=== PATIENT | female | born 1950 | race Caucasian/White ===

== ENCOUNTER → 2017-09-04 11:06 | Outpatient (CLI) | payer MEDICARE, OTHER, SELFPAY ==
[2017-09-04 12:21] LABS: ALB/GLOB Ratio 1.1 RATIO (0.9-2.4); AST(SGOT) 17 U/L (15-37); Alanine Aminotransfer ALT/SGPT 27 U/L (13-56); Albumin, Serum 3.9 g/dL (3.2-5.0); Alkaline Phosphatase 120 U/L (45-117); Anion Gap 8 (5-15); BUN 16 mg/dL (7-18); BUN/Creat Ratio 19.5 RATIO (10-20); Calcium,Total 9.8 mg/dL (8.5-10.1); Chloride 104 mmol/L (98-107); Creatinine, Serum 0.82 mg/dL (0.55-1.02); EST Glomerular Filtration Rate 74 mL/min (>60); Est Glom Filt Rate - Afr Amer 90 mL/min (>60); Globulin 3.5 g/dL (2.2-4.2); Glucose 90 mg/dL (74-106); Potassium 3.6 mmol/L (3.5-5.1); Protein, Total 7.4 g/dL (6.4-8.2); Sodium Level 141 mmol/L (136-145)
== END ==
PROVIDERS: Family Provider Family Medicine; PCP Family Medicine; Visit Provider Family Medicine
DX: I10 Essential (primary) hypertension (principal)
CPT/HCPCS: 36415; 80053

== ENCOUNTER → 2017-11-08 15:28 | Outpatient (CLI) | payer MEDICARE, OTHER, SELFPAY ==
--- NOTE | 2017-11-08 15:29 | BI_ITS ---
MAMMOGRAPHY - BILATERAL SCREENING REASON FOR EXAM: Female, 66 years old. Routine annual screening examination. PERTINENT HISTORY: Non-contributory. TECHNIQUE: Digital bilateral breast eusebio (3D mammographic acquisition) in the CC and MLO projections. 2-D mediolateral oblique (MLO) and craniocaudad (CC) views of both breasts were obtained. CAD: Full Field Digital Mammography with Computer Added Detection was performed. COMPARISON: Comparison is made with prior study dated October 03, 2016 and July 15, 2015. FINDINGS: Breast Composition: The breasts are almost entirely fatty. There are no dominant masses or suspicious calcifications. No other significant abnormalities are identified. There has been no significant change since the prior study. BI/SCREENING MAMM (CAD), BILAT IMPRESSION: Stable bilateral screening mammogram. Yearly follow-up mammogram recommended. (A) ASSESSMENT CATEGORY: BIRADS Category 1: Negative. A letter regarding these results will be sent to the patient by the facility within 30 days. Approximately 10% of breast cancers are not detected by mammography. A normal mammogram should not delay biopsy of a clinically suspicious abnormality. [id number] Electronically Signed: Jose Pino MD at 9:25 EDT Tel [phone], Service support ,
== END ==
PROVIDERS: Family Provider Family Medicine; PCP Family Medicine; Visit Provider Family Medicine
DX: Z12.31 Encounter for screening mammogram for malignant neoplasm of breast (principal)
CPT/HCPCS: 77063; 77067

== ENCOUNTER → 2018-12-05 11:59 | Outpatient (CLI) | payer MEDICARE, OTHER, SELFPAY ==
[2018-12-05 11:36] VITALS: BMI 34.0
[2018-12-05 12:42] LABS: Erythrocyte Sedimentation Rate 23 mm/hr (0-30)
[2018-12-05 12:48] LABS: Absolute Lymphocyte Count 0.84 X10^3/ul (0.83-4.51); Absolute Neutrophil Count 3.4 X10^3/uL (2.0-7.7); Basophil# 0.02 X10^3/uL; Basophil% 0.4 % (0-1); Eosinophil# 0.13 X10^3/uL; Eosinophils% 2.8 % (0-5); Hematocrit 42.5 % (37-47); Hemoglobin 14.4 g/dl (12.0-15.0); Lymphocyte # 0.84 X10^3/ul (4.0); Lymphocyte % 17.8 % (19-41); Mean Corp Hgb Conc 33.9 g/gl (32-36); Mean Corpuscular Hgb 30.8 pg (27.0-32.0); Mean Platelet Vol. 12.3 fl (6.2-12.0); Monocyte# 0.35 X10^3/uL; Monocyte% 7.4 % (0-10); Neutrophil # 3.37 X10^3/uL (2.7-7.7); Neutrophil % 71.4 % (47-70); Platelet Count 172 K/mm3 (150-450); RBC Distribution Width CV 13.4 % (11.6-14.6); RBC Distribution Width SD 44.2 fl (35.1-43.9); Red Blood Count 4.67 M/mm3 (4.2-5.4); White Blood Count 4.7 K/mm3 (4.4-11.0)
[2018-12-05 12:59] LABS: POSITIVE COUNT NO; POSITIVE DIFFERENTIAL NO; POSITIVE MORPHOLOGY NO
[2018-12-05 13:12] LABS: ALB/GLOB Ratio 1.2 RATIO (0.9-2.4); AST(SGOT) 19 U/L (15-37); Alanine Aminotransfer ALT/SGPT 31 U/L (13-56); Albumin, Serum 3.8 g/dL (3.2-5.0); Alkaline Phosphatase 117 U/L (45-117); Anion Gap 4 (5-15); BUN 19 mg/dL (7-18); BUN/Creat Ratio 24.9 RATIO (10-20); Calcium,Total 9.8 mg/dL (8.5-10.1); Chloride 108 mmol/L (98-107); Creatinine, Serum 0.76 mg/dL (0.55-1.02); EST Glomerular Filtration Rate 80 mL/min (>60); Est Glom Filt Rate - Afr Amer 97 mL/min (>60); Globulin 3.3 g/dL (2.2-4.2); Glucose 92 mg/dL (74-106); Potassium 3.9 mmol/L (3.5-5.1); Protein, Total 7.1 g/dL (6.4-8.2); Sodium Level 140 mmol/L (136-145); Thyroid Stim Hormone (TSH) 1.39 uIU/mL (0.358-3.74)
== END ==
PROVIDERS: Family Provider Family Medicine; PCP Family Medicine; Visit Provider Family Medicine
DX: I10 Essential (primary) hypertension (principal); L40.50 Arthropathic psoriasis, unspecified
CPT/HCPCS: 36415; 80053; 84443; 85025; 85652

== ENCOUNTER → 2018-12-06 13:37 | Outpatient (CLI) | payer MEDICARE, OTHER, SELFPAY ==
[2018-12-05 11:36] VITALS: BMI 34.0
--- NOTE | 2018-12-06 14:00 | RAD_ITS ---
STUDY: X-RAY - PELVIS AND LEFT HIP REASON FOR EXAM: Female, 68 years old. Pain. TECHNIQUE: 4 views of the pelvis and hip. COMPARISON: None. FINDINGS: There is a non-specific bowel gas pattern. Normal visualized soft tissue structures. There are multiple calcified phleboliths. There is narrowing with cortical sclerosis and osteophyte formation of the sacroiliac joint consistent with degenerative osteoarthritic changes. Normal iliac wings and visualized sacrum. Normal bilateral superior and inferior pubic rami. There are degenerative changes of the pubic symphysis with articular narrowing and sclerosis. Normal bilateral ischial tuberosities. There is a right artificial hip without evidence of acute abnormality. There are subchondral cysts within increased sclerosis of the articular surface of the femoral head. It is otherwise unremarkable. There is cortical sclerosis with sub-cortical cyst formation of the acetabulum. is severe articular joint space narrowing of the hip. RAD/HIP, UNI W/ Pelvis 2-3 Views IMPRESSION: 1. Marked degenerative changes left hip without fracture or dislocation. 2. Mild degenerative changes symphysis pubis and sacroiliac joints. 3. Intact right artificial hip. Electronically Signed: Rachid Farrell DO at 17:34 EDT Tel [phone], Service support ,
== END ==
PROVIDERS: Family Provider Family Medicine; PCP Family Medicine; Referring Provider Family Medicine; Visit Provider Family Medicine
DX: M19.90 Unspecified osteoarthritis, unspecified site (principal)
CPT/HCPCS: 73502

== ENCOUNTER → 2018-12-11 06:19 | Outpatient (CLI) | payer MEDICARE, OTHER, SELFPAY ==
[2018-12-05 11:36] VITALS: BMI 34.0
--- NOTE | 2018-12-11 14:38 | NEURO ---
NCS and/or EMG Patient Report Ordering Doctor: Ambrose Estrella DATE OF SERVICE: 12/11/18 Katy May is a 68-year-old female presents for electrodiagnostic testing of the lower limbs. She reports progressive weakness in both legs. She reports increased left hip pain. Electrodiagnostic findings: Peroneal motor nerve demonstrates normal distal latency, amplitude and conduction velocity bilaterally. Tibial motor response within normal limits bilaterally. Sensory responses within normal limits. Normal peroneal and tibial F waves. Normal H reflex bilaterally. On needle EMG, all muscles tested in the lower limb showed no evidence of denervation with normal motor unit action potentials. Electrodiagnostic impression: This is a normal electrodiagnostic study of the lower limbs. There is no electrodiagnostic evidence for lumbosacral radiculopathy or peripheral polyneuropathy. There is no electrodiagnostic evidence for myopathy. If there are any further questions, please not hesitate to contact me.
== END ==
PROVIDERS: Family Provider Family Medicine; PCP Family Medicine; Referring Provider Family Medicine; Visit Provider Family Medicine
DX: R29.898 Other symptoms and signs involving the musculoskeletal system (principal)
CPT/HCPCS: 95886; 95912

== ENCOUNTER → 2018-12-17 12:14 | Outpatient (CLI) | payer MEDICARE, OTHER, SELFPAY ==
[2018-12-05 11:36] VITALS: BMI 34.0
--- NOTE | 2018-12-17 12:16 | BI_ITS ---
MAMMOGRAPHY - BILATERAL SCREENING 3-D TOMOSYNTHESIS REASON FOR EXAM: Female, 68 years old. Bilateral Screening 3-D tomosynthesis PERTINENT HISTORY: No significant family history. TECHNIQUE: 2-D mammograms and 3-D Tomosynthesis of the breast (s) were performed. CAD was performed. COMPARISON: None. FINDINGS: The breast composition is composed of scattered fibroglandular density. Scattered benign calcifications are seen. No dense spiculated masses or suspicious microcalcifications are identified. No architectural distortion is identified. There is no skin thickening or retraction. There has been no significant change since the prior study. BI/SCREEN MAMM (CAD) W/BESSIE BILAT IMPRESSION: No mammographic signs of malignancy. Routine yearly mammograms recommended. ASSESSMENT CATEGORY: BIRADS Category 1: Negative. A letter regarding these results will be sent to the patient by the facility within 30 days. FOLLOW UP RECOMMENDATION: Yearly follow up mammogram recommended. (A) Approximately 10% of breast cancers are not detected by mammography. A normal mammogram should not delay biopsy of a clinically suspicious abnormality. Electronically Signed: Dontae Yadav MD at 14:15 EDT , Service support ,
== END ==
PROVIDERS: Family Provider Family Medicine; PCP Family Medicine; Referring Provider Family Medicine; Visit Provider Family Medicine
DX: Z12.31 Encounter for screening mammogram for malignant neoplasm of breast (principal)
CPT/HCPCS: 77063; 77067

== ENCOUNTER → 2019-01-03 09:43 | Outpatient (CLI) | payer MEDICARE, OTHER, SELFPAY ==
[2019-01-03 09:08] VITALS: BMI 34.0
--- NOTE | 2019-01-03 09:46 | EKG12_ITS ---
Test Reason : PRE-OP Blood Pressure : / mmHG Vent. Rate : 069 BPM Atrial Rate : 069 BPM P-R Int : 166 ms QRS Dur : 090 ms QT Int : 352 ms P-R-T Axes : 057 023 033 degrees QTc Int : 377 ms Normal sinus rhythm Normal ECG Confirmed by VANIA BARBER ([id number]), photographic editor NATHALIE PEREIRA ([id number]) on 01/06/2019 1:12:21 PM Referred By: Rudy Sparrow Confirmed By:VANIA BARBER
== END ==
PROVIDERS: Family Provider Family Medicine; PCP Family Medicine; Referring Provider Nurse Practitioner Family; Visit Provider Nurse Practitioner Family
DX: Z01.818 Encounter for other preprocedural examination (principal)
CPT/HCPCS: 93005

== ENCOUNTER → 2019-01-22 13:34 | Outpatient (CLI) | payer MEDICARE, OTHER, SELFPAY ==
[2019-01-20 11:05] VITALS: BMI 34.0
[2019-01-22 14:28] LABS: Albumin, Serum 3.6 g/dL (3.2-5.0)
== END ==
PROVIDERS: Family Provider Family Medicine; PCP Family Medicine; Referring Provider Specialist; Visit Provider Specialist
DX: Z01.812 Encounter for preprocedural laboratory examination (principal)
CPT/HCPCS: 36415; 82040

== ENCOUNTER 2019-02-05 07:11 | Inpatient (IN) | payer MEDICARE, OTHER, SELFPAY ==
[2019-01-03 09:08] VITALS: BMI 34.0
--- NOTE | 2019-01-20 09:15 | HP.PCM_ITS ---
History and Physical History and Physical Patient Name: Katy May : 1950 From: NADINE MCGOVERN PA-C DATE OF SURGERY: 02/05/2019 SCHEDULED PROCEDURE: left total hip arthroplasty HISTORY OF PRESENT ILLNESS: Preoperative history and physical exam was performed on January 20, 2019. This is a 68-year-old female who presents today for history and physical exam for an upcoming left total hip arthroplasty. She has been having pain for approximately 9 months in the left hip. Patient did have a previous surgery on the right for a total hip arthroplasty by Dr. Josh Luciano in 2006. Patient states her pain is been constant, aching, sharp, sore. Pain is increased with stairs, driving, and sleeping. She has required the use of tramadol. Patient has difficult time with activities of daily living including housework, leisure activities such as hiking, treadmill, and stationary bike. Patient has tried rest, heat with minimal relief. She has been on oral medications consisting of Aleve and tramadol with only temporary relief. Patient denies previous surgery on the left hip. She has been using a cane for the past 3 weeks. Patient has medical history pertinent for hypertension. She currently denies any recent chest pain, shortness of breath, fevers chills, recent infections. After failing conservative measures and discussing treatment options with Dr. Yuri Jasso, the patient would like to proceed with a left total hip arthroplasty. We are obtaining surgical clearance from patient's primary care physician. REVIEW OF SYSTEMS: ROS: Const: Denies anorexia, anxiety, change in appetite, fever and weight change,hard of hearing, and vision problems. CV: Denies chest pain, heart murmur, irregular heartbeat and peripheral vascular disease. Resp: Denies asthma, cough, pneumonia, sleep apnea, shortness of breath, tuberculosis and wheezing. GI: Denies constipation, diarrhea, heartburn, nausea, bloody stools and vomitin g, and difficulty swallowing. : Denies incontinence. Musculo: REPORTS leg swelling, trouble walking and weakness and limp. Skin: Denies Raynaud's, history of shingles and tattoo. Neuro: Denies ambulatory dysfunction, dizziness, numbness/tingling and tremor. Psych: Denies anxiety, depression, insomnia, mental illness and stress. Juan Daniel/Lymph: Denies anemia, bleeding/bruising tendency and past transfusion. Reviewed, no changes. PAST MEDICAL HISTORY: Advance Care Plan: Other Directive, POA Effective Date: 12/20/2018 PMH: Medical Problems: Arthritis, High Blood Pressure Accidents: None Surgical Hx: Carpal Tunnel Release Lt - (11/1988) Hip Replacement Rt - (10/2006) Appendectomy - did not have have Tubal Ligation - (02/1985) Section - (05/1977) 1978,November 1982,Dec 1984,1Oct Carpal Tunnel Release Rt - (10/1988) Knee Arthroscopy Rt - (01/1997) Section - X 4 Carpal Tunnel - BLT 1988 Appendectomy - RIGHT KNEE 1997 Hip Replacement - (11/07/2006) RIGHT [facility] Anesthesia Complications: None Assistive Devices: Glasses Reviewed, no changes. SOCIAL HISTORY: SH: Marital: .Occupation: Retired.Work Status: Retired.Hand Dominance: Right- handed. Personal Habits: Cigarette Use: Former.Smokeless Tobacco: Never Used Smokeless Tobacco.E-Cigarette Use: Never used.Alcohol: Denies use.Drug Use: Denies Use.Enjoy Exercising: Never Exercises. Reviewed, no changes. VITALS: Ht: 65 Wt: 203lb Wt k.081 BMI: 33.8 BP: 130/90 Pulse: 70 Resp: 16 T: 97.8 T: 36.6C ALLERGIES: No Known Drug Allergy MEDICATIONS: Ultram 50 mg 1 by mouth q6 hour as needed pain, Losartan Potassium/Hydroc hlorothiazide 100-25 mg 1po qday, Womens Multi 1po qday, Fish Oil 1000 mg 1po qday, Calcium 600+D3 600-200 MG-Unit 1po qday, Turmeric Curcumin 500 mg 1po qday PRE-OP EXAM: General appearance:NORMAL Other: Eyes: Conjunctivae and lids: NORMAL Pupils: ERR Ears, Nose, Mouth, and Throat: NORMAL Other: Inspection of lips, teeth and gums: NORMAL Other: Neck: Examination of neck: no masses noted. Respiratory: Assessment of respiratory effort: NORMAL Other: Auscultation of lungs: clear to auscultation no wheezes, rhonchi or rales. Cardiovascular: Auscultation of heart: regular rate and rhythm, no murmurs, gallops or rubs. Gastrointestinal: Exam of abdomen: soft, nontender, nondistended bowel sounds present. PHYSICAL EXAMINATION: Patient walks with antalgic gait. She is currently using a cane. Left hip is cool to touch without erythema. Patient has increased pain with flexion, internal rotation, and adduction. Patient has 10 left hip flexion contracture. Flexion to 65, internal rotation to neutral, external rotation 30. Sensation intact to light touch. IMAGING STUDIES: X-rays were obtained and [facility] [place] on 2018 of the left hip including 3 views AP pelvis, AP left hip, crossfire lateral reveals severe osteoarthritis consistent with complete joint space loss with subchondral sclerosis, osteophyte formation, and flattening of the femoral head. There is evidence of significant subchondral cyst with collapse versus avascular necrosis. IMPRESSION: 1. Severe left hip osteoarthritis 2. Hypertension PLAN: Dr. Yuri Jasso did discuss and review with the patient all treatment options including surgical versus nonsurgical options. Patient does wish to proceed with the above-stated procedure. Potential risks, benefits, and complications of the procedure were discussed in detail including but not limited to , infection, nerve and blood vessel damage, persistent pain, numbness, tingling, paresthesias, blood clot, pulmonary embolism, and requirement for possible further surgery. The patient expressed full understanding and has no further questions for the doctor. Patient does agree to proceed with the above-stated procedure and has signed the surgery consent form. This dictation was created using voice recognition software. Phonetic and/or grammatical errors may exist.. ___ I have re-examined the patient. There are no clinical changes since date of exam. ___ See progress notes for changes. ___ Dictated on admission Date: Time: Signature:
[2019-01-20 11:05] VITALS: BP 126/70; PULSE 80; RESP 16; TEMP 36.8; O2SAT 94; BMI 34.0
[2019-01-20 11:50] LABS: Absolute Lymphocyte Count 0.84 X10^3/uL (0.83-4.51); Absolute Neutrophil Count 3.4 X10^3/uL (2.0-7.7); Basophil# 0.03 X10^3/uL; Basophil% 0.6 % (0-1); Eosinophil# 0.12 X10^3/uL; Eosinophils% 2.5 % (0-5); Hematocrit 43.3 % (37-47); Hemoglobin 14.5 g/dL (12.0-15.0); Lymphocyte # 0.84 X10^3/ul (4.0); Lymphocyte % 17.6 % (19-41); Mean Corp Hgb Conc 33.5 g/dL (32-36); Mean Corpuscular Hgb 31.4 pg (27.0-32.0); Mean Corpuscular Volume 93.7 fL (81-99); Mean Platelet Vol. 11.8 fl (6.2-12.0); Monocyte# 0.38 X10^3/uL; Monocyte% 7.9 % (0-10); NRBC Flagged by Analyzer 0 % (0-5); Neutrophil % 71.2 % (47-70); Platelet Count 172 K/mm3 (150-450); RBC Distribution Width CV 12.8 % (11.6-14.6); RBC Distribution Width SD 43.6 fl (35.1-43.9); Red Blood Count 4.62 M/mm3 (4.2-5.4); White Blood Count 4.8 K/mm3 (4.4-11.0)
[2019-01-20 12:19] LABS: BUN 21 mg/dL (7-18); Creatinine, Serum 0.87 mg/dL (0.55-1.02); Glucose 108 mg/dL (74-106)
[2019-01-20 12:20] LABS: Anion Gap 5 (5-15); BUN/Creat Ratio 24.2 RATIO (10-20); Calcium,Total 9.9 mg/dL (8.5-10.1); Chloride 107 mmol/L (98-107); EST Glomerular Filtration Rate 69 mL/min (>60); Est Glom Filt Rate - Afr Amer 84 mL/min (>60); Estimated Creatinine Clearance 55.69 ml/min; Potassium 3.8 mmol/L (3.5-5.1); Sodium Level 141 mmol/L (136-145)
[2019-02-05] VITALS (10 sets, daily range): BP systolic 101–150; BP diastolic 47–77; PULSE 62–86; RESP 16–19; TEMP 36.2–37.1; O2SAT 93–99; BMI 34.0
[2019-02-05] MEDS: Lactated Ringers 1,000 ML 999 ML IV (08:00)
[2019-02-05 08:11] LABS: Bedside Glucose 93 mg/dL (70-110)
[2019-02-05] MEDS: Acetaminophen 500 MG Tablet 1000 MG PO ×3 (08:12→22:58)
[2019-02-05] MEDS: Celecoxib 200 MG Capsule 400 MG PO (08:12)
[2019-02-05] MEDS: Gabapentin 600 MG Tablet PO (08:12)
[2019-02-05] MEDS: Scopolamine 1mg/72hr Patch 1 PATCH TRANSDERM. (08:13)
[2019-02-05] MEDS: Magnesium Sulfate 4gm/100mL 4 GM/100 ML IV.SOLN. IV (08:13)
--- NOTE | 2019-02-05 09:15 | RAD_ITS ---
STUDY: X-RAY - PELVIS AND LEFT HIP REASON FOR EXAM: Female, 68 years old. Left hip replacement. TECHNIQUE: 2 views of the pelvis and hip. COMPARISON: None. FINDINGS: The patient is status post left total hip replacement. There is good alignment. RAD/Hip 1 view with Pelvis IMPRESSION: Status post left hip replacement. Electronically Signed: Jose Pino, at 13:33 EDT , Service support ,
[2019-02-05] MEDS: Cefazolin 2 GM in 0.9% Normal Saline 100 ML IV (09:43)
[2019-02-05] MEDS: Lactated Ringers 1,000 ML 125 ML IV ×3 (10:00→20:04)
[2019-02-05] MEDS: dexAMETHasone 10 MG/ML Vial IV (10:00)
--- NOTE | 2019-02-05 11:11 | OP.PCM_ITS ---
Report of Operation Date of Procedure: 02/05/19 Pre-Operative Diagnosis: Left hip primary osteoarthritis Post-Operative Diagnosis: Left hip primary osteoarthritis Surgery/Procedure Performed:: Left direct anterior minimally invasive total hip replacement Description of Surgical Findings:: Stable hip with equal leg lengths brimmer blocker: Lalita Roman Type of Anesthesia:: Spinal Anesthesiologist: Po Bah Special Medications: 2 g Ancef, 1 g TXA at incision, 1 g TXA closure, 10 mg Decadron, joint cocktail (5 mg Duramorph, 30 mL of 0.5% Ropivicaine, 1000 units of epinephrine, 30 mg of Toradol) Specimen's removed: Bony cuts Estimated Blood Loss (mL): 150 Fluids Replaced: 2 L crystalloid Description of Procedure: Components used: 1. Accolade 2 Alma femoral stem size 4 132 ? 2. Alma trident 2 acetabular shell size 52 mm 3. Kevin X3 polyethylene E 4. Alma Biolox delta 36mm, -2.5mm femoral head Brief history operative indications: 68yo female who failed conservative measures for their hip osteoarthritis. X- rays were consistent with osteoarthritis including joint space narrowing, osteophyte formation and subchondral cysts. Total hip replacement was discussed with the patient with risks and benefits including but not limited to blood loss, DVTs, PEs, neurovascular damage, dislocation, general risks of anesthesia including loss of life. Patient demonstrated an understanding medical clearance is obtained the patient was consented for surgery. Procedure: On the date of procedure the patient's left hip was marked in the preoperative area. Patient was then taken back to the operating room where anesthesia assumed control of the C-spine and airway and administered anesthetic. Patient was transferred to the operating table and placed in the supine position. The hips were placed at the break of the bed and a sacral bump was placed. The left lower extremity was then prepped out in a sterile fashion using chlorhexidine while the surgeon scrubbed. The PA was vital in the positioning of the patient. Upon reentering the room the left lower extremity was draped in the standard orthopedic fashion and the incision was marked. A timeout was called and everyone agreed upon the side, the site, the procedure be performed, antibody given, and patient's identity. At this time incision was made through skin, subcutaneous tissue, and fat down to fascia. The fascia was then incised and the TFL was retracted laterally. A retractor was placed on the lateral border of the femoral neck. Attention was directed to the inferior portion of the approach and all crossing vessels were identified and appropriately coagulated. A retractor was then placed on the medial portion of the femoral neck. The anterior capsule was then cleared of all soft tissue and then H shaped capsulotomy was made. The retractors were then placed inside the capsule. The femoral neck was identified and a cleanup cut was made. At this time a power corkscrew was used to remove the femoral head. Attention was then turned toward the acetabulum where the soft tissues were appropriately retracted and the acetabulum was sequentially reamed to 52 mm. A 52 mm cup was then selected and impacted into place. Acetabular liner was impacted into place and locking mechanism was verified. The position of the acetabular cup was then verified under live fluoroscopy. Attention was then turned to the femur. Soft tissue releases on the medial and lateral femoral neck were appropriately done, the leg was externally rotated and lateralized. A Sweet retractor was placed medially and proximally to the greater trochanter this allowed appropriate visualization and exposure of the femoral canal. Rongeour was then used to remove excess lateral bone. A canal finder and entry broach were used to open the proximal canal. Once we verified we were down the femoral canal we subsequently broached up to a size 4 femur. The appropriate neck was placed in the previously selected head was trialed with a -2.5 mm neck. Traction was pulled and the hip was reduced with internal rotation. Once it was appropriately reduced and stability was checked. There was minimal shuck, equal leg lengths and appropriate stability with hype rextension and external rotation as well as with 90? flexion and internal rotation. Fluoroscopy was then also used to verify the position of the components and leg lengths using the contralateral side for comparison. The trial components were then dislocated the proximal femur was again exposed and the components were removed from the wound. The final components were verified and opened. The wound was copiously irrigated out with normal saline. The acetabulum was checked for any residual debris. The final components were placed and impacted. Traction and internal rotation were again used to reduce the hip. After adequate reduction the hip remained stable with appropriate leg lengths. The final components were once again checked with live fluoroscopy and were found to be satisfactory. The wound was then copiously irrigated with normal saline once more, and hemostasis was obtained. Closure was then done using #1 Vicryl runner to close the fascia. A 2-0 vicryl interuppted sutures were used to close the subcutaneous skin. A 3-0 Monocryl and Steri-Strips were used for final skin closure. A Silverlon dressing was placed. Patient was awakened by anesthesia and transferred to the [facility]. Patient was then transferred to the PACU for recovery. Postoperative plan: Patient will get 24 hours postop antibiotics. Patient will get in-house physical therapy and will be weight-bear as tolerated. Patient will follow up in office in 2 weeks for a wound check and x-rays. Grafts/Implants Used: Alma - Complications No intraoperative complications - Admit VTE Documentation VTE Present on Admission: No VTE Mechan Device Prophylaxis: SCD's, Thigh High KENZIE Hose VTE Pharm Prophylaxis ordered?: Yes
--- NOTE | 2019-02-05 11:50 | RAD_ITS ---
STUDY: X-RAY - PELVIS AND LEFT HIP REASON FOR EXAM: Female, 68 years old. Total hip replacement. TECHNIQUE: Tube views of the pelvis and hip. COMPARISON: None. FINDINGS: The patient is status post left hip replacement. There is good alignment. Postoperative soft tissue changes. RAD/Hip Min 2 Views (Portable) IMPRESSION: Status post left total hip replacement. There is good alignment. Postoperative soft tissue changes. Electronically Signed: Jose Pino, at 13:22 EDT , Service support ,
[2019-02-05] MEDS: Calcium Carb/Vitamin D 1 TABLET Tablet PO (13:40)
[2019-02-05] MEDS: Omega-3 Acid Ethyl Esters 1 GM Capsule PO (13:40)
[2019-02-05] MEDS: Multivitamins,Ther W-Minerals Tablet 1 TABLET PO (13:40)
[2019-02-05] MEDS: Aspirin 81 MG TAB.CHEW PO ×2 (13:40→17:17)
[2019-02-05] MEDS: Famotidine 20 MG Tablet PO (13:40)
[2019-02-05] MEDS: Losartan Potassium 100 MG Tablet PO (13:41)
[2019-02-05] MEDS: Senna/Docusate Sodium 1 Tablet 2 TABLET PO ×2 (13:41→22:59)
[2019-02-05] MEDS: hydroCHLOROthiazide 12.5mg 12.5 MG PO (13:41)
[2019-02-05] MEDS: Ensure Surgery 237 ML LIQUID PO (17:17)
[2019-02-05] MEDS: Cefazolin 1 GM/50 ML BAG IV (17:17)
[2019-02-06] MEDS: Cefazolin 1 GM/50 ML BAG IV (01:14)
[2019-02-06] MEDS: Ketorolac 15 MG/ML Vial IV (01:17)
[2019-02-06 02:00] VITALS: BP 121/67; PULSE 64; RESP 18; TEMP 37.1; O2SAT 97
[2019-02-06] MEDS: Lactated Ringers 1,000 ML 125 ML IV (03:47)
[2019-02-06] MEDS: oxyCODONE 5 MG Tablet PO ×2 (03:49→11:06)
[2019-02-06] MEDS: Acetaminophen 500 MG Tablet 1000 MG PO ×2 (05:53→13:30)
[2019-02-06 05:59] LABS: Hematocrit 34.8 % (37-47); Hemoglobin 11.6 g/dL (12.0-15.0); Mean Corp Hgb Conc 33.3 g/dL (32-36); Mean Corpuscular Hgb 31.1 pg (27.0-32.0); Mean Corpuscular Volume 93.3 fL (81-99); Mean Platelet Vol. 12.3 fl (6.2-12.0); Platelet Count 159 K/mm3 (150-450); RBC Distribution Width CV 12.5 % (11.6-14.6); RBC Distribution Width SD 43.1 fl (35.1-43.9); Red Blood Count 3.73 M/mm3 (4.2-5.4); White Blood Count 15.8 K/mm3 (4.4-11.0)
[2019-02-06 06:13] LABS: Anion Gap 6 (5-15); BUN 17 mg/dL (7-18); Calcium,Total 8.9 mg/dL (8.5-10.1); Chloride 109 mmol/L (98-107); Creatinine, Serum 0.74 mg/dL (0.55-1.02); EST Glomerular Filtration Rate 83 mL/min (>60); Est Glom Filt Rate - Afr Amer 101 mL/min (>60); Estimated Creatinine Clearance 48.45 ml/min; Glucose 126 mg/dL (74-106); Potassium 3.9 mmol/L (3.5-5.1); Sodium Level 142 mmol/L (136-145)
--- NOTE | 2019-02-06 09:29 | PN.ORTHO_ITS ---
Subjective: The patient was sitting in bedside chair upon examination. Patient denies any chest pain, shortness of breath, dizziness, lightheadedness, nausea or vomiting, or calf pain. Pain is controlled on medications. No adverse overnight events. Overall patient is doing very well. She has participated in physical therapy and tolerated this very well. She has minimal pain. Patient does wish to go home today. Objective: Vital signs stable and afebrile. Patient is able to plantarflex and dorsiflex actively. Sensation is intact to light touch to saphenous, sural, superficial and deep peroneal, and tibial distribution. Dressing is clean dry and intact. Negative Homans bilaterally, negative signs and symptoms of DVT. - Physical Exam General: Alert, Oriented x3, Cooperative, No apparent distress Vital Signs Temp Pulse Resp BP Pulse Ox 98.8 F 64 18 121/67 H 97 02/06/19 02:00 02/06/19 02:00 02/06/19 02:00 02/06/19 02:00 02/06/19 02:00 Oxygen Flow Rate (L/min) 6 Oxygen Delivery Method Room Air Weight: 92.6 kg Body Mass Index (BMI) 34.0 Intake and Output for Last 24 Hours 02/04/19 02/05/19 02/06/19 23:59 23:59 23:59 Intake Total 3115.42 / 4157.09 1914.59 / 1914.59 Output Total 500 / 1700 1700 / 1700 Balance 2615.42 / 2457.09 214.59 / 214.59 Laboratory Tests Past 24 Hrs 02/06/19 02/06/19 05:42 05:42 WBC 15.8 H RBC 3.73 L Hgb 11.6 L Hct 34.8 L MCV 93.3 MCH 31.1 MCHC 33.3 RDW Std Deviation 43.1 RDW Coeff of Bret 12.5 Plt Count 159 MPV 12.3 H Sodium 142 Potassium 3.9 Chloride 109 H Carbon Dioxide 27.0 Anion Gap 6 BUN 17 Creatinine 0.74 Estim Creat Clear Calc 48.45 Est GFR (MDRD) Af Amer 101 Est GFR (MDRD) Non-Af 83 BUN/Creatinine Ratio 23.0 H Glucose 126 H Calcium 8.9 Medical Necessity - Tobacco Use Smoking Status: Former smoker Tobacco Use: Non-smoker Assessment/Plan 1. S/P left direct anterior total hip arthroplasty POD #1 2. Continue Pain Medications: Tylenol and OxyIR 3. DVT Prophylaxis: Aspirin 81 mg twice daily for DVT prophylaxis for 4 weeks postoperatively 4. PT/OT: Weightbearing as tolerated 5. H & H: 11.6/34.8, asymptomatic 6. Reactive leukocytosis: Currently 15.8, afebrile. Patient did receive Decadron intraoperatively. 7. Encouraged Incentive Spirometry 8. Disposition: Plan will be for discharge home today. Prescriptions will be attached to chart. Patient asked if she is able to take the tramadol that she just filled at home. I recommended she continue with the extra strength Tylenol primarily for pain control and is okay to take the tramadol. Patient will be given a prescription for the OxyIR but will not get it filled. If tramadol is not controlling her pain she will then get the oxycodone filled. I discussed with her she should never be taking 2 narcotics at one time. She voiced under standing agreement. Patient will follow-up per postop instructions..
--- NOTE | 2019-02-06 09:36 | DCINST_ITS ---
Discharge Diet: No Restrictions Discharge Activity: May Not Drive - while taking narcotic pain medications. May shower in (days): 1 - Turn dressing away from water Ice area for (Minutes): 20 - Every 1-2 hours while awake Weight Bearing Status: Weight bearing as tolerated Elevate: Operative Extremity Additional Activity Instructions:: Wear elastic stockings for 2 weeks. DO NOT use alcohol with narcotic pain medication. DO NOT make important decisions while taking narcotic medication. If you have problems with taking your medication (rash, itching, nausea, etc.) call the office at once. Call your doctor if your incision/area has: Increased Pain/ Swelling, Increased Redness, Foul Smelling Discharge Call your doctor if you observe: Fever of 101 or Higher Remove Dressing in (days):: 4 - Okay to remove dressing on February 10, 2019 Additional Instructions: Follow with [facility] postop instructions Dressing: Once dressing has been removed, please place ABD/4 x 4 dressing/washcloth in the skinfold to protect the incision to keep it clean and dry. This should be done for a minimum of 4 weeks until incision is well-healed Pain medication: Okay to use extra strength Tylenol for primary pain control and tramadol at home. Patient has prescription of tramadol at home and will use this if it controls her pain. Patient will be given a prescription for the oxycodone but will not get it filled. If tramadol does not control her pain she can then switch over to the oxycodone for breakthrough pain. Do not take to narcotics at the same time. Allergies/Adverse Reactions: Allergies No Known Allergies Allergy (Verified 01/20/19 11:00) Medications to take at Discharge calcium carb-vit D3-minerals 600 mg calcium-400 unit tablet 1 tab PO QDAY 08/30/17 tdrupaqwjbhl-Ce-jbkt-minerals tablet 1 tab PO DAILY 08/30/17 omega-3 fatty acids 1,000 mg capsule 1,000 mg PO DAILY 01/03/19 Losartan/Hydrochlorothiazide [Hyzaar 100-12.5 Tablet] 1 tab PO QDAY 01/20/19 Acetaminophen [Tylenol] 1,000 mg PO Q8 #100 tab 02/06/19 Aspirin [Aspirin, Baby] 81 mg PO BIDCM #60 tab.chew 02/06/19 Oxycodone [Oxyir] 5 - 10 mg PO Q4H PRN PRN 4 Days #30 tab 02/06/19 Senna/Docusate Sodium [Senokot-S] 2 tab PO BID #20 tab 02/06/19 The following prescriptions were given: Aspirin [Aspirin, Baby] 81 mg PO BIDCM #60 tab.chew Prescription Printed Oxycodone [Oxyir] 5 - 10 mg PO Q4H PRN PRN 4 Days #30 tab PRN Reason: Mod-Severe Pain (-03/06) Prescription Printed Senna/Docusate Sodium [Senokot-S] 2 tab PO BID #20 tab Prescription Printed Acetaminophen [Tylenol] 1,000 mg PO Q8 #100 tab Prescription Printed Primary Care Physician: Ambrose Estrella DO [Primary Care Provider] - Test Results: Test results from this visit will be discussed in further detail at your follow- up appointment, if applicable. Please Follow Up With: Physical Therapy When: 02/10/19 @ 11:00 Please Follow Up With: Lambert Rico PA-C When: 02/19/19 @ 11:00 am
--- NOTE | 2019-02-06 09:40 | CASEMGMT ---
RN NATALIA Face to Face with patient for initial transition planning/care coordination assessment. RN CM introduced self and role at [facility]. Patient sitting in chair, alert and oriented, at bedside. Patient willing to participate in assessment and is able to answer all questions appropriately. Care providers, pharmacy, and demographics verified. Patient wishes to discharge home and is setup with [facility] for outpatient therapy. Patient states she has no further needs or concerns at this time. CM to follow for discharge planning needs that may arise. PCP: Sameer Specialists: Louisa Patel Pharmacy: [facility] Insurance: [facility], MMO Prescription Benefit: yes Living Will/HPOA: yes, Matthew May HPOA LNOK: , Daughter Living Arrangements: Patient lives with in 2 story home with bed and bath on first floor. Patient has 2 steps to enter the home. Transportation: DME/HHC: Patient has raised toilet, cane, walker. Patient denies previous HHC. Disposition Plan: Patient to discharge home with family support and follow-up plans in place. Kyara RAY, RN, CM
[2019-02-06 09:45] VITALS: BP 112/52; PULSE 68; RESP 16; TEMP 36.6; O2SAT 97
[2019-02-06] MEDS: Multivitamins,Ther W-Minerals Tablet 1 TABLET PO (11:06)
[2019-02-06] MEDS: Senna/Docusate Sodium 1 Tablet 2 TABLET PO (11:08)
[2019-02-06] MEDS: Aspirin 81 MG TAB.CHEW PO (11:08)
[2019-02-06] MEDS: Losartan Potassium 100 MG Tablet PO (11:10)
[2019-02-06] MEDS: Famotidine 20 MG Tablet PO (11:10)
[2019-02-06] MEDS: Omega-3 Acid Ethyl Esters 1 GM Capsule PO (11:10)
[2019-02-06] MEDS: hydroCHLOROthiazide 12.5mg 12.5 MG PO (11:10)
[2019-02-06] MEDS: Calcium Carb/Vitamin D 1 TABLET Tablet PO (11:11)
[2019-02-06] MEDS: Ensure Surgery 237 ML LIQUID PO (11:18)
[2019-02-06 13:33] VITALS: BP 113/56; PULSE 68; RESP 18; TEMP 36.8; O2SAT 99
== END 2019-02-06 13:58 | disposition home or self-care (01) | DRG 470 ==
LOC: ACINP 08:16 → MS3 10:51
PROVIDERS: Admitting Provider Specialist; Family Provider Family Medicine; PCP Family Medicine; Referring Provider Specialist; Visit Provider Specialist
PROC: 0SRB02A Replacement of Left Hip Joint with Metal on Polyethylene Synthetic Substitute, Uncemented, Open Approach (ICD-10-PCS; CPT 27284; principal; 2019-02-05 08:50)
DX: M16.12 Unilateral primary osteoarthritis, left hip (principal); I10 Essential (primary) hypertension; D72.828 Other elevated white blood cell count; Z79.899 Other long term (current) drug therapy; Z96.641 Presence of right artificial hip joint; Z87.891 Personal history of nicotine dependence
CPT/HCPCS: 36415; 73501; 73502; 76000; 80048; 82962; 85025; 85027; 87081; 97110; 97162; 97166; 97530; 97535; 99251; C1776; J7120; G0463

== ENCOUNTER 2020-08-03 13:17 | Outpatient (RCR) | payer MEDICARE, OTHER, SELFPAY ==
[2019-02-05 07:45] VITALS: BMI 34.0
[2020-08-03] MEDS: COVID-19 VACC, MRNA(PFIZER)/PF 30 MCG/0.3 ML SYRINGE IM (12:10)
[2020-08-24] MEDS: COVID-19 VACC, MRNA(PFIZER)/PF 30 MCG/0.3 ML SYRINGE IM (12:00)
== END 2020-11-02 23:59 ==
LOC: IMMUN 13:17
PROVIDERS: PCP Family Medicine; Visit Provider Family Medicine
DX: Z23 Encounter for immunization (principal)
CPT/HCPCS: 0001A; 0002A; 91300

== ENCOUNTER → 2020-10-06 15:53 | Outpatient (CLI) | payer MEDICARE, OTHER, SELFPAY ==
[2020-10-06 15:34] VITALS: BMI 34.0
[2020-10-06 17:17] LABS: ALB/GLOB Ratio 1.2 RATIO (0.9-2.4); AST(SGOT) 17 U/L (15-37); Alanine Aminotransfer ALT/SGPT 31 U/L (13-56); Albumin, Serum 3.8 g/dL (3.2-5.0); Alkaline Phosphatase 108 U/L (45-117); Anion Gap 3 (5-15); BUN 21 mg/dL (7-18); BUN/Creat Ratio 23.4 RATIO (10-20); Calcium,Total 10.2 mg/dL (8.5-10.1); Chloride 107 mmol/L (98-107); EST Glomerular Filtration Rate 66 mL/min (>60); Est Glom Filt Rate - Afr Amer 80 mL/min (>60); Globulin 3.3 g/dL (2.2-4.2); Glucose 95 mg/dL (74-106); Potassium 3.9 mmol/L (3.5-5.1); Protein, Total 7.1 g/dL (6.4-8.2); Sodium Level 139 mmol/L (136-145)
== END ==
PROVIDERS: PCP Family Medicine; Referring Provider Family Medicine; Visit Provider Family Medicine
DX: I10 Essential (primary) hypertension (principal)
CPT/HCPCS: 36415; 80053

== ENCOUNTER → 2020-10-08 12:37 | Outpatient (CLI) | payer MEDICARE, OTHER, SELFPAY ==
[2020-10-06 15:34] VITALS: BMI 34.0
--- NOTE | 2020-10-08 12:39 | BI_ITS ---
MAMMOGRAPHY - BILATERAL SCREENING REASON FOR EXAM: Female, 69 years old. Routine annual screening examination. PERTINENT HISTORY: Non-contributory. TECHNIQUE: Digital bilateral breast bessie (3D mammographic acquisition) in the CC and MLO projections. 2-D mediolateral oblique (MLO) and craniocaudad (CC) views of both breasts were obtained. CAD: Full Field Digital Mammography with Computer Added Detection was performed. COMPARISON: Comparison is made with prior study dated 12/17/2018 and 11/08/2017. FINDINGS: Breast Composition: The breasts are almost entirely fatty. There are no dominant masses or suspicious calcifications. No other significant abnormalities are identified. There has been no significant change since the prior study. BI/SCRN MAMM (CAD)W/BESSIE BILAT IMPRESSION: Stable bilateral screening mammogram. Yearly follow-up mammogram recommended. (A) ASSESSMENT CATEGORY: BIRADS Category 1: Negative. A letter regarding these results will be sent to the patient by the facility within 30 days. Approximately 10% of breast cancers are not detected by mammography. A normal mammogram should not delay biopsy of a clinically suspicious abnormality. [id number] Electronically Signed: Jose Pino MD at 13:24 EDT , Service support ,
== END ==
PROVIDERS: PCP Family Medicine; Referring Provider Family Medicine; Visit Provider Family Medicine
DX: Z12.31 Encounter for screening mammogram for malignant neoplasm of breast (principal)
CPT/HCPCS: 77063; 77067

== ENCOUNTER → 2021-09-29 | Outpatient (CLI) | payer MEDICARE, OTHER, SELFPAY ==
[2021-09-29 12:50] LABS: ALB/GLOB Ratio 1.1 RATIO (0.9-2.4); AST(SGOT) 18 U/L (15-37); Alanine Aminotransfer ALT/SGPT 32 U/L (13-56); Albumin, Serum 3.7 g/dL (3.2-5.0); Alkaline Phosphatase 99 U/L (45-117); Anion Gap 5 (5-15); BUN 17 mg/dL (7-18); BUN/Creat Ratio 18.7 RATIO (10-20); Calcium,Total 9.9 mg/dL (8.5-10.1); Chloride 107 mmol/L (98-107); Creatinine, Serum 0.91 mg/dL (0.55-1.02); EST Glomerular Filtration Rate 65 mL/min (>60); Est Glom Filt Rate - Afr Amer 78 mL/min (>60); Globulin 3.4 g/dL (2.2-4.2); Glucose 97 mg/dL (74-106); Protein, Total 7.1 g/dL (6.4-8.2); Sodium Level 140 mmol/L (136-145)
== END | disposition home or self-care (01) ==
LOC: BIMLAB 10:47
PROVIDERS: PCP Family Medicine; Referring Provider Family Medicine; Visit Provider Family Medicine
DX: I10 Essential (primary) hypertension (principal)
CPT/HCPCS: 36415; 80053

== ENCOUNTER → 2021-10-10 | Outpatient (CLI) | payer MEDICARE, OTHER, SELFPAY ==
--- NOTE | 2021-10-10 14:59 | BI_ITS ---
MAMMOGRAPHY - BILATERAL SCREENING REASON FOR EXAM: Female, 70 years old. Routine annual screening examination. PERTINENT HISTORY: Non-contributory. TECHNIQUE: Digital bilateral breast bessie (3D mammographic acquisition) in the CC and MLO projections. 2-D mediolateral oblique (MLO) and craniocaudad (CC) views of both breasts were obtained. CAD: Full Field Digital Mammography with Computer Added Detection was performed. COMPARISON: Comparison is made with prior study of 10/08/2020 and 12/17/2018. FINDINGS: Breast Composition: The breasts are almost entirely fatty. There are no dominant masses or suspicious calcifications. No other significant abnormalities are identified. There has been no significant change since the prior study. BI/SCRN MAMM (CAD)W/BESSIE BILAT IMPRESSION: Stable bilateral screening mammogram. Yearly follow-up mammogram recommended. (A) ASSESSMENT CATEGORY: BIRADS Category 1: Negative. A letter regarding these results will be sent to the patient by the facility within 30 days. Approximately 10% of breast cancers are not detected by mammography. A normal mammogram should not delay biopsy of a clinically suspicious abnormality. [id number] Electronically Signed: Jose Pino MD at 8:18 EDT ,
== END | disposition home or self-care (01) ==
LOC: OPBI 14:58
PROVIDERS: PCP Family Medicine; Visit Provider Family Medicine
DX: Z12.31 Encounter for screening mammogram for malignant neoplasm of breast (principal)
CPT/HCPCS: 77063; 77067

== ENCOUNTER 2022-09-29 12:00 | Outpatient (RCR) | payer MEDICARE, OTHER, SELFPAY ==
--- NOTE | 2022-09-07 14:05 | HP.PTEVAL ---
Patient's Visit Information ANGELA BETANCUR is a 71 year old F referred to Physical Therapy by VALDEZ Hernandez with a diagnosis of L achilles tendonitis. Date of Evaluation: 09/07/22 Physical Therapist: Raz Hsu, PT, ATC - Visit Plan Frequency: 2-3x /Week Duration: 3 Weeks Plan: L achilles stretching, DTR, stick rollout, US, and HEP - Subjective Pt reports L achilles has been sore for approximately 3 weeks. Pt reports her pain had an insidious onset in nature. Pt reports she had been working out at [employer] and the treadmill was very difficult, but never caused her pain. Pt reports she has had no Dx testing at this time. Pt denies tingling or numbness in L LE. Pt reports she has sleep difficulty at times secondary to pain. Pt reports walking usually provokes her pain, but notes she has pain at times even when she is just resting. Pt reports icing will help to relieve her pain some, but nothing really helps when she is sore. Pt describes her pain as throbbing. Pt denies pain in R LE. Pt reports she has not been stretching her LE's at this time. 1/10 pain while sitting here in the clinic, 8/10 pain at worst (with prolonged ambulation) - Pain L achilles Pain Intensity (Out of 10): 1 Pain Intensity Range: 8 - Objective Neuro: B LE sensation is WNL to light touch. B patellar tendon reflex= 2/3. Palpation: Pt is very tender on the patellar tendon mid substance. Minor thickening of the tendon noted. ROM: R ankle DF= 4, PF= 55; L ankle DF= 4, PF= 55 degrees. MMT: R ankle DF= 29, PF= 36 #F; L ankle DF= 34, PF= 14 #F - Balance/Special Test Scores Lower Extremity Functional Score: 36 - Goals Goal 1:: Decrease L achilles pain x 50% to aid with sleep Goal Time Frame: 2-4 Weeks Goal 2:: Increase L PF strength x 10 #F to aid with increasing tolerance for ambulation. Goal Time Frame: 2-4 Weeks Goal 3:: Increase DF ROM x 10 degrees to aid with decreasing pain Goal Time Frame: 2-4 Weeks Goal 4:: I with HEP Goal Time Frame: 2-4 Weeks - Rehabilitation Potential Physical Therapy Diagnosis: L heel pain, weakness, and limited ROM secondary to L achilles tendonitis Rehabilitation Potential: Good - Anticipated Interventions Patient/Client Instruction: Educate patient on: Condition, Plan of Care For the Purpose of:: To improve self management Therapeutic Exercise to Include: Flexibilty training, Active ROM For the Purpose of:: To decrease pain, To increase ROM Manual Therapy Techniques to Include: Soft tissue mobilization For the Purpose of:: To decrease pain, To increase ROM Ultrasound (thermal/non thermal): Yes For the Purpose of:: To decrease pain Thank you for the opportunity to evaluate your patient. For Medicare and Medicare HMO plans, please review the plan of care and approve it. It will need to be FAXED BACK to us at [phone] for Medicare purposes. For Medicare only, by signing this I certify the plan of care. Please let me know if there are questions or concerns regarding this plan of care. Physician Signature: Date:
--- NOTE | 2022-09-29 12:38 | HP.PTREVAL ---
VALDEZ Hernandez, It has been my pleasure to treat ANGELA BETANCUR over the last 10 visits for L achilles tendonitis. Please see the progress note below for an update on the physical therapy plan of care! Subjective: Pt reports she is ready for discharge at this time Objective/Function: L achilles pain ranges from 0-1/10. L ankle DF ROM 14 degrees. L ankle PF MMT: 34 #F. Pt is I with HEP and has achieved Rx goals. Plan Plan: Discharge to [facility] Balance/Gait/Functional tests - Balance/Special Test Scores Lower Extremity Functional Score: 63 Goals Goal 1:: Decrease L achilles pain x 50% to aid with sleep Goal Time Frame: 2-4 Weeks Goal Progress: Goal Met Goal 2:: Increase L PF strength x 10 #F to aid with increasing tolerance for ambulation. Goal Time Frame: 2-4 Weeks Goal 3:: Increase DF ROM x 10 degrees to aid with decreasing pain Goal Time Frame: 2-4 Weeks Goal 4:: I with HEP Goal Time Frame: 2-4 Weeks Goal Progress: Goal Met Anticipated Interventions Patient/Client Instruction: Educate patient on: Condition, Plan of Care For the Purpose of:: To improve self management Therapeutic Exercise to Include: Flexibilty training, Active ROM For the Purpose of:: To decrease pain, To increase ROM Manual Therapy Techniques to Include: Soft tissue mobilization For the Purpose of:: To decrease pain, To increase ROM Ultrasound (thermal/non thermal): Yes For the Purpose of:: To decrease pain Please do not hesitate to contact me at [phone] by phone or if you have questions or concerns regarding this new plan of care! Sincerely, Raz Hsu, PT, ATC
--- NOTE | 2022-09-29 12:44 | HP.PTDCSUM_ITS ---
It has been my pleasure to treat ANGELA BETANCUR referred by VALDEZ Hernandez, with the diagnosis of L achilles tendonitis for a total of 10 visit(s). Discharge Date: Please see the following information for a summary of their discharge status. Subjective: Pt reports she is ready for discharge at this time L achilles Pain Intensity (Out of 10): 0 % Improvement: 85 Objective/Function: L achilles pain ranges from 0-1/10. L ankle DF ROM 14 degrees. L ankle PF MMT: 34 #F. Pt is I with HEP and has achieved Rx goals. Goal 1:: Decrease L achilles pain x 50% to aid with sleep Goal Progress: Goal Met Goal 2:: Increase L PF strength x 10 #F to aid with increasing tolerance for ambulation. Goal 3:: Increase DF ROM x 10 degrees to aid with decreasing pain Goal 4:: I with HEP Goal Progress: Goal Met Plan: Discharge to HEP If there are questions or concerns regarding this patient's physical therapy, pl ease feel free to call me at [phone]. Thank you for the referral of this patient. Sincerely, Raz Hsu, PT, ATC Balance/Gait/Functional tests - Balance/Special Test Scores Lower Extremity Functional Score: 63
== END 2022-09-29 19:00 | disposition home or self-care (01) ==
LOC: PT 12:00
PROVIDERS: PCP Family Medicine; Referring Provider Physician Assistant; Visit Provider Physician Assistant
DX: M76.62 Achilles tendinitis, left leg (principal)
CPT/HCPCS: 97035; 97110; 97161; 97164

== ENCOUNTER → 2022-11-07 | Outpatient (CLI) | payer MEDICARE, OTHER, SELFPAY ==
[2022-11-07 12:53] LABS: ALB/GLOB Ratio 1.2 RATIO (0.9-2.4); AST(SGOT) 20 U/L (15-37); Alanine Aminotransfer ALT/SGPT 23 U/L (13-56); Albumin, Serum 3.8 g/dL (3.2-5.0); Alkaline Phosphatase 104 U/L (45-117); Anion Gap 5 (5-15); BUN 20 mg/dL (7-18); Chloride 109 mmol/L (98-107); Creatinine, Serum 0.91 mg/dL (0.55-1.02); EST Glomerular Filtration Rate 65 mL/min (>60); Est Glom Filt Rate - Afr Amer 78 mL/min (>60); Globulin 3.3 g/dL (2.2-4.2); Glucose 96 mg/dL (74-106); Potassium 4.1 mmol/L (3.5-5.1); Protein, Total 7.1 g/dL (6.4-8.2); Sodium Level 140 mmol/L (136-145)
== END | disposition home or self-care (01) ==
LOC: BIMLAB 11:19
PROVIDERS: PCP Family Medicine; Referring Provider Family Medicine; Visit Provider Family Medicine
DX: I10 Essential (primary) hypertension (principal)
CPT/HCPCS: 36415; 80053

== ENCOUNTER → 2022-11-13 | Outpatient (CLI) | payer MEDICARE, OTHER, SELFPAY ==
--- NOTE | 2022-11-13 14:37 | BI_ITS ---
MAMMOGRAPHY - BILATERAL SCREENING REASON FOR EXAM: Female, 72 years old. Routine annual screening examination. PERTINENT HISTORY: Non-contributory. TECHNIQUE: Digital bilateral breast bessie (3D mammographic acquisition) in the CC and MLO projections. 2-D mediolateral oblique (MLO) and craniocaudad (CC) views of both breasts were obtained. CAD: Full Field Digital Mammography with Computer Added Detection was performed. COMPARISON: Mammogram from 10/10/2021, 10/08/2020. FINDINGS: Breast Composition: There are scattered areas of fibroglandular density. There are no dominant masses or suspicious calcifications. No other significant abnormalities are identified. There has been no significant change since the prior study. BI/SCRN MAMM (CAD)W/BESSIE BILAT IMPRESSION: Stable bilateral screening mammogram. Yearly follow-up mammogram recommended. (A) ASSESSMENT CATEGORY: BIRADS Category 1: Negative. A letter regarding these results will be sent to the patient by the facility within 30 days. Approximately 10% of breast cancers are not detected by mammography. A normal mammogram should not delay biopsy of a clinically suspicious abnormality. Electronically Signed: Asa Dunlap DO at 11:44 EDT ,
== END | disposition home or self-care (01) ==
LOC: OPBI 14:35
PROVIDERS: PCP Family Medicine; Referring Provider Family Medicine; Visit Provider Family Medicine
DX: Z12.31 Encounter for screening mammogram for malignant neoplasm of breast (principal)
CPT/HCPCS: 77063; 77067

== ENCOUNTER → 2023-08-14 | Outpatient (CLI) | payer MEDICARE, OTHER, SELFPAY ==
--- NOTE | 2023-08-14 14:21 | US_ITS ---
STUDY: ULTRASOUND BREAST - LEFT REASON FOR EXAM: Female, 72 years old. Palpable lump in the retroareolar region of the left breast. TECHNIQUE: Axial and longitudinal images of the LEFT breast were performed with a high resolution ultrasound transducer. # OF IMAGES: 20 COMPARISON: Comparison is made with prior mammogram done earlier today. FINDINGS: LEFT Breast: The palpable lump corresponds to a 1.2 cm x 1.1 cm x 0.9 cm hypoechoic lobular irregular nodule with increased vascularity. Biopsy is recommended. US/Breast Limited Unilateral IMPRESSION: The palpable lump corresponds to a 1.2 cm x 1.1 cm x 0.9 cm hypoechoic lobular irregular nodule with increased vascularity. Biopsy recommended. ASSESSMENT CATEGORY: BIRADS Category 5: Highly Suggestive of Malignancy - Appropriate Action Should Be Taken. A letter regarding these results will be sent to the patient by the facility within 30 days. Electronically Signed: Jose Pino MD at 19:24 EDT ,
--- NOTE | 2023-08-14 14:21 | BI_ITS ---
MAMMOGRAPHY - UNILATERAL DIAGNOSTIC: LEFT BREAST REASON FOR EXAM: Female, 72 years old. Left breast lump. PERTINENT HISTORY: Non-contributory. TECHNIQUE: Digital unilateral breast eusebio (3D mammographic acquisition) in the CC and MLO projections. 2-D mediolateral oblique (MLO) and craniocaudad (CC) views of both breasts were obtained. CAD: Full Field Digital Mammography with Computer Added Detection was performed. COMPARISON: Comparison is made with prior study dated November 13, 2022 and October 10, 2021. FINDINGS: Breast Composition: The breasts are almost entirely fatty. There are no dominant masses or suspicious calcifications. There is a 6 mm nodular density in the medial retroareolar region of the left breast corresponding to the palpable abnormality. Correlation with ultrasound is recommended. No other significant abnormalities are identified. There has been no significant change since the prior study. BI/DIAG MAMM W/CAD, UNILAT IMPRESSION: Stable unilateral diagnostic mammogram. Targeted sonographic correlation of the retroareolar region is recommended for further evaluation. ASSESSMENT CATEGORY: BIRADS Category 0: Incomplete. Need additional imaging evaluation. A letter regarding these results will be sent to the patient by the facility within 30 days. Approximately 10% of breast cancers are not detected by mammography. A normal mammogram should not delay biopsy of a clinically suspicious abnormality. Electronically Signed: Jose Pino MD at 15:01 EDT ,
== END | disposition home or self-care (01) ==
LOC: OPUS 14:21
PROVIDERS: PCP Family Medicine; Referring Provider Nurse Practitioner; Visit Provider Nurse Practitioner
DX: N63.24 Unspecified lump in the left breast, lower inner quadrant (principal)
CPT/HCPCS: 76642; 77061; 77065; G0279

== ENCOUNTER → 2023-08-21 | Outpatient (CLI) | payer MEDICARE, OTHER, SELFPAY ==
--- NOTE | 2023-08-21 | BRBX_PTH ---
PATIENT: ANGELA BETANCUR LOC: [facility] U#:[id number] AGE/SX: 72/F ROOM: RE08/21/[address]: Dr. Tamiko June MD : 1950 BED: DIS: 08/21/2023 SPEC #: [id number] RECD: 08/21/23 13:36 STATUS: MICHAEL RERaegan #: [id number] SUE: 08/21/23 00:[address]: Tamiko June DEPT: SURGICAL PATHOLOGY RECD BY: Cate Post ENTERED: 08/21/23 14:15 SP TYPE: BREAST BX OTHR DR: Dr. Ambrose Estrella, DO Tissues: Left breast, NOS Procedures: Surgery Specimen Level IV HEADER OPERATION: Biopsy left breast nodule PRE-OP DIAGNOSIS: Left breast nodule TISSUE SUBMITTED: Left breast nodule 9 o'clock retroareolar MICROSCOPIC DIAGNOSIS Left breast nodule at 9 o'clock, core biopsy; Invasive ductal carcinoma. See synoptic report below. AM/ 08/22/2023 COMMENT INVASIVE BREAST CANCER SUMMARY: Procedure: Needle core biopsy Specimen Laterality: Left breast Tumor site: 9 o'clock, retro-areolar Histologic type: Invasive ductal carcinoma Provisional Histologic grade: 2 Tubule Differentiation Score: 3 Nuclear Pleomorphism Score: 2 Mitotic Rate Score: 1 Tumor Size ( greatest dimension): 7.5 mm Ductal Carcinoma Insitu: Not identified Angiolymphatic Invasion: Not identified Microcalcifications: Not identified Additional Pathologic Findings: None Breast Marker Study: RF 332 ER:> 95%, strong intensity (positive) AR:90%, moderate to strong intensity (positive) Her2:0 (negative) Ki67:5% TNM stage: Not Applicable The above summary is in compliance with [employer] [place] [employer] (CAP) Cancer Protocols Checklist and [place] Joint Committee on Cancer (AJCC), Staging Manual, 8th Ed. Case has been reviewed in consultation with Dr. Johnson who concurs with the above diagnosis. IDC:SJ MICROSCOPIC DESCRIPTION Slides are reviewed. GROSS DESCRIPTION Received in fixative is one container labeled with the patient's name and designated Left breast nodule. The specimen consists of multiple elongated fragments of grace-yellow fibroadipose tissue that in aggregate measure 1.0 x 0.5 x 0.1 cm. The specimen is totally submitted in one cassette. CECILIA/ 08/21/2023 TC:0 Ischemic Time: 1 minute Fixation Time: 7 hours CPT: 20907
--- NOTE | 2023-08-21 | IMM_PTH ---
PATIENT: ANGELA BETANCUR LOC: [facility] U#:[id number] AGE/SX: 72/F ROOM: RE08/21/[address]: Dr. Tamiko June MD : 1950 BED: DIS: 08/21/2023 SPEC #: [id number] RECD: 08/22/23 14:15 STATUS: SOUTaz REQ #: [id number] SUE: 08/21/23 00:[address]: Tamiko June DEPT: IMMUNOHISTOCHEMISTRY RECD BY: Willis Corona ENTERED: 08/22/23 14:17 SP TYPE: IMMUNO OTHR DR: Dr. Ambrose Estrella, DO Tissues: Left breast, NOS Procedures: CALPONIN-1 (add) CK5-6 (add) CK8 (add) E-CAD (add) HER2 ROXANA (add) KI-67 (add) P53 (add) NV (add) P40 (add) MOC-31 (add) ER (initial) PHYSICIAN & [address] [address] SPECIMEN INFORMATION: Tissue Source: Left breast nodule Clinical Info: Left breast nodule Specimen Number: [id number] CPT code: 20574,60515w3,42041e9 METHODOLOGY: Deparaffinized sections of prefer/formalin-fixed tissue or PAP/DQ stained slides are incubated with monoclonal/polyclonal antibodies/oligonucleotide probes. Localization is made via biotin free immunoperoxidase method. Appropriate controls are performed and reacted as expected. Results on target cell population are indicated in the following table: RESULTS: ANTIBODY / CLONE RESULT P53 (DO-7) negative, null pattern Ki-67 (30-9) positive, 5% CK8 (69izybF49) positive CK5-6 (D5 & 1684) negative Calponin-1 (VA049M) negative P40 (BC28) negative E-Cad (ECH-6) positive MOC-31 (4561) negative MORPHOMETRIC ANALYSIS ER (clone 6F11) >95%, strong intensity NV (clone 16/1E2) 90%, moderate- strong intensity Her-2Neu (clone CB11) 0 The prognostic test for HER2 is performed on formalin-fixed paraffin embedded tissue. A 3+ (positive) staining pattern is defined as intense, homogeneous, complete, circumferential membranous staining in >10% of contiguous tumor cells. A similar weak (2+) staining pattern is interpreted as equivocal. SHARAD follow-up testing is recommended for all equivocal cases. Positivity/negativity for ER/NV is reported if > or < 1% of the tumor cells are immuno- reactive, respectively. The ASCO/CAP criteria is used for scoring. Reference: Journal of Clinical Oncology, 2013; 31:5940-3628 & 2010; 16:5265-0607. Ischemic time: Less than one hour. Duration of fixation: 7 Hrs; Sample Adequate: Yes. These assays have not been validated on decalcified tissues. Results should be interpreted with caution given the likelihood of false negativity on decalcified specimens or fixation greater than 72 hours. Alternative testing methods (FISH/dualISH for Her2; gene expression for ER) are recommended, if applicable. Please notify the laboratory if additional testing is required. These tests were developed and their performance characteristics determined by [facility]. They may not have been cleared or approved by the U.S. Food and Drug Administration. The FDA has determined that such clearance or approval is not necessary. The above immunohistochemical/dualISH markers are ordered and reviewed by the Pathologist. INTERPRETATION: Left breast, core biopsy; Invasive ductal carcinoma, provisional grade 2. Positive for estrogen receptors (favorable prognostic indicator). Positive for progesterone receptors (favorable prognostic indicator). Negative for overexpression of AWT8ppa. Case has been reviewed in consultation with Dr. Johnson who concurs with the above diagnosis. IDC:CECILIA Castellon/ 08/23/2023
== END | disposition home or self-care (01) ==
LOC: LABSPEC 13:55
PROVIDERS: PCP Family Medicine; Referring Provider Surgery; Visit Provider Surgery
DX: C50.912 Malignant neoplasm of unspecified site of left female breast (principal)
CPT/HCPCS: 81002; 88305; 88341; 88342

== ENCOUNTER 2023-09-20 08:34 | Day surgery (SDC) | payer MEDICARE, OTHER, SELFPAY ==
[2023-09-20] VITALS (9 sets, daily range): BP systolic 123–153; BP diastolic 62–82; PULSE 68–93; RESP 14–17; TEMP 36.2–37.3; O2SAT 93–96; BMI 34.0
--- NOTE | 2023-09-20 | IMM_PTH ---
PATIENT: ANGELA BETANCUR LOC: [facility] [facility] [place] U#:[id number] AGE/SX: 72/F ROOM: RE09/20/[address]: Dr. Tamiko June MD : 1950 BED: DIS: 09/20/2023 SPEC #: [id number] RECD: 09/27/23 13:13 STATUS: SOUTaz REQ #: [id number] SUE: 09/20/23 00:[address]: Tamiko June DEPT: IMMUNOHISTOCHEMISTRY RECD BY: Willis Corona ENTERED: 09/27/23 13:15 SP TYPE: IMMUNO OTHR DR: Dr. Ambrose Estrella, DO Tissues: A - Axillary lymph node, NOS B - Breast, NOS Procedures: CK8 (initial) E-CAD (initial) CALPONIN-1 (add) Pankeratin (add) P40 (add) PHYSICIAN & INSTITUTION [place] [address] SPECIMEN INFORMATION: Tissue Source: A- Left breast, sentinel lymph node, B- Left breast lumpectomy Clinical Info: Invasive ductal carcinoma in left breast Specimen Number: [id number] A&B CPT code: 40008s8,15101j7 METHODOLOGY: Deparaffinized sections of prefer/formalin-fixed tissue or PAP/DQ stained slides are incubated with monoclonal/polyclonal antibodies/oligonucleotide probes. Localization is made via biotin free immunoperoxidase method. Appropriate controls are performed and reacted as expected. Results on target cell population are indicated in the following table: RESULTS: ANTIBODY / CLONE RESULT Block A 1 CK8 (12bjnqJ13) negative AE1-3 (AE1/AE3/PCK26) negative Block A 2 CK8 (97yaasP43) negative AE1-3 (AE1/AE3/PCK26) negative Block B4 E-Cad (ECH-6) positive P40 (BC28) negative Calponin-1 (PK610P) negative Block B5 E-Cad (ECH-6) positive P40 (BC28) negative Calponin-1 (ZM039V) negative Block B6 E-Cad (ECH-6) positive P40 (BC28) positive Calponin-1 (UQ176T) positive These tests were developed and their performance characteristics determined by [facility]. They may not have been cleared or approved by the U.S. Food and Drug Administration. The FDA has determined that such clearance or approval is not necessary. The above immunohistochemical/dualISH markers are ordered and reviewed by the Pathologist. INTERPRETATION: A. Left breast, sentinel lymph nodes: One out of one lymph nodes negative for carcinoma. B. Left breast, lumpectomy: Invasive ductal carcinoma. Focal ductal carcinoma in situ. AM/mr 09/28/23
--- NOTE | 2023-09-20 | BRBX_PTH ---
PATIENT: ANGELA BETANCUR LOC: [facility] U#:[id number] AGE/SX: 72/F ROOM: RE09/20/[address]: Dr. Tamiko June MD : 1950 BED: DIS: 09/20/2023 SPEC #: [id number] RECD: 09/20/23 13:31 STATUS: MICHAEL RERaegan #: [id number] SUE: 09/20/23 00:[address]: Tamiko June DEPT: SURGICAL PATHOLOGY RECD BY: Giorgio Simpson ENTERED: 09/20/23 13:32 SP TYPE: BREAST BX OTHR DR: Dr. Ambrose Estrella, DO Tissues: A - LYMPH NODE BIOPSY B - Left breast, NOS Procedures: Frozen Section (charge) Surgery Specimen Level IV Surgery Specimen Level V HEADER OPERATION: Left breast, lumpectomy, sentinel node, blue dye and radiotracer PRE-OP DIAGNOSIS: Invasive ductal carcinoma left breast TISSUE SUBMITTED: A. Left breast- sentinel lymph node, B- Left breast lumpectomy- long stitch lateral, short stitch superior FROZEN SECTION DIAGNOSIS Left sentinel lymph node, biopsy: One lymph node, negative for metastatic carcinoma. MICROSCOPIC DIAGNOSIS A. Left breast, sentinel node, biopsy: One out of one lymph node negative for metastatic carcinoma. See comment. B. Left breast, mastectomy: Invasive ductal carcinoma. See cancer template below: Shaheen 09/27/23 COMMENT INVASIVE BREAST CANCER SUMMARY: Procedure - Mastectomy Specimen: Breast with nipple and areola Type - partial breast Size - 7.5 x 6.0 x 3.0 Laterality - left breast Tumor: Site - Subareolar Size - 1.5 x 1.0 x 0.7cm Histologic type - invasive ductal carcinoma. Focality - single focus of carcinoma. Histologic Grade (Nicholas grade): Glandular/tubular differentiation - score 3 Nuclear pleomorphism - score 2 Mitotic count - score 1 Overall grade - 2 (score of 6) Ductal carcinoma in situ: Present Estimated quantification (% of tumor volume) - 1% Number of blocks - 1 of 12 blocks Architectural patterns - Solid Nuclear grade - grade 1/2 Necrosis - not identified Lobular carcinoma in situ (LCIS) - Not present Tumor extension: Skin - free of carcinoma Nipple - free of carcinoma Skeletal muscle - not present Margins: Distance of invasive carcinoma from closest margin - 10 mm from superior margin. Distance of ductal carcinoma in situ from closest margin - 12 mm from superior margin. Lymph nodes: Number of sentinel lymph nodes examined - 1 Total number of lymph nodes examined (sentinel and nonsentinel) - 1 No evidence of macrometastases, micrometastases or isolated tumor cells See specimen `A' Treatment effect: Unknown Lymphvascular invasion - Not identified Additional pathologic findings - Fibrocystic change, changes of previous biopsy and tumor necrosis. Ancillary studies - previously performed on section of tumor ([id number] / [id number]). ER - >95%, strong intensity WV - 90%, moderate to strong intensity Her2 adán - 0, negative Her2 by dual SHARAD - not performed Ki67 - 5% Microcalcifications - Not identified Clinical history - Mass of left breast PATHOLOGIC STAGE: T1c N0 M x The above summary is in compliance with [employer] Path[employer] (CAP) Cancer Protocols Checklist and [place] Joint Committee on Cancer (AJCC), Staging Manual, 8th Ed. A&B, Immunohistochemistry ([id number]) supports the above diagnosis. MICROSCOPIC DESCRIPTION Slides are reviewed. GROSS DESCRIPTION A. Received fresh for frozen section consultation/diagnosis labeled with the patient's name is a specimen designated Left breast- sentinel lymph node. The specimen consists of a piece of fibroadipose tissue containing nodule measuring 3.0 x 2.5 x 1.5cm. The nodule constituent with lymph node is identified measuring 2.5cm in greatest dimension. The lymph node is bisected and submitted entirely for frozen section diagnosis and two cassettes. CECILIA/mr 09/20/23 B. Received in fixative is one container labeled with the patient's name and designated Left breast, lumpectomy. The specimen consists of partial mastectomy specimen consists of breast tissue with overlying skin ellipse including nipple and the breast tissue measures 7.5 x 6.0 x 3.0cm and nipple measures 1.5cm in greatest dimension. A brownish lesion is also noted on the surface measuring 0.6 x 0.3cm. The specimen is inked as follows: anterior - yellow, posterior - black, superior - blue, inferior - green, medial - red and lateral - orange. Sections reveal a grace nodular mass in the central portion of the specimen and measuring 1.5 x 1.0 x 0.7cm. This mass is 1.0cm away from the closest superior margin. Section of the rest of this specimen reveal grace-yellow adipose cut surfaces and scant fibrous area. Section will be submitted after fixation. [facility] 09/21/23 Field [employer] sections are submitted in 12 cassettes as follows: 1&2- Perpendicular inked margins, 3- Nipple and areola, 4-7- Tumor, totally submitted (#7 tumor is in relationship with overlying skin), 8-12- Field Tax [employer]itor sections of uninvolved breast parenchyma adjacent to and away from mass. Note: Sections are submitted after additional fixation. / 09/25/23 TC:0 CPT: [id number] ADDENDUM ADDENDUM ADDENDUM ADDENDUM ADDENDUM ADDENDUM ADDENDUM ADDENDUM ADDENDUM 10/17/2023 13:59 ADDENDUM 10/17/2023 13:59 ADDENDUM 10/17/2023 13:59 ADDENDUM 10/17/2023 13:59 ADDENDUM 10/17/2023 13:59 ONCOTYPE DX BREAST RECURRENCE SCORE REPORT Breast Cancer Recurrence Score = 9 Distant recurrence risk at 9 years =3% Group average absolute chemotherapy benefit =<1% Results of the complete Oncotype testing ([employer] report) are viewable in EMR under: Reports - Pathology - Lab Pathology Report, Scanned.
--- NOTE | 2023-09-20 08:46 | NM_ITS ---
PROCEDURE: NUCLEAR MEDICINE Injection Richmond Node - LEFT breast(s). REASON FOR EXAM: Female, 72 years old. Left breast cancer. TECHNIQUE: Richmond node localization using radionuclide methods of the LEFT breast(s) was performed following subcutaneous administration of 1.1 mCi of of sulfur colloid Tc-99m. COMPARISON STUDIES : NM - None. CR - Not available for review at this time. CT - Not available for review at this time. MR - Not available for review at this time. US - Not available for review at this time. FINDINGS: 1.1 mCi of technetium labeled sulfur colloid was injected subcutaneously in 4 equal aliquots in the periareolar region. NM/Lymph Node Injection Only IMPRESSION: 1.1 mCi of technetium labeled sulfur colloid was injected subcutaneously in 4 equal aliquots in the periareolar region for sentinel node imaging. Electronically Signed: Jose Pino MD at 9:40 EDT ,
[2023-09-20] MEDS: Lactated Ringers 1,000 ML 15 ML IV (09:16)
--- NOTE | 2023-09-20 09:52 | PCM.HP.BLA ---
History and Physical Date of Admission: 09/20/23 Date of Service: 08/29/23 MR#: [id number] Acct: [id number] Name: ANGELA BETANCUR Rep #: [id number] : 1950 Provider: Dr. Tamiko June MD Age/Sex: 72/F Location: [facility] Status: Signed Intake Vital Signs 08/21/2411:36 Height 5 ft 5 in Weight: 201 lb 6 oz BMI 33.5 BP 135/80 H Blood Pressure Location Lt brachial Position Sitting Respiration 18 Pulse 75 Pulse Source Monitor Temp 97.3 F L Temp Source Temporal Pulse Oximetry (%) 93 Oxygen Delivery Method room air Intake Visit Reasons: DISCUSS TREATMENT OPTIONS Chief Complaint: discuss treatment options Is patient in pain?: No Allergies No Known Allergies Allergy (Verified 08/29/23 15:13) Medications calcium carb-vit D3-minerals 600 mg calcium-400 unit tablet 1 tab PO QDAY SUPPLEMENT 08/30/17 [History Confirmed 08/29/23] pzdautitlwlo-Xp-wnmt-minerals (Multiple Vitamin, Womens tablet) 1 tab PO DAILY SUPPLEMENT 08/30/17 [History Confirmed 08/29/23] omega-3 fatty acids 1,000 mg capsule (Fish Oil Concentrate) 1,000 mg PO DAILY SUPPLEMENT 01/03/19 [History Confirmed 08/29/23] naproxen sodium 220 mg capsule (Aleve) 220 mg PO BID PRN 11/07/22 [History Confirmed 08/29/23] valsartan 160 mg-hydrochlorothiazide 12.5 mg tablet 1 tab PO DAILY #90 tabs 11/07/22 [Rx Confirmed 08/29/23] PFSH Medical History Arthritis Hypertension Osteoarthritis Osteopenia Psoriatic arthritis Surgical History History of carpal tunnel release of both wrists History of section History of left hip replacement History of right hip replacement Family History Father Arthritis Heart disease HypertensionMother HypertensionGrandmother CVA (cerebral vascular accident) Social History Smoking Status: Former smoker how long ago did patient quit smokin alcohol intake: never substance use type: does not use what type of physical activity do you participate in: walking frequency: daily HPI HPI HPI: 72 y/o F presents for discussion of left breast bx pathology and surgical options. Bx showed invasive ductal, ER/CT +, Yvo0loq -, clinically node neg. ROS General General: No weight change, appetite, fatigue, colon cancer, breast cancer or weakness HEENT HEENT: No difficulty swallowing, eye injury, eye surgery, swollen glands or hoarseness Endo Endocrine: No thyroid disease, diabetes mellitus, thyroid cancer, Hair loss, heat intolerance or cold intolerance Skin Skin: No rash or changing moles Breast Breast: Yes left breast lump, abnormal mammogram and abnormal US; No right breast lump, nipple discharge, breast pain or breast enlargement Musc Musculoskeletal: Yes arthritis; No back problems, rheumatoid arthritis, gout or joint pain Cardio Cardiovascular: Yes high blood pressure; No murmur, pacemaker, heart disease, atrial fibrillation, heart attack, heart stent, palpitations, shortness of breat with exertion or chest pain Psych Psychiatric: No depression, anxiety or hearing voices Resp Respiratory: No shortness of breath, No sleep apnea, No cough, No COPD, No asthma, No emphysema and No wheezing Gastro Gastrointestinal: No abdominal pain, No nausea or vomiting, No diarrhea, No constipation, No blood in stool, No acid reflux, No hemorrhoids, No ulcers, No gallbladder problem and No black,tarry stools Juan Daniel Hematologic: No blood thinners, No blood disorders, No bleeding, No anemia and No blood clots Neuro Neurologic: No numbness, No tingling and No weakness Exam Const General: cooperative, healthy appearing and no acute distress [facility] Head: normal to inspection Resp Effort & Inspection: normal respiratory effort Cardio Rate: regular rate GI Inspection: non-distended Palpation: soft Skin General: no rashes or lesions noted Neuro General: patient oriented x3 Extrem General: no clubbing, cyanosis or edema Psych Affect: normal affect Assessment and Plan Assessment and Plan (1) Invasive ductal carcinoma of left breast: Status: Acute Orders: Referrals Oncology C50.919 - Malignant neoplasm of unspecified site of unspecified female breast Oncology C50.919 - Malignant neoplasm of unspecified site of unspecified female breast Plan I have given the patient options for initial surgical treatment. Options are the following: lumpectomy followed by radiation therapy vs. mastectomy vs. mastectomy followed by immediate reconstruction. I have described the procedures to the patient. I have described the advantages and disadvantages of the options, but I have told the patient that among the options, the survival rate for breast cancer is the same. Pt is aware due to location of her cancer retroareolar- if she chooses a lumpectomy- her nipple/areolar complex will be included in the resection as I would not be able to save with good margins. I have told the patient that with all the surgeries that a sentinel lymph node biopsy is required. I have described the procedure of sentinel lymph node biopsy to the patient. I have told the patient that if the biopsy is positive for metastatic disease (>2 LN positive), then a full axillary lymph node dissection is required. I have told the patient that adjuvant chemotherapy will be required should the lymph nodes reveal metastatic disease. Also, a full lymph node dissection will increase the risk for lymphedema, especially if there are 4 or more lymph nodes positive for metastatic disease and radiation to the axilla is also required. I have told the patient the risks of surgery, including but not limited to: infection, bleeding, scar tissue, seroma and persistent seroma, lymph leak, injury to any blood vessels, injury to any nerves (particularly the long thoracic, the thoracodorsal, and the second intercostal brachial and the resultant sequelae), lymphedema, cosmetic deformity, dysesthesias, wound infections, further surgery (especially if margins are not clear), complications of anesthesia, etc. the patient understands. The patient will think about the options and discuss it further with the family. Pt will meet with Dr. Germain and let us know her plan for surgery--she is currently thinking about Left breast lumpectomy, SLNbx, w nuclear tracer & blue dye, possible ALND I have answered all the patient?s questions at this point to her satisfaction and she has no further questions. Coding Level of Care Code Off vis,est,level 4 Diagnoses Invasive ductal carcinoma of left breast C50.912 08/30/23 1054 <Electronically signed by Tamiko June MD> Date Tamiko June MD
[2023-09-20] MEDS: Bupivacaine 0.25% 30 ML Vial (09:54)
[2023-09-20] MEDS: 0.9% Saline Lock 10 ML Syringe IV (09:55)
[2023-09-20] MEDS: Isosulfan Blue 1% 5 ML Vial (09:57)
[2023-09-20] MEDS: Cefazolin 2 GM in 0.9% Normal Saline (100mL Bag) 100 ML IV (10:45)
--- NOTE | 2023-09-20 12:01 | OP.PCM_ITS ---
Report of Operation Date of Procedure: 09/20/23 Pre-Operative Diagnosis: Left breast cancer Post-Operative Diagnosis: Same Surgery/Procedure Performed:: Left lumpectomy including the nipple areolar complex, sentinel lymph node biopsy, injection of blue dye and radiotracer Description of Surgical Findings:: Frozen?1 out of 1 lymph node negative Surgeon: Tamiko June Type of Anesthesia: General/Supplemental Anesthesiologist: Anibal Montemayor Special Medications: Ancef 2 g IV x 1 Specimen's removed: 1. Left sentinel node, 2. Left lumpectomy Estimated Blood Loss (mL): 10 cc Description of Procedure: Synoptic Portion: Element Response Options Operation performed with curative intent. Yes Tracer(s) used to identify sentinel nodes in the upfront surgery (non- neoadjuvant) setting (select all that apply). Dye; Radioactive tracer Tracer(s) used to identify sentinel nodes in the neoadjuvant setting (select all that apply).N/A. All nodes (colored or non-colored) present at the end of a dye-filled lymphatic channel were removed. Yes All significantly radioactive nodes were removed. Yes All palpably suspicious nodes were removed. Yes Biopsy-proven positive nodes marked with clips prior to chemotherapy were identified and removed. N/A. -------- In AC the breast tissue was injected with TC-9 9 sulfur colloid. >90 minutes later the patient was taken to the operating room and general anesthesia was induced. 5 cc of Lymphazurin 1% blue dye was injected in the 4 quadrants periareolar along with 10 cc of normal saline. This was massaged gently for 5 minutes. The left breast and axilla were prepped and draped in usual sterile fashion. A timeout was completed verifying correct patient, procedure, site, positioning, special equipment prior to beginning procedure. Handheld gamma probe was used to identify the location of the hottest spot in the axilla. Prior to the incision, the counts were 12. The incision was made in the hot and blue node was identified. The probe was placed in contact with the node in the 10 count was 1466. The bed of the node measured 4 counts. No additional blue or hot or palpable nodes were detected. Frozen 1 out of 1 node negative. Skin incision was made that encompassed the nipple areolar complex and the previous biopsy scar in past-has a mass was retroareolar at 9:00. Electrocautery was used for dissection as well as hemostasis. The specimen removed and oriented for pathology. The wound was irrigated and hemostasis was achieved. The cavities were irrigated. Hemostasis was checked. The incisions were closed with interrupted 2-0 Vicryl to the simultaneously followed by a subcuticular layer of 4-0 Monocryl and Steri-Strips for the breast and Dermabond for the axilla.. The wound was dressed and surgical bra placed. The patient tolerated procedure well was taken to the postanesthesia care in stable condition. Complications none
--- NOTE | 2023-09-20 12:01 | DCINST_ITS ---
Discharge Instructions Diet Discharge Diet: No restrictions Activity Discharge Activity: May Not Drive (for 2-3 days or while taking narcotic pain meds.) May shower in (days): 1 Lifting Restrictions: 10 pounds for 1 week. Dressing / Incision Call your doctor if your incision/area has: Continuous Slow Oozing, Sudden Increased Bleeding, Increased Pain/ Swelling and Increased Redness Call your doctor if you observe: Fever of 101 or Higher Suture Line Care: Avoid Pulling/Pushing and Avoid Pinching/Bending Remove Dressing in: 1 day Additional Dressing/Incision Instructions:: Remove bulky dressing tomorrow. May leave op-site dressing for 3-4 days. Dermabond (glue) was used at the axillary incision this may start to peel off in about 5 days. Okay to remove Steri- Strips from the breast incision in 7 to 10 days. Follow Up Care Please Follow Up With: Tamiko June MD When: Please call [phone] for an appointment to be seen in 2 week. Test Results: Test results from this visit will be discussed in further detail at your follow- up appointment, if applicable. Discharge Plan Admission Attending Provider: Tamiko June Primary Care Provider: Ambrose Estrella Discharge Orders/Prescriptions Prescriptions: New tramadol 50 mg tablet 50 mg PO Q6H PRN (Reason: pain) Qty: 10 0RF Continued calcium carb-vit D3-minerals 600 mg calcium-400 unit tablet 600 mg calcium- 400 unit tablet 1 tab PO QDAY wtmcbzdbdwwa-Wf-vbzl-minerals [Multiple Vitamin, Womens] tablet 1 tab PO DAILY omega-3 fatty acids [Fish Oil Concentrate] 1,000 mg capsule 1,000 mg PO DAILY naproxen sodium [Aleve] 220 mg capsule 220 mg PO BID PRN (Reason: pain) valsartan-hydrochlorothiazide 160-12.5 mg tablet 1 tab PO DAILY Qty: 90 4RF Probiotic Acidophilus 250 million cell capsule 500 mmu cells PO DAILY Referrals / Follow Up: Ambrose Estrella DO [Primary Care Provider] - Disposition Disposition (needs filled in before D/C Order can be placed): Home, Self Care
[2023-09-20] MEDS: Acetaminophen 325 MG Tablet 650 MG PO (13:47)
== END 2023-09-20 15:07 | disposition home or self-care (01) ==
LOC: SDC 08:36 → AC 08:37
PROVIDERS: PCP Family Medicine; Visit Provider Surgery
PROC: 0HBV0ZZ Excision of Bilateral Breast, Open Approach (ICD-10-PCS; CPT 19302; principal; 2023-09-20 11:15)
DX: C50.912 Malignant neoplasm of unspecified site of left female breast (principal); I10 Essential (primary) hypertension; Z87.891 Personal history of nicotine dependence; Z79.899 Other long term (current) drug therapy
CPT/HCPCS: 19301; 38500; 00404; 38792; 88305; 88307; 88331; 88341; 88342; A4648; A9541; J7120; A4216; J2405; Q9968

== ENCOUNTER → 2023-12-06 | Outpatient (CLI) | payer MEDICARE, OTHER, SELFPAY ==
--- NOTE | 2023-12-06 09:31 | BD_ITS ---
STUDY: DUAL ENERGY X-RAY ABSORPTIOMETRY / DXA REASON FOR EXAM: Female, 73 years old. Osteoporosis TECHNIQUE: Bone Mineral Density (BMD) measurements of lumbar spine and left forearm were obtained. COMPARISON: Comparison is made with prior study dated July 15, 2015. FINDINGS: Lumbar Spine (L1-L4): g/cm2 (1.063) / T-score (0.1) / Z-score (2.4) Findings are suggestive of normal bone density with a low fracture risk. Left Forearm: g/cm2 (0.585) / T-score (0.1) / Z-score (2.4) The T-Scores on the most recent prior examination were: Lumbar Spine (L1-L4): There has been worsening of bone density since the previous examination. BD/Dexa Bone Density Study IMPRESSION: The patient is considered normal as outlined below according to World Geoffrey Organization (WHO) criteria with a low fracture risk. There has been worsening of bone density since the previous examination. Reference Information: The T-score is the number of standard deviations above or below the standard which is normal for young adults at their peak bone mineral density. The World Health Organization (WHO) interprets the T-scores as follows: Above -1 Normal bone density Between -1 and -2.5 Osteopenia Equal to / or below -2.5 Osteoporosis As a practical clinical guideline, osteopenia may be graded as follows: Mild -1 through -1.5 Moderate -1.6 through -2.0 Severe -2.1 through -2.4 The Z-score is the number of standard deviations above or below age-matched controls. A Z-score of less than -1.5 would be considered abnormal. References: 1. NIH Osteoporosis and Related Bone Diseases www osteo.org 2. International Society for Clinical Densitometry www iscd.org 3. National Osteoporosis Foundation www nof.org Electronically Signed: Jose Pino MD at 14:12 EDT ,
--- NOTE | 2023-12-06 09:31 | BI_ITS ---
MAMMOGRAPHY -bilateral SCREENING: Bilateral breasts. REASON FOR EXAM: Female, 73 years old. Routine annual screening examination (unilateral). PERTINENT HISTORY: Personal history of breast cancer. Prior left lumpectomy and radiation treatment. TECHNIQUE: Digital unilateral breast bessie (3D mammographic acquisition) in the CC and MLO projections. 2-D mediolateral oblique (MLO) and craniocaudad (CC) views of both breasts were obtained. CAD: Full Field Digital Mammography with Computer Added Detection was performed. COMPARISON: Comparison is made with prior study dated November 13, 2022 and August 14, 2023. FINDINGS: Breast Composition: The breasts are almost entirely fatty. Since prior study, the patient underwent excisional breast biopsy of a nodule in the medial retroareolar region of the left breast. Postoperative scarring. No other significant abnormalities are identified. BI/SCREEN MAMM (CAD) W/BESSIE UNI R IMPRESSION: Status post resection of a nodular density in the medial retroareolar region of the left breast as described. No suspicious abnormality is seen at this time. Yearly follow-up mammogram recommended. (A) ASSESSMENT CATEGORY: BIRADS Category 2: Benign. A letter regarding these results will be sent to the patient by the facility within 30 days. Approximately 10% of breast cancers are not detected by mammography. A normal mammogram should not delay biopsy of a clinically suspicious abnormality. [id number] Electronically Signed: Jose Pino MD at 10:47 EDT ,
== END | disposition home or self-care (01) ==
LOC: OPBD 09:30
PROVIDERS: PCP Family Medicine; Referring Provider Family Medicine; Visit Provider Family Medicine
DX: Z12.31 Encounter for screening mammogram for malignant neoplasm of breast (principal); M81.0 Age-related osteoporosis without current pathological fracture
CPT/HCPCS: 77063; 77067; 77080

== ENCOUNTER → 2024-02-13 | Outpatient (CLI) | payer MEDICARE, OTHER, SELFPAY ==
--- NOTE | 2024-02-13 10:45 | NEURO ---
NCS and/or EMG Patient Report Ordering Doctor: Yuri Jasso DATE OF SERVICE: 02/13/24 Katy presents with complaints of numbness and tingling in the right hand. Electrodiagnostic findings: Right median motor response was not obtainable. Absent right median sensory response at the wrist. Normal right radial and ulnar sensory responses. Normal right ulnar motor response. Normal right ulnar F?wave. Needle EMG testing was performed the right upper limb. All muscles tested showed no evidence of denervation with normal motor unit action potentials. Electrodiagnostic impression: This is an abnormal study in the right upper limb. 1. Electrodiagnostic findings suggestive of right-sided median mononeuropathy. This is likely consistent with a severe right carpal tunnel syndrome. 2. No electrodiagnostic evidence for cervical radiculopathy. Multi Select Codes Neurology Neurology Interp Codes: 75964-75 Musc test done w/n test comp (interp) and 35333-25 Nrv cndj tst 5-6 studies (interp)
== END | disposition home or self-care (01) ==
LOC: PSN 09:50
PROVIDERS: PCP Family Medicine; Referring Provider Specialist; Visit Provider Specialist
DX: G56.01 Carpal tunnel syndrome, right upper limb (principal); R20.2 Paresthesia of skin
CPT/HCPCS: 95886; 95909

== ENCOUNTER → 2024-09-10 | Outpatient (CLI) | payer MEDICARE, OTHER, SELFPAY ==
--- NOTE | 2024-09-10 12:07 | CT_ITS ---
PROCEDURE: EXTREMITY LOWER WITHOUT CONTRA 09/10/2024 REASON FOR EXAM: KNEE PAIN/PRE OP Donnie protocol. TECHNIQUE: Axial CT images of the right lower extremity obtained without intravenous contrast. Coronal and Sagittal reconstruction series were provided. CONTRAST: None One or more dose reduction techniques were used (e.g., Automated exposure control, adjustment of the mA and/or kV according to patient size, use of iterative reconstruction technique). RADIATION DOSE SUMMARY: CTDlvol: 18.5 mGy DLP: 1478.2 mGycm COMPARISON: None FINDINGS: Bones: No evidence of fracture. Joints: Imaging of the hip joint was obtained. The patient is status post right total hip replacement. There is good alignment. No acute abnormality is seen. Imaging of the right knee joint was obtained. Marked degree of joint space narrowing involving the medial and lateral compartments of the knee joint with degenerative spur formation. Moderate degree of joint space narrowing of the patellofemoral joint with anterior femoral spur. Imaging of the right ankle was obtained. No abnormality is seen. Soft Tissues: Minimal joint effusion. CT/Extremity Lower without Contra IMPRESSION: Marked degree of joint space narrowing of the medial and lateral compartments o f the knee joint. Reading Location: [place] [id number]
== END | disposition home or self-care (01) ==
LOC: CT 12:04
PROVIDERS: PCP Family Medicine; Referring Provider Specialist; Visit Provider Specialist
DX: M17.31 Unilateral post-traumatic osteoarthritis, right knee (principal); M21.061 Valgus deformity, not elsewhere classified, right knee; M71.21 Synovial cyst of popliteal space [Baker], right knee
CPT/HCPCS: 73700

== ENCOUNTER 2024-10-06 07:23 | Observation (INO) | payer MEDICARE, OTHER, SELFPAY ==
--- NOTE | 2024-09-10 12:05 | EKG12_ITS ---
Test Reason : PRE OP Blood Pressure : */* mmHG Vent. Rate : 73 BPM Atrial Rate : 73 BPM P-R Int : 162 ms QRS Dur : 82 ms QT Int : 354 ms P-R-T Axes : 41 22 40 degrees QTcB Int : 389 ms Normal sinus rhythm Normal ECG Confirmed by Josh Reyes ([id number]), web editor NTAHALIE PEREIRA ([id number]) on 09/11/2024 9:43:13 AM Referred By: Yuri Jasso Confirmed By: Josh Reyes
[2024-09-10 14:53] LABS: Absolute Lymphocyte Count 0.84 X10^3/uL (0.83-4.51); Absolute Neutrophil Count 3.9 X10^3/uL (2.0-7.7); Basophil# 0.04 X10^3/uL; Basophil% 0.7 % (0-1); Eosinophil# 0.13 X10^3/uL; Eosinophils% 2.4 % (0-5); Hematocrit 40.8 % (37-47); Hemoglobin 13.8 g/dL (12.0-15.0); Lymphocyte # 0.84 X10^3/ul (0.83-4.51); Lymphocyte % 15.5 % (19-41); Mean Corp Hgb Conc 33.8 g/dL (32-36); Mean Corpuscular Hgb 31.4 pg (27.0-32.0); Mean Corpuscular Volume 92.7 fL (81-99); Mean Platelet Vol. 12.4 fl (6.2-12.0); Monocyte% 9.2 % (0-10); NRBC Flagged by Analyzer 0 % (0-5); Neutrophil # 3.89 X10^3/uL (2.7-7.7); Neutrophil % 71.8 % (47-70); Platelet Count 224 K/mm3 (150-450); RBC Distribution Width CV 12.7 % (11.6-14.6); RBC Distribution Width SD 43.1 fl (35.1-43.9); White Blood Count 5.4 K/mm3 (4.4-11.0)
[2024-09-10 15:23] LABS: Albumin, Serum 4.1 g/dL (3.4-4.8); Anion Gap 12 (5-15); BUN 20 mg/dL (4-19); Calcium,Total 9.9 mg/dL (7.6-11.0); Carbon Dioxide 21.4 mmol/L (21.0-32.0); Chloride 105 mmol/L (98-108); Creatinine, Serum 0.92 mg/dL (0.70-1.20); EST Glomerular Filtration Rate 66 (>60); Glucose 90 mg/dL (70-99); Magnesium 2.3 mg/dL (1.5-2.2); Potassium 4.4 mmol/L (3.3-5.1); Sodium Level 138 mmol/L (133-145)
--- NOTE | 2024-09-29 07:09 | PCM.HP.BLA ---
History and Physical History and Physical Patient Name: Katy May : 1950From:? NADINE MCGOVERN PA-C DATE OF PRE-OPERATIVE EXAM: 09/26/2024 DATE OF SURGERY:? 10/06/2024 SCHEDULED PROCEDURE:? Robotic-assisted right total knee arthroplasty HISTORY OF PRESENT ILLNESS: Preoperative history and physical exam was performed on September 26, 2024.? This is a 73-year-old female who has had ongoing pain intermittently in the knees over the years.? She did have worsening pain since the fall 2023.? Patient's pain is intermittent, sharp, and stabbing.? She has pain that is most severe when she is walking and going up and down steps.? She does have pain at nighttime.? She can only take a few steps before she starts experiencing significant pain in the knees.? Pain is located over the medial and lateral aspect of the knee.? Pain is increased with leisure activity such as walking for exercise and gardening.? Patient has used Voltaren gel which did offer some relief.? She had previous corticosteroid injection which only provided approximately 2 weeks of relief.? She has tried oral medications including Tylenol, fish oil, and glucosamine chondroitin supplements.? Patient has had previous knee arthroscopy in 1996 for meniscus tears.? Patient has attempted the use of brace in the past.? She uses a cane over the past 1 month.? After failing conservative measures and discussing all treatment options with Dr. Yuri Jasso, the patient does wish to proceed with a robotic assisted right total knee arthroplasty.? Clearance has been obtained from the primary care provider Dr. Ambrose Estrella and her oncologist Dr. Najera.? Patient is currently no longer receiving any chemotherapy or radiation.? She does take anastrozole.? Patient currently denies any recent chest pain, shortness of breath, fevers chills or recent infections.? No past history of DVT or pulmonary embolism.? Patient has medical history pertinent for hypertension, breast cancer 2023, gastroesophageal reflux disease, osteopenia, and psoriatic arthritis. ? REVIEW OF SYSTEMS: Review Of Systems: Constitutional: Denies anorexia, anxiety, change in appetite, fever and weight change,hard of hearing, and vision problems. Cardiovasular: Denies chest pain, heart murmur, irregular heartbeat and peripheral vascular disease. Respiratory: Denies asthma, cough, pneumonia, sleep apnea, shortness of breath, tuberculosis and wheezing. Gastrointestinal: Reports heartburn, but denies constipation, diarrhea, nausea, bloody stools and vomiting. Genitourinary: Denies incontinence. Musculoskeletal: Reports gait disturbance, pain and trouble walking, but denies leg swelling. Skin: Denies Raynaud's, history of shingles and tattoo. Neurological: Denies ambulatory dysfunction, dizziness, numbness/tingling and tremor. Psychiatric: Denies anxiety, depression, insomnia, mental illness and stress. Hematologic/Lymphatic: Denies anemia, bleeding/bruising tendency and past transfusion. Reviewed and updated. PAST MEDICAL HISTORY: Advance Care Plan: Other Directive, POA Effective Date: 12/20/2018 Past Medical History: Medical Problems: Arthritis - osteo High Blood Pressure Cancer - (08/2023) Left breast Hormone Therapy, Acid Reflux, osteopenia, psoriatic arthritis Accidents: None Surgical Hx: Carpal Tunnel Release Lt - (11/1988) Hip Replacement Rt - (10/2006) Appendectomy - did not have have Tubal Ligation - (02/1985) Section - (05/1977) 1978,November 1982,Dec 1984,1Oct Carpal Tunnel Release Rt - (10/1988) Knee Arthroscopy Rt - (01/1997) Section - X 4 Carpal Tunnel - BLT? 1988 Appendectomy - RIGHT KNEE 1997 Hip Replacement - (11/07/2006) RIGHT [facility] LT THR - (02/05/2019) SAW@[facility] Cataracts - (04/2021) left breast ca, radiation RT Wrist, Revision Carpal Tunnel Release - (04/02/2024) [facility]OOKE @ [facility] Anesthesia Complications: None Assistive Devices: Glasses, Cane, Dentures - partial - upper Reviewed and updated. SOCIAL HISTORY: Social History: Marital: .Occupation: Retired.Work Status: Retired.Hand Dominance: Right-handed. Personal Habits:? Cigarette Use: Former.Smokeless Tobacco: Never Used Smokeless Tobacco.E-Cigarette Use: Never used.Alcohol: Denies use.Drug Use: Denies Use.Enjoy Exercising: Daily. Reviewed and updated. VITALS: Ht: 65.5 Wt: 205lb Wt k.988 BMI: 33.6 BP: 132/80 Pulse: 85 Resp: 16 T: 97.8 T: 36.6C Pain Level: 8 O2SatR: 98 ALLERGIES: No Known Drug Allergy MEDICATIONS: Fish Oil 1000 mg 1po qday, Tylenol Extra Strength 500 mg 2 po pr n, Coalgate 3 1000 mg 2 by mouth every day, Valsartan-Hydrochlorothiazide 160-12.5 mg 1 by mouth every day, Anastrozole 1 mg 1 by mouth every day PRE-OP EXAM: General appearance:NORMAL? Other: Eyes: Conjunctivae and lids: NORMAL? Pupils: ERR Ears, Nose, Mouth, and Throat: NORMAL? Other: Inspection of lips, teeth and gums: NORMAL?? Other: Neck: Examination of neck: no masses noted. Respiratory: Assessment of respiratory effort: NORMAL?? Other: ? Auscultation of lungs: clear to auscultation no wheezes, rhonchi or rales. Cardiovascular:? Auscultation of heart: regular rate and rhythm, positive systolic murmur PHYSICAL EXAMINATION: On exam patient does walk with an antalgic gait with valgus stress.? Right knee is without erythema or signs of infection.? She has moderate effusion.? Tenderness to palpation along the medial and lateral joint line. Range of motion: 0 extension to 118 flexion with pain on flexion Stable to varus/valgus stress test, stable to anterior/posterior drawer exam with firm endpoint.? Correctable valgus alignment. IMAGING STUDIES: Previous x-rays of the right knee reveal valgus alignment with lateral joint space narrowing, subchondral sclerosis, osteophyte formation consistent with severe stage IV [id number] erosion of the lateral compartment. IMPRESSION: 1.? 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 Hypertension 3.? Breast cancer: Currently on anastrozole 4.? Gastroesophageal reflux disease 5.? Osteopenia 6.? Psoriatic arthritis 7.? Obesity with BMI 33.6 PLAN: Dr. Yuri Jasso did discuss and review with the patient all treatment options including surgical versus nonsurgical options.? I will continue plan established by Dr. Yuri Jasso.? Patient does wish to proceed with the above-stated procedure.? Potential risks, benefits, and complications of the procedure were discussed in detail including but not limited to , infection, nerve and blood vessel damage, persistent pain, numbness, tingling, paresthesias, blood clot, pulmonary embolism, and requirement for possible further surgery.? The patient expressed full understanding and has no further questions for the doctor.? Patient does agree to proceed with the above-stated procedure and has signed the surgery consent form. POST-OP MEDICATION PLAN: Pain Medications: Postoperative pain regimen will be initiated by Dr. Yuri Jasso in the hospital.? Patient does have a walker that she will bring to the hospital.? She will continue with our nutrition protocol. DVT Prophylaxis Plan: Due to patient currently using anastrozole we will move forward with Xarelto 10 mg once daily for 2 weeks postoperatively followed by additional 2 weeks of aspirin 81 mg twice daily for DVT prophylaxis.? Patient will also use KENZIE hose daily.? Patient denies past history of DVT or pulmonary embolism. This dictation was created using voice recognition software. Phonetic and/or grammatical errors may exist. ___? I have re-examined the patient.? There are no clinical changes since date of exam. ___? See progress notes for changes. ___? Dictated on admission Date: ? Time: Signature:
[2024-10-06] VITALS (15 sets, daily range): BP systolic 112–148; BP diastolic 56–87; PULSE 60–80; RESP 16–18; TEMP 36.2–37.1; O2SAT 92–98; BMI 34.2
--- NOTE | 2024-10-06 07:22 | RAD_ITS ---
PROCEDURE: KNEE 1 OR 2 VIEWS 10/06/2024 REASON FOR EXAM: TKA TECHNIQUE: 2 view(s) of the right knee COMPARISON: None FINDINGS: The patient is status post total knee replacement. There is good alignment. Postoperative soft tissue changes. RAD/Knee 1 or 2 Views IMPRESSION: Status post total knee replacement. There is good alignment. Postoperative soft tissue changes. Reading Location: [facility]
[2024-10-06] MEDS: Lactated Ringers 1,000 ML 999 ML IV (08:50)
[2024-10-06] MEDS: Magnesium 1 GM over 15 mins IV (08:55)
[2024-10-06] MEDS: Gabapentin 600 MG Tablet PO (09:37)
[2024-10-06] MEDS: Acetaminophen 500 MG Tablet 1000 MG PO ×2 (09:37→21:13)
[2024-10-06] MEDS: Celecoxib 200 MG Capsule 400 MG PO (09:37)
--- NOTE | 2024-10-06 09:49 | PRE.ANES_ITS ---
ASA Classification* ASA Classification ASA Classification: 2 Assessment & Plan Anesthesia* Anesthesia Assessment Anesthesia Assessment: Discussed sedation and/or anesthesia options, risks, benefits, and alternatives with patient/parents/legal guardian/POA. Questions invited. The patient/parents/legal guardian/POA seems to understand and agrees to proceed with anesthesia plan. Reviewed the physical assessment, medical history, allergy history and patient home medications list prior to surgery/procedure/anesthetic and documented any changes. Performed airway and anesthesia risk assessments. Anesthesia Type Anesthesia Type: Spinal and Block (Patient is consented for adductor canal block.) History Source History Obtained from:: Patient and Chart Anesthesia Focused Assessment* Temperature: 98.1 F Pulse Rate: 80 Blood Pressure: 137/66 Respiratory Rate: 18 Pulse Ox: 98 Oxygen Delivery Method: Room Air Airway Assessment Mouth opens: >3 cm Mallampati Score: III Teeth Condition: Partial (Patient has top partial. It will come out.) Neck Range of motion (ROM): Full ROM Focused Labs Anesthesia Preop lab: CBC WBC 5.4 K/mm3 (4.4-11.0) 09/10/24 13:05 09/10/24 RBC 4.40 M/mm3 (4.2-5.4) 09/10/24 13:05 09/10/24 Hgb 13.8 g/dL (12.0-15.0) 09/10/24 13:05 09/10/24 Hct 40.8 % (37-47) 09/10/24 13:05 09/10/24 Plt Count 224 K/mm3 (150-450) 09/10/24 13:05 09/10/24 CHEMISTRY Potassium 4.4 mmol/L (3.3-5.1) 09/10/24 13:05 09/10/24 Sodium 138 mmol/L (133-145) 09/10/24 13:05 09/10/24 Magnesium 2.3 mg/dL (1.5-2.2) H 09/10/24 13:05 09/10/24 BUN 20 mg/dL (4-19) H 09/10/24 13:05 09/10/24 Creatinine 0.92 mg/dL (0.70-1.20) 09/10/24 13:05 09/10/24 Glucose 90 mg/dL (70-99) 09/10/24 13:05 09/10/24 POC Glucose 93 mg/dL (70-110) 02/05/19 07:52 02/05/19 TSH 1.39 uIU/mL (0.358-3.74) 12/05/18 12:02 COAG Pre-Assessment Diagnosis/Proposed Procedure Planned Operative Procedure(s): (R) ERAS, ROBOTIC ASSISTED RIGHT TOTAL KNEE ARTHROPLASTY Anesthesia History Anesthesia History - sack keeper: Anesthesia History - sack keeper Hx Hospitalization No 09/08/24 13:09 Any Problems With Anesthesia No 09/08/24 13:09 Cholinesterase deficiency No 09/08/24 13:09 You/Your Family Experience No 09/08/24 13:09 fever (hyperthermia) with Relationship Recent Exposure to Contagious No 10/06/24 08:50 Disease Does patient have nerve No 09/08/24 13:09 stimulator Patient instructed to have device shut off --Does patient have Pacemaker No 10/06/24 08:50 or ICD? When Was Last Pacemaker Check QUESTION #4 FULL TEXT: You/Your Family Experience fever (hyperthermia) with Anesthesia Last Oral Intake Last Oral intake: Last Oral Intake NPO since 20:00 10/06/24 08:50 Meds taken in AM with sips of No 10/06/24 08:50 water? Meds patient instructed to take am of surgery Any additional information?: Yes NPO since: 06:00 (Patient had her preop Ensure at 6 AM.) PONV PONV - sack keeper: PONV - sack keeper Female Yes 09/08/24 13:09 HX of Motion Sickness No 09/08/24 13:09 HX of N/V After Surgery No 09/08/24 13:09 Non-Smoker Yes 09/08/24 13:09 Duration of Surgery greater Yes 09/08/24 13:09 than 60 minutes Number of Risk Factors 3 09/08/24 13:09 PONV Score Moderate Risk 09/08/24 13:09 Height & Weight Height & Weight: Anesthesia: Height & Weight Height 5 ft 5 in 10/06/24 08:50 Weight: 93.2 kg 10/06/24 08:50 Body Mass Index (BMI) 34.2 10/06/24 08:50 Respiratory Assessment Respiratory Assessment - sack keeper: Respiratory Tract Infection Hx - sack keeper Hx Respiratory Tract Infection No 09/08/24 13:09 STOP Sleep Apnea STOP Sleep Apnea - sack keeper: STOP Sleep Apnea - sack keeper Hx Hypertension Yes: CONTROLLED WITH MED 09/08/24 13:09 Hx Sleep Apnea No 09/08/24 13:09 CPAP No 09/08/24 13:09 BIPAP Do you snore loudly (louder No 09/08/24 13:09 than talking or can be heard Do you often feel tired/ No 09/08/24 13:09 fatigued/ sleepy during daytime? Has anyone observed you stop No 09/08/24 13:09 breathing during sleep? STOP Results Negative 09/08/24 13:09 QUESTION #5 FULL TEXT : Do you snore loudly (louder than talking or can be heard through closed doors)? 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 History - sack keeper: Tobacco Use History - sack keeper Tobacco Use Smoking Status Former smoker 09/08/24 13:09 Hx Tobacco Use No 09/08/24 13:09 Years Smoking Packs Smoked per Day Smoking Cessation Date was No - quit smoking greater 09/08/24 13:09 within the last 15 years than 15 years ago Hx Smoking Cessation Date 05/28/82 09/08/24 13:09 Hx Smoking Cessation No 09/08/24 13:09 Counseling Hematologic Medial History Hematologic Hx - sack keeper: Hematologic Medical Hx - staff reporter Hx of Blood Transfusion No 09/08/24 13:09 Hx of Transfusion in last 3 No 09/08/24 13:09 Months Date of Last Transfusion (if within last 3 months) Ever experience any problems No 09/08/24 13:09 with transfusion(s)? Specify any problems Hx of Preganancy in last 3 N/A 09/08/24 13:09 Months Nurse Filling Out Transfusion NBUCHER 09/08/24 13:09 & Questions: Date: 09/08/24 09/08/24 13:09 Time: 13:10 09/08/24 13:09 Patient unable to answer at this time (ie. confused, unrespo /Reproduction History /Reproductive History - sack keeper: /Reproductive Hx- sack keeper Hx Now Gestational Age (in weeks): EDC: Hx Hx Para Hx Section SAB No 09/08/24 13:09 Active Medications Active Medications: Current Medications Generic Name Dose Route Start Last Admin Trade Name Sloane PRN Reason Stop Dose Admin Acetaminophen 1,000 mg 10/06/24 10:30 10/06/24 09:37 Acetaminophen 500 Mg Tablet PO 10/06/24 10:31 1,000 mg PREOP ONE Administration Acetaminophen 1,000 mg 10/06/24 07:30 Acetaminophen 500 Mg Tablet PO Q8H [facility] Celecoxib 400 mg 10/06/24 10:30 10/06/24 09:37 Celecoxib 200 Mg Capsule PO 10/06/24 10:31 400 mg PREOP ONE Administration Sodium Chloride 77.4 ml/ 0 ml 10/06/24 10:30 Ropivacaine 200 mg/ OPERA.SITE 10/06/24 10:31 Epinephrine HCl 0.6 mg/ INTRAOP ONE Ketorolac Tromethamine 30 mg/ Morphine Sulfate 5 mg Dexamethasone Sodium Phosphate 10 mg 10/06/24 10:30 Dexamethasone 10 Mg/Ml Vial IV 10/06/24 10:31 INTRAOP ONE Enteral Nutritional Formula 237 ml 10/06/24 08:00 Ensure Surgery 237 Ml Liquid PO TIDCM [facility] Famotidine 20 mg 10/06/24 10:00 Famotidine 20 Mg Tablet PO DAILY [facility] Gabapentin 600 mg 10/06/24 10:30 10/06/24 09:37 Gabapentin 600 Mg Tablet PO 10/06/24 10:31 600 mg PREOP ONE Administration Lactated Ringer's 1,000 mls @ 999 mls/hr 10/06/24 10:30 10/06/24 08:50 IV 10/06/24 11:30 999 mls/hr .Q1H1M CHARLY Administration Cefazolin Sodium 2 gm/ Sodium 110 mls @ 150 mls/hr 10/06/24 10:30 Chloride IV 10/06/24 11:13 INTRAOP ONE Tranexamic Acid 1,000 mg/ 110 mls @ 660 mls/hr 10/06/24 10:30 Sodium Chloride IV 10/06/24 10:39 INTRAOP ONE Tranexamic Acid 1,000 mg/ 110 mls @ 660 mls/hr 10/06/24 10:30 Sodium Chloride IV 10/06/24 10:39 INTRAOP ONE Lactated Ringer's 1,000 mls @ 999 mls/hr 10/06/24 10:30 IV 10/06/24 11:30 .Q1H1M [facility] Lactated Ringer's 1,000 mls @ 125 mls/hr 10/06/24 10:30 IV 10/06/24 18:29 .Q8H [facility] Magnesium Sulfate 1 gm/ 102 mls @ 408 mls/hr 10/06/24 10:30 10/06/24 08:55 Dextrose IV 10/06/24 10:44 408 mls/hr INTRAOP ONE Administration Cefazolin Sodium 1 gm in 50 mls @ 150 mls/hr 10/06/24 07:25 IV 10/06/24 15:44 Q8H [facility] Insulin Human Lispro 1 - 6 unit 10/06/24 10:30 Insulin Lispro 100 Unit/Ml Insuln.Pen SC Q4H PRN PRN BG>/= 180, SEE PROTOCOL Protocol Ketorolac Tromethamine 15 mg 10/06/24 07:22 Ketorolac 15 Mg/Ml Vial IV 10/07/24 07:24 Q6H PRN PRN Pain Score 1-10 Morphine Sulfate 2 - 4 mg 10/06/24 07:22 Morphine 2 Mg/Ml Syringe IV Q2H PRN PRN Pain Score 4-10 Morphine Sulfate 2 - 4 mg 10/06/24 09:17 Morphine 4 Mg/Ml Syringe IV Q2H PRN PRN Pain Score 4-10 Ondansetron HCl 4 mg 10/06/24 07:22 Ondansetron 4 Mg/2 Ml Vial IV Q6H PRN PRN NAUSEA/VOMITING Oxycodone HCl 5 - 10 mg 10/06/24 07:22 Oxycodone 5 Mg Tablet PO Q4H PRN PRN Pain Score 4-10 Promethazine HCl 12.5 mg 10/06/24 07:22 Promethazine 25 Mg Tablet PO Q6H PRN PRN NAUSEA/VOMITING Promethazine HCl 12.5 mg 10/06/24 07:22 Promethazine 25 Mg/Ml Syringe IM Q6H PRN PRN NAUSEA/VOMITING Rivaroxaban 10 mg 10/07/24 06:00 Rivaroxaban 10 Mg Tablet PO DAILY@0600 [facility] Senna/Docusate Sodium 2 tablet 10/06/24 10:00 Senna/Docusate Sodium 1 Tablet PO BID [facility] Medical History Wears glasses Wears partial dentures Post-menopausal Cancer Heartburn Former smoker History of echocardiogram History of irregular heartbeat Psoriatic arthritis Osteopenia Osteoarthritis Hypertension Arthritis Home Medications ?Medication ?Instructions ?Recorded ?Last Taken ?Type Lactobacillus acidophilus 250 500 mmu cells PO DAILY 0 09/07/23 10/05/24 History million cell capsule (Probiotic Acidophilus) valsartan 160 1 tab PO DAILY #90 tabs 10/2610/05/24 Rx mg-hydrochlorothiazide 12.5 mg tablet cholecalciferol (vitamin D3) 50 50 mcg PO DAILY 10/05/24 History mcg (2,000 unit) capsule (Vitamin D3) glucosamine-chondroitin 500 mg-400 3 cap PO DAILY 08/2610/05/24 History mg capsule letrozole 2.5 mg tablet 2.5 mg PO DAILY 09/08/2404/21 History omega 7-jft-jnc-fish oil 1,200 mg 2 cap PO DAILY 09/0809/30/24 History (144 mg-216 mg) capsule (Fish Oil) acetaminophen 500 mg tablet 500 mg PO Q6H PRN pain 10/05/24 History (Tylenol Extra Strength) Allergy/AdvReac Type Severity Reaction Status Date / Time No Known Allergies Allergy Verified 10/06/24 09:32 Family History Father Arthritis Heart disease Hypertension Mother Hypertension Grandmother CVA (cerebral vascular accident) Surgical History History of tubal ligation History of lumpectomy of left breast S/P lumpectomy, left breast Hx of colonoscopy Hx of right cataract extraction Hx of left cataract extraction History of left hip replacement History of right hip replacement History of section History of carpal tunnel release of both wrists Social History Smoking Status: Former smoker how long ago did patient quit smokin alcohol intake: never substance use type: does not use what type of physical activity do you participate in: walking frequency: daily Review of Systems (Anesthesia) ROS Narrative System reviewed and no additional complaints, except as documented.
--- NOTE | 2024-10-06 09:56 | PCM.POST.ANE ---
Anesthesia: Postop Eval I Current Vital Signs Temperature: 98.8 F Pulse Rate: 85 Blood Pressure: 125/65 Respiratory Rate: 18 Pulse Ox: 95 Oxygen Delivery Method: Room Air Assessment Airway patent: Yes Spontaneous unlabored respirations: Yes Mental status: Awake and Calm nausea: No Vomiting: No Anesthesia Complication: No Fluid Hydration Crystalloid volume administer (ml): 1,800 Total IV fluid infused: 1,800 Progress Note Anesthesia document: Postop Eval 1 completed: Yes
--- NOTE | 2024-10-06 10:30 | KNEE_PTH ---
PATIENT: ANGELA BETANCUR LOC: [facility] U#:[id number] AGE/SX: 73/F ROOM: AK312 RE10/06/[address]: Dr. Yuri Jasso MD : 1950 BED: 1 DIS: 10/07/2024 SPEC #: [id number] RECD: 10/06/24 12:55 STATUS: MICHAEL RERaegan #: [id number] SUE: 10/06/24 10:[address]: Yuri Jasso DEPT: SURGICAL PATHOLOGY RECD BY: Willis Corona ENTERED: 10/06/24 13:30 SP TYPE: TOTAL KNEE OTHR DR: Dr. 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 Right knee, arthroplasty: * Benign cartilage and bone with degenerative changes MICROSCOPIC DESCRIPTION Slides are reviewed. GROSS DESCRIPTION A. Received in formalin in a container labeled with the patient's name, date of , and debrided bone and tissue right knee are multiple grace-pink, firm, and irregular fragments of bone and soft tissue measuring 9.7 x 7.0 x 4.0 cm in aggregate. The specimen consists of, but is not limited to, medial/lateral condyle and tibial plateau. The resection margins are smooth and firm and the cortical surfaces are pitted and granular with smooth areas of eburnation. Sectioning reveals firm grace surfaces. Experimental Psychologist sections submitted in A1 following decalcification. [facility] 10-06-2024 CPT:41520,[id number]
[2024-10-06] MEDS: TXA 1000mg in NS100 100ml (IVPB at Incision) 660 MG IV (10:45)
[2024-10-06] MEDS: Cefazolin 2 GM in 0.9% Normal Saline (100mL Bag) 100 ML IV (10:46)
[2024-10-06] MEDS: dexAMETHasone 10 MG/ML Vial IV (10:47)
[2024-10-06] MEDS: JPS (Morphine 10mg/ml) OPERA.SITE (11:35)
[2024-10-06] MEDS: TXA 1000mg in NS100 100ml (IVPB at Closure) 660 MG IV (11:46)
--- NOTE | 2024-10-06 12:22 | PCM.OPRPT ---
Operative Report (Standard) Operative Information Date of Procedure: 10/06/24 Pre-Operative Diagnosis: Right knee primary osteoarthritis Post-Operative Diagnosis: Right knee primary osteoarthritis Surgery/Procedure Performed: Right knee minimally invasive robotic assisted total arthroplasty gps field data collector: Yes Fireproof Door Assembler: Mauri Junior Tasks completed by manufacturing assistant: Other (See body of operative report) Additional virtual assistant for advertisers?: No Type of Anesthesia: Spinal RN Documented Start/Stop Times: Operation Date: 10/06/24 10:30 Case Time Into Pre-Op 10/06/24 08:36 Anesthesia Start 10/06/24 10:36 Into Room 10/06/24 10:36 Procedure Start 10/06/24 11:04 Procedure End 10/06/24 12:20 Procedure Start Time: 11:04 Procedure Stop Time: 12:20 Select all DRAINS/GRAFTS/IMPLANTS that apply: Prosthetic device Prosthetic device details: See body of operative report Special Medications: 2 g Ancef, TXA, 10 mg Decadron, joint cocktail (5 mg Duramorph, 30 mL of 0.5% Ropivicaine, 1000 units of epinephrine, 30 mg of Toradol) Estimated Blood Loss: 50 mL Fluids Replaced: 1500 mL crystalloid Specimen collected: Yes Description of specimen(s) removed: Bony cuts Description of surgery: Implants used: 1. [place] size 3 triathlon cruciate retaining distal femoral press-fit component 2. [place] size 4 press-fit tritanium tibial baseplate 3. [place] X3 11 mm CS polyethylene 4. [place] X3 32 mm asymmetric patella Brief history operative indications: 73-year-old f with history of right knee osteoarthritis with radiographic findings with loss of joint space, osteophyte formation and subchondral sclerosis. Failed conservative measures as mentioned in the H&P. Discussion of total knee arthroplasty as well as risk and benefits were discussed the patient including but not limited to blood loss, DVTs, PEs, neurovascular damage, general risk of anesthesia including loss of life, and stiffness or instability were discussed with patient. Patient demonstrated understanding and was able to sign informed consent. Procedure: On the date of procedure patient's right lower extremity was marked in the preoperative area. The patient was then taken back to the operating room where the patient was placed on the table in the supine position. All bony prominences were identified a well-padded. Anesthesia assumed control of the C-spine and airway and remained controlled throughout the remainder of the procedure. A tourniquet was placed on the right upper thigh and the leg was prepped in a sterile fashion. The surgeon then scrubbed at this time .Upon reentering the room right lower extremity was draped in a standard orthopedic fashion. A timeout was then called and everyone agreed upon the side, the site, the procedure to be performed, patient's identity and antibiotics given. Esmarch bandage was used to exsanguinate the extremity and the tourniquet was placed up to 250 mmHg with the knee in flexion. A midline skin incision was made and sharp dissection was taken down through skin subcutaneous tissue and fat. The standard medial parapatellar incision was made and the patella was subluxed laterally. An Appropriate deep MCL release was done and the fat pad was resected. Our attention was then directed to the patella. The patella was everted and a flat resection was made. The knee was then flexed up in 2 femoral pins were placed inside the incision and 2 tibial pins were placed outside the incision in the medial tibia bicortically. Once this was completed the 2 checkpoints in the femur and tibia were placed. Knee was then flexed up and the bony landmarks were registered. Once this was completed knee was taken through range of motion and manually stressed allowing us to a plan for an appropriate tibial cut. The robotic arm was brought into the field sterilely and checkpoint and saw were registered. Based on the patient's deformity the tibial cut was made neutral to the tibial axis. At this time the tensioner was then placed in the joint and ligament tension was checked at 90 degrees and full extension. Based on the patient's ligamentous tension appropriate adjustments were made to the operative plan and ligament releases were done. Once we were happy with our operative plan with balanced flexion and extension gaps our attention was directed to the femur. The robot was brought into the field sterilely and registered. Posterior condylar cuts, anterior chamfer cuts and anterior cuts were appropriately made for a size 3 femur. When these were completed the saws were switched out in the distal femoral and posterior chamfer cuts were made. Protecting the soft tissue throughout this time. A size 4 tibial base plate was selected. the knee was flexed to 90 degrees and the soft tissues and posterior osteophytes were removed from the joint. 40 cc of the periarticular injection was injected into the posterior medial corner of the joint. The appropriate trials were then placed on the femur and tibia. A trial polyethylene was trialed to ensure proper balancing and stability of the knee. The appropriate tibial internal rotation was then marked with a bovie. Our attention was then directed to the patella. The lug holes were drilled and the patella trial was placed. Patellar tracking was checked and deemed appropriate. Once we were happy lug holes were drilled for the femur and trial components were removed. The tibia was subluxed and pinned into place and the keel was punched and drilled appropriately. Final components were verified and opened. The wound was copiously irrigated with normal saline. When the cement was ready the components were impacted into place starting with the tibia then the femur, finally the patella was compressed into place. The trial poly component was placed and the knee was placed in full extension. Once the the implants were secured, the tracking, alignment and balance were verified and a size 11 mm CS polyethylene component was placed. Once the final components were placed a 3-minute dilute Betadine lavage was performed followed by an Irrisept lavage was performed and the wound was copiously irrigated with normal saline solution and the periarticular injection was given. The wound was closed in a layer osorio fashion using #1 vicryl interrupted sutures for the arthrotomy, 2-0 interrupted Vicryl suture for the subcuticular layer and ahmet for final skin closure. A sterile compressive dressing was then placed. The patient was then awakened from anesthesia, transferred to the [facility] and transferred to the PACU for recovery. Post op plan DVT ppx: Xarelto, patient is on hormone replacement therapies, thigh high compression stockings Follow up: in office in 2 weeks for wound check PT: to start POD #0 at hospital, outpatient PT should be arranged. My physician virtual assistant for advertisers was a vital part of this case, they was important because there was not another skilled set of hands available to their training and aptitude needed for safe and appropriate completion of this case. They were important in appropriate retraction during the case, and protection of soft tissues during bony cuts. In particular the experience and skill of this virtual assistant for advertisers made for safe retraction and exposure during implantation of medical implants without damage to vital soft tissues or structures. His intimate knowledge of the case and my steps aided in safe and expedient completion of the procedure as well as appropriate position of the leg during the case. He was also vital in assisting with closure under my direct supervision. Due to the complexity of this case robotic arm was used to assist in the surgery to improve accuracy and clinical outcomes. Surgical Findings: Stage IV osteoarthritis. Stable knee with good patella tracking Complications Complications: No Admit VTE Documentation VTE Present on Admission: No VTE Mechan Device Prophylaxis: SCD's and Thigh High KENZIE Hose VTE Pharm Prophylaxis ordered?: Yes
--- NOTE | 2024-10-06 12:34 | PCM.POST.ANE ---
Anesthesia: Postop Eval I Current Vital Signs Temperature: 98.8 F Pulse Rate: 74 Blood Pressure: 124/69 Respiratory Rate: 18 Pulse Ox: 94 Oxygen Delivery Method: Room Air Assessment Airway patent: Yes Spontaneous unlabored respirations: Yes Mental status: Awake and Calm nausea: No Vomiting: No Anesthesia Complication: No Fluid Hydration Crystalloid volume administer (ml): 1,200 Total IV fluid infused: 1,200 Progress Note Anesthesia document: Postop Eval 1 completed: Yes
--- NOTE | 2024-10-06 13:45 | PCM.PN.HOSP ---
Reason for Visit Reason for Visit: Diagnoses Encounter for other preprocedural examination (10/06/24) Subjective Subjective The patient is a 73 y/o F w/ PMHx: Obesity, Hx invasive ductal carcinoma of the left breast status post lumpectomy, Psoriatic arthritis, HTN, Former tobacco use, GERD, Severe OA who presents to the [facility] on 10/06/2024 secondary to continued severe right knee osteoarthritic pain with failed outpatient conservative interventions and therapies for planned right total knee replacement. Patient evaluated in PACU, notes currently pain 0 out of 10 and controlled, status post block. Despite block she is able to move her lower extremity. She is stating that she has a dry mouth but otherwise no complaints. Patient denies fevers, chills, nausea, emesis, abdominal pain, chest pain or dyspnea. Objective Data Objective Data Vital Signs: Vital Signs Temp Pulse Resp BP Pulse Ox O2 Del Method O2 Flow Rate 98.8 F 66 16 146/72 H 97 Nasal Cannula 3 10/06/24 12:35 10/06/24 13:30 10/06/24 13:30 10/06/24 13:30 10/06/24 13:30 10/06/24 13:30 10/06/24 13:30 FiO2 42 10/06/24 13:30 Oxygen Flow Rate (L/min) 3 Oxygen Delivery Method Nasal Cannula Weight: 205 lb 7.533 oz Body Mass Index (BMI) 34.2 Lab / Micro Data 09/10/24 13:05 09/10/24 13:05 Micro: Microbiology 09/10/24 13:05 Swab (Method) Nasal Screen MRSA/MSSA - Final Radiography Diagnostic Testing: Radiology Impression Knee X-Ray 10/06/24 07:22 IMPRESSION: Status post total knee replacement. There is good alignment. Postoperative soft tissue changes. Reading Location: [facility] Physical Exam Narrative Physical Examination: General: Awake, alert, oriented x 3 and cooperative, seated upright in PACU, denies any pain. Skin: Normal color, normal turgor, no icterus, no cyanosis except for recent OR with right total knee replacement with dressing in place with no drainage noted. HEENT: AT/NC, EOMI, PERRLA, mildly dry MM, no carotid bruits or JVD noted. Lungs: Mildly diminished, greater bases, distant likely secondary to habitus, no evidence of any distress, no rales, ronchi or wheezing. Heart: Regular rate and rhythm; no gallop, rub audible. Abdomen: Soft, obese, NTTP, ND, mildly hyperactive BS, no HSM. Extremities: No cyanosis, no clubbing, mild bilateral ankle not markedly pitting edema, status post right total knee replacement with dressings in place with no drainage is noted. Neurological: Patient awake, alert, oriented as noted, cognitive function intact; pupils equally reactive to light and accommodation, cranial nerves gross normal, moving all 4 extremities although expected limited right lower extremity given recent OR, strength moderately to severely globally decreased especially with recent block. Psychiatric: Affect appears fatigued otherwise normal, no acute evidence of depressive or anxiety feelings. Assessment & Plan Assessment/Plan (1) Right knee DJD: PLAN: Plan The patient is a 73 y/o F w/ PMHx: Obesity, Hx invasive ductal carcinoma of the left breast status post lumpectomy, Psoriatic arthritis, HTN, Former tobacco use, GERD, Severe OA who presents to the [facility] on 10/06/2024 secondary to continued severe right knee osteoarthritic pain with failed outpatient conservative interventions and therapies for planned right total knee replacement. #1. Severe Osteoarthritis, right knee: Failed conservative therapies and treatments, admitted per Dr. Jasso, s/p R TKR, post-operative pain management, bowel regimen, DVT Prophylaxis, PT/OT/CM per Orthopedic surgery discretion. #2. Hx invasive ductal carcinoma of the left breast: Status postlumpectomy, continued on letrozole, encourage continued outpatient follow-up and evaluation as previously arranged with oncology, currently considered in remission. #3. Psoriatic arthritis: Per current regimen does not appear to be on any chronic rheumatological medication, encourage continued outpatient follow-up with rheumatology as previously arranged. #4. Hypertension: Continue home regimen including valsartan, hydrochlorothiazide with hold parameters as needed, PRN hydralazine. #5. GERD: Per current list on a regimen, if needed may certainly add as needed Mylanta. #6. Obesity: Weight loss and lifestyle changes encouraged. #7. Former tobacco use: Encourage continued tobacco cessation. #8. DVT prophylaxis: SCDs, chemoprophylaxis per surgery discretion given recent OR. Charges/Coding Visit Charges Inpatient E&M: 88545 Subs Hosp L3
[2024-10-06] MEDS: Lactated Ringers 1,000 ML 125 ML IV (14:28)
[2024-10-06] MEDS: Ensure Surgery 237 ML LIQUID PO (16:42)
[2024-10-06] MEDS: Cefazolin 1 GM/50 ML BAG IV (17:52)
--- NOTE | 2024-10-06 18:18 | POSTOPAN2_ITS ---
Anesthesia Postop Eval I Sum Postop Eval Completion status Anesthesia document: Postop Eval 1 completed: Yes Anesthesia Postop Eval I Summary Anesthesia Postop Eval I Summary: Anesthesia Postop Eval I: Assessment Summary Airway patent Yes 10/06/24 12:35 [email or web address] Spontaneous unlabored Yes 10/06/24 12:35 [email or web address] [email or web address] respirations Mental status Awake,Calm 10/06/24 12:35 [email or web address] [email or web address] nausea No 10/06/24 12:35 [email or web address] [email or web address] Vomiting No 10/06/24 12:35 [email or web address] [email or web address] Anesthesia Postop Eval I: Fluid Summary Crystalloid volume administer 1,200 10/06/24 12:35 [email or web address] [email or web address] (ml) Colloids volume administered ( ml) Blood Product volume administered (ml) Total IV fluid infused 1,200 10/06/24 12:35 [email or web address] Anesthesia Postop Eval I: Summary Notes Anesthesia Complication No 10/06/24 12:35 [email or web address] Anesthesia Complication Comment: Post-operative progress note Anesthesia: Postop Eval II Evaluation Mental status: Awake and Calm Pain Level: 1 nausea: No Vomiting: No Complications Anesthesia Complication: No
--- NOTE | 2024-10-06 18:18 | PCM.POSTANE2 ---
Anesthesia Postop Eval I Sum Postop Eval Completion status Anesthesia document: Postop Eval 1 completed: Yes Anesthesia Postop Eval I Summary Anesthesia Postop Eval I Summary: Anesthesia Postop Eval I: Assessment Summary Airway patent Yes 10/06/24 12:35 CAREER [email or web address] [email or web address] Spontaneous unlabored Yes 10/06/24 12:35 CAREER DEVELOPMENT [email or web address] respirations Mental status Awake,Calm 10/06/24 12:35 CAREER DEVELOPMENT [email or web address] nausea No 10/06/24 12:35 CAREER DEVELOPMENT [email or web address] Vomiting No 10/06/24 12:35 CAREER DEVELOPMENT [email or web address] Anesthesia Postop Eval I: Fluid Summary Crystalloid volume administer 1,200 10/06/24 12:35 CAREER DEVELOPMENT [email or web address] (ml) Colloids volume administered ( ml) Blood Product volume administered (ml) Total IV fluid infused 1,200 10/06/24 12:35 CAREER DEVELOPMENT [email or web address] Anesthesia Postop Eval I: Summary Notes Anesthesia Complication No 10/06/24 12:35 CAREER DEVELOPMENT [email or web address] Anesthesia Complication Comment: Post-operative progress note Anesthesia: Postop Eval II Evaluation Mental status: Awake and Calm Pain Level: 1 nausea: No Vomiting: No Complications Anesthesia Complication: No
[2024-10-06] MEDS: Senna/Docusate Sodium 1 Tablet 2 TABLET PO (21:13)
[2024-10-06] MEDS: Ketorolac 15 MG/ML Vial IV (23:40)
[2024-10-07] MEDS: Cefazolin 1 GM/50 ML BAG IV (02:50)
[2024-10-07 02:56] VITALS: BP 126/68; PULSE 63; RESP 16; TEMP 36.9; O2SAT 96
[2024-10-07] MEDS: Acetaminophen 500 MG Tablet 1000 MG PO (04:59)
[2024-10-07] MEDS: Rivaroxaban 10 MG Tablet PO (04:59)
[2024-10-07 05:02] VITALS: BP 124/68; PULSE 69; RESP 16; TEMP 36.6; O2SAT 96
[2024-10-07 07:06] LABS: Hematocrit 33.8 % (37-47); Hemoglobin 11.4 g/dL (12.0-15.0); Mean Corp Hgb Conc 33.7 g/dL (32-36); Mean Corpuscular Hgb 31.5 pg (27.0-32.0); Mean Corpuscular Volume 93.4 fL (81-99); Mean Platelet Vol. 12.5 fl (6.2-12.0); Platelet Count 161 K/mm3 (150-450); RBC Distribution Width CV 12.3 % (11.6-14.6); RBC Distribution Width SD 42.3 fl (35.1-43.9); Red Blood Count 3.62 M/mm3 (4.2-5.4); White Blood Count 15.1 K/mm3 (4.4-11.0)
[2024-10-07 07:30] LABS: Anion Gap 12 (5-15); BUN 27 mg/dL (4-19); BUN/Creat Ratio 28.7 RATIO (10-20); Calcium,Total 9.1 mg/dL (7.6-11.0); Carbon Dioxide 21.8 mmol/L (21.0-32.0); Chloride 100 mmol/L (98-108); Creatinine, Serum 0.92 mg/dL (0.70-1.20); EST Glomerular Filtration Rate 65 (>60); Estimated Creatinine Clearance 61.46 ml/min (50-250); Glucose 156 mg/dL (70-99); Sodium Level 134 mmol/L (133-145)
--- NOTE | 2024-10-07 08:53 | DCINST_ITS ---
Discharge Instructions Diet Discharge Diet: No restrictions DC O2, CPAP, BIPAP needs Home O2 Discharge instructions: No Dressing / Incision Discharge Activity: May Not Drive (Until 6 weeks postoperatively.) Weight Bearing Status: Weight bearing as tolerated (With walker.) Keep extremity elevated above heart level: Right Leg Dressing / Incision Call your doctor if your incision/area has: Continuous Slow Oozing, Sudden Increased Bleeding, Increased Pain/ Swelling, Increased Redness, Foul Smelling Discharge and Swelling at the incision site Call your doctor if you observe: Fever of 101 or Higher, Coldness, Increased Pain, Numbness or Tingling, Change in Color, Inability to urinate, Inability to have a bowel movement, Using more than 1 pad per hour, Shortness of breath, Dizziness, Fainting spells, Swelling in the ankles, Chest pain, Prolonged hiccupping, Increased palpitations (irregular heartbeat), Calf discomfort and Uncontrolled pain Remove Dressing in: 5 days (Can remove dressing on 10/11.) Cleanse incision/area with: Soap & Water Additional Dressing/Incision Instructions:: Once postoperative dressing has been removed, only use gentle soap and water over the incision. Do not use any ointments, Neosporin, salves, alcohol pads over the incision for 6 weeks postoperatively. Do not submerge underwater for 6 weeks postoperatively. Continue with KENZIE hose/elastic stockings for 2 weeks postoperatively. May casey ve at nighttime but needs to be placed back on the leg during the day. DVT prophylaxis plan: You will use Xarelto for 2 weeks postoperatively and then aspirin 81 mg twice daily for an additional 2 weeks to cover for 4-week operatively. Do not use any NSAIDs while taking Xarelto for first 2 weeks. Do NOT use alcohol with narcotic pain medication. Do NOT make important decisions while taking narcotic medication. If you have problems with taking your medication (rash, itching, nausea, etc.) call the office at once. Follow Up Care Test Results: Test results from this visit will be discussed in further detail at your follow- up appointment, if applicable. Discharge Plan Admission Admit Date/Time: 10/06/24 07:23 Attending Provider: Yuri Jasso Primary Care Provider: Ambrose Estrella Consulting Providers: Jocelin Verdugo; Rudy Liu Discharge Orders/Prescriptions Prescriptions: New sennosides-docusate sodium [Stimulant Laxative Plus] 8.6-50 mg Tablet 2 tab PO BID Qty: 0 0RF Rx Instructions: Take until first bowel movement and then as needed. acetaminophen 500 mg Tablet 1,000 mg PO TID Qty: 0 0RF famotidine 20 mg Tablet 20 mg PO DAILY 30 Days Qty: 30 0RF oxycodone 5 mg Tablet 5 - 10 mg PO Q4H PRN PRN (Reason: As needed for pain.) 7 Days Qty: 42 0RF Xarelto 10 mg Tablet 10 mg PO DAILY 13 Days Qty: 13 0RF Continued valsartan-hydrochlorothiazide 160-12.5 mg tablet 1 tab PO DAILY Qty: 90 4RF Probiotic Acidophilus 250 million cell capsule 500 mmu cells PO DAILY letrozole 2.5 mg tablet 2.5 mg PO DAILY omega 7-dka-gru-fish oil [Fish Oil] 1,200 (144-216) mg capsule 2 cap PO DAILY cholecalciferol (vitamin D3) [Vitamin D3] 50 mcg (2,000 unit) capsule 50 mcg PO DAILY glucosamine-chondroitin 500-400 mg capsule 3 cap PO DAILY Rx Instructions: give with meal/snack No Action acetaminophen [Tylenol Extra Strength] 500 mg tablet 500 mg PO Q6H PRN (Reason: pain) Other Ambulatory Orders: 12 Lead EKG (Routine) Location: None Selected Ordered By: Dr. Yuri Jasso Referrals / Follow Up: Ambrose Estrella DO [Primary Care Provider] - Disposition Disposition (needs filled in before D/C Order can be placed): Home, Self Care
--- NOTE | 2024-10-07 08:54 | PN.ORTHO_ITS ---
Subjective Subjective Patient was laying comfortably in bed. Patient states that she feels she is ready to go home at this point. Patient states that she has not yet had bowel movement. Patient states that her pain has been adequately controlled. Patient states that she has been up and been going to the bathroom. Patient states that she did work with physical therapy yesterday and it went well. Patient states that she did have an episode of emesis yesterday directly following surgery but has denied any nausea, vomiting, dizziness today. Patient denies any new numbness or tingling. Patient denies any shortness of breath, chest pain, calf pain. Patient denies any adverse events overnight. Objective Data Objective Data Vital Signs: Vital Signs Temp Pulse Resp BP Pulse Ox O2 Del Method O2 Flow Rate 97.9 F 69 16 124/68 H 96 Room Air 2 10/07/24 05:02 10/07/24 05:02 10/07/24 05:02 10/07/24 05:02 10/07/24 05:02 10/07/24 05:02 10/06/24 15:30 FiO2 42 10/06/24 13:30 Oxygen Flow Rate (L/min) 2 Oxygen Delivery Method Room Air Weight: 93.2 kg Body Mass Index (BMI) 34.2 Intake & Output: Intake and Output for Last 24 Hours 10/05/24 10/06/24 10/07/24 23:59 23:59 23:59 Intake Total 1050 / 1050 2450 / 2450 Balance 1050 / 1050 2450 / 2450 Lab / Micro Data 10/07/24 06:01 10/07/24 06:01 Labs: Laboratory Results - last 24 hr 10/07/24 06:01: WBC 15.1 H, RBC 3.62 L, Hgb 11.4 L, Hct 33.8 L, MCV 93.4, MCH 31.5, MCHC 33.7, RDW Std Deviation 42.3, RDW Coeff of Bret 12.3, Plt Count 161, M PV 12.5 H, Sodium 134, Potassium 4.0, Chloride 100, Carbon Dioxide 21.8, Anion Gap 12, BUN 27 H, Creatinine 0.92, Estim Creat Clear Calc 61.46, Est GFR (MDRD) Non-Af 65, BUN/Creatinine Ratio 28.7 H, Glucose 156 H, Calcium 9.1 Micro: Microbiology 09/10/24 13:05 Swab (Method) Nasal Screen MRSA/MSSA - Final Radiography Diagnostic Testing: Radiology Impression Knee X-Ray 10/06/24 07:22 IMPRESSION: Status post total knee replacement. There is good alignment. Postoperative soft tissue changes. Reading Location: [id number] Physical Exam Narrative KENZIE hose in place bilaterally SCDs in place bilaterally Dressing is clean dry and intact Dorsiflexion and plantarflexion are performed but pain or restriction Sensation intact to light touch Neurovascularly intact overall Negative Homans bilaterally Const alert, oriented x3 and no apparent distress Assessment & Plan Assessment/Plan (1) Status post right knee replacement: PLAN: Status post right robotic assisted total knee arthroplasty day 1 1. DVT prophylaxis: Patient will be on Xarelto for 2 weeks postoperatively followed by aspirin 81 mg twice daily for an additional 2 weeks. Patient will be on Xarelto due to taking anastrozole due to history of breast cancer. Patient was educated not to take any anti-inflammatory medications while taking Xarelto. Patient will be wearing KENZIE hose bilaterally for 2 weeks postoperatively removing at night and with showering. Patient was educated to do 5 minutes of movement per every hour. 2. Pain medications: Patient will be taking Tylenol 1000 mg every 8 hours taking no more than 3000 mg in 24 hours, patient will also have oxycodone to take as needed for pain medication. OARRS report was reviewed today. Risk of abuse potential was discussed with patient. Patient was educated not to use while driving motor vehicle or operating equipment. Patient voiced understanding. 3. Constipation: Patient will be taking senna postoperatively. Patient was instructed to take until first bowel movement and then take as needed to decrease risk of impaction following surgery. Patient was educated if she has not had a bowel movement in 3 days to contact our office. 4. Reactive leukocytosis: White blood cell count is currently 15.1. Vital signs are stable and patient is afebrile. Patient did receive Decadron intraoperatively. 5. H&H: 11.4/33.8. Vital signs are stable and patient is afebrile. Currently hemoglobin is above the threshold of 10 and we do not need to begin anemia protocol. 6. Physical therapy: Patient will be weightbearing as tolerated with walker with physical therapy. Patient does have outpatient physical therapy scheduled. 7. Incentive spirometry: Patient was encouraged to use incentive spirometer every hour that she is awake for the first week to exercise lungs and decrease risk of postoperative infection. Patient voiced understanding. 8. Dressings: Patient was educated she can get waterproof dressing wet on postoperative day 1. Patient was educated she can remove dressing on postoperative day 5. Patient was educated if incision is clean dry and intact she is able to leave open to air. 9. Patient is to follow-up per postoperative instructions. 10. Patient will have a follow-up appointment with Eligio Melendez in 2 weeks. Patient does have appointment scheduled. 11. Medicine is involved at this point and appreciate recommendations from medicine. 12. Patient was following nutrition protocol prior to surgery. Patient was educated to finish up her shakes when she got home. 13. Patient is okay for discharge if pain maintains adequately controlled, has worked with and is cleared by physical therapy, and is okay per medicine doctors instructions. 14. Patient states that she does feel comfortable with going home. Patient states that she does have help at home from her and her daughter who is a nurse is coming to stay with her for 1 week postoperatively. Patient states that she does have senna, Tylenol, aspirin at home already. Patient would like medications sent in to be sent to pharmacy of choice which is [facility]. Patient will continue being weightbearing as tolerated with walker. Patient does have outpatient physical therapy scheduled. Patient does have 2-week follow-up appointment scheduled. Patient is to follow-up per postoperative instructions. Patient was encouraged to call us with any questions, concerns, new problems.
--- NOTE | 2024-10-07 10:22 | CASEMGMT ---
Met with patient to complete BURNETT form. BURNETT form explained to patient who voiced understanding and signed form. Original form placed in pt?s chart and copy provided to patient. Elena Casey, Discharge Planning Asst
[2024-10-07] MEDS: Ketorolac 15 MG/ML Vial IV (10:24)
[2024-10-07] MEDS: Ensure Surgery 237 ML LIQUID PO ×2 (10:27→11:43)
[2024-10-07] MEDS: Lactobacillis Acidophilus 1 CAP PO (10:27)
[2024-10-07] MEDS: Senna/Docusate Sodium 1 Tablet 2 TABLET PO (10:27)
[2024-10-07] MEDS: Losartan Potassium 50 MG Tablet PO (10:28)
[2024-10-07] MEDS: hydroCHLOROthiazide 12.5mg 12.5 MG PO (10:28)
[2024-10-07] MEDS: Famotidine 20 MG Tablet PO (10:30)
--- NOTE | 2024-10-07 10:30 | CASEMGMT ---
TC to [facility] pharmacy, cost of xarelto is $231.69 as this is going towards pt deductible per Janny.
[2024-10-07 11:00] VITALS: BP 121/59; PULSE 87; RESP 16; TEMP 36.8; O2SAT 95
--- NOTE | 2024-10-07 11:00 | CASEMGMT ---
JONES FISHER Assessment: Face to Face with pt for initial transition planning/care coordination assessment. JONES FISHER introduced self and role at [facility], pt voices understanding and consents to assessment. Pt is A&O x4 and answers all questions appropriately at this time. Pt sitting up in chair in no distress with and son at bedside. Pt agreeable to assessment with family present. Care providers, pharmacy, and demographics verified/updated. Admitting Dx: R TKR Strata Score: 1 PCP:Sameer Specialists:royer Jasso; jeremi Najera [facility]erred [facility]acy: [facility] Insurance: [facility], [employer] Prescription Benefit: yes LNOK: Matthew May, ; Felicity Villatoro, dtr Living Arrangements: Pt lives with in a two story home with FFSU. Pt reports she was I in ADL/IADLs prior to surgery. Pt family to assist post surgery. Pt denies concerns at home. Transportation: Pt drives self and denies concerns with transportation. Pt dtr to transport pt until she can drive again. DME:walk in shower with built in seat, cane, [facility], [facility], [facility] care HHC/SNF: Denies hx of Pt states no concerns with going home at time of dc. Pt has outpt therapy set up for tomorrow at [facility]. Discussed cost of xarelto and patient states she has already spoken to the pharmacy about this and can afford it. Pt states no further concerns/needs. CM to follow. Advised pt to ask CM if any further questions/concerns/needs arise, voices understanding. Pt Goal: Home with outpt therapy Plan: Home with outpt therapy Pooja GOLDMAN CM
--- NOTE | 2024-10-07 11:54 | PHA.DC_ITS ---
Pharmacy [facility] Pharm[facility] Service has performed discharge medication reconciliation and counseling for this patient. 1. ACETAMINOPHEN 1000MG PO Q8 2. FAMOTIDINE 20MG PO DAILY 3. RIVAROXABAN 10MG PO DAILY X 13 DAYS, THEN ASPIRIN 81MG BID X 14 DAYS (THEN RESUME DAILY) 4. OXYCODONE 5-10MG PO Q4H PRN PAIN 5. SENNA/DOCUSATE 2T PO BID UNTIL FIRST BM, THEN BID PRN CONSTIPATION The patient's discharge medication list was reviewed for discrepancies and discrepancies were resolved. The patient was counseled on the following discharge medications and changes in medications for homegoing were reviewed. The Reason for Use, instructions for use, and potential side effects were reviewed for all new medications. The patient's questions regarding all of their medications were answered. The patient was able to verbally demonstrate an understanding of their discharge medications. Medications at Discharge Home Medications Lactobacillus acidophilus 250 million cell capsule (Probiotic Acidophilus) 500 mmu cells PO DAILY 09/07/23 valsartan 160 mg-hydrochlorothiazide 12.5 mg tablet 1 tab PO DAILY #90 tabs 11/13/23 cholecalciferol (vitamin D3) 50 mcg (2,000 unit) capsule (Vitamin D3) 50 mcg PO DAILY 09/08/24 glucosamine-chondroitin 500 mg-400 mg capsule 3 cap PO DAILY 09/08/24 letrozole 2.5 mg tablet 2.5 mg PO DAILY 09/08/24 omega 5-mzf-knk-fish oil 1,200 mg (144 mg-216 mg) capsule (Fish Oil) 2 cap PO DAILY 09/08/24 acetaminophen 500 mg tablet (Tylenol Extra Strength) 500 mg PO Q6H PRN pain 09/17/24 acetaminophen 500 mg tablet 1,000 mg (2 x 500 mg) PO TID #0 tabs 10/07/24 famotidine 20 mg tablet 20 mg PO DAILY 30 days #30 tabs 10/07/24 oxycodone 5 mg tablet 5 - 10 mg (1 - 2 x 5 mg) PO Q4H PRN PRN As needed for pain. 7 days #42 tabs 10/07/24 rivaroxaban 10 mg tablet (Xarelto) 10 mg PO DAILY 13 days #13 tabs 10/07/24 sennosides 8.6 mg-docusate sodium 50 mg tablet (Stimulant Laxative Plus) 2 tab PO BID #0 tabs 10/07/24
== END 2024-10-07 12:39 | disposition home or self-care (01) ==
LOC: MS3 10-07 08:32 → SDC 10-07 09:11 → AC 10-07 09:11 → SDC 10-07 09:11 → MS3 10-07 09:12
PROVIDERS: Admitting Provider Specialist; PCP Family Medicine; Referring Provider Specialist; Visit Provider Specialist
PROC: 0SRC0JZ Replacement of Right Knee Joint with Synthetic Substitute, Open Approach (ICD-10-PCS; CPT 27447; principal; 2024-10-06 10:00)
DX: M17.11 Unilateral primary osteoarthritis, right knee (principal); L40.50 Arthropathic psoriasis, unspecified; C50.912 Malignant neoplasm of unspecified site of left female breast; M21.061 Valgus deformity, not elsewhere classified, right knee; I10 Essential (primary) hypertension; M85.80 Other specified disorders of bone density and structure, unspecified site; K21.9 Gastro-esophageal reflux disease without esophagitis; E66.9 Obesity, unspecified; Z68.33 Body mass index [BMI] 33.0-33.9, adult; Z79.811 Long term (current) use of aromatase inhibitors; Z79.899 Other long term (current) drug therapy; Z87.891 Personal history of nicotine dependence
CPT/HCPCS: 27447; S2900; 01402; 36415; 73560; 80048; 82040; 83735; 85025; 85027; 87081; 88304; 88311; 93005; 94668; 96361; 96365; 96366; 96375; 96376; 97110; 97162; 97166; 97530; 97535; 99221; C1776; G0378; J3475

== ENCOUNTER → 2024-10-08 | Outpatient (CLI) | payer MEDICARE, OTHER, SELFPAY ==
--- NOTE | 2024-10-08 11:10 | VDLE_ITS ---
Reason For Study Reason For Study: Knee surgery 10/06 RIGHT LEFT GSV is normal. CFV is compressible, spontaneous, phasic, competent, CFV is compressible, spontaneous, phasic, competent and demonstrates normal augmentation. and demonstrates normal augmentation. FV is compressible, spontaneous, phasic, competent and demonstrates normal augmentation. POP V is compressible, spontaneous, phasic, competent and demonstrates normal augmentation. T/P Trunk is compressible. PTV is compressible. RT PerV is compressible. Procedure This is a venous duplex using B-mode, color flow and spectral Doppler. Exam performed in department. A preliminary report was called and/or faxed to Yuri Jasso MD. VL/Venous Duplex US, Unilateral Interpretation Summary Deep veins of the right lower extremity are patent and compressible segmentally . There is no evidence of right lower extremity deep vein thrombosis. The right great saphenous vein appears patent a nd compressible segmentally. Ordering Physician: Yuri Jasso Referring Physician: Mike Estrella M.D. Performed By: Domenica Shepherd RVT
== END | disposition home or self-care (01) ==
LOC: CVS 10:58
PROVIDERS: PCP Family Medicine; Referring Provider Specialist; Visit Provider Specialist
DX: R22.41 Localized swelling, mass and lump, right lower limb (principal)
CPT/HCPCS: 93971

== ENCOUNTER → 2024-10-21 | Outpatient (CLI) | payer MEDICARE, OTHER, SELFPAY ==
[2024-10-21 15:37] LABS: Bacteria 0 SEEN /hpf (None Seen); Mucous, Urine 0 SEEN /hpf (<or=2+); Red Blood Cells-Urine 0 SEEN /hpf (0-5); Squamous Epithelial Cells - UA 0 SEEN /hpf (5-10); White Blood Cells 0 SEEN /hpf (0-5)
[2024-10-21 20:01] LABS: Color, Urine Yellow (Yellow); Glucose, Dipstick Normal (Normal); Ketone-Dipstick Negative (Negative); Leukocyte Esterase-Dipstick Negative /ul (Negative); Nitrite-Dipstick Negative (Negative); Occult Blood-Urine Negative /ul (Negative); Protein-Dipstick 15 mg/dl (Negative); Urine Bilirubin Dipstick Negative (Negative); Urine Clarity Clear (Clear); Urine Urobilinogen Normal (Normal)
== END | disposition home or self-care (01) ==
LOC: LABSPEC 15:36
PROVIDERS: PCP Family Medicine; Referring Provider Family Medicine; Visit Provider Family Medicine
DX: R35.0 Frequency of micturition (principal)
CPT/HCPCS: 36415; 81001

== ENCOUNTER → 2024-11-10 | Outpatient (CLI) | payer MEDICARE, OTHER, SELFPAY ==
--- NOTE | 2024-11-10 10:14 | NM_ITS ---
PROCEDURE: PARATHYROID SCAN REASON FOR EXAM: ELEVATED PTH TECHNIQUE: Nuclear medicine parathyroid imaging performed following intravenous technetium- 99m sestamibi administration. Anterior imaging of the neck through 2.0 hours. RADIOPHARMACEUTICAL: Technetium 99 M sestamibi. DOSE 27.0mCi COMPARISON: None. FINDINGS: The 15 minute image demonstrates normal homogeneous activity in both thyroid lobes. The 2 hour delayed image does not demonstrate any residual activity to suggest a parathyroid adenoma. NM/Parathyroid Scan IMPRESSION: No evidence of parathyroid adenoma. Reading Location: [id number]
--- OUTSIDE RECORDS SUMMARY | 2024-11-10 22:34 | XMS RPT_ITS | CCD ---
Author Organization [facility] Care Team Providers Care Plaster Block Layer Name Role Phone Dr. Catherine Vazquez Primary Care Provider [phone] Dr. Catherine Vazquez Attending Provider [phone] Dr. Catherine Vazquez Referring Provider [phone] Dr. Catherine Vazquez Primary Care Provider [phone] Dr. Catherine Vazquez Referring Provider [phone] VALDEZ Lino Attending Provider [phone] Dr. Catherine Vazquez Attending Provider [phone] Dr. Catherine Vazquez Primary Care Provider [phone] Dr. Catherine Vazquez Referring Provider [phone] CHARLES Kruse Attending Provider [phone] Dr. Tamiko June Attending Provider Tamiko June MD Unavailable Dr. Tamiko June Other Provider Ollie Moses MD Unavailable Catherine Vazquez DO Primary Care Provider Dr. Catherine Vazquez DO Primary Care Provider [phone] Dr. Yuri Jasso MD Attending Provider [phone] Dr. Yuri Jasso MD Referring Provider [phone] Dr. Josh Reyes MD Attending Provider CATHERINE VAZQUEZ Primary Care Unavailable OLLIE MOSES Attending Unavailable PERNELL NAJERA Referring Unavailable CATHERINE VAZQUEZ Primary Care Unavailable ATHY, CRYSTAL R Referring Unavailable BROWN, CATHERINE R Primary Care Unavailable BROWN, CATHERINE R Primary Care Unavailable BROWN, CATHERINE R Primary Care Unavailable OLLIE MOSES Referring Unavailable OLLIE MOSES Attending Unavailable BROWN, CATHERINE R Primary Care Unavailable CORDELIA CHAWLA Attending Unavailable BROWN, CATHERINE R Primary Care Unavailable PERNELL NAJERA Attending Unavailable BROWN, CATHERINE R Primary Care Unavailable PERNELL NAJERA Referring Unavailable CORDELIA CHAWLA Attending Unavailable BROWN, CATHERINE R Primary Care Unavailable BROWN, CATHERINE R Primary Care Unavailable BROWN, CATHERINE R Primary Care Unavailable BROWN, CATHERINE R Primary Care Unavailable JAVIER CAT Attending Unavailable BROWN, CATHERINE R Primary Care Unavailable BROWN, CATHERINE R Primary Care Unavailable BROWN, CATHERINE R Primary Care Unavailable CORDELIA CHAWLA Referring Unavailable BROWN, CATHERINE R Primary Care Unavailable ANASTASIIA, NESTORUNG Attending Unavailable BROWN, CATHERINE R Primary Care Unavailable BROWN, CATHERINE R Primary Care Unavailable ANASTASIIA, OLLIE Attending Unavailable BROWN, CATHERINE R Primary Care Unavailable BROWN, CATHERINE R Primary Care Unavailable CORDELIA CHAWLA Attending Unavailable BROWN, CATHERINE R Primary Care Unavailable BROWN, CATHERINE R Primary Care Unavailable BROWN, CATHERINE R Primary Care Unavailable BROWN, CATHERINE R Primary Care Unavailable Dr. Catherine Vazquez DO Attending Provider Dr. Catherine Vazquez DO Referring Provider Dr. Yuri Jasso MD Admit Provider [phone] Dr. Jocelin Verdugo MD Other Provider [phone] Dr. Rudy Liu DO Other Provider Dr. Yuri Jasso MD Other Provider Kartik MAIN, Dr. Jocelin Osorio Attending Provider Dr. Yusef Tomlin MD Attending Provider [phone] Brown, Catherine R Primary Care Unavailable Brown, Catherine R Referring Unavailable Brown, Catherine R Attending Unavailable Brown, Catherine R Primary Care Unavailable Brown, Catherine R Referring Unavailable Brown, Catherine R Attending Unavailable Jocelin Verdugo Consulting Unavailable Yuri Jasso Admitting Unavailable Yuri Jasso Referring Unavailable Brown, Catherine R Primary Care Unavailable Yuri Jasso Attending Unavailable Rudy Liu Consulting Unavailable Brown, Catherine R Primary Care Unavailable Brown, Catherine R Referring Unavailable Brown, Catherine R Attending Unavailable Brown, Catherine R Primary Care Unavailable Louisa, Yuri Referring Unavailable Josh Reyes Attending Unavailable Louisa, Yrui Referring Unavailable Brown, Catherine R Primary Care Unavailable Yusef Tomlin Attending Unavailable Louisa, Yuri Consulting Unavailable Brown, Catherine R Primary Care Unavailable Louisa, Yuri Referring Unavailable Christi Olmstead Attending Unavailable WhiteJocelin L Consulting Unavailable Brown, Catherine R Primary Care Unavailable Louisa, Yuri Referring Unavailable WhiteJocelin Attending Unavailable Louisa, Yuri Admitting Unavailable Louisa, Yuri Consulting Unavailable Brown, Catherine R Primary Care Unavailable Brown, Catherine R Referring Unavailable Brown, Catherine R Attending Unavailable Brown, Catherine R Primary Care Unavailable Brown, Catherine R Referring Unavailable Brown, Catherine R Attending Unavailable Brown, Catherine R Primary Care Unavailable Brown, Catherine R Referring Unavailable Brown, Catherine R Attending Unavailable Brown, Catherine R Primary Care Unavailable Brown, Catherine R Referring Unavailable Brown, Catherine R Attending Unavailable Brown, Catherine R Primary Care Unavailable Louisa, Yuri Referring Unavailable Louisa, Yuri Attending Unavailable Brown, Catherine R Primary Care Unavailable Louisa, Yuri Referring Unavailable Louisa, Yuri Attending Unavailable Brown, Catherine R Primary Care Unavailable Louisa, Yuri Referring Unavailable Louisa, Yuri Attending Unavailable Medications Current Medications Medication Drug Class(es) Dates Sig (Normalized) Sig (Original) aspirin 81 mg chewable tablet (15 sources) Platelet Aggregation Inhibitor, Nonsteroidal Anti-inflammatory Drug Start: 10-21-2024 take 2 tablets by mouth once daily Aspirin (Yessica Chewable Aspirin) 81 mg tablet,chewable Active 162 mg PO daily October 21, 2024 12:00am Start: 02-06-2019 End: 10-06-2020 take 1 tablet by mouth twice daily at mealtime Aspirin 81 MG tablet,chewable Discontinued 81 mg PO TWICE DAILY WITH MEALS 60 February 06, 2019 12:00am October 06, 2020 3:32pm Take 81 mg aspirin twice daily with food for 4 weeks postoperatively for DVT prophylaxis Calcium Carbonate / vitamin D3 (20 sources) take 2 tablets by mo uth once daily calcium carbonate/vitamin D3 (CALCIUM 600 + D ORAL) Take 2 tablets by mouth once daily. Active take 2 tablets by mouth once kenya ly calcium carbonate/vitamin D3 (CALCIUM 600 + D ORAL) Take 2 tablets by mouth once daily. 0 Active cholecalciferol 0.05 mg oral capsule (5 sources) Vitamin D Start: 09-08-2024 take 1 capsule by mouth once daily Cholecalciferol (Vitamin D3) (Vitamin D3) 50 mcg (2,000 unit) capsule Active 50 ug PO DAILY September 08, 2024 12:00am chondroitin sulfates 400 mg / glucosamine hydrochloride 500 mg oral capsule (7 sources) Start: 09-08-2024 End: 10-21-2024 Glucosamine-Chondroi tin 500-400 mg capsule Active 1 NMA PO DAILY October 21, 2024 3:05pm give with meal/snack famotidine 20 mg oral tablet (4 sources) Histamine-2 Receptor Antagonist Start: 10-07-2024 take 1 tablet by mouth once daily Famotidine 20 mg Tablet Active 20 mg PO DAILY October 07, 2024 12:00am glucosamine/chondroit in/C/Sherif (GLUCOSAMINE 1500 COMPLEX ORAL) (5 sources) Start: 06-28-2024 glucosamine/chondroi tin/C/Sherif (GLUCOSAMINE 1500 COMPLEX ORAL) Take 1 tablet by mouth once daily. 06/28/2024 Active lactobacillus acidophilus 1.5 mg oral capsule (20 sources) Start: 09-07-2023 Lactobacillus Acidophilus (Probiotic Acidophilus) 250 million cell capsule Active 500 NMA PO DAILY September 07, 2023 12:00am take 1 capsule by mouth once kenya ly Lactobacillus acidophilus (PROBIOTIC) 10 billion cell cap Take 1 capsule by mouth once daily. Active letrozole 2.5 mg oral tablet (13 sources) Aromatase Inhibitor Start: 04-17-2024 take 1 tablet by mouth once daily Letrozole 2.5 mg tablet Active 2.5 mg PO DAILY September 08, 2024 12:00am Magnesium (13 sources) take 500 mg by mouth once daily MAGNESIUM ORAL Take 500 mg by mouth once daily. Active take 500 mg by mouth once daily MAGNESIUM ORAL Take 500 mg by mouth once daily. 0 Active Qozohhxlyjbe-Sq-Ctqm-Mineral s (Multiple Vitamin, Womens) tablet (13 sources) Start: 08-30-2017 take 1 tablet by mouth once daily Erjppuymjsnz-Bc-Rxjc-Minerals (Multiple Vitamin, Womens) tablet Active 1 TABLET PO DAILY August 30, 2017 11:33am Start: 08-30-2017 End: 11-13-2023 Cvuyzavmdwax-Wy-Oueg-Mineral s (Multiple Vitamin, Womens) tablet Discontinued 1 {tbl} PO DAILY August 30, 2017 12:00am November 13, 2023 2:41pm Start: 08-30-2017 [facility] Imqzisqfgmgf-Ip-Djhm-Minerals (Multiple Vitamin, Womens) tablet Active 1 TABLET PO DAILY August 30, 2017 12:00am Tfqfrdbqkdyts-Jxlpylqr-Vajba n (MULTIVITAMIN 50 PLUS) tab (20 sources) Multivitamins-Mi nerals-Lutein (MULTIVITAMIN 50 PLUS) tab Take 1 tablet by mouth once daily. Active Multivitamins-Mi nerals-Lutein (MULTIVITAMIN 50 PLUS) tab Take 1 tablet by mouth once daily. 0 Active [place] 9-Igi-Slp-Fish Oil (Fish Oil) 1,200 (144-216) mg capsule (5 sources) Start: 09-08-2024 [place] 3-Dha-Ep a-Fish Oil (Fish Oil) 1,200 (144-216) mg capsule Active 2 NMA PO DAILY September 08, 2024 12:00am [place]-3 Fatty Acids (Fish Oil Concentrate) 1,000 mg capsule (13 sources) Start: 01-03-2019 take 1 capsule by mouth once daily [place]-3 Fatty Acids (Fish Oil Concentrate) 1,000 mg capsule Active 1000 MG PO DAILY January 03, 2019 9:07am Start: 01-03-2019 End: 11-13-2023 take 1 capsule by mouth once daily [place]-3 Fatty Acids (Fish Oil Concentrate) 1,000 mg capsule Discontinued 1000 mg PO DAILY January 03, 2019 12:00am November 13, 2023 2:41pm Start: 01-03-2019 take 1 capsule by mo [facility] once daily [place]-3 Fatty Acids (Fish Oil Concentrate) 1,000 mg capsule Active 1000 MG PO DAILY January 03, 2019 12:00am Ifdgo-3-WAP-EPA-Fish Oil (FI SH OIL) 1,000 mg (120 mg-180 mg) cap (20 sources) take 2 capsules by mouth once daily Rjewd-4-PBR-EPA-Fish Oil (FISH OIL) 1,000 mg (120 mg-180 mg) cap Take two capsules by mouth once daily. Active take 2 capsules by mouth once da viktor Qchhr-4-HFY-EPA-Fish Oil (FISH OIL) 1,000 mg (120 mg-180 mg) cap Take two capsules by mouth once daily. 0 Active take 1 capsule by mouth once kenya ly Bddkk-5-RSB-EPA-Fish Oil (FISH OIL) 1,000 mg (120 mg-180 mg) cap Take 2 g by mouth once daily. 0 Active oxyCODONE hydrochloride 5 mg oral tablet (17 sources) Opioid Agonist Start: 10-07-2024 take 5-10 mg by mouth every four hours as needed for pain Oxycodone 5 mg Tablet Active 5 - 10 mg PO EVERY 4 HOURS NEEDED as needed for As needed for pain. 42 7 October 07, 2024 Start: 02-06-2019 End: 02-15-2019 take 5-10 mg by mouth every four hours as needed for pain Oxycodone 5 MG tablet Discontinued 5 - 10 mg PO EVERY 4 HOURS NEEDED as needed for Mod-Severe Pain (4-10/10) 30 February 06, 2019 February 09, 2019 12:00am February 15, 2019 12:09am Completed/Discontinued Medications Medication Drug Class(es) Dates Sig (Normalized) Sig (Original) acetaminophen 500 mg oral tablet (20 sources) Start: 10-07-2024 End: 10-21-2024 take 2 tablets by mouth three times daily Acetaminophen 500 mg Tablet Discontinued 1000 mg PO THREE TIMES A DAY 0 October 07, 2024 12:00am October 21, 2024 3:05pm Start: 09-17-2024 take 1 tablet by ligia th every six hours as needed for pain Acetaminophen (Tylenol Extra Strength) 500 mg tablet Active 500 mg PO EVERY 6 HOURS as needed for pain September 17, 2024 12:00am Start: 02-06-2019 End: 10-06-2020 Acetaminophen 500 MG tablet Discontinued 1000 mg PO EVERY 8 HOURS February 06, 2019 12:00am October 06, 2020 3:32pm Do not exceed 3000 mg Tylenol in 24-hour. Start: 02-06-2019 End: 10-06-2020 take 3000 mg by mouth every twenty-four hours Acetaminophen Discontinued 1000 MG PO EVERY 8 HOURS February 06, 2019 12:00am October 06, 2020 3:32pm Do not exceed 3000 mg Tylenol in 24-hour. amoxicillin 500 mg oral capsule (7 sources) Penicillin-class Antibacterial Start: 01-21-2024 End: 07-14-2024 take 1 capsule by mouth twice daily amoxicillin (AMOXIL) 500 mg capsule Take 500 mg by mouth two times a day. 01/21/2024 07/14/2024 Discontinued anastrozole 1 mg oral tablet (20 sources) Aromatase Inhibitor Start: 10-18-2023 End: 09-08-2024 take 1 tablet by mouth once daily Anastrozole 1 mg tablet Discontinued 1 mg PO daily November 13, 2023 12:00am September 08, 2024 1:05pm calcium carbonate 600 mg / cholecalciferol 0.01 mg oral tablet (13 sources) Vitamin D Start: 08-30-2017 End: 09-08-2024 Calcium Carbonate-Vit D3-Min 600 mg calcium- 400 unit tablet Discontinued 1 {tbl} PO daily August 30, 2017 12:00am September 08, 2024 1:05pm docusate sodium 50 mg / sennosides, long term 8.6 mg oral tablet (17 sources) Start: 10-07-2024 End: 10-21-2024 Sennosides-Docusa te Sodium (Stimulant Laxative Plus) 8.6-50 mg Tablet Discontinued 2 {tbl} PO TWICE A DAY 0 October 07, 2024 12:00am October 21, 2024 3:07pm Take until first bowel movement and then as needed. Start: 02-06-2019 End: 10-06-2020 Sennosides-Docusate Sodium 1 TABLET tablet Discontinued 2 {tbl} PO TWICE A DAY February 06, 2019 12:00am October 06, 2020 3:33pm Take until first bowel movement, then as needed Start: 02-06-2019 End: 10-06-2020 Sennosides-Docusate Sodium D iscontinued 2 TABLET PO TWICE A DAY February 06, 2019 12:00am October 06, 2020 3:33pm Take until first bowel movement, then as needed hydroCHLOROthiazide 12.5 mg oral tablet (20 sources) Thiazide Diuretic Start: 03-18-2019 End: 09-29-2021 take 1 tablet by mouth once daily Hydrochlorothiazide 12.5 mg tablet Discontinued 0 .ROUTE .COMPLEX 90 March 22, 2020 3:08pm September 29, 2021 10:28am TAKE 1 TABLET BY MOUTH EVERY DAY hydroCHLOROthiazide 12.5 mg / losartan potassium 100 mg oral tablet (20 sources) Thiazide Diuretic, Angiotensin 2 Receptor Adrien Start: 12-14-2017 End: 09-29-2021 Losartan-Hydrochlorothi azide 100-12.5 mg tablet Discontinued 1 {tbl} PO daily March 13, 2019 5:04pm October 06, 2020 3:33pm Start: 12-14-2017 End: 09-29-2021 take 1 tablet by mouth once daily Losartan-Hydrochlorothiazide Discontinue d 1 TABLET PO daily March 13, 2019 5:04pm October 06, 2020 3:33pm hydroCHLOROthiazide 12.5 mg / valsartan 160 mg oral tablet (20 sources) Thiazide Diuretic, Angiotensin 2 Receptor Adrien Start: 09-29-2021 End: 11-13-2023 Valsartan-Hydrochlorothiazid e 160-12.5 mg tablet Discontinued 1 {tbl} PO DAILY July 11, 2022 5:33pm October 04, 2022 9:49am Start: 09-29-2021 End: 11-07-2022 take 1 tablet by mouth once daily Valsartan-Hydrochlorothiazide Discontinu ed 1 TABLET PO DAILY July 11, 2022 5:33pm October 04, 2022 9:49am Start: 08-30-2017 End: 06-18-2018 Valsartan-Hydrochlorothiazid e 320-12.5 mg tablet Discontinued 1 {tbl} PO daily August 30, 2017 12:14pm June 18, 2018 1:20pm On Hold: Order Changed Start: 08-30-2017 End: 06-18-2018 take 1 tablet by mouth once daily Valsartan-Hydrochlorothiazide Discontinu ed 1 TABLET PO daily August 30, 2017 12:14pm June 18, 2018 1:20pm On Hold: Order Changed losartan potassium 100 mg oral tablet (20 sources) Angiotensin 2 Receptor Adrien Start: 03-18-2019 End: 09-29-2021 take 1 tablet by mouth once daily Losartan 100 mg tablet Discontinued 100 mg PO DAILY March 24, 2020 5:46pm September 29, 2021 10:29am meloxicam 15 mg oral tablet (11 sources) Nonsteroidal Anti-inflammatory Drug Start: 09-01-2022 End: 11-07-2022 take 1 tablet by mouth once daily Meloxicam 15 mg tablet Discontinued 15 mg PO DAILY September 01, 2022 12:00am November 07, 2022 10:51am naproxen sodium 220 mg oral capsule (10 sources) Nonsteroidal Anti-inflammatory Drug Start: 11-07-2022 End: 09-08-2024 take 1 capsule by mouth twice daily as needed for pain Naproxen Sodium (Aleve) 220 mg capsule Discontinued 220 mg PO TWICE A DAY as needed for pain November 07, 2022 12:00am September 08, 2024 1:06pm predniSONE 10 mg oral tablet (11 sources) Start: 10-18-2021 End: 11-07-2022 take 4 tablets by mouth once daily at mealtime Prednisone 10 mg tablet Discontinued 10 mg PO DAILY October 18, 2021 12:00am November 07, 2022 10:50am Take 4 tablets for 3 days; Take 3 tablets for 3 days; Take 2 tablets for 3 days; Take 1 tablet for 3 days Take with food or milk rivaroxaban 10 mg oral tablet (4 sources) Factor Xa Inhibitor Start: 10-07-2024 End: 10-21-2024 take 1 tablet by mouth once daily Rivaroxaban (Xarelto) 10 mg Tablet Discontinued 10 mg PO DAILY October 07, 2024 12:00am October 21, 2024 3:06pm traMADol hydrochloride 50 mg oral tablet (19 sources) Opioid Agonist Start: 09-20-2023 End: 09-08-2024 take 1 tablet by mouth every six hours as needed for pain Tramadol 50 mg tablet Discontinued 50 mg PO EVERY 6 HOURS as needed for pain September 20, 2023 12:00am September 08, 2024 1:06pm Start: 01-03-2019 End: 02-06-2019 take 1 tablet by mouth every six hours as needed for pain Tramadol 50 mg tablet Discontinued 50 mg PO EVERY 6 HOURS as needed for Pain January 03, 2019 12:00am February 06, 2019 9:35am Turmeric Root Extract (13 sources) Start: 01-20-2019 End: 02-06-2019 take 500 mg by mouth once daily Turmeric Root Extract Discontinued 500 MG PO DAILY January 20, 2019 11:01am February 06, 2019 9:35am Start: 01-20-2019 End: 02-06-2019 take 1 capsule by mouth once daily Turmeric Root Extract 500 MG capsule Discontinued 500 mg PO DAILY January 20, 2019 12:00am February 06, 2019 9:35am Start: 01-20-2019 End: 02-06-2019 take 500 mg by mouth once daily Turmeric Root Extract Discontinued 500 MG PO DAILY January 20, 2019 12:00am February 06, 2019 9:35am zoledronic acid 3.3 mg in Na Cl 0.9% 100 mL (ZOMETA) (2 sources) Start: 09-02-2024 End: 09-02-2024 3.3 mg, INTRAVENOUS, Adminis ter over 15 Minutes, ONCE, 1 dose, On Sun09/02/24 at 1330, Hazardous Potential Reproductive Risk Drug: Use appropriate PPE. Refrigerate. Exp: (24 HR) Start: 03-18-2024 End: 03-18-2024 3.3 mg, INTRAVENOUS, Adminis ter over 15 Minutes, ONCE, 1 dose, On Sun03/18/24 at 1330, Hazardous Potential Reproductive Risk Drug: Use appropriate PPE. Refrigerate. Problems Active Problems Problem Classification Problem Date Documented Da te Episodic/Chronic Cancer of breast (20 sources) Infiltrating duct carcinoma of breast; Translations: [Malignant neoplasm of unspecified site of left female breast] Onset: 10-03-2023 08-30-2023 Chronic Essential hypertension (20 sources) Hypertensive disorder; Translations: [Essential (primary) hypertension] Chronic Comment on above: CONTROLLED WITH MED Genitourinary symptoms and ill-defined conditions (5 sources) Increased frequency of urination; Translations: [Frequency of micturition] Onset: 10-27-2024 10-21-2024 Episodic Nonmalignant breast conditions (13 sources) Breast lump; Translations: [Unspecified lump in the left breast, unspecified quadrant] 08-10-2023 Episodic Nutritional deficiencies (1 source) Vitamin D deficiency; Translations: [Vitamin D deficiency, unspecified] 10-18-2023 Chronic Osteoarthritis (20 sources) Arthritis; Translations: [Unspecified osteoarthritis, unspecified site] Onset: 09-15-2024 08-30-2017 Chronic Osteoporosis (1 source) Age-related osteoporosis without current pathological fracture; Translations: [Age-related osteoporosis without current pathological fracture] Onset: 11-13-2023 Chronic Other bone disease and musculoskeletal deformities (13 sources) Osteopenia; Translations: [Other specified disorders of bone density and structure, unspecified site] 08-30-2017 Episodic Other connective tissue disease (13 sources) History of repair of hip joint; Translations: [Presence of left artificial hip joint] 10-06-2020 Chronic Comment on above: 04/2019 Other connective tissue disease (2 sources) Presence of left artificial hip joint; Translations: [Hip joint replacement] 11-07-2022 Chronic Other connective tissue disease (8 sources) History of total knee arthroplasty; Translations: [Presence of right artificial knee joint] 10-07-2024 Chronic Other connective tissue disease (3 sources) Achilles tendinitis; Translations: [Achilles tendinitis, left leg] 09-01-2022 Episodic Other connective tissue disease (11 sources) Heel pain; Translations: [Pain in left foot] 09-01-2022 Episodic Other connective tissue disease (3 sources) Achilles tendinitis, left leg; Translations: [Achilles bursitis or tendinitis] 09-01-2022 Episodic Other connective tissue disease (3 sources) Pain in left foot; Translations: [Pain in limb] 09-01-2022 Episodic Other connective tissue disease (8 sources) Left achilles tendonitis; Translations: [Achilles tendinitis, left leg] 09-01-2022 Episodic Other inflammatory condition of skin (13 sources) Psoriatic arthritis; Translations: [Arthropathic psoriasis, unspecified] 08-30-2017 Chronic Comment on above: NO FLARE FOR 15 YRS Other lower respiratory disease (1 source) Cough; Translations: [Acute cough] 04-23-2024 Episodic Other nervous system disorders (2 sources) Carpal tunnel syndrome, right upper limb; Translations: [Carpal tunnel syndrome, right upper limb] Onset: 03-10-2024 Chronic Other nutritional; endocrine; and metabolic disorders (1 source) Hypercalcemia; Translations: [Hypercalcemia] 10-02-2024 Chronic Other nutritional; endocrine; and metabolic disorders (1 source) Hypercalcemia; Translations: [Hypercalcemia] Onset: 10-02-2024 Chronic Other screening for suspected conditions (not mental disorders or infectious disease) (8 sources) Unspecified abnormal finding in specimens from other organs, systems and tissues; Translations: [Measurement finding above reference range] Onset: 12-21-2023 10-21-2024 Episodic Other skin disorders (5 sources) Inflamed seborrheic keratosis; Translations: [Inflamed seborrheic keratosis] 11-13-2023 Episodic Other skin disorders (1 source) Localized swelling, mass and lump, right lower limb; Translations: [Localized swelling, mass and lump, right lower limb] Onset: 10-13-2024 Episodic Other upper respiratory infections (1 source) Viral upper respiratory tract infection; Translations: [Acute upper respiratory infection, unspecified] 04-23-2024 Episodic Residual codes; unclassified (5 sources) Other specified postprocedural states; Translations: [Status post left breast lumpectomy] 10-04-2023 Episodic Comment on above: Includes nipple areo lar complex due to location of mass near the nipple Unclassified (1 source) Acute cough; Translations: [Acute cough] Onset: 04-23-2024 Past or Other Problems Problem Classification Problem Date Documented Da te Episodic/Chronic Other aftercare (14 sources) Long-term current use of aromatase inhibitor; 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 Internal Medicine Office Vis nataliya 10-21-2024 Internal Medicine Office Visit [facility] [address] [place] [address] [place] [address] OFFICE VISIT Date of Service: 10/21/24 MR#: [id number] Acct: [id number] Name: ANGELA MAY Rep #: [id number] : 1950 Provider: Dr. Catherine dawson DO Age/Sex: 73/F Location: [facility] [place].[facility] Status: Signed Intake Vital Signs 10/06/24 14:03 10/21/24 15:09 Height 5 ft 5 in 5 ft 5 in Weight: 201 lb BMI 33.4 BP 126/76 H Blood Pressure Location Rt brachial Position Sitting Respiration 16 Pulse 84 Pulse Source Monitor Temp 99.5 F H Temp Source Temporal Pulse Oximetry (%) 95 Oxygen Delivery Method room air Intake Visit Reasons: FOLLOW UP FROM THYROID TEST, PER DR NAJERA Chief Complaint: FOLLOW UP FROM THYROID TEST PER DR NAJERA Is patient in pain?: No Allergies No Known Allergies Allergy (Verified 10/21/24 15:04) Medications ???Medication ???Instructions ???Recorded ???Confirmed ???Type Lactobacillus acidophilus 250 500 mmu cells PO DAILY 09/07/23 History million cell capsule (Probiotic Acidophilus) valsartan 160 1 tab PO DAILY #90 tabs 11/13/23 0 10/21/24 Rx mg-hydrochlorothiazid e 12.5 mg tablet cholecalciferol (vitamin D3) 50 50 mcg PO DAILY 09/08/24 10/21/24 History mcg (2,000 unit) capsule (Vitamin D3) letrozole 2.5 mg tablet 2.5 mg PO DAILY 09/08/24 10/21/24 History omega 8-evz-axi-fish oil 1,200 mg 2 cap PO DAILY 09/08/24 10/21/24 History (144 mg-216 mg) capsule (Fish Oil) acetaminophen 500 mg tablet 500 mg PO Q6H PRN pain 09/17/24 History (Tylenol Extra Strength) famotidine 20 mg tablet 20 mg PO DAILY 30 days #30 tabs 10/21/24 Rx oxycodone 5 mg tablet 5 - 10 mg (1 - 2 x 5 mg) PO Q4H 10/21/24 Rx PRN PRN As needed for pain. 7 days #42 tabs aspirin 81 mg chewable tablet 162 mg PO QDAY 10/21/24 10/21/24 H istory (Yessica Chewable Low Dose Aspirin) glucosamine-chondroit in 500 mg-400 1 cap PO DAILY 10/21/24 10/21/24 History mg capsule Have you fallen in the past year?: No Nurse's Note: PATIENT WAS TOLD THAT CALCIUM WAS HIGH TWICE AND TOLD TO DISCUSS WITH PCP. [facility] Medical History (Updated 10/21/24 @ 15:[address] Catherine Vazquez, DO) Wears glasses Wears partial dentures Post-menopausal Cancer Heartburn Former smoker History of echocardiogram History of irregular heartbeat Psoriatic arthritis Osteopenia Osteoarthritis Hypertension Arthritis Surgical History (Updated 10/21/24 @ 15:08 by Ml Carney) History of total knee replacement History of tubal ligation History of lumpectomy of left breast S/P lumpectomy, left breast Hx of colonoscopy Hx of right cataract extraction Hx of left cataract extraction History of left hip replacement History of right hip replacement History of section History of carpal tunnel release of both wrists Family History Father Arthritis Heart disease Hypertension Mother Hypertension Grandmother CVA (cerebral vascular accident) Social History Smoking Status: Former smoker how long ago did patient quit smokin alcohol intake: never substance use type: does not use what type of physical activity do you participate in: walking frequency: daily HPI HPI Chief Complaint: FOLLOW UP FROM THYROID TEST PER DR NAJERA Details: ANGELA MAY, is a 73 F who presents to the office today for follow-up on an elevated calcium and an elevated PTH that was done by her oncologist. This patient has no history of kidney stones she has no history of generalized bone pain although she is only 2 weeks postop from a hip replacement. And she has no mental issues. PTH was consistently elevated. ROS Const Constitutional: No body ache, chills, excessive sweating, fatigue, fever(s), frequent falls, headache(s), snoring, weakness, sleep problems or change in appetite Eyes Eyes: No blurry vision, change in vision or Light sensitivity ENT ENT: No abnormal hearing, ear or mastoid pain, tinnitus, nasal congestion, nasal discharge, headache(s), neck pain or sore throat Resp Respiratory: No cough, shortness of breath, snoring or wheezing Cardio Cardiology: No chest pain at rest, chest pain with exertion, excessive sweating, shortness of breath, dyspnea on exertion, lightheadedness, orthopnea or palpitations Gastro GI: No abdominal pain, change in bowel habits, constipation, cramping, diarrhea or nausea/dyspepsia Genitourinary-Female: No burning urination, painful urination, urinary incontinence or urinary frequency Musc Musculoskeletal: No abnormal gait, joint pain, back pain, limited range of motion, muscle weakness, neck pain or numbness Skin Skin: No dry skin, redness, l (more content not included)... Normal [facility] Ketones Test strip Ql (U)Ord ered By: Catherine Brown on 10-21-2024 Ketones Ql (U) Negative Negative [facility] Microscopic analysis of urin e for red blood cells (RBC)Ordered By: Catherine Brown on 10-21-2024 Microscopic analysis of urine for red blood cells (RBC) 0 SEEN /hpf 0-[address] [facility] Mucus LM Ql (Urine sed)Order ed By: Catherine Brown on 10-21-2024 Mucus Ql (Urine sed) 0 SEEN /hpf [facility] Nitrite Test strip Ql (U)Ord ered By: Catherine Brown on 10-21-2024 Nitrite Ql (U) Negative Negative [facility] Protein Test strip Ql (U)Ord ered By: Catherine Brown on 10-21-2024 Protein Ql (U) 15 mg/dl High Negative [facility] Squamous epithelial cells de tection in urine sediment by light microscopyOrdered By: Catherine Brown on 10-21-2024 Epithelial cells.squamous LM Ql (Urine sed) 0 SEEN /hpf 5- [facility] Urinalysis, Completeon 10-21 BACTERIA 0 SEEN Normal None Seen [facility] Comment on above: Order Comment: ANGE MONIQUEOR TO SPECIFY Performed By: #### L 400.0001 #### [facility] Laboratory [address] [place], [place], [id number] EPI,SQUAMOUS 0 SEEN Normal 5- [facility] Comment on above: Order Comment: ANGE MONIQUEOR TO SPECIFY Performed By: #### L 400.0001 #### [facility] [address] [place], [address] Mucus Ql (Urine sed) 0 SEEN Normal [facility] Comment on above: Order Comment: ANGE CTOR TO SPECIFY Performed By: #### L 400.0001 #### [facility] [address] [place], [address] RBC 0 SEEN Normal 0-[address] [facility] Comment on above: Order Comment: COLLE CTOR TO SPECIFY Performed By: #### L 400.0001 #### [facility] [address] [place], [place], [address] WBC 0 SEEN Normal 0-[address] [facility] Comment on above: Order Comment: ANGE CTOR TO SPECIFY Performed By: #### L 400.0001 #### [facility] [address] [place], [place], [id number] Urine clarityOrdered By: Mitulmary ellen erwin Brown on 10-21-2024 Clarity (U) Clear Clear [facility] Urine color determinationOrd ered By: Catherine Sameer on 10-21-2024 Color (U) Yellow Yellow [facility] Urine glucose detectionOrder ed By: Catherinebonnie Vazquez on 10-21-2024 Glucose Ql (U) Normal mg/dl Normal [facility] Urine leukocyte esterase det ection by dipstickOrdered By: Catherinebonnie Vazquez on 10-21-2024 Leukocyte esterase Test strip Ql (U) Negative Negative [facility] Urine pHOrdered By: Catherine Vazquez on 10-21-2024 pH (U) 7.0 [pH] 5.0 - 8.[address] [facility] Urine sediment bacteria coun t by microscopy (number/high power field)Ordered By: Catherinebonnie Vazquez on 10-21-2024 Bacteria LM.HPF (Urine sed) [#/Area] 0 /[HPF] None Seen [facility] Urine specific gravity measu rementOrdered By: Catherinebonnie Vazquez on 10-21-2024 Specific gravity (U) [Rel density] 1.010 1.002-1.[address] [facility] Urine urobilinogen measureme ntOrdered By: Catherine Vazquez on 10-21-2024 Urobilinogen Ql (U) Normal mg/dl Normal [facility] White blood cell countOrdere d By: Catherine Vazquez on 10-21-2024 White blood cell count 0 SEEN /hpf 0-5 [facility] Venous Duplex US, Unilateral on 10-08-2024 Venous Duplex US, Unilateral [facility] [address] [place] [address] Venous Duplex US, Unilateral 10/08/24 1116 MR#: [id number] Acct: [id number] Name: ANGELA MAY Rep #: [id number] : 1950 73 From: Yusef Tomlin MD Attending Dr: Dr. Yuri Jasso MD Status: REG CLI Ordering Dr: Yuri Jasso MD Date: 10/08/24 Location: [facility] Sex: F C Admitted: Reason For Study Reason For Study: Knee surgery 10/06 RIGHT LEFT GSV is normal. CFV is compressible, spontaneous, phasic, competent, CFV is compressible, spontaneous, phasic, competent and demonstrates normal augmentation. and demonstrates normal augmentation. FV is compressible, spontaneous, phasic, competent and demonstrates normal augmentation. POP V is compressible, spontaneous, phasic, competent and demonstrates normal augmentation. T/P Trunk is compressible. PTV is compressible. RT PerV is compressible. Procedure This is a venous duplex using B-mode, color flow and spectral Doppler. Exam performed in department. A preliminary report was called and/or faxed to Yuri Jasso MD. VL/Venous Duplex US, Unilateral Interpretation Summary Deep veins of the right lower extremity are patent and compressible segmentally. There is no evidence of right lower extremity deep vein thrombosis. The right great saphenous vein appears patent and compressible segmentally. Ordering Physician: Yuri Jasso Referring Physician: Mike Vazquez M.D. Performed By: Domenica Shepherd RVT 10/08/24 1832 Date Yusef Tomlin MD CC: Dr. Catherine Vazquez DO; Dr. Yuri Jasso MD Date Dictated: 10/08/24 1116 Date Transcribed: 10/08/24 1832 [employer] Supervisor: Signed Normal [facility] Venous duplex ultrasound rep ortOrdered By: Yusef Tomlin on 10-08-2024 US Vein [facility] Cardi[facility] [address] [place] [address] Venous Duplex US, Unilateral 10/08/24 1116 MR#: [id number] Acct: [id number] Name: ANGELA MAY Rep #:[id number] : 1950 73 From: Yusef Cuevas Attending Dr: Dr. Yuri Jasso MD Status: REG CLI Ordering Dr: Yuri Jasso MD Date: 10/08/24 Location: [facility] Sex: F C Admitted: Reason For Study Reason For Study: Knee surgery 10/06 RIGHT LEFT GSV is normal. CFV is compressible, spontaneous, phasic, competent, CFV is compressible, spontaneous, phasic, competent and demonstrates normal augmentation. and demonstrates normal augmentation. FV is compressible, spontaneous, phasic, competent and demonstrates normal augmentation. POP V is compressible, spontaneous, phasic, competent and demonstrates normal augmentation. T/P Trunk is compressible. PTV is compressible. RT PerV is compressible. Procedure This is a venous duplex using B-mode, color flow and spectral Doppler. Exam performed in department. A preliminary report was called and/or faxed to Yuri Jasso MD. VL/Venous Duplex US, Unilateral Interpretation Summary Deep veins of the right lower extremity are patent and compressible segmentally.There is no evidence of right lower extremity deep vein thrombosis. The right great saphenous vein appears patent and compressible segmentally. Ordering Physician: Yuri Jasso Referring Physician: Mike Vazquez M.D. Performed By: Domenica Shepherd RVT 10/08/241831 Date _ Yusef Tomlin MD CC: Dr. Catherine Vazquez, DO; Dr. Yuri Jasso MD ~ Date Dictated: 10/08/24 1116 Date Transcribed: 10/08/241831 [employer] Supervisor: Signed [facility] Work Phone: Anion gap in Serum or Plasma Ordered By: Yuri Jasso on 10-07-2024 Anion gap [Moles/Vol] 12 mmol/L 5-15 [facility] BUN/creatinine ratioOrdered By: Yuri Jasso on 10-07-2024 Urea nitrogen/Creatinine [Mass ratio] 28.7 mg/mg High 10- [facility] Basic Metabolic Profile (BMP )on 10-07-2024 BUN/CRE 28.7 RATIO High - [facility] Comment on above: Performed By: #### L 100.0500, L500.2500 ####[facility] [address] [place], [address] Calcium [Mass/Vol] 9.1 mg/dL Normal 7.6-11.0 [facility] Comment on above: Performed By: #### L 100.0500, L500.2500 ####[facility] [address] [place], [address] Chloride [Moles/Vol] 100 mmol/L Normal 98-108 [facility] Comment on above: Performed By: #### L 100.0500, L500.2500 ####[facility] [address] [place], [address] CO2 [Moles/Vol] 21.8 mmol/L Normal 21.0-32.[address] [facility] Comment on above: Performed By: #### L 100.0500, L500.2500 ####[facility] [address] [place], [address] Creatinine [Mass/Vol] 0.92 mg/dL Normal 0.70-1.20 [facility] Comment on above: Performed By: #### L 100.0500, L500.2500 ####[facility] [address] [place], [address] ECRCL 61.46 ml/min Normal 50-[address] [facility] Comment on above: Performed By: #### L 100.0500, L500.2500 ####[facility] [address] [place], [address] GAP 12 Normal 5-[address] [facility] Comment on above: Performed By: #### L 100.0500, L500.2500 ####[facility] [address] [place], [address] GFR/1.73 sq M.predicted among non-blacks MDRD (S/P/Bld) [Vol rate/Area] 65 mL/min/{1.73_m2} Normal >[address] [facility] Comment on above: Result Comment: mL/m in/1.73m2 CKD-EPI Creatinine Equation (2020) Performed By: #### L 100.0500, L500.2500 ####[facility] [address] [place], [address] Glucose [Mass/Vol] 156 mg/dL High 70-99 [facility] Comment on above: Performed By: #### L 100.0500, L500.2500 ####[facility] [address] [place], [address] Potassium [Moles/Vol] 4.0 mmol/L Normal 3.3-5.1 [facility] Comment on above: Performed By: #### L 100.0500, L500.2500 ####[facility] [address] [place], [address] Sodium [Moles/Vol] 134 mmol/L Normal 133-145 [facility] Comment on above: Performed By: #### L 100.0500, L500.2500 ####[facility] [address] [place], [address] Urea nitrogen [Mass/Vol] 27 mg/dL High 4-[address] [facility] Comment on above: Performed By: #### L 100.0500, L500.2500 ####[facility] [address] [place], [address] CBC-Complete Blood Cnt No Di ffon 10-07-2024 Erythrocyte distribution width (RBC) [Ratio] 12.3 % Normal 11.6-14.[address] [facility] Comment on above: Performed By: #### L 100.0500, L500.2500 #### [facility] Laboratory [address] [place], [address] Hematocrit (Bld) [Volume fraction] 33.8 % Low 37-[address] [facility] Comment on above: Performed By: #### L 100.0500, L500.2500 #### [facility] [address] [place], [address] Hemoglobin (Bld) [Mass/Vol] 11.4 g/dL Low 12.0-15.[address] [facility] Comment on above: Performed By: #### L 100.0500, L500.2500 #### [facility] [address] [place], [address] MCH (RBC) [Entitic mass] 31.5 pg Normal 27.0-32.[address] [facility] Comment on above: Performed By: #### L 100.0500, L500.2500 #### [facility] [address] [place], [address] MCHC (RBC) [Mass/Vol] 33.7 g/dL Normal 32-36 [facility] Comment on above: Performed By: #### L 100.0500, L500.2500 #### [facility] [address] [place], [address] MCV (RBC) [Entitic vol] 93.4 fL Normal 81-99 [facility] Comment on above: Performed By: #### L 100.0500, L500.2500 #### [facility] [address] [place], [address] Platelet mean volume (Bld) [Entitic vol] 12.5 fL High 6.2-12.[address] [facility] Comment on above: Performed By: #### L 100.0500, L500.2500 #### [facility] [address] [place], [address] Platelets (Bld) [#/Vol] 161 10*3/uL Normal 150-[address] [facility] Comment on above: Performed By: #### L 100.0500, L500.2500 #### [facility] [address] [place], [address] RBC (Bld) [#/Vol] 3.62 10*6/uL Low 4.2-5.4 [facility] Comment on above: Performed By: #### L 100.0500, L500.2500 #### [facility] [address] [place], [address] RDW SD 42.3 fl Normal 35.1-43.[address] [facility] Comment on above: Performed By: #### L 100.0500, L500.2500 #### [facility] [address] [place], [address] WBC (Bld) [#/Vol] 15.1 10*3/uL High 4.4-11.0 [facility] Comment on above: Performed By: #### L 100.0500, L500.2500 #### [facility] [address] [place], [address] Carbon dioxide, total [Moles /volume] in Central venous bloodOrdered By: Yuri Louisa on 10-07-2024 CO2 [Moles/Vol] 21.8 mmol/L 21.0-32.[address] [facility] Chloride assayOrdered By: St pastrana Louisa on 10-07-2024 Chloride [Moles/Vol] 100 mmol/L 98-108 [facility] Discharge Instructionon 09-25 Discharge Instruction [facility] Medical Records Department [address] [place] [address] Instructions for Home/Discharge Instructions 10/07/24 0853 MR#: [id number] Acct: [id number] Name: ANGELA MAY Rep #: [id number] : 1950 73 From: Maribel KELLOGG PCP: Dr. Catherine Vazquez, DO Status:ADM CHRISTIAN Discharge Instructions Diet Discharge Diet: No restrictions DC O2, CPAP, BIPAP needs Home O2 Discharge instructions: No Dressing / Incision Discharge Activity: May Not Drive (Until 6 weeks postoperatively.) Weight Bearing Status: Weight bearing as tolerated (With walker.) Keep extremity elevated above heart level: Right Leg Dressing / Incision Call your doctor if your incision/area has: Continuous Slow Oozing, Sudden Increased Bleeding, Increased Pain/ Swelling, Increased Redness, Foul Smelling Discharge and Swelling at the incision site Call your doctor if you observe: Fever of 101 or Higher, Coldness, Increased Pain, Numbness or Tingling, Change in Color, Inability to urinate, Inability to have a bowel movement, Using more than 1 pad per hour, Shortness of breath, Dizziness, Fainting spells, Swelling in the ankles, Chest pain, Prolonged hiccupping, Increased palpitations (irregular heartbeat), Calf discomfort and Uncontrolled pain Remove Dressing in: 5 days (Can remove dressing on 10/11.) Cleanse incision/area with: Soap Water Additional Dressing/Incision Instructions:: Once postoperative dressing has been removed, only use gentle soap and water over the incision. Do not use any ointments, Neosporin, salves, alcohol pads over the incision for 6 weeks postoperatively. Do not submerge underwater for 6 weeks postoperatively. Continue with KENZIE hose/elastic stockings for 2 weeks postoperatively. May remove at nighttime but needs to be placed back on the leg during the day. DVT prophylaxis plan: You will use Xarelto for 2 weeks postoperatively and then aspirin 81 mg twice daily for an additional 2 weeks to cover for 4-week operatively. Do not use any NSAIDs while taking Xarelto for first 2 weeks. Do NOT use alcohol with narcotic pain medication. Do NOT make important decisions while taking narcotic medication. If you have problems with taking your medication (rash, itching, nausea, etc.) call the office at once. Follow Up Care Test Results: Test results from this visit will be discussed in further detail at your follow-up appointment, if applicable. Discharge Plan Admission Admit Date/Time: 10/06/24 07:23 Attending Provider: Yuri Jasso Primary Care Provider: Catherine Vazquez Consulting Providers: Jocelin Verdugo; Rudy Liu Discharge Orders/Prescriptions Prescriptions: New sennosides-docusate sodium [Stimulant Laxative Plus] 8.6-50 mg Tablet 2 tab PO BID Qty: 0 0RF Rx Instructions: Take until first bowel movement and then as needed. acetaminophen 500 mg Tablet 1,000 mg PO TID Qty: 0 0RF famotidine 20 mg Tablet 20 mg PO DAILY 30 Days Qty: 30 0RF oxycodone 5 mg Tablet 5 - 10 mg PO Q4H PRN PRN (Reason: As needed for pain.) 7 Days Qty: 42 0RF Xarelto 10 mg Tablet 10 mg PO DAILY 13 Days Qty: 13 0RF Continued valsartan-hydrochloro thiazide 160-12.5 mg tablet 1 tab PO DAILY Qty: 90 4RF Probiotic Acidophilus 250 million cell capsule 500 mmu cells PO DAILY letrozole 2.5 mg tablet 2.5 mg PO DAILY omega 2-pen-mrb-fish oil [Fish Oil] 1,200 (144-216) mg capsule 2 cap PO DAILY cholecalciferol (vitamin D3) [Vitamin D3] 50 mcg (2,000 unit) capsule 50 mcg PO DAILY glucosamine-chondroit in 500-400 mg capsule 3 cap PO DAILY Rx Instructions: give with meal/snack No Action acetaminophen [Tylenol Extra Strength] 500 mg tablet 500 mg PO Q6H PRN (Reason: pain) Other Ambulatory Orders: 12 Lead EKG (Routine) Location: None Selected Ordered By: Dr. Yuri Jasso Referrals / Follow Up: Catherine Vazquez DO [Primary Care Provider] - Disposition Disposition (needs filled in before D/C Order can be placed): Home, Self Care 10/07/24 4941 Maribel KELLOGG CC: Dr. Jocelin Verdugo MD; Dr. Catherine Vazquez DO; Dr. Rudy Liu DO Signed Normal [facility] Erythrocyte distribution wid th ratioOrdered By: Yuri Jasso on 10-07-2024 Erythrocyte distribution width (RBC) [Ratio] 12.3 % 11.6-14.[address] [facility] Erythrocyte distribution wid th standard deviationOrdered By: Yuri Jasso on 10-07-2024 Erythrocyte distribution width (RBC) [Ratio] 42.3 fl 35.1-43.[address] [facility] Glomerular filtration rate ( GFR) estimation/1.73 sq m using serum, plasma, or whole bOrdered By: Yuri Jasso on 10-07-2024 GFR/1.73 sq M.predicted among non-blacks MDRD (S/P/Bld) [Vol rate/Area] 65 mL/min/{1.73_m2} >[address] [facility] Comment on above: mL/min/1.73m2 CKD-EP I Creatinine Equation (2020) Hematocrit Auto (Bld) [Volum e fraction]Ordered By: Yuri Jasso on 10-07-2024 Hematocrit (Bld) [Volume fraction] 33.8 % Low 37-[address] [facility] Hemoglobin measurementOrdere d By: Yuri Jasso on 10-07-2024 Hemoglobin (Bld) [Mass/Vol] 11.4 g/dL Low 12.0-15.[address] [facility] MCV (mean corpuscular volume ) determinationOrdered By: Yuri Jasso on 10-07-2024 MCV (RBC) [Entitic vol] 93.4 fL 81-99 [facility] Mean corpuscular hemoglobin (MCH) determinationOrdered By: Yuri Jasso on 10-07-2024 MCH (RBC) [Entitic mass] 31.5 pg 27.0-32.[address] [facility] Mean corpuscular hemoglobin concentration (MCHC) determinationOrdered By: Yuri Jasso on 10-07-2024 MCHC (RBC) [Mass/Vol] 33.7 g/dL 32-36 [facility] Mean platelet volume determi nationOrdered By: Yuri Jasso on 10-07-2024 Platelet mean volume (Bld) [Entitic vol] 12.5 fL High 6.2-12.[address] [facility] Platelet countOrdered By: St victoriano Jasso on 10-07-2024 Platelets (Bld) [#/Vol] 161 10*3/uL 150-[address] [facility] Potassium measurement (mass/ volume)Ordered By: Yuri Jasso on 10-07-2024 Potassium (Unsp spec) [Mass/Vol] 4.0 mmol/L 3.3-5.[address] [facility] RBC Auto (Bld) [#/Vol]Ordere d By: Yuri Jasso on 10-07-2024 RBC (Bld) [#/Vol] 3.62 10*6/uL Low 4.2-5.4 [facility] Serum creatinine measurement (mass/volume)Ordered By: Yuri Jasso on 10-07-2024 Creatinine [Mass/Vol] 0.92 mg/dL 0.70-1.20 [facility] Serum glucose measurement (m ass/volume)Ordered By: Yuri Jasso on 10-07-2024 Glucose [Mass/Vol] 156 mg/dL High 70-99 [facility] Serum or plasma calcium darlyn urement (mass/volume)Ordered By: Yuri Jasso on 10-07-2024 Calcium [Mass/Vol] 9.1 mg/dL 7.6-11.0 [facility] Serum or plasma urea nitroge n measurement (mass/volume)Ordered By: Yuri Jasso on 10-07-2024 Urea nitrogen [Mass/Vol] 27 mg/dL High 4-[address] [facility] Sodium levelOrdered By: Nicolas Jasso on 10-07-2024 Sodium [Moles/Vol] 134 mmol/L 133-145 [facility] White blood cell (WBC) count Ordered By: Yuri Jasso on 10-07-2024 WBC (Bld) [#/Vol] 15.1 10*3/uL High 4.4-11.0 [facility] Decalcification bone/plaqueo n 10-06-2024 Decalcification bone/plaque -------- Patient Age/Sex Location Account Attending Physician -------- ANGELA MAY 73/F MS3 [id number] Dr. Yuri Jasso MD -------- Specimen: [id number] Received: 10/06/240911 Status: MICHAEL Figueredo Num: [id number] Spec Type: TOTAL KNEE Subm Dr: Dr. Yuri Jasso MD HEADER OPERATION: Robotic assisted right total knee arthroplasty PRE-OP DIAGNOSIS: Severe right knee osteoarthritis with valgus deformity TISSUE SUBMITTED: A- Right knee debrided bone and tissue -------- MICROSCOPIC DIAGNOSIS A. Right knee, arthroplasty: * Benign cartilage and bone with degenerative changes MICROSCOPIC DESCRIPTION Slides are reviewed. GROSS DESCRIPTION A. Received in formalin in a container labeled with the patient's name, date of , and debrided bone and tissue right knee are multiple grace-pink, firm, and irregular fragments of bone and soft tissue measuring 9.7 x 7.0 x 4.0 cm in aggregate. The specimen consists of, but is not limited to, medial/lateral condyle and tibial plateau. The resection margins are smooth and firm and the cortical surfaces are pitted and granular with smooth areas of eburnation. Sectioning reveals firm grace surfaces. Concrete Plant Laborer sections submitted in A1 following decalcification. [facility] 10-06-2024 CPT:83785,01621 -------- Patient Age/Sex Location Account Attending Physician -------- ANGELA MAY 73/F MS3 [id number] Dr. Yuri Jasso MD -------- Signed (signature on file) Dr. Fannie Sales DO 10/08/24 1221 -------- Normal [facility] Comment on above: Performed By: #### P DEC ####[facility] [address] [place], [place], [address] Knee 1 or 2 Viewson 10-07-19 Knee 1 or 2 Views [facility] Imaging Services [address] [place], [place] [address] Knee 1 or 2 Views MR#: [id number] Acct: [id number] Name: ANGELA MAY Rep #: [id number] : 1950 F 73 From: Jose archuleta MD PCP: Dr. Catherine Vazquez DO Status: [facility] Study: Knee 1 or 2 Views Date of Exam: 10/06/24 Exam# [id number] Ordering Dr: Yuri Jasso MD PROCEDURE: KNEE 1 OR 2 VIEWS 10/06/2024 REASON FOR EXAM: TKA TECHNIQUE: 2 view(s) of the right knee COMPARISON: None FINDINGS: The patient is status post total knee replacement. There is good alignment. Postoperative soft tissue changes. RAD/Knee 1 or 2 Views IMPRESSION: Status post total knee replacement. There is good alignment. Postoperative soft tissue changes. Reading Location: [facility] CC: Dr. Catherine Vazquez DO; Dr. Yuri Jasso MD Buildings And Grounds Supervisor: Signed [facility] MR/POSTOP.ANEon 10-06-2024 MR/POSTOP.[facility] Medical Records Department [address] [place] [address] Anesthesia Postop Eval I 10/06/24 1234 MR#: [id number] Acct: [id number] Name: JEFFERSONSIERRAANGELA Rep #: [id number] : 1950 73 From: Rich Amado CRNA PCP: Dr. Catherine Vazquez, DO Status:REG SDC Y Race: C Location: [facility]28 Anesthesia: Postop Eval I Current Vital Signs Temperature: 98.8 F Pulse Rate: 74 Blood Pressure: 124/69 Respiratory Rate: 18 Pulse Ox: 94 Oxygen Delivery Method: Room Air Assessment Airway patent: Yes Spontaneous unlabored respirations: Yes Mental status: Awake and Calm nausea: No Vomiting: No Anesthesia Complication: No Fluid Hydration Crystalloid volume administer (ml): 1,200 Total IV fluid infused: 1,200 Progress Note Anesthesia document: Postop Eval 1 completed: Yes 10/06/24 1235 Date Rich Amado CRNA Cosigner Signature: Date CC: Signed Normal [facility] MR/POSTOP.ANE [facility] Medical Records Department [address] [place] [address] Anesthesia Postop Eval I 10/06/24 0956 MR#: [id number] Acct: [id number] Name: ANGELA MAY Rep #: [id number] : 1950 73 From: Rich Amado CRNA PCP: Dr. 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 MR/[id number] 10-06-2024 MR/POSTOPAN2 [facility] Medical Records Department [address] [place] [address] Anesthesia Postop Eval II 10/06/24 181 MR#: [id number] Acct: [id number] Name: ANGELA MAY Rep #: [id number] : 1950 73 From: Anibal Montemayor MD PCP: Dr. 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 Vomiting No 10/06/24 12:35 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[employer] Anesthesia Postop Eval I: Fluid Summary Crystalloid volume administer 1,200 10/06/24 12:35 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OR (ml) Colloids volume administered ( ml) Blood Product volume administered (ml) Total IV fluid infused 1,200 10/06/24 12:35 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 Operative Reporton 5 Operative Report [facility] Medical Records Department [address] [place] [address] Operative Report 10/06/24 1222 MR#: [id number] Acct: [id number] Name: ANGELA MAY Rep #: [id number] : 1950 73 From: Yuri Jasso MD PCP: Dr. Catherine Vazquez, DO Status[place] [facility] [place] [address] Operative Report (Standard) Operative Information Date of Procedure: 10/06/24 Pre-Operative Diagnosis: Right knee primary osteoarthritis Post-Operative Diagnosis: Right knee primary osteoarthritis Surgery/Procedure Performed: Right knee minimally invasive robotic assisted total arthroplasty program support assistant: Yes Rip Saw Operator: Mauri Junior Tasks completed by first aid instructor: Other (See body of operative report) Additional post production assistant?: No Type of Anesthesia: Spinal RN Documented Start/Stop Times: Operation Date: 10/06/24 10:30 Case Time Into Pre-Op 10/06/24 08:36 Anesthesia Start 10/06/24 10:36 Into Room 10/06/24 10:36 Procedure Start 10/06/24 11:04 Procedure End 10/06/24 12:20 Procedure Start Time: 11:04 Procedure Stop Time: 12:20 Select all DRAINS/GRAFTS/IMPLANT S that apply: Prosthetic device Prosthetic device details: See body of operative report Special Medications: 2 g Ancef, TXA, 10 mg Decadron, joint cocktail (5 mg Duramorph, 30 mL of 0.5% Ropivicaine, 1000 units of epinephrine, 30 mg of Toradol) Estimated Blood Loss: 50 mL Fluids Replaced: 1500 mL crystalloid Specimen collected: Yes Description of specimen(s) removed: Bony cuts Description of surgery: Implants used: 1. [place] size 3 triathlon cruciate retaining distal femoral press-fit component 2. [place] size 4 press-fit tritanium tibial baseplate 3. [place] X3 11 mm CS polyethylene 4. [place] X3 32 mm asymmetric patella Brief history operative indications: 73-year-old f with history of right knee osteoarthritis with radiographic findings with loss of joint space, osteophyte formation and subchondral sclerosis. Failed conservative measures as mentioned in the H P. Discussion of total knee arthroplasty as well as risk and benefits were discussed the patient including but not limited to blood loss, DVTs, PEs, neurovascular damage, general risk of anesthesia including loss of life, and stiffness or instability were discussed with patient. Patient demonstrated understanding and was able to sign informed consent. Procedure: On the date of procedure patient's right lower extremity was marked in the preoperative area. The patient was then taken back to the operating room where the patient was placed on the table in the supine position. All bony prominences were identified a well-padded. Anesthesia assumed control of the C-spine and airway and remained controlled throughout the remainder of the procedure. A tourniquet was placed on the right upper thigh and the leg was prepped in a sterile fashion. The surgeon then scrubbed at this time .Upon reentering the room right lower extremity was draped in a standard orthopedic fashion. A timeout was then called and everyone agreed upon the side, the site, the procedure to be performed, patient's identity and antibiotics given. Esmarch bandage was used to exsanguinate the extremity and the tourniquet was placed up to 250 mmHg with the knee in flexion. A midline skin incision was made and sharp dissection was taken down through skin subcutaneous tissue and fat. The standard medial parapatellar incision was made and the patella was subluxed laterally. An Appropriate deep MCL release was done and the fat pad was resected. Our attention was then directed to the patella. The patella was everted and a flat resection was made. The knee was then flexed up in 2 femoral pins were placed inside the incision and 2 tibial pins were placed outside the incision in the medial tibia bicortically. Once this was completed the 2 mariam ckpoints in the femur and tibia were placed. Knee was then flexed up and the bony landmarks were registered. Once this was completed knee was taken through range of motion and manually stressed allowing us to a plan for an appropriate tibial cut. The robotic arm was brought into the field sterilely and checkpoint and saw were registered. Based on the patient's deformity the tibial cut was made neutral to the tibial axis. At this time the tensioner was then placed in the joint and ligament tension was checked at 90 degrees and full extension. Based on the patient's ligamentous tension appropriate adjustments were made to the operative plan and ligament releases were done. Once we were happy with our operative plan with balanced flexion and extension gaps our attention was directed to the femur. The robot was brought into the field sterilely and registered. Posterior condylar cuts, anterior chamfer cuts and anterior cuts were appropriately made for a size 3 femur. When these were completed the s (more content not included)... [facility] 10-03-2024 [facility] Telephone ([facility]) ANGELA MAY ([id number]) 1950 F Date Time Provider Department 10/03/24 PERNELL NAJERA During your visit today, we recorded the following information about you: Pernell Najera DO 10/03/2024 5:27 PM Signed Can let her know that the parathyroid hormone level was elevated indicating hyperparathyroidism. This may not be a condition that needs treated but should be monitored. Please fax recent chemistry panel, ionized calcium and PTH level to her PCP and ask her to contact his office to arrange appointment. DO Homer Hanson Melanie, LPN 10/06/2024 8:11 AM Signed All results faxed to PCP. [employer] message sent. Rhiannon Cleveland LPN Allergies As of Date: 10/03/2024 (No Known Allergies) Date Reviewed: 09/02/2024 Reviewed by: Tanika Barajas RN - Fully Assessed Reason for Visit: Results [95] Prescriptions as of 10/06/2024 - glucosamine/chondroit in/C/Sherif (GLUCOSAMINE 1500 COMPLEX ORAL) Take 1 tablet by mouth once daily. - letrozole (FEMARA) 2.5 mg tablet Take 1 tablet by mouth once daily. - MAGNESIUM ORAL Take 500 mg by mouth once daily. - Valsartan-hydroCHLORO thiazide 160-12.5 mg per tablet Take 1 tablet by mouth once daily. - Rxxjx-9-HUA-EPA-Fish Oil (FISH OIL) 1,000 mg (120 mg-180 mg) cap Take two capsules by mouth once daily. - Multivitamins-Mineral s-Lutein (MULTIVITAMIN 50 PLUS) tab Take 1 tablet by mouth once daily. - calcium carbonate/vitamin D3 (CALCIUM 600 + D ORAL) Take 2 tablets by mouth once daily. - Lactobacillus acidophilus (PROBIOTIC) 10 billion cell cap Take 1 capsule by mouth once daily. 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 Please check PTH. DO Homer Guzmán Melanie, LPN 10/02/2024 8:39 AM Signed PSS- please schedule patient for a lab appointment for a PTH TODAY @ 3:00. Patient is aware of appointment date and time. ABBIE Hicks Naomi 10/02/2024 8:54 AM Signed This has been scheduled. Chinyere Stewart Allergies As of Date: 10/02/2024 (No Known Allergies) Date Reviewed: 09/02/2024 Reviewed by: Tanika Barajas, JONES - Fully Assessed Reason for Visit: Results [95] Primary Visit Diagnosis:Hypercalcem ia [E83.52] Order(s):PTH INTACT [SQPTHI] Order #: [id number] FUTURE Prescriptions as of 10/02/2024 - glucosamine/chondroit in/C/Sherif (GLUCOSAMINE 1500 COMPLEX ORAL) Take 1 tablet by mouth once daily. - letrozole (FEMARA) 2.5 mg tablet Take 1 tablet by mouth once daily. - MAGNESIUM ORAL Take 500 mg by mouth once daily. - Valsartan-hydroCHLORO thiazide 160-12.5 mg per tablet Take 1 tablet by mouth once daily. - Emyqq-8-WUH-EPA-Fish Oil (FISH OIL) 1,000 mg (120 mg-180 mg) cap Take two capsules by mouth once daily. - Multivitamins-Mineral s-Lutein (MULTIVITAMIN 50 PLUS) tab Take 1 tablet by mouth once daily. - calcium carbonate/vitamin D3 (CALCIUM 600 + D ORAL) Take 2 tablets by mouth once daily. - Lactobacillus acidophilus (PROBIOTIC) 10 billion cell cap Take 1 capsule by mouth once daily. 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*03/13/2024 Encounter Status:Closed by CHINYERE STEWART on 10/02/24 Normal [facility] PTH-Intact SerPl-mCncon 05-0 Parathyrin.intact [Mass/Vol] 98 pg/mL High 15-65 [facility] Comment on above: Order Comment: Speci men Type: BLOOD SPECIMEN Ordering Facility: [facility] Address: [address] [place] [address] Performed By: #### 1 995-0 #### [facility] CLIA [id number] [address] [place] [address] [place], [place] [address] [place] Basic metabolic 2000 panelon 09-18-2024 Anion gap [Moles/Vol] 7 mmol/L Low 8-15 [facility] Comment on above: Order Comment: Speci men Type: BLOOD SPECIMEN Ordering Facility: [facility] Address: [address] [place] [address] Performed By: #### 1 995-0 #### [facility] CLIA [id number] [address] [place] [address] [place] Calcium [Mass/Vol] 10.3 mg/dL High 8.5-10.2 [facility] Comment on above: Order Comment: Speci men Type: BLOOD SPECIMEN Ordering Facility: [facility] Address: [address] [place] [address] Performed By: #### 1 995-0 #### [facility] CLIA [id number] [address] [place] [address] [place] Chloride [Moles/Vol] 104 mmol/L Normal 98-107 [facility] Comment on above: Order Comment: Speci men Type: BLOOD SPECIMEN Ordering Facility: [facility] Address: [address] [place] [address] Performed By: #### 1 995-0 #### [facility] CLIA [id number] [address] [place] [address] [place] CO2 [Moles/Vol] 25 mmol/L Normal 22-30 [facility] Comment on above: Order Comment: Speci men Type: BLOOD SPECIMEN Ordering Facility: [facility] Address: [address] [place] [address] Performed By: #### 1 995-0 #### [facility] CLIA [id number] [address] [place] [address] [place] Creatinine [Mass/Vol] 0.88 mg/dL Normal 0.58-0.96 [facility] Comment on above: Order Comment: Speci men Type: BLOOD SPECIMEN Ordering Facility: [facility] Address: [address] [place] [address] Performed By: #### 1 995-0 #### [facility] CLIA [id number] [address] [place] [address] [place] Creatinine and Glomerular filtration rate.predicted panel (S/P/Bld) 69 mL/min/1.73m??? Normal >=60 [facility] Comment on above: Order Comment: Oscar reynolds Type: BLOOD SPECIMEN Ordering Facility: [facility] Address: [address] [place] [address] Result Comment: Francesca mated Glomerular Filtration Rate (eGFR) is calculated using the 2020 CKD-EPI creatinine equation. This equation utilizes serum creatinine, sex, and age as parameters. The creatinine assay has traceable calibration to isotope dilution-mass spectrometry. Refer to KDIGO guidelines for clinical interpretation. In patients with unstable renal function, e.g. those with acute kidney injury, the eGFR may not accurately reflect actual GFR. Performed By: #### 1 995-0 #### [facility] CLIA [id number] [address] [place] [address] [place] Glucose [Mass/Vol] 126 mg/dL High 74-99 [facility] Comment on above: Order Comment: Oscar reynolds Type: BLOOD SPECIMEN Ordering Facility: [facility] Address: [address] [place] [address] Result Comment: The [place] Diabetes Association (ADA) provides guidance for cutoff values for fasting glucose and random glucose. The ADA defines fasting as no caloric intake for at least 8 hours. Fasting plasma glucose results between 100 to 125 mg/dL indicate increased risk for diabetes (prediabetes). Fasting plasma glucose results greater than or equal to 126 mg/dL meet the criteria for diagnosis of diabetes. In the absence of unequivocal hyperglycemia, results should be confirmed by repeat testing. In a patient with classic symptoms of hyperglycemia or hyperglycemic crisis, random plasma glucose results greater than or equal to 200 mg/dL meet the criteria for diagnosis of diabetes. Reference: Standards of Medical Care in Diabetes 2016, [place] Diabetes Association. Diabetes Care. 2016.39(Suppl 1). Performed By: #### 1 995-0 #### [facility] CLIA [id number] [address] [place] [address] [place] Potassium [Moles/Vol] 3.8 mmol/L Normal 3.7-5.1 [facility] Comment on above: Order Comment: Speci men Type: BLOOD SPECIMEN Ordering Facility: [facility] Address: [address] [place] [address] Performed By: #### 1 995-0 #### [facility] CLIA [id number] [address] [place] [address] [place] Sodium [Moles/Vol] 136 mmol/L Normal 136-144 [facility] Comment on above: Order Comment: Speci men Type: BLOOD SPECIMEN Ordering Facility: [facility] Address: [address] [place] [address] Performed By: #### 1 995-0 #### [facility] CLIA [id number] [address] [place] [address] [place] Urea nitrogen [Mass/Vol] 24 mg/dL High 7-21 [facility] Comment on above: Order Comment: Speci men Type: BLOOD SPECIMEN Ordering Facility: [facility] Address: [address] [place] [address] Performed By: #### 1 995-0 #### [facility] CLIA [id number] [address] [place] [address] [place] Calcium.ionized [Moles/Vol]o n 09-18-2024 Calcium.ionized (Bld) [Mass/Vol] 1.36 mmol/L High 1.08-1.30 [facility] Comment on above: Order Comment: Speci men Type: BLOOD SPECIMEN Ordering Facility: [facility] Address: [address] [place] [address] Performed By: #### 1 995-0 #### [facility] CLIA [id number] [address] [place] [address] [place] Calcium.ionized adjusted to pH 7.4 (Bld) [Moles/Vol] 1.37 mmol/L High 1.08-1.30 [facility] Comment on above: Order Comment: Speci men Type: BLOOD SPECIMEN Ordering Facility: [facility] Address: [address] [place] [address] Performed By: #### 1 995-0 #### [facility] CLIA [id number] [address] [place] [address] OF [facility] Internal Medicine Office Vis iton 09-17-2024 Internal Medicine Office Visit [facility] [address] [place] [id number] OFFICE VISIT Date of Service: 09/17/24 MR#: [id number] Acct: [id number] Name: ANGELA MAY Rep #: [id number] : 1950 Provider: Dr. Catherine dawson, DO Age/Sex: 73/F Location: [facility] Status: Signed Intake Vital Signs 01/16/24 14:36 09/17/24 15:04 Height 5 ft 5 in 5 ft 5 in Weight: 209 lb BMI 34.7 BP 130/80 H Blood Pressure Location Lt brachial Position Sitting Respiration 18 Pulse 93 Pulse Source Monitor Temp 98.1 F Temp Source Temporal Pulse Oximetry (%) 98 Oxygen Delivery Method room air Intake Visit Reasons: surgery clearance Chief Complaint: surgery clearance Is patient in pain?: Yes (6 right knee ) Allergies No Known Allergies Allergy (Verified 09/17/24 15:03) Medications ???Medication ???Instructions ???Recorded ???Confirmed ???Type Lactobacillus acidophilus 250 500 mmu cells PO DAILY 09/07/23 History million cell capsule (Probiotic Acidophilus) valsartan 160 1 tab PO DAILY #90 tabs 11/13/23 0 09/17/24 Rx mg-hydrochlorothiazid e 12.5 mg tablet cholecalciferol (vitamin D3) 50 50 mcg PO DAILY 09/08/24 09/17/24 History mcg (2,000 unit) capsule (Vitamin D3) glucosamine-chondroit in 500 mg-400 3 cap PO DAILY 09/08/24 09/17/24 History mg capsule letrozole 2.5 mg tablet 2.5 mg PO DAILY 09/08/24 09/17/24 History omega 0-ozn-ghc-fish oil 1,200 mg 2 cap PO DAILY 09/08/24 09/17/24 History (144 mg-216 mg) capsule (Fish Oil) acetaminophen 500 mg tablet 500 mg PO Q6H PRN 09/17/24 5 History (Tylenol Extra Strength) Have you fallen in the past year?: No PFSH Medical History Wears glasses Wears partial dentures Post-menopausal Cancer Heartburn Former smoker History of echocardiogram History of irregular heartbeat Psoriatic arthritis Osteopenia Osteoarthritis Hypertension Arthritis Surgical History History of tubal ligation History of lumpectomy of left breast S/P lumpectomy, left breast Hx of colonoscopy Hx of right cataract extraction Hx of left cataract extraction History of left hip replacement History of right hip replacement History of section History of carpal tunnel release of both wrists Family History Father Arthritis Heart disease Hypertension Mother Hypertension Grandmother CVA (cerebral vascular accident) Social History Smoking Status: Former smoker how long ago did patient quit smokin alcohol intake: never substance use type: does not use what type of physical activity do you participate in: walking frequency: daily HPI HPI Chief Complaint: surgery clearance Details: ANGELA MAY, is a 73 F who presents to the office today for a physical examination to clear her for a total knee replacement of her right knee. That surgery is scheduled for 06 October. ROS Const Constitutional: No body ache, chills, excessive sweating, fatigue, fever(s), frequent falls, headache(s), snoring, weight change, sleep problems, abnormal sleep pattern or change in appetite Eyes Eyes: No blurry vision, change in vision, eye pain or Light sensitivity ENT ENT: No abnormal hearing, ear or mastoid pain, tinnitus, nasal congestion, headache(s), neck pain or sore throat Resp Respiratory: No cough, shortness of breath, snoring or wheezing Cardio Cardiology: No chest pain at rest, chest pain with exertion, excessive sweating, shortness of breath, dyspnea on exertion, lightheadedness, orthopnea or palpitations Gastro GI: No abdominal pain, change in bowel habits, constipation, cramping, diarrhea, nausea/dyspepsia or vomiting Genitourinary-Female: No burning urination, painful urination, urinary incontinence, urinary frequency, abnormal vaginal bleeding or pelvic pain Musc Musculoskeletal: No abnormal gait, joint pain, back pain, limited range of motion, neck pain, numbness or tingling Skin Skin: No dry skin, redness, lesions, itchy eyes, rash or wounds Neuro Neurology: No abnormal gait, abnormal hearing, frequent falls, headache(s), memory loss, numbness or tingling Psych Psychiatric: No abnormal sleep pattern, No anxiety, No change in appetite, No irritability, No memory loss and No Thoughts of harming yourself/Others Endo Endocrine: No cold intolerance, excessive sweating, fatigue, flushing, heat intolerance, increased thirst/drinking, increased hunger or weight change Aller/Imm Allergy/Immunologic: No itchy eyes, seasonal allergy symptoms, hives or wheezing Juan Daniel/Lymp Hematologic/Lymphatic : N (more content not included)... Normal [facility] Electrocardiogram reportOrde red By: Josh Reyes on 09-11-2024 EKG study [facility] Cardiovascular Services [address] [place] [address] 12 Lead EKG 09/10/24 1210 MR#: [id number] Acct: [id number] Name: ANGELA MAY Rep #:[id number] : 1950 73 From: Josh headley MD Attending Dr: Dr. Yuri Jasso MD Status: [place] [facility] [place]: Yuri Jasso MD Date: 09/10/24 [place] [facility] [place] Sex: F C Admitted: Test Reason : PRE OP Blood Pressure : */* mmHG Vent. Rate : 73 BPM Atrial Rate : 73 BPM P-R Int : 162 ms QRS Dur : 82 ms QT Int : 354 ms P-R-T Axes : 41 22 40 degrees QTcB Int : 389 ms Normal sinus rhythm Normal ECG Confirmed by Josh Reyes ([id number]), magazine editor NATHALIE PEREIRA ([id number]) on 59:43:13 AM Referred By: Yuri Jasso Confirmed By: Josh Reyes 09/11/24 0943 Date _ Josh Reyes MD CC: Dr. Catherine Vazquez DO; Dr. Yuri Jasso MD ~ Signed [facility] Work Phone: MRSA/SAID NASAL SCREENon MRSA+SAID SCRN Reason for Exam: PREOP MRSA MRSA Negative S. AUREUS S. aureus Negative Normal [facility] Comment on above: Performed By: #### L 100.0100, L501.1800, L501.5200, M100.651, L500.2500 ####[facility] [address] [place], [address] 12 Lead EKGon 09-10-2024 12 Lead EKG [facility] Cardiovascular Services [address] [place] [address] 12 Lead EKG 09/10/24 1210 MR#: [id number] Acct: [id number] Name: ANGELA MAY Rep #: [id number] : 1950 73 From: Josh Reyes MD Attending Dr: Dr. Yuri Jasso MD Status: [place] [facility] [place]: Yuri Jasso MD Date: 09/10/24 [place] [facility] [place] Sex: F C Admitted: Test Reason : PRE OP Blood Pressure : */* mmHG Vent. Rate : 73 BPM Atrial Rate : 73 BPM P-R Int : 162 ms QRS Dur : 82 ms QT Int : 354 ms P-R-T Axes : 41 22 40 degrees QTcB Int : 389 ms Normal sinus rhythm Normal ECG Confirmed by Josh Reyes ([id number]), magazine editor NATHALIE PEREIRA ([id number]) on 09/11/2024 9:43:13 AM Referred By: Yuri Jasso Confirmed By: Josh Reyes 09/11/24 0943 Date Josh Reyes MD CC: Dr. Catherine Vazquez, DO; Dr. Yuri Jasso MD Signed Normal [facility] Absolute lymphocyte countOrd ered By: Yuri Jasso on 09-10-2024 Lymphocytes Auto (Unsp spec) [#/Vol] 0.84 10*3/uL 0.83-4.[address] [facility] Absolute neutrophil countOrd ered By: Yuri Jasso on 09-10-2024 Neutrophils (Bld) [#/Vol] 3.9 10*3/uL 2.0-7.[address] [facility] Albumin, Serumon 09-10-2024 Albumin [Mass/Vol] 4.1 g/dL Normal 3.4-4.8 [facility] Comment on above: Performed By: #### L 100.0100, L501.1800, L501.5200, M100.651, L500.2500 ####[facility] [address] [place], [address] Automated lymphocyte count a s percentage of total leukocytesOrdered By: Yuri Jasso on 09-10-2024 Lymphocytes/100 WBC Auto (Unsp spec) 15.5 % Low 19-[address] [facility] Basic Metabolic Profile (BMP )on 09-10-2024 BUN/CRE 22.0 RATIO High 10-[address] [facility] Comment on above: Performed By: #### L 100.0100, L501.1800, L501.5200, M100.651, L500.2500 ####[facility] [address] [place], [address] Calcium [Mass/Vol] 9.9 mg/dL Normal 7.6-11.0 [facility] Comment on above: Performed By: #### L 100.0100, L501.1800, L501.5200, M100.651, L500.2500 ####[facility] [address] [place], [address] Chloride [Moles/Vol] 105 mmol/L Normal 98-108 [facility] Comment on above: Performed By: #### L 100.0100, L501.1800, L501.5200, M100.651, L500.2500 ####[facility] [address] [place], [address] CO2 [Moles/Vol] 21.4 mmol/L Normal 21.0-32.[address] [facility] Comment on above: Performed By: #### L 100.0100, L501.1800, L501.5200, M100.651, L500.2500 ####[facility] [address] [place], [address] Creatinine [Mass/Vol] 0.92 mg/dL Normal 0.70-1.20 [facility] Comment on above: Performed By: #### L 100.0100, L501.1800, L501.5200, M100.651, L500.2500 ####[facility] [address] [place], [address] GAP 12 Normal 5-[address] [facility] Comment on above: Performed By: #### L 100.0100, L501.1800, L501.5200, M100.651, L500.2500 ####[facility] [address] [place], [address] GFR/1.73 sq M.predicted among non-blacks MDRD (S/P/Bld) [Vol rate/Area] 66 mL/min/{1.73_m2} Normal >[address] [facility] Comment on above: Result Comment: mL/m in/1.73m2 CKD-EPI Creatinine Equation (2020) Performed By: #### L 100.0100, L501.1800, L501.5200, M100.651, L500.2500 ####[facility] [address] [place], [address] Glucose [Mass/Vol] 90 mg/dL Normal 70-99 [facility] Comment on above: Performed By: #### L 100.0100, L501.1800, L501.5200, M100.651, L500.2500 ####[facility] [address] [place], [address] Potassium [Moles/Vol] 4.4 mmol/L Normal 3.3-5.1 [facility] Comment on above: Performed By: #### L 100.0100, L501.1800, L501.5200, M100.651, L500.2500 ####[facility] [address] [place], [address] Sodium [Moles/Vol] 138 mmol/L Normal 133-145 [facility] Comment on above: Performed By: #### L 100.0100, L501.1800, L501.5200, M100.651, L500.2500 ####[facility] [address] [place], [address] Urea nitrogen [Mass/Vol] 20 mg/dL High 4-[address] [facility] Comment on above: Performed By: #### L 100.0100, L501.1800, L501.5200, M100.651, L500.2500 ####[facility] [address] [place], [address] Basophil percentageOrdered B y: Yuri Jasso on 09-10-2024 Basophils/100 WBC (Bld) 0.7 % 0-1 [facility] CBC W/Diff, Automatedon 04- Absolute Lymph 0.84 X10 3/uL Normal 0.83-4.[address] [facility] Comment on above: Performed By: #### L 100.0100, L501.1800, L501.5200, M100.651, L500.2500 ####[facility] [address] [place], [address] Absolute Neut 3.9 X10 3/uL Normal 2.0-7.[address] [facility] Comment on above: Performed By: #### L 100.0100, L501.1800, L501.5200, M100.651, L500.2500 ####[facility] [address] [place], [address] Basophils/100 WBC (Bld) 0.7 % Normal 0-1 [facility] Comment on above: Performed By: #### L 100.0100, L501.1800, L501.5200, M100.651, L500.2500 ####[facility] [address] [place], [address] Eosinophils/100 WBC (Bld) 2.4 % Normal 0-[address] [facility] Comment on above: Performed By: #### L 100.0100, L501.1800, L501.5200, M100.651, L500.2500 ####[facility] [address] [place], [address] Erythrocyte distribution width (RBC) [Ratio] 12.7 % Normal 11.6-14.[address] [facility] Comment on above: Performed By: #### L 100.0100, L501.1800, L501.5200, M100.651, L500.2500 ####[facility] [address] [place], [address] Hematocrit (Bld) [Volume fraction] 40.8 % Normal 37-[address] [facility] Comment on above: Performed By: #### L 100.0100, L501.1800, L501.5200, M100.651, L500.2500 ####[facility] [address] [place], [address] Hemoglobin (Bld) [Mass/Vol] 13.8 g/dL Normal 12.0-15.[address] [facility] Comment on above: Performed By: #### L 100.0100, L501.1800, L501.5200, M100.651, L500.2500 ####[facility] [address] [place], [address] IG% 0.400 Normal 0.0-0.[address] [facility] Comment on above: Result Comment: IG% - Immature Granulocytes (promyelocytes, myelocytes and metamyelocytes) > 1% indicates that a LEFT SHIFT is Present. Performed By: #### L 100.0100, L501.1800, L501.5200, M100.651, L500.2500 ####[facility] [address] [place], [address] Lymphocytes/100 WBC (Bld) 15.5 % Low 19-[address] [facility] Comment on above: Performed By: #### L 100.0100, L501.1800, L501.5200, M100.651, L500.2500 ####[facility] [address] [place], [address] MCH (RBC) [Entitic mass] 31.4 pg Normal 27.0-32.[address] [facility] Comment on above: Performed By: #### L 100.0100, L501.1800, L501.5200, M100.651, L500.2500 ####[facility] [address] [place], [address] MCHC (RBC) [Mass/Vol] 33.8 g/dL Normal 32-36 [facility] Comment on above: Performed By: #### L 100.0100, L501.1800, L501.5200, M100.651, L500.2500 ####[facility] [address] [place], [address] MCV (RBC) [Entitic vol] 92.7 fL Normal 81-99 [facility] Comment on above: Performed By: #### L 100.0100, L501.1800, L501.5200, M100.651, L500.2500 ####[facility] [address] [place], [address] Monocytes/100 WBC (Bld) 9.2 % Normal 0-10 [facility] Comment on above: Performed By: #### L 100.0100, L501.1800, L501.5200, M100.651, L500.2500 ####[facility] [address] [place], [address] Neutrophils/100 WBC (Bld) 71.8 % High 47-[address] [facility] Comment on above: Performed By: #### L 100.0100, L501.1800, L501.5200, M100.651, L500.2500 ####[facility] [address] [place], [address] Nucleated RBC (Bld) [#/Vol] 0 10*3/uL Normal 0-[address] [facility] Comment on above: Performed By: #### L 100.0100, L501.1800, L501.5200, M100.651, L500.2500 ####[facility] [address] [place], [address] Platelet mean volume (Bld) [Entitic vol] 12.4 fL High 6.2-12.[address] [facility] Comment on above: Performed By: #### L 100.0100, L501.1800, L501.5200, M100.651, L500.2500 ####[facility] [address] [place], [address] Platelets (Bld) [#/Vol] 224 10*3/uL Normal 150-[address] [facility] Comment on above: Performed By: #### L 100.0100, L501.1800, L501.5200, M100.651, L500.2500 ####[facility] [address] [place], [address] RBC (Bld) [#/Vol] 4.40 10*6/uL Normal 4.2-5.4 [facility] Comment on above: Performed By: #### L 100.0100, L501.1800, L501.5200, M100.651, L500.2500 ####[facility] [address] [place], [address] RDW SD 43.1 fl Normal 35.1-43.[address] [facility] Comment on above: Performed By: #### L 100.0100, L501.1800, L501.5200, M100.651, L500.2500 ####[facility] [address] [place], [address] WBC (Bld) [#/Vol] 5.4 10*3/uL Normal 4.4-11.0 [facility] Comment on above: Performed By: #### L 100.0100, L501.1800, L501.5200, M100.651, L500.2500 ####[facility] [address] [place], [address] Eosinophil percentageOrdered By: Yuri Jasso on 09-10-2024 Eosinophils/100 WBC (Bld) 2.4 % 0-[address] [facility] Extremity Lower without Cont raon 09-10-2024 Extremity Lower without Contra [facility] Imaging Services [address] [place] [address] Extremity Lower without Contra MR#: [id number] Acct: [id number] Name: ANGELA MAY Rep #: [id number] : 1950 F 73 From: Jose archuleta MD PCP: Dr. Cathreine Vazquez, DO Status: REG CLI Study: Extremity Lower without Contra Date of Exam: 0 09/10/24 Exam# [id number] Ordering Dr: Yuri Jasso MD PROCEDURE: EXTREMITY LOWER WITHOUT CONTRA 09/10/2024 REASON FOR EXAM: KNEE PAIN/PRE OP Donnie protocol. TECHNIQUE: Axial CT images of the right lower extremity obtained without intravenous contrast. Coronal and Sagittal reconstruction series were provided. CONTRAST: None One or more dose reduction techniques were used (e.g., Automated exposure control, adjustment of the mA and/or kV according to patient size, use of iterative reconstruction technique). RADIATION DOSE SUMMARY: CTDlvol: 18.5 mGy DLP: 1478.2 mGycm COMPARISON: None FINDINGS: Bones: No evidence of fracture. Joints: Imaging of the hip joint was obtained. The patient is status post right total hip replacement. There is good alignment. No acute abnormality is seen. Imaging of the right knee joint was obtained. Marked degree of joint space narrowing involving the medial and lateral compartments of the knee joint with degenerative spur formation. Moderate degree of joint space narrowing of the patellofemoral joint with anterior femoral spur. Imaging of the right ankle was obtained. No abnormality is seen. Soft Tissues: Minimal joint effusion. CT/Extremity Lower without Contra IMPRESSION: Marked degree of joint space narrowing of the medial and lateral compartments of the knee joint. Reading Location: [place] [address] CC: Dr. Catherine Vazquez, DO; Dr. Yuri Jasso MD [employer] Supervisor: Signed Normal [facility] Immature granulocytes/100 WB C Auto (Bld)Ordered By: Yuri Jasso on 09-10-2024 Immature granulocytes/100 WBC (Bld) 0.400 % 0.0-0.[address] [facility] Comment on above: IG% - Immature Granu locytes (promyelocytes, myelocytes and metamyelocytes) > 1% indicates that a LEFT SHIFT is Present. MRSA screenOrdered By: Jayme Jasso on 09-10-2024 MRSA DNA RADHA+probe Ql (Unsp spec) [facility] Magnesiumon 09-10-2024 Magnesium [Mass/Vol] 2.3 mg/dL High 1.5-2.2 [facility] Comment on above: Performed By: #### L 100.0100, L501.1800, L501.5200, M100.651, L500.2500 ####[facility] [address] [place], [address] Magnesium measurement (mass/ volume)Ordered By: Yuri Jasso on 09-10-2024 Magnesium (Unsp spec) [Mass/Vol] 2.3 mg/dL High 1.5-2.[address] [facility] Monocyte percentageOrdered B y: Yuri Jasso on 09-10-2024 Monocytes/100 WBC (Bld) 9.2 % 0-10 [facility] Neutrophil percentageOrdered By: Yuri Jasso on 09-10-2024 Neutrophils/100 WBC (Bld) 71.8 % High 47-[address] [facility] Nucleated red blood cell per centageOrdered By: Yuri Jasso on 09-10-2024 Nucleated RBC/100 WBC (Bld) [Ratio] 0 % 0-[address] [facility] Serum or plasma albumin darlyn urement (mass/volume)Ordered By: Yuri Jasso on 09-10-2024 Albumin [Mass/Vol] 4.1 g/dL 3.4-4.8 [facility] Basic metabolic 2000 panelon 09-02-2024 Anion gap [Moles/Vol] 8 mmol/L Normal 8-15 [facility] Comment on above: Order Comment: Speci men Type: BLOOD SPECIMEN Ordering Facility: [facility] Address: [address] [place] [address] Performed By: #### 1 995-0 #### [facility] CLIA [id number] [address] [place] [address] [place] Calcium [Mass/Vol] 10.9 mg/dL High 8.5-10.2 [facility] Comment on above: Order Comment: Speci men Type: BLOOD SPECIMEN Ordering Facility: [facility] Address: [address] [place] [address] Performed By: #### 1 995-0 #### [facility] CLIA [id number] [address] [place] [address] [place] Chloride [Moles/Vol] 105 mmol/L Normal 98-107 [facility] Comment on above: Order Comment: Speci men Type: BLOOD SPECIMEN Ordering Facility: [facility] Address: [address] [place] [address] Performed By: #### 1 995-0 #### [facility] CLIA [id number] [address] [place] [address] [place] CO2 [Moles/Vol] 26 mmol/L Normal 22-30 [facility] Comment on above: Order Comment: Speci men Type: BLOOD SPECIMEN Ordering Facility: [facility] Address: [address] [place] [address] Performed By: #### 1 995-0 #### [facility] CLIA [id number] [address] [place] [address] [place] Creatinine [Mass/Vol] 1.20 mg/dL High 0.58-0.96 [facility] Comment on above: Order Comment: Speci men Type: BLOOD SPECIMEN Ordering Facility: [facility] Address: [address] [place] [address] Performed By: #### 1 995-0 #### [facility] CLIA [id number] [address] [place] [address] OF [facility] Creatinine and Glomerular filtration rate.predicted panel (S/P/Bld) 48 mL/min/1.73m??? Low >=60 [facility] Comment on above: Order Comment: Speci men Type: BLOOD SPECIMEN Ordering Facility: [facility] Address: [address] [place] [address] Result Comment: Francesca mated Glomerular Filtration Rate (eGFR) is calculated using the 2020 CKD-EPI creatinine equation. This equation utilizes serum creatinine, sex, and age as parameters. The creatinine assay has traceable calibration to isotope dilution-mass spectrometry. Refer to KDIGO guidelines for clinical interpretation. In patients with unstable renal function, e.g. those with acute kidney injury, the eGFR may not accurately reflect actual GFR. Performed By: #### 1 995-0 #### [facility] CLIA [id number] [address] [place] [address] [place] Glucose [Mass/Vol] 102 mg/dL High 74-99 [facility] Comment on above: Order Comment: Oscar reynolds Type: BLOOD SPECIMEN Ordering Facility: [facility] Address: [address] [place] [address] Result Comment: The [place] [employer] (ADA) provides guidance for cutoff values for fasting glucose and random glucose. The ADA defines fasting as no caloric intake for at least 8 hours. Fasting plasma glucose results between 100 to 125 mg/dL indicate increased risk for diabetes (prediabetes). Fasting plasma glucose results greater than or equal to 126 mg/dL meet the criteria for diagnosis of diabetes. In the absence of unequivocal hyperglycemia, results should be confirmed by repeat testing. In a patient with classic symptoms of hyperglycemia or hyperglycemic crisis, random plasma glucose results greater than or equal to 200 mg/dL meet the criteria for diagnosis of diabetes. Reference: Standards of Medical Care in Diabetes 2016, [place] [employer]. Diabetes Care. 2016.39(Suppl 1). Performed By: #### 1 995-0 #### [facility] CLIA [id number] [address] [place] [address] [place] Potassium [Moles/Vol] 4.2 mmol/L Normal 3.7-5.1 [facility] Comment on above: Order Comment: Oscar reynolds Type: BLOOD SPECIMEN Ordering Facility: [facility] Address: [address] [place] [address] Performed By: #### 1 995-0 #### [facility] CLIA [id number] [address] [place] [address] [place] Sodium [Moles/Vol] 139 mmol/L Normal 136-144 [facility] Comment on above: Order Comment: Oscar reynolds Type: BLOOD SPECIMEN Ordering Facility: [facility] Address: [address] [place] [address] Performed By: #### 1 995-0 #### [facility] CLIA [id number] [address] [place] [address] [place] Urea nitrogen [Mass/Vol] 18 mg/dL Normal 7-21 [facility] Comment on above: Order Comment: Speci men Type: BLOOD SPECIMEN Ordering Facility: [facility] Address: [address] [place] [address] Performed By: #### 1 995-0 #### [facility] CLIA [id number] [address] [place] [address] OF [facility] CNOVSPon 07-14-2024 CNOVSP Visit (SP) Office (HEMAWS) ANGELA MAY ([id number]) 1950 F Date Time Provider Department 07/14/24 11:30 AM CORDELIA CHAWLA During your visit today, we recorded the following information about you: Temperature Pulse Blood pressure Weight 97.3 degrees 79/minute 151/84 95.6 kg Cordelia Chawla APRN.[employer] 07/14/2024 2:44 PM Signed Chief Complaint Patient presents with: Established Patient HPI: Angela May is a 73 year old female who presents here today for follow up breast cancer. Per Dr. 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 Patient had a bilateral screening mammogram 11/13/2022. She was noted to have areas of scattered fibroglandular density in both breast. There were no dominant masses or suspicious calcifications. 1 year follow-up was recommended. Patient appreciated a palpable lump in the left breast. Diagnostic mammogram 08/14/2023 identified a 6 mm nodular density in the medial retroareolar region of the left breast corresponding to the palpable abnormality. On ultrasound was found to have a 1.2 x 1.1 x 0.9 cm hypoechoic lobular irregular nodule with increased vascularity. Core needle biopsy. Pathology: Left breast nodule at 9 o?clock, core biopsy; Invasive ductal carcinoma. See synoptic report below. AM/mr 08/22/2023 COMMENT INVASIVE BREAST CANCER SUMMARY: Procedure: Needle core biopsy Specimen Laterality: Left breast Tumor site: 9 o?clock, retro-areolar Histologic type: Invasive ductal carcinoma Provisional Histologic grade: 2 Tubule Differentiation Score: 3 Nuclear Pleomorphism Score: 2 Mitotic Rate Score: 1 Tumor Size ( greatest dimension): 7.5 mm Ductal Carcinoma Insitu: Not identified Angiolymphatic Invasion: Not identified Microcalcifications: Not identified Additional Pathologic Findings: None Breast Marker Study: RF 332 ER:> 95%, strong intensity (positive) KS:90%, moderate to strong intensity (positive) Her2:0 (negative) Ki67:5% TNM stage: Not Applicable The above summary is in compliance with [employer] [place] (CAP) Cancer Protocols Checklist and [place] [employer] Committee on Cancer (AJCC), Staging Manual, 8th Ed. Underwent left partial mastectomy including nipple areolar complex along with sentinel lymph node biopsy on 09/20/2023. Pathology: FROZEN SECTION DIAGNOSIS Left sentinel lymph node, biopsy: One lymph node, negative for metastatic carcinoma. MICROSCOPIC DIAGNOSIS A. Left breast, sentinel node, biopsy: One out of one lymph node negative for metastatic carcinoma. See comment. B. Left breast, mastectomy: Invasive ductal carcinoma. See cancer template below: AM/mr 09/27/23 COMMENT INVASIVE BREAST CANCER SUMMARY: Procedure - Mastectomy Specimen: Breast with nipple and areola Type - partial breast Size - 7.5 x 6.0 x 3.0 Laterality - left breast Tumor: Site - Subareolar Size - 1.5 x 1.0 x 0.7cm Histologic type - invasive ductal carcinoma. Focality - single focus of carcinoma. Histologic Grade (Nicholas grade): Glandular/tubular differentiation - score 3 Nuclear pleomorphism - score 2 Mitotic count - score 1 [facility] DEPARTMENT OF LABORATORY SURGICAL PATHOLOGY REPORT [address], [place], [place] [id number] - Page 2 of 3 The contents of this transmission are privileged, confidential and exempt from disclosure under applicable law. If you have received this information in error, call . ANGELA MAY MR# [id number] Overall grade - 2 (score of 6) Ductal carcinoma in situ: Present Estimated quantification (% of tumor volume) - 1% Number of blocks - 1 of 12 blocks Architectural patterns - Solid Nuclear grade - grade 1/2 Necrosis - not identified Lobular carcinoma in situ (LCIS) - Not present Tumor extension: Skin - free of carcinoma Nipple - free of carcinoma Skeletal muscle - not present Margins: Distance of invasive carcinoma from closest margin - 10 mm from superior margin. Distance of ductal carcinoma in situ from closest margin - 12 mm from superior margin. Lymph nodes: Number of sentinel lymph nodes examined - 1 Total number of lymph nodes examined (sentinel and nonsentinel) - 1 No evidence of macrometastases, micrometastases or isolated tumor cells See specimen ?A? Treatment effect: Unknown Lymphvascular invasion - Not identified Additional pathologic findings - Fibrocystic change, changes of previous biopsy and tumor necrosis. Ancillary studies - previously performed on (more content not included)... Normal [facility] CNOVon 04-23-2024 CNOV Office Visit (UCWSTR ) ANGELA MAY ([id number]) 1950 F Date Time Provider Department 04/23/24 8:00 AM CRYSTAL RUSHING [facility] During your visit today, we recorded the following information about you: Temperature Pulse Respiration Blood pressure 98.6 degrees 85/minute 20/minute 148/98 Weight 95.2 kg Crystal Rushing PA-C 04/23/2024 9:29 AM Signed This note was created using [employer]. Subjective Angela May is a 73 year old female. HPI Patient presents with the chief complaint of cough, sore throat over the past 3 days. Her has been sick for over a week with similar symptoms. No diarrhea or vomiting. Her ears have been bothering her. Some mild nasal congestion. No fever. No chest pain or shortness of breath. No wheezing. No history of asthma. She is not a smoker. She did smoke for 10 years in her 20s however. She does use Mucinex and Tylenol fkev-rxz-louizir. Review of Systems Constitutional: Negative. HENT: Positive for congestion and sore throat. Negative for ear pain, postnasal drip, sinus pressure and sinus pain. Respiratory: Positive for cough. Negative for chest tightness, shortness of breath and wheezing. Cardiovascular: Negative. Gastrointestinal: Negative. Genitourinary: Negative. Musculoskeletal: Negative. All other systems reviewed and are negative. PAST MEDICAL HISTORY Diagnosis Date Arthritis Arthritis with psoriasis (HCC) Hypertension Current Outpatient Medications Medication Sig Dispense Refill letrozole (FEMARA) 2.5 mg tablet Take 1 tablet by mouth once daily. 90 tablet 3 amoxicillin (AMOXIL) 500 mg capsule Take 500 mg by mouth two times a day. MAGNESIUM ORAL Take 500 mg by mouth once daily. Valsartan-hydroCHLORO thiazide 160-12.5 mg per tablet Take 1 tablet by mouth once daily. Urqhg-6-FAU-EPA-Fish Oil (FISH OIL) 1,000 mg (120 mg-180 mg) cap Take two capsules by mouth once daily. Multivitamins-Mineral s-Lutein (MULTIVITAMIN 50 PLUS) tab Take 1 tablet by mouth once daily. calcium carbonate/vitamin D3 (CALCIUM 600 + D ORAL) Take 2 tablets by mouth once daily. Lactobacillus acidophilus (PROBIOTIC) 10 billion cell cap Take 1 capsule by mouth once daily. No current facility-administered medications for this visit. PAST SURGICAL HISTORY Procedure Laterality Date BREAST LUMPECTOMY HX Left 09/20/2023 DELIVERY ONLY 12/1982 DELIVERY ONLY 11/1978 DELIVERY ONLY 05/1977 SECTION HX 02/1985 REMV CATARACT EXTRACAP,INSERT LENS Left 2020 REMV CATARACT EXTRACAP,INSERT LENS Right 2020 REVISE MEDIAN N/CARPAL TUNNEL SURG Left 11/1988 REVISE MEDIAN N/CARPAL TUNNEL SURG Right 10/1997 TOTAL HIP REPLACEMENT Right 10/2011 TOTAL HIP REPLACEMENT Left 01/2019 FAMILY HISTORY Problem Relation Age of Onset Hypertension Mother Blood Disease Mother Heart Father Hypertension Father Kidney Disease Sister No Known Problems Sister Heart Brother Stroke Paternal Grandmother Social History Tobacco Use Smoking status: Former Current packs/day: 0.00 Average packs/day: 0.5 packs/day for 10.0 years (5.0 ttl pk-yrs) Types: Cigarettes Start date: 1973 Quit date: 1983 Years since quittin.9 Smokeless tobacco: Never Vaping Use Vaping status: Never Used Substance Use Topics Alcohol use: Not Currently Drug use: Never Objective BP 148/98 Pulse 85 Temp 37 ?C (98.6 ?F) Resp 20 Wt 95.2 kg (209 lb 14.1 oz) LMP 05/28/2001 (Approximate) SpO2 93% BMI 34.93 kg/m? Physical Exam Vitals reviewed. Constitutional: Appearance: Normal appearance. HENT: Head: Normocephalic and atraumatic. Right Ear: Tympanic membrane, ear canal and external ear normal. Left Ear: Tympanic membrane, ear canal and external ear normal. Nose: Congestion present. Mouth/Throat: Mouth: Mucous membranes are moist. Pharynx: Oropharynx is clear. Cardiovascular: Rate and Rhythm: Normal rate and regular rhythm. Heart sounds: Normal heart sounds. Pulmonary: Effort: Pulmonary effort is normal. No respiratory distress. Breath sounds: Normal breath sounds. No wheezing or rhonchi. Musculoskeletal: Cervical back: Neck supple. Skin: General: Skin is warm and dry. Neurological: Mental Status: She is alert. Assessment and Plan ASSESSMENT/PLAN: 1. Viral URI with cough - ICD9: 465.9, ICD10: J06.9 -Patient's chest x-ray is clear. COVID flu RSV test pending. If she is positive for COVID she was interested in Paxlovid. She does have some mild kidney impairment on recent labs from February. Otherwise no medicine interactions with Paxlovid. - Discussed viral etiology and rationale for treatment. - Symptomatic treatment with prn analgesia - Supportive care with fluids and rest - The patient may also use OTC cough and cold meds as needed. - Follow up in 3-5 days if symptoms persist or sooner if worsening of sympt (more content not included)... Normal [facility] COVID AND INFLUENZA A/B AND RSV PCR, ROUTINEon 04-23-2024 SARS-CoV-2 (COVID-19) RNA RADHA+probe Ql (Unsp spec) SARS-COV-2 (AGENT OF COVID-19) RNA: Not detected INFLUENZA A RNA: Not detected INFLUENZA B RNA: Not detected RESPIRATORY SYNCYTIAL VIRUS (RSV) RNA: Not detected Normal [facility] Comment on above: Performed By: #### C VFLRS #### [facility] CLIA [id number] [address] [place] [address] [place] XR CHEST 2V FRONTAL/LATon XR CHEST 2V FRONTAL/LAT * * *Final Repor t* * * DATE OF EXAM: Apr 23 2024 8:37AM WOX [id number] - XR CHEST 2V FRONTAL/LAT / PROCEDURE REASON: Acute cough * * * * Physician Interpretation * * * * EXAMINATION: CHEST RADIOGRAPH (2 VIEW FRONTAL and LATERAL) CLINICAL HISTORY: Acute cough MQ: XC2_6 EXAM DATE/TIME: 04/23/2024 8:37 AM COMPARISON: No relevant prior studies available. RESULT: Lines, tubes, and devices: None. Lungs and pleura: No consolidation. No lung mass. No pleural effusion. No pneumothorax. Cardiomediastinal silhouette: Normal cardiomediastinal silhouette. Bones and soft tissues: There are degenerative changes in the spine. IMPRESSION: No acute radiographic abnormality. Buildings And Grounds Supervisor: PSCB Transcribe Date/Time: Apr 23 2024 8:38A Dictated by : ALISON PASTRANA MD This examination was interpreted and the report reviewed and electronically signed by: ALISON PASTRANA MD on Apr 23 2024 8:39AM EST [id number] Normal [facility] XR Chest PA and Lateralon IMPRESSION: No acute radiographic abnormality. Buildings And Grounds Supervisor: PSCB Transcribe Date/Time: Apr 23 2024 8:38A Dictated by : ALISON PASTRANA MD This examination was interpreted and the report reviewed and electronically signed by: ALISON PASTRANA MD on Apr 23 2024 8:39AM EST DIVISION OF RADIOLOGY * * *Final Report* * * DATE OF EXAM: Apr 23 2024 8:37AM WOX [id number] - XR CHEST 2V FRONTAL/LAT / PROCEDURE REASON: Acute cough * * * * Physician Interpretation * * * * EXAMINATION: CHEST RADIOGRAPH (2 VIEW FRONTAL & LATERAL) CLINICAL HISTORY: Acute cough MQ: XC2_6 EXAM DATE/TIME: 04/23/2024 8:37 AM COMPARISON: No relevant prior studies available. RESULT: Lines, tubes, and devices: None. Lungs and pleura: No consolidation. No lung mass. No pleural effusion. No pneumothorax. Cardiomediastinal silhouette: Normal cardiomediastinal silhouette. Bones and soft tissues: There are degenerative changes in the spine. DIVISION OF RADIOLOGY Provider, [facility] - 04/23/2024 * * *Final Report* * * DATE OF EXAM: Apr 23 2024 8:37AM WOX [id number] - XR CHEST 2V FRONTAL/LAT / PROCEDURE REASON: Acute cough * * * * Physician Interpretation * * * * EXAMINATION: CHEST RADIOGRAPH (2 VIEW FRONTAL & LATERAL) CLINICAL HISTORY: Acute cough MQ: XC2_6 EXAM DATE/TIME: 04/23/2024 8:37 AM COMPARISON: No relevant prior studies available. RESULT: Lines, tubes, and devices: None. Lungs and pleura: No consolidation. No lung mass. No pleural effusion. No pneumothorax. Cardiomediastinal silhouette: Normal cardiomediastinal silhouette. Bones and soft tissues: There are degenerative changes in the spine. IMPRESSION IMPRESSION: No acute radiographic abnormality. Buildings And Grounds Supervisor: PSCB Transcribe Date/Time: Apr 23 2024 8:38A Dictated by : ALISON PASTRANA MD This examination was interpreted and the report reviewed and electronically signed by: ALISON PASTRANA MD on Apr 23 2024 8:39AM EST [facility] Radiology Study observation (narrative) Lisbet cuevas [facility] XR Chest PA and LateralOrder ed By: Cc Provider on 04-23-2024 [facility] Basic metabolic 2000 panelon 03-18-2024 Anion gap [Moles/Vol] 9 mmol/L Normal 8-15 [facility] Comment on above: Order Comment: Speci men Type: BLOOD SPECIMEN Ordering Facility: [facility] Address: [address] [place] [address] Performed By: #### 1 995-0 #### [facility] CLIA [id number] [address] [place] [address] [place] Calcium [Mass/Vol] 11.0 mg/dL High 8.5-10.2 [facility] Comment on above: Order Comment: Speci men Type: BLOOD SPECIMEN Ordering Facility: [facility] Address: [address] [place] [address] Performed By: #### 1 995-0 #### [facility] CLIA [id number] [address] [place] [address] [place] Chloride [Moles/Vol] 104 mmol/L Normal 98-107 [facility] Comment on above: Order Comment: Speci men Type: BLOOD SPECIMEN Ordering Facility: [facility] Address: [address] [place] [address] Performed By: #### 1 995-0 #### [facility] CLIA [id number] [address] [place] [address] [place] CO2 [Moles/Vol] 26 mmol/L Normal 22-30 [facility] Comment on above: Order Comment: Speci men Type: BLOOD SPECIMEN Ordering Facility: [facility] Address: [address] [place] [address] Performed By: #### 1 995-0 #### [facility] CLIA [id number] [address] [place] [address] [place] Creatinine [Mass/Vol] 1.16 mg/dL High 0.58-0.96 [facility] Comment on above: Order Comment: Speci men Type: BLOOD SPECIMEN Ordering Facility: [facility] Address: [address] [place], [place] [id number] Performed By: #### 1 995-0 #### [facility] CLIA [id number] [address] [place] [address] [place] Creatinine and Glomerular filtration rate.predicted panel (S/P/Bld) 50 mL/min/1.73m??? Low >=60 [facility] Comment on above: Order Comment: Oscar reynolds Type: BLOOD SPECIMEN Ordering Facility: [facility] Address: [address] [place] [address] Result Comment: Francesca mated Glomerular Filtration Rate (eGFR) is calculated using the 2020 CKD-EPI creatinine equation. This equation utilizes serum creatinine, sex, and age as parameters. The creatinine assay has traceable calibration to isotope dilution-mass spectrometry. Refer to KDIGO guidelines for clinical interpretation. In patients with unstable renal function, e.g. those with acute kidney injury, the eGFR may not accurately reflect actual GFR. Performed By: #### 1 995-0 #### [facility] CLIA [id number] [address] [place] [address] [place] Glucose [Mass/Vol] 93 mg/dL Normal 74-99 [facility] Comment on above: Order Comment: Oscar reynolds Type: BLOOD SPECIMEN Ordering Facility: [facility] Address: [address] [place] [address] Result Comment: The [place] Diabetes Association (ADA) provides guidance for cutoff values for fasting glucose and random glucose. The ADA defines fasting as no caloric intake for at least 8 hours. Fasting plasma glucose results between 100 to 125 mg/dL indicate increased risk for diabetes (prediabetes). Fasting plasma glucose results greater than or equal to 126 mg/dL meet the criteria for diagnosis of diabetes. In the absence of unequivocal hyperglycemia, results should be confirmed by repeat testing. In a patient with classic symptoms of hyperglycemia or hyperglycemic crisis, random plasma glucose results greater than or equal to 200 mg/dL meet the criteria for diagnosis of diabetes. Reference: Standards of Medical Care in Diabetes 2016, [place] [employer] Association. Diabetes Care. 2016.39(Suppl 1). Performed By: #### 1 995-0 #### [facility] CLIA [id number] [address] [place] [address] [place] Potassium [Moles/Vol] 4.1 mmol/L Normal 3.7-5.1 [facility] Comment on above: Order Comment: Speci men Type: BLOOD SPECIMEN Ordering Facility: [facility] Address: [address] [place] [address] Performed By: #### 1 995-0 #### [facility] CLIA [id number] [address] [place] [address] [place] Sodium [Moles/Vol] 139 mmol/L Normal 136-144 [facility] Comment on above: Order Comment: Speci men Type: BLOOD SPECIMEN Ordering Facility: [facility] Address: [address] [place] [address] Performed By: #### 1 995-0 #### [facility] CLIA [id number] [address] [place] [address] [place] Urea nitrogen [Mass/Vol] 20 mg/dL Normal 7-21 [facility] Comment on above: Order Comment: Speci men Type: BLOOD SPECIMEN Ordering Facility: [facility] Address: [address] [place] [address] Performed By: #### 1 995-0 #### [facility] CLIA [id number] [address] [place] [address] [place] CNOVSPon 03-18-2024 CNOVSP Visit (SP) Office (HEMAWS) ANGELA MAY ([id number]) 1950 F Date Time Provider Department 03/18/24 1:00 PM TREATMENT RM [address] [facility] During your visit today, we recorded the following information about you: Temperature Pulse Respiration Blood pressure 98.7 degrees 82/minute 20/minute 146/84 Referring Provider: CORDELIA CHAWLA [[id number]] Allergies As of Date: 03/18/2024 (No Known Allergies) Date Reviewed: 03/18/2024 Reviewed by: Arvind Mcnair RN - Fully Assessed Reason for Visit: Non-Chemotherapy Treatment [795] 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 - MAGNESIUM ORAL Take 500 mg by mouth once daily. - anastrozole (ARIMIDEX) 1 mg tablet Take 1 tablet by mouth once daily. - Valsartan-hydroCHLORO thiazide 160-12.5 mg per tablet Take 1 tablet by mouth once daily. - Ehauk-9-QYY-EPA-Fish Oil (FISH OIL) 1,000 mg (120 mg-180 mg) cap Take two capsules by mouth once daily. - Multivitamins-Mineral s-Lutein (MULTIVITAMIN 50 PLUS) tab Take 1 tablet by mouth once daily. - calcium carbonate/vitamin D3 (CALCIUM 600 + D ORAL) Take 2 tablets by mouth once daily. - Lactobacillus acidophilus (PROBIOTIC) 10 billion cell cap Take 1 capsule by mouth once daily. 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*03/13/2024 Encounter Status:Closed by ARVIND MCNAIR on 03/18/24 Normal [facility] CNOVSPon 03-13-2024 CNOVSP Visit (SP) Office (BY[place]) JEFFERSONNALDO ESQUIVELANGELA José ([id number]) 1950 F Date Time Provider Department 03/13/24 10:30 AM CORDELIA CHAWLA During your visit today, we recorded the following information about you: Temperature Pulse Blood pressure Weight 97.5 degrees 80/minute 136/76 95.5 kg Cordelia Chawla APRN.FISH SALTER 03/13/2024 12:46 PM Signed Chief Complaint Patient presents with: Established Patient HPI: Angela May is a 73 year old female who presents here today for follow up breast cancer. Per Dr. 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 Patient had a bilateral screening mammogram 11/13/2022. She was noted to have areas of scattered fibroglandular density in both breast. There were no dominant masses or suspicious calcifications. 1 year follow-up was recommended. Patient appreciated a palpable lump in the left breast. Diagnostic mammogram 08/14/2023 identified a 6 mm nodular density in the medial retroareolar region of the left breast corresponding to the palpable abnormality. On ultrasound was found to have a 1.2 x 1.1 x 0.9 cm hypoechoic lobular irregular nodule with increased vascularity. Core needle biopsy. Pathology: Left breast nodule at 9 o?clock, core biopsy; Invasive ductal carcinoma. See synoptic report below. AM/mr 08/22/2023 COMMENT INVASIVE BREAST CANCER SUMMARY: Procedure: Needle core biopsy Specimen Laterality: Left breast Tumor site: 9 o?clock, retro-areolar Histologic type: Invasive ductal carcinoma Provisional Histologic grade: 2 Tubule Differentiation Score: 3 Nuclear Pleomorphism Score: 2 Mitotic Rate Score: 1 Tumor Size ( greatest dimension): 7.5 mm Ductal Carcinoma Insitu: Not identified Angiolymphatic Invasion: Not identified Microcalcifications: Not identified Additional Pathologic Findings: None Breast Marker Study: RF 332 ER:> 95%, strong intensity (positive) KS:90%, moderate to strong intensity (positive) Her2:0 (negative) Ki67:5% TNM stage: Not Applicable The above summary is in compliance with [employer] [place] [employer] (CAP) Cancer Protocols Checklist and [place] Joint Committee on Cancer (AJCC), Staging Manual, 8th Ed. Underwent left partial mastectomy including nipple areolar complex along with sentinel lymph node biopsy on 09/20/2023. Pathology: FROZEN SECTION DIAGNOSIS Left sentinel lymph node, biopsy: One lymph node, negative for metastatic carcinoma. MICROSCOPIC DIAGNOSIS A. Left breast, sentinel node, biopsy: One out of one lymph node negative for metastatic carcinoma. See comment. B. Left breast, mastectomy: Invasive ductal carcinoma. See cancer template below: AM/ 09/27/23 COMMENT INVASIVE BREAST CANCER SUMMARY: Procedure - Mastectomy Specimen: Breast with nipple and areola Type - partial breast Size - 7.5 x 6.0 x 3.0 Laterality - left breast Tumor: Site - Subareolar Size - 1.5 x 1.0 x 0.7cm Histologic type - invasive ductal carcinoma. Focality - single focus of carcinoma. Histologic Grade (Nicholas grade): Glandular/tubular differentiation - score 3 Nuclear pleomorphism - score 2 Mitotic count - score 1 [facility] DEPARTMENT OF LABORATORY SURGICAL PATHOLOGY REPORT [address], [place], [place] [id number] - Page 2 of 3 The contents of this transmission are privileged, confidential and exempt from disclosure under applicable law. If you have received this information in error, call . ANGELA MAY MR# [id number] Overall grade - 2 (score of 6) Ductal carcinoma in situ: Present Estimated quantification (% of tumor volume) - 1% Number of blocks - 1 of 12 blocks Architectural patterns - Solid Nuclear grade - grade 1/2 Necrosis - not identified Lobular carcinoma in situ (LCIS) - Not present Tumor extension: Skin - free of carcinoma Nipple - free of carcinoma Skeletal muscle - not present Margins: Distance of invasive carcinoma from closest margin - 10 mm from superior margin. Distance of ductal carcinoma in situ from closest margin - 12 mm from superior margin. Lymph nodes: Number of sentinel lymph nodes examined - 1 Total number of lymph nodes examined (sentinel and nonsentinel) - 1 No evidence of macrometastases, micrometastases or isolated tumor cells See specimen ?A? Treatment effect: Unknown Lymphvascular invasion - Not identified Additional pathologic findings - Fibrocystic change, changes of previous biopsy and tumor necrosis. Ancillary studies - previously performed on (more content not included)... Normal [facility] CNPReta 03-13-2024 VIVIANN Telephone (BY[place]) ANGELA MAY ([id number]) 1950 F Date Time Provider Department 03/13/24 CORDELIA CHAWLA During your visit today, we recorded the following information about you: Fannie Momin 03/13/2024 2:05 PM Signed Start zometa plan for every 6 months with BMP x6 doses pending tolerance. Fannie Momin 03/14/2024 9:30 AM Signed Scheduled with patient Start email sent Allergies As of Date: 03/13/2024 (No Known Allergies) Date Reviewed: 03/13/2024 Reviewed by: Cordelia Chawla APRN.FISH SALTER - Fully Assessed Reason for Visit: avs [Other] Prescriptions as of 03/14/2024 - amoxicillin (AMOXIL) 500 mg capsule Take 500 mg by mouth two times a day. - MAGNESIUM ORAL Take 500 mg by mouth once daily. - anastrozole (ARIMIDEX) 1 mg tablet Take 1 tablet by mouth once daily. - Valsartan-hydroCHLORO thiazide 160-12.5 mg per tablet Take 1 tablet by mouth once daily. - Qiqlo-2-GFL-EPA-Fish Oil (FISH OIL) 1,000 mg (120 mg-180 mg) cap Take two capsules by mouth once daily. - Multivitamins-Mineral s-Lutein (MULTIVITAMIN 50 PLUS) tab Take 1 tablet by mouth once daily. - calcium carbonate/vitamin D3 (CALCIUM 600 + D ORAL) Take 2 tablets by mouth once daily. - Lactobacillus acidophilus (PROBIOTIC) 10 billion cell cap Take 1 capsule by mouth once daily. 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*03/13/2024 Encounter Status:Closed by MARTIN HOLBROOK on 03/14/24 Normal [facility] NCS and/or EMG Patienton NCS and/or EMG Patient [facility]monary Services/Neurology [address] [place] [address] MR#: [id number] Acct: [id number] Name: ANGELA MAY Rep #: [id number] : 1950 73 From: Christi Olmstead MD Referring Dr: Yuri Jasso MD Status: REG CLI Location: [facility] Date: 02/13/24 Sex: F C NCS and/or EMG Patient Report Ordering Doctor: Yuri Jasso DATE OF SERVICE: 02/13/24 Angela presents with complaints of numbness and tingling in the right hand. Electrodiagnostic findings: Right median motor response was not obtainable. Absent right median sensory response at the wrist. Normal right radial and ulnar sensory responses. Normal right ulnar motor response. Normal right ulnar F???wave. Needle EMG testing was performed the right upper limb. All muscles tested showed no evidence of denervation with normal motor unit action potentials. Electrodiagnostic impression: This is an abnormal study in the right upper limb. 1. Electrodiagnostic findings suggestive of right-sided median mononeuropathy. This is likely consistent with a severe right carpal tunnel syndrome. 2. No electrodiagnostic evidence for cervical radiculopathy. Multi Select Codes Neurology Neurology Interp Codes: 76970-46 Musc test done w/n test comp (interp) and 68360-61 Nrv cndj tst 5-6 studies (interp) 02/13/24 1048 Date Christi Olmstead MD CC: Dr. Christi Olmstead MD; Dr. Catherine Vazquez DO; Dr. Yuri Jasso MD Date Dictated: 02/13/24 1045 Date Transcribed: 02/13/24 104 [employer] Supervisor: FABIÁN Signed Normal [facility] Internal Medicine Office Vis [facility] 01-16-2024 Internal Medicine Office Visit [facility] [address] [place] [id number] OFFICE VISIT Date of Service: 01/16/24 MR#: [id number] Acct: [id number] Name: ANGELA MAY Rep #: [id number] : 1950 Provider: Dr. Catherine dawson DO Age/Sex: 73/F Location: [facility].B[facility] Status: Signed Intake Vital Signs 11/13/23 14:41 01/16/24 14:36 Height 5 ft 5 in 5 ft 5 in Weight: 205 lb 6 oz 206 lb BMI 34.2 34.2 BP 140/70 H 136/80 H Blood Pressure Location Lt brachial Lt brachial Position Sitting Sitting Respiration 16 16 Pulse 83 70 Pulse Source Monitor Monitor Temp 97.6 F L 97.7 F L Temp Source Temporal Temporal Pulse Oximetry (%) 95 98 Oxygen Delivery Method room air room air Intake Visit Reasons: SKIN LESION REMOVAL Chief Complaint: skin leason removal Biodiesel Division Manager Required: No Accompanied by: Self Is patient in pain?: No Allergies No Known Allergies Allergy (Verified 01/16/24 14:32) Medications ???Medication ???Instructions ???Recorded ???Confirmed ???Type calcium carb-vit D3-minerals 600 1 tab PO QDAY SUPPLEMENT 08/30/17 01/16/24 History mg calcium-400 unit tablet naproxen sodium 220 mg capsule 220 mg PO BID PRN pain 11/07/22 01/16/24 History (Aleve) Lactobacillus acidophilus 250 500 mmu cells PO DAILY 09/07/23 01/16/24 History million cell capsule (Probiotic Acidophilus) tramadol 50 mg tablet 50 mg PO Q6H PRN pain #10 tabs 09/20/23 01/16/24 Rx anastrozole 1 mg tablet 1 mg PO QDAY 11/13/23 01/16/24 History valsartan 160 1 tab PO DAILY #90 tabs 11/13/23 01/16/24 Rx mg-hydrochlorothiazid e 12.5 mg tablet Have you fallen in the past year?: No PFSH Medical History Wears glasses Wears partial dentures Post-menopausal Cancer Heartburn Former smoker History of echocardiogram History of irregular heartbeat Psoriatic arthritis Osteopenia Osteoarthritis Hypertension Arthritis Surgical History S/P lumpectomy, left breast Hx of colonoscopy Hx of right cataract extraction Hx of left cataract extraction History of left hip replacement History of right hip replacement History of section History of carpal tunnel release of both wrists Family History Father Arthritis Heart disease Hypertension Mother Hypertension Grandmother CVA (cerebral vascular accident) Social History Smoking Status: Former smoker how long ago did patient quit smokin alcohol intake: never substance use type: does not use what type of physical activity do you participate in: walking frequency: daily HPI HPI Chief Complaint: skin leason removal Details: ANGELA MAY, is a 73 F who presents to the office today for removal of a 1 cm inflamed seborrheic keratosis over her right collarbone. ROS Const Constitutional: No body ache, chills, excessive sweating, fatigue, fever(s), frequent falls, headache(s), snoring, weakness or change in appetite Eyes Eyes: No blurry vision, change in vision, eye pain or Light sensitivity ENT ENT: No abnormal hearing, ear or mastoid pain, tinnitus, nasal congestion, headache(s), neck pain or sore throat Resp Respiratory: No cough, shortness of breath, snoring or wheezing Cardio Cardiology: No chest pain at rest, chest pain with exertion, excessive sweating, dyspnea on exertion, lightheadedness, orthopnea or palpitations Gastro GI: No abdominal pain, change in bowel habits, constipation, cramping, diarrhea, nausea/dyspepsia or vomiting Genitourinary-Female: No burning urination, painful urination, urinary incontinence or urinary frequency Musc Musculoskeletal: No abnormal gait, joint pain, back pain, limited range of motion, muscle weakness, neck pain or numbness Skin Skin: No dry skin, redness, lesions, itchy eyes, rash or wounds Neuro Neurology: No abnormal gait, abnormal hearing, weakness, frequent falls, headache(s), memory loss or numbness Psych Psychiatric: No anxiety, No change in appetite, No depression, No memory loss and No Thoughts of harming yourself/Others Endo Endocrine: No cold intolerance, excessive sweating, fatigue, flushing, heat intolerance, increased thirst/drinking or increased hunger Aller/Imm Allergy/Immunologic: No itchy eyes, seasonal allergy symptoms, hives or wheezing Juan Daniel/Lymp Hematologic/Lymphatic : No easy bleeding or easy bruising Exam Const General: cooperative and healthy appearing Nutritional Appearance: well nourished Orientation: alert Skin Lesions: lesion noted (Patient has a raised 1 cm inflamed seborrheic keratosis on the skin ) Coding Level of Care Code Attention Academic Director (more content not included)... [facility] ANGELA MAY ([id number]) 1950 F Date Time Provider Department 01/09/24 CORDELIA CHAWLA During your visit today, we recorded the following information about you: Rhiannon [place] LPN 01/09/2024 12:20 PM Signed Dental clearance received. Patient is cleared for Zometa. Dental clearance form sent to scanning. ABBIE Hicks Darby, APRN.VIVIAN 01/09/2024 1:12 PM Signed Noted. Will discuss further with pt. at next OV and make sure she is tolerating AI. Cordelia Chawla APRN.FISH SALTER Allergies As of Date: 01/09/2024 (No Known Allergies) Date Reviewed: 12/12/2023 Reviewed by: Cordelia Chawla APRN.FISH SALTER - Fully Assessed Reason for Visit: Dental Clearance - Chemotherapy [1356] Prescriptions as of 01/09/2024 - MAGNESIUM ORAL Take 500 mg by mouth once daily. - anastrozole (ARIMIDEX) 1 mg tablet Take 1 tablet by mouth once daily. - Valsartan-hydroCHLORO thiazide 160-12.5 mg per tablet Take 1 tablet by mouth once daily. - Efvor-5-GOO-EPA-Fish Oil (FISH OIL) 1,000 mg (120 mg-180 mg) cap Take two capsules by mouth once daily. - Multivitamins-Mineral s-Lutein (MULTIVITAMIN 50 PLUS) tab Take 1 tablet by mouth once daily. - calcium carbonate/vitamin D3 (CALCIUM 600 + D ORAL) Take 2 tablets by mouth once daily. - Lactobacillus acidophilus (PROBIOTIC) 10 billion cell cap Take 1 capsule by mouth once daily. Problem List As Of Date 01/09/2024 Noted Resolved Malignant neoplasm of central portion of left b*10/03/2023 Encounter Status:Closed by RHIANNON CLEVELAND on 01/09/24 Normal [facility] CNOVSPon 12-12-2023 CNOVSP Visit (SP) Office ([place]) ANGELA MAY ([id number]) 1950 F Date Time Provider Department 12/12/23 9:00 AM CORDELIA CHAWLA During your visit today, we recorded the following information about you: Temperature Pulse Blood pressure Weight 97.6 degrees 77/minute 130/80 93.6 kg Cordelia Chawla APRN.FISH SALTER 12/12/2023 12:17 PM Signed Chief Complaint Patient presents with: Established Patient HPI: Angela May is a 73 year old female who presents here today for SCP/breast cancer. Per Dr. 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 Patient had a bilateral screening mammogram 11/13/2022. She was noted to have areas of scattered fibroglandular density in both breast. There were no dominant masses or suspicious calcifications. 1 year follow-up was recommended. Patient appreciated a palpable lump in the left breast. Diagnostic mammogram 08/14/2023 identified a 6 mm nodular density in the medial retroareolar region of the left breast corresponding to the palpable abnormality. On ultrasound was found to have a 1.2 x 1.1 x 0.9 cm hypoechoic lobular irregular nodule with increased vascularity. Core needle biopsy. Pathology: Left breast nodule at 9 o?clock, core biopsy; Invasive ductal carcinoma. See synoptic report below. AM/mr 08/22/2023 COMMENT INVASIVE BREAST CANCER SUMMARY: Procedure: Needle core biopsy Specimen Laterality: Left breast Tumor site: 9 o?clock, retro-areolar Histologic type: Invasive ductal carcinoma Provisional Histologic grade: 2 Tubule Differentiation Score: 3 Nuclear Pleomorphism Score: 2 Mitotic Rate Score: 1 Tumor Size ( greatest dimension): 7.5 mm Ductal Carcinoma Insitu: Not identified Angiolymphatic Invasion: Not identified Microcalcifications: Not identified Additional Pathologic Findings: None Breast Marker Study: RF 332 ER:> 95%, strong intensity (positive) KS:90%, moderate to strong intensity (positive) Her2:0 (negative) Ki67:5% TNM stage: Not Applicable The above summary is in compliance with College of [place] Path[employer] (CAP) Cancer Protocols Checklist and [place] Joint Committee on Cancer (AJCC), Staging Manual, 8th Ed. Underwent left partial mastectomy including nipple areolar complex along with sentinel lymph node biopsy on 09/20/2023. Pathology: FROZEN SECTION DIAGNOSIS Left sentinel lymph node, biopsy: One lymph node, negative for metastatic carcinoma. MICROSCOPIC DIAGNOSIS A. Left breast, sentinel node, biopsy: One out of one lymph node negative for metastatic carcinoma. See comment. B. Left breast, mastectomy: Invasive ductal carcinoma. See cancer template below: AM/mr 09/27/23 COMMENT INVASIVE BREAST CANCER SUMMARY: Procedure - Mastectomy Specimen: Breast with nipple and areola Type - partial breast Size - 7.5 x 6.0 x 3.0 Laterality - left breast Tumor: Site - Subareolar Size - 1.5 x 1.0 x 0.7cm Histologic type - invasive ductal carcinoma. Focality - single focus of carcinoma. Histologic Grade (Leon grade): Glandular/tubular differentiation - score 3 Nuclear pleomorphism - score 2 Mitotic count - score 1 [facility] DEPARTMENT OF LABORATORY SURGICAL PATHOLOGY REPORT [address], [place] [address] - Page 2 of 3 The contents of this transmission are privileged, confidential and exempt from disclosure under applicable law. If you have received this information in error, call . ANGELA MAY MR# [id number] Overall grade - 2 (score of 6) Ductal carcinoma in situ: Present Estimated quantification (% of tumor volume) - 1% Number of blocks - 1 of 12 blocks Architectural patterns - Solid Nuclear grade - grade 1/2 Necrosis - not identified Lobular carcinoma in situ (LCIS) - Not present Tumor extension: Skin - free of carcinoma Nipple - free of carcinoma Skeletal muscle - not present Margins: Distance of invasive carcinoma from closest margin - 10 mm from superior margin. Distance of ductal carcinoma in situ from closest margin - 12 mm from superior margin. Lymph nodes: Number of sentinel lymph nodes examined - 1 Total number of lymph nodes examined (sentinel and nonsentinel) - 1 No evidence of macrometastases, micrometastases or isolated tumor cells See specimen ?A? Treatment effect: Unknown Lymphvascular invasion - Not identified Additional pathologic findings - Fibrocystic change, changes of previous biopsy and tumor necrosis. Ancillary studies - previously performed on section (more content not included)... Normal [facility] Dexa Bone Density Studyon Dexa Bone Density Study [facility] Services [address] [place] [address] [id number] Dexa Bone Density Study MR#: [id number] Acct: [id number] Name: ANGELA MAY Rep #: [id number] : 1950 F 73 From: Jose archuleta MD PCP: Dr. Catherine Vazquez, Status: [facility] Study: Dexa Bone Density Study Date of Exam: 12/06/23 Exam# [id number] Ordering Dr: Catherine Vazquez DO [id number] STUDY: DUAL ENERGY X-RAY ABSORPTIOMETRY / DXA REASON FOR EXAM: Female, 73 years old. Osteoporosis TECHNIQUE: Bone Mineral Density (BMD) measurements of lumbar spine and left forearm were obtained. COMPARISON: Comparison is made with prior study dated July 15, 2015. FINDINGS: Lumbar Spine (L1-L4): g/cm2 (1.063) / T-score (0.1) / Z-score (2.4) Findings are suggestive of normal bone density with a low fracture risk. Left Forearm: g/cm2 (0.585) / T-score (0.1) / Z-score (2.4) The T-Scores on the most recent prior examination were: Lumbar Spine (L1-L4): There has been worsening of bone density since the previous examination. BD/Dexa Bone Density Study IMPRESSION: The patient is considered normal as outlined below according to World Geoffrey Organization (WHO) criteria with a low fracture risk. There has been worsening of bone density since the previous examination. Reference Information: The T-score is the number of standard deviations above or below the standard which is normal for young adults at their peak bone mineral density. The World Health Organization (WHO) interprets the T-scores as follows: Above -1 Normal bone density Between -1 and -2.5 Osteopenia Equal to / or below -2.5 Osteoporosis As a practical clinical guideline, osteopenia may be graded as follows: Mild -1 through -1.5 Moderate -1.6 through -2.0 Severe -2.1 through -2.4 The Z-score is the number of standard deviations above or below age-matched controls. A Z-score of less than -1.5 would be considered abnormal. References: 1. NIH Osteoporosis and Related Bone Diseases www osteo.org 2. International Society for Clinical Densitometry www iscd.org 3. National Osteoporosis Foundation www nof.org Electronically Signed: Jose Pino MD at 14:12 EDT , CC: Dr. Catherine Vazquez, DO [employer] Supervisor: Signed Normal [facility] SCREEN MAMM (CAD) W/BESSIE UNI Marlo 12-06-2023 SCREEN MAMM (CAD) W/BESSIE UNI R [facility] Imaging Services [address] [place], [place] [address] SCREEN MAMM (CAD) W/BESSIE UNI R MR#: [id number] Acct: [id number] Name: ANGELA MAY Rep #: [id number] : 1950 F 73 From: Jose archuleta MD PCP: Dr. Catherine Vazquez DO Status: [facility] Study: SCREEN MAMM (CAD) W/BESSIE UNI R Date of Exam: 0 12/06/23 Exam# [id number] Ordering Dr: Catherine Vazquez DO [id number] MAMMOGRAPHY -bilateral SCREENING: Bilateral breasts. REASON FOR EXAM: Female, 73 years old. Routine annual screening examination (unilateral). PERTINENT HISTORY: Personal history of breast cancer. Prior left lumpectomy and radiation treatment. TECHNIQUE: Digital unilateral breast bessie (3D mammographic acquisition) in the CC and MLO projections. 2-D mediolateral oblique (MLO) and craniocaudad (CC) views of both breasts were obtained. CAD: Full Field Digital Mammography with Computer Added Detection was performed. COMPARISON: Comparison is made with prior study dated November 13, 2022 and August 14, 2023. FINDINGS: Breast Composition: The breasts are almost entirely fatty. Since prior study, the patient underwent excisional breast biopsy of a nodule in the medial retroareolar region of the left breast. Postoperative scarring. No other significant abnormalities are identified. BI/SCREEN MAMM (CAD) W/BESSIE UNI R IMPRESSION: Status post resection of a nodular density in the medial retroareolar region of the left breast as described. No suspicious abnormality is seen at this time. Yearly follow-up mammogram recommended. (A) ASSESSMENT CATEGORY: BIRADS Category 2: Benign. A letter regarding these results will be sent to the patient by the facility within 30 days. Approximately 10% of breast cancers are not detected by mammography. A normal mammogram should not delay biopsy of a clinically suspicious abnormality. [id number] Electronically Signed: Jose Pino MD at 10:47 EDT , CC: Dr. Catherine Vazquez DO [employer] Supervisor: Signed Normal [facility] Internal Medicine Office Vis ito 11-13-2023 Internal Medicine Office Visit [facility] [address] [place] [address] [place] [address] OFFICE VISIT Date of Service: 11/13/23 MR#: [id number] Acct: [id number] Name: ANGELA MAY Rep #: [id number] : 1950 Provider: Dr. Catherine dawson, DO Age/Sex: 72/F Location: [facility] Status: Signed Intake Vital Signs 09/20/23 09:17 11/13/23 14:41 Height 5 ft 5 in 5 ft 5 in Weight: 205 lb 6 oz BMI 34.2 BP 140/70 H Blood Pressure Location Lt brachial Position Sitting Respiration 16 Pulse 83 Pulse Source Monitor Temp 97.6 F L Temp Source Temporal Pulse Oximetry (%) 95 Oxygen Delivery Method room air Intake Visit Reasons: YEARLY Chief Complaint: yearly Biodiesel Division Manager Required: No Accompanied by: Self Is patient in pain?: No Allergies No Known Allergies Allergy (Verified 11/13/23 14:38) Medications ???Medication ???Instructions ???Recorded ???Confirmed ???Type calcium carb-vit D3-minerals 600 1 tab PO QDAY SUPPLEMENT 08/30/17 11/13/23 History mg calcium-400 unit tablet naproxen sodium 220 mg capsule 220 mg PO BID PRN pain 11/07/22 11/13/23 History (Aleve) Lactobacillus acidophilus 250 500 mmu cells PO DAILY 09/07/23 11/13/23 History million cell capsule (Probiotic Acidophilus) tramadol 50 mg tablet 50 mg PO Q6H PRN pain #10 tabs 09/20/23 11/13/23 Rx anastrozole 1 mg tablet 1 mg PO QDAY 11/13/23 11/13/23 History valsartan 160 1 tab PO DAILY #90 tabs 11/13/23 11/13/23 Rx mg-hydrochlorothiazid e 12.5 mg tablet PFSH Medical History Wears glasses Wears partial dentures Post-menopausal Cancer Heartburn Former smoker History of echocardiogram History of irregular heartbeat Psoriatic arthritis Osteopenia Osteoarthritis Hypertension Arthritis Surgical History S/P lumpectomy, left breast Hx of colonoscopy Hx of right cataract extraction Hx of left cataract extraction History of left hip replacement History of right hip replacement History of section History of carpal tunnel release of both wrists Family History Father Arthritis Heart disease Hypertension Mother Hypertension Grandmother CVA (cerebral vascular accident) Social History Smoking Status: Former smoker how long ago did patient quit smokin alcohol intake: never substance use type: does not use what type of physical activity do you participate in: walking frequency: daily HPI HPI Chief Complaint: yearly Details: ANGELA MAY, is a 72 F who presents to the office today for her yearly checkup, medications renewed, and lab tests ordered. She is currently undergoing radiation therapy for breast cancer. She sees an oncologist at [facility] for this after having a lumpectomy with negative node biopsy. She has a prescription for anastrozole but she has not started it yet. She is concerned because she has a lesion over her left collarbone and she also would like a bone density test as it has been 8 years since the last has been done. ROS Const Constitutional: No body ache, chills, excessive sweating, fatigue, fever(s), frequent falls, headache(s), snoring, weakness or change in appetite Eyes Eyes: No blurry vision, change in vision, eye pain or Light sensitivity ENT ENT: No abnormal hearing, ear or mastoid pain, tinnitus, nasal congestion, headache(s), neck pain or sore throat Resp Respiratory: No cough, shortness of breath, snoring or wheezing Cardio Cardiology: No chest pain at rest, chest pain with exertion, excessive sweating, dyspnea on exertion, lightheadedness, orthopnea or palpitations Gastro GI: No abdominal pain, change in bowel habits, constipation, cramping, diarrhea, nausea/dyspepsia or vomiting Genitourinary-Female: No burning urination, painful urination, urinary incontinence or urinary frequency Musc Musculoskeletal: No abnormal gait, joint pain, back pain, limited range of motion, muscle weakness, neck pain or numbness Skin Skin: No dry skin, redness, lesions, itchy eyes, rash or wounds Neuro Neurology: No abnormal gait, abnormal hearing, weakness, frequent falls, headache(s), memory loss or numbness Psych Psychiatric: No anxiety, No change in appetite, No depression, No memory loss and No Thoughts of harming yourself/Others Endo Endocrine: No cold intolerance, excessive sweating, fatigue, flushing, heat intolerance, increased thirst/drinking or increased hunger Aller/Imm Allergy/Immunologic: No itchy eyes, seasonal allergy symptoms, hives or wheezing Juan Daniel/Lymp Hematologic/Lymphatic : No easy bleeding or easy bruising Exam Const General: cooperative (more content not included)... 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 COURSE: adjuvant Area Treated: partial left breast Current dose: 1200 cGy in 2 fx Planned dose: 3000 cGy in 5 fx Status: Post-menopausal SUBJECTIVE: She is tolerating radiation well. Mild fatigue. No skin irritation. Using aquaphor. PHYSICAL EXAM: KPS: 90 General Appearance: Alert and oriented. No acute distress. Skin erythema/hyperpigment ation: No Desquamation: No TOXICITY ASSESSMENT (CTC v4.0): Fatigue: grade 0 - No symptoms Radiation dermatitis: grade 0 - No symptoms Treatment chart checked: Yes Patient treatment site reviewed and verified:Yes Port films reviewed and current:Yes Medications started: None ASSESSMENT/PLAN: Clinically stable. No signs of toxicity. Continue radiation treatment as planned. Signed by: Javier Cat MD covering for MD Sally Dietz Janice, RN 10/31/2023 2:41 PM Signed Radiation Therapy - Nursing Note (OTV) PATIENT NAME: Angela May PATIENT October 31, 2023 [facility] [place] F[facility]/LOCATION: [place] NURSING NOTE TYPE: BREAST Subjective Data no complaints Additional Data Do you want to see a Bottom Filler? No Status: Post-menopausal. Stress Scale: On a scale of 0 to 10, what number best describes how much distress you have experienced in the past week?(0 being no distress and 10 being extreme distress) 0 Social work notified: Pt denied need to see licensed master social worker at this time. Nursing Assessment Fatigue: none Appetite: good Nutritional Intake: Regular oral intake. Weight Gain/Loss: Not applicable Ambulatory weight history: Last 6 Encounter Wt Readings: Date: Wt: 10/19/2023 91.9 kg (202 lb 8 oz) 10/18/2023 91.9 kg (202 lb 8 oz) 10/03/2023 92.5 kg (204 lb) Nausea:None Vomiting: None Bowel Function: normal bowel movements Erythema/Hyperpigment ation:none Desquamation:none Rash:none Skin Care: Aquaphor Skin Sensation: Within Normal Limits Focused Assessment BREAST: Lymphedema Assessment: Is the patient noting any swelling? No. SIGNED by: Janey Zavala RN Allergies As of Date: 10/31/2023 (No Known Allergies) Date Reviewed: 10/31/2023 Reviewed by: Janey Zavala RN - Fully Assessed Reason for Visit: Radiotherapy On-treatment Visit [172] Primary Visit Diagnosis:Malignant neoplasm of central portion of left breast in female, estrogen receptor positive (HCC) [C50.112, Z17.0] Prescriptions as of 10/31/2023 - anastrozole (ARIMIDEX) 1 mg tablet Take 1 tablet by mouth once daily. - Valsartan-hydroCHLORO thiazide 160-12.5 mg per tablet Take 1 tablet by mouth once daily. - Elvop-8-NJB-EPA-Fish Oil (FISH OIL) 1,000 mg (120 mg-180 mg) cap Take two capsules by mouth once daily. - Multivitamins-Mineral s-Lutein (MULTIVITAMIN 50 PLUS) tab Take 1 tablet by mouth once daily. - calcium carbonate/vitamin D3 (CALCIUM 600 + D ORAL) Take 2 tablets by mouth once daily. - Lactobacillus acidophilus (PROBIOTIC) 10 billion cell cap Take 1 capsule by mouth once daily. Problem List As Of Date 10/31/2023 Noted Resolved Malignant neoplasm of central portion of left b*10/03/2023 Visit Notes: >> Janey Zavala RN SunOct 31, 2023 2:37 PM Status: Signed Radiation Therapy - Nursing Note (OTV) PATIENT NAME: Angela May PATIENT October 31, 2023 [facility] [place]/LOCATION: [place] NURSING NOTE TYPE: BREAST Subjective Data no complaints Additional Data Do you want to see a Bottom Filler? No Status: Post-menopausal. Stress Scale: On a scale of 0 to 10, what number best describes how much distress you have experienced in the past week?(0 being no distress and 10 being extreme distress) 0 Social work notified: Pt denied need to see licensed master social worker at this time. Nursing Assessment Fatigue: none Appetite: good Nutritional Intake: Regular oral intake. Weight Gain/Loss: Not applicable Ambulatory weight history: Last 6 Encounter Wt Readings: Date: Wt: 10/19/2023 91.9 kg (202 lb 8 oz) 10/18/2023 91.9 kg (202 lb 8 oz) 10/03/2023 92.5 kg (204 lb) Nausea:None Vomiting: None Bowel Function: normal bowel movements Erythema/Hyperpigment ation:none Desquamation:none Rash:none Skin Care: Aquaphor (more content not included)... Normal [facility] CNNURSEon 10-23-2023 CNNURSE Nurse Visit (RADTWS) LALOANGELA Kumar ([id number]) 1950 F Date Time Provider Department 10/23/23 2:00 PM [facility] During your visit today, we recorded the following information about you: Janey Zavala, RN 10/23/2023 2:00 PM Signed Radiation Therapy - Patient Education Note PATIENT NAME: Angela May PATIENT October 23, 2023 [facility] [place]/LOCATION: [place] READINESS TO LEARN Cognitive Ability: Alert and oriented Motivation to learn: Eager Family Support: High - Very involved in pt care Instruction provide to: Patient and Spouse Patient learns best by: Individual Instruction Written Instruction - Hand-outs Verbal Instruction Factors effecting learning: None Physical limitations effecting learning: None LEARNING RESPONSE Diagnosis: Pt simulated today for radiation therapy to left breast. Education Topic/Teaching Points: Radiation therapy, Side effects, and OTV: Method of instruction: Teach Back skin care Individual instruction Written instruction/Handouts Verbal instruction Patient /Family response: Patient and family verbalized understanding of radiation treatments, side effects, OTV, and transportation. Follow-up plan: Complete - No need for follow-up Contact information given. Supplemental material: Informational handouts on Fatigue and Skin changes. Referral (recommendation): None, Pt denied need for social work, van service, and control systems technician. Patient has an Onbody or Implanted device: No Signed by: Janey Zavala RN Allergies As of Date: 10/23/2023 (No Known Allergies) Date Reviewed: 10/19/2023 Reviewed by: Hawa Yuen RN - Fully Assessed Reason for Visit: Patient Education [91] Primary Visit Diagnosis:Malignant neoplasm of central portion of left breast in female, estrogen receptor positive (HCC) [C50.112, Z17.0] Prescriptions as of 10/23/2023 - anastrozole (ARIMIDEX) 1 mg tablet Take 1 tablet by mouth once daily. - Valsartan-hydroCHLORO thiazide 160-12.5 mg per tablet Take 1 tablet by mouth once daily. - Gavnj-7-TSU-EPA-Fish Oil (FISH OIL) 1,000 mg (120 mg-180 mg) cap Take two capsules by mouth once daily. - Multivitamins-Mineral s-Lutein (MULTIVITAMIN 50 PLUS) tab Take 1 tablet by mouth once daily. - calcium carbonate/vitamin D3 (CALCIUM 600 + D ORAL) Take 2 tablets by mouth once daily. - Lactobacillus acidophilus (PROBIOTIC) 10 billion cell cap Take 1 capsule by mouth once daily. Problem List As Of Date 10/23/2023 Noted Resolved Malignant neoplasm of central portion of left b*10/03/2023 Visit Notes: >> Janey Zavala RN e October 23, 2023 1:58 PM Status: Signed Radiation Therapy - Patient Education Note PATIENT NAME: Angela May PATIENT October 23, 2023 [facility] [place]/LOCATION: [place] READINESS TO LEARN Cognitive Ability: Alert and oriented Motivation to learn: Eager Family Support: High - Very involved in pt care Instruction provide to: Patient and Spouse Patient learns best by: Individual Instruction Written Instruction - Hand-outs Verbal Instruction Factors effecting learning: None Physical limitations effecting learning: None LEARNING RESPONSE Diagnosis: Pt simulated today for radiation therapy to left breast. Education Topic/Teaching Points: Radiation therapy, Side effects, and OTV: Method of instruction: Teach Back skin care Individual instruction Written instruction/Handouts Verbal instruction Patient /Family response: Patient and family verbalized understanding of radiation treatments, side effects, OTV, and transportation. Follow-up plan: Complete - No need for follow-up Contact information given. Supplemental material: Informational handouts on Fatigue and Skin changes. Referral (recommendation): None, Pt denied need for social work, van service, and control systems technician. Patient has an Onbody or Implanted device: No Signed by: Janey Zavala RN Encounter Status:Closed by JANEY ZAVALA on 10/23/23 Normal [facility] CNOVon 10-19-2023 CNOV Office Visit (RADTWS ) ANGELA MAY ([id number]) 1950 F Date Time Provider Department 10/19/23 10:30 AM OLLIE MOSES During your visit today, we recorded the following information about you: Temperature Pulse Respiration Blood pressure 97.6 degrees 65/minute 15/minute 133/79 Weight Last Period 91.9 kg 05/28/01 Hawa Yuen RN 10/19/2023 10:38 AM Signed Radiation Therapy - Nursing Note (Consult) PATIENT NAME: Angela May PATIENT October 19, 2023 [facility] [place]/LOCATION: [place] Chief Complaint: consult Reason for visit: Consult. Referring physician: Internal provider Dr Najera Subjective Data: no complaints Additional Data Do you want to see a Bottom Filler? No Are you interested in information about fertility? No Status: Post-menopausal Stress Scale: On a scale of 0 to 10, what number best describes how much distress you have experienced in the past week?(0 being no distress and 10 being extreme distress) 1 Social work notified: no SIGNED by: JONES Erwin Daesung, MD 10/19/2023 12:41 PM Signed Radiation Oncology - New Patient/Consult Note PATIENT NAME: Angela May PATIENT REQUESTING PROVIDER: Dr. 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 It's ER positive (>95%, strong), KS positive (90%, moderate to strong) and Her2 0. HPI: 72 year old female who presents with above diagnosis, for an opinion regarding the role of radiation therapy in the management of the patient's disease. Final recommendations will be communicated back to the requesting physician by way of the shared medical record, or letter to requesting physician via US mail. 72 year old woman who felt a lump in the left breast. Diagnostic left mammogram on 08/14/23 showed a 6 mm nodular density in the medial retroareolar region of the left breast. US showed a 1.2 x 1.1 x 0.9 cm hypoechoic irregular nodule in the left breast corresponding to the palpable lesion. Core biopsy on 08/21/23 of the left breast 9:00 lesion showed grade 2 invasive ductal carcinoma. It's ER positive (>95%, strong), KS positive (90%, moderate to strong) and Her2 0. She underwent left breast lumpectomy and sentinel node biopsy on 09/20/23. Pathology showed grade 2 invasive ductal carcinoma measuring 1.5 x 1.0 x 0.7 cm with negative margins. The closest margin was 10 mm from superior margin. One sentinel node was negative for metastasis. ALLERGIES No Known Allergies Current Outpatient Medications on File Prior to Visit Medication Sig Valsartan-hydroCHLORO thiazide 160-12.5 mg per tablet Take 1 tablet by mouth once daily. Kdyte-5-PRU-EPA-Fish Oil (FISH OIL) 1,000 mg (120 mg-180 mg) cap Take two capsules by mouth once daily. Multivitamins-Mineral s-Lutein (MULTIVITAMIN 50 PLUS) tab Take 1 tablet by mouth once daily. anastrozole (ARIMIDEX) 1 mg tablet Take 1 tablet by mouth once daily. calcium carbonate/vitamin D3 (CALCIUM 600 + D ORAL) Take 2 tablets by mouth once daily. Lactobacillus acidophilus (PROBIOTIC) 10 billion cell cap Take 1 capsule by mouth once daily. No current facility-administered medications on file prior to visit. PAST MEDICAL HISTORY Diagnosis Date Arthritis Arthritis with psoriasis (HCC) Hypertension Prior radiation therapy, collagen vascular disease, or inflammatory bowel disease: No Any implanted or external electric devices? No status: Post-menopausal. PAST SURGICAL HISTORY Procedure Laterality Date BREAST LUMPECTOMY HX Left 09/20/2023 DELIVERY ONLY 12/1982 DELIVERY ONLY 11/1978 DELIVERY ONLY 05/1977 SECTION HX 02/1985 REMV CATARACT EXTRACAP,INSERT LENS Left 2020 REMV CATARACT EXTRACAP,INSERT LENS Right 2020 REVISE MEDIAN N/CARPAL TUNNEL SURG Left 11/1988 REVISE MEDIAN N/CARPAL TUNNEL SURG Right 10/1997 TOTAL HIP REPLACEMENT Right 10/2011 TOTAL HIP REPLACEMENT Left 01/2019 FAMILY HISTORY Problem Relation Age of Onset Hypertension Mother Blood Disease Mother Heart Father Hypertension Father Kidney Disease Sister No Known Problems Sister Heart Brother Stroke Paternal Grandmother Social History Tobacco Use Smoking status: Former Packs/day: 0.50 Years: 10.00 Additional pack years: 0.00 Total pack years: 5.00 Types: Cigarettes Quit date: 1983 Years since quittin.4 Smokeless tobacco: Never Vaping Use Vaping Use: Never used Substance Use Topics Alcohol use: Not Currently Drug use: Never COMPLETE REVIEW OF SYSTEMS: GENERAL: feeling well without fatigue, no recent change in weight HEENT: denies HIGUERA, change in hearing or vision, no other ENT complaints NECK: denies swelling or pain in neck RESPIRATORY: no cough, no wheezing (more content not included)... Normal [facility] 25(OH)D3 [facility] 25-hydroxyvitamin D3 [Mass/Vol] 34.3 ng/mL Normal 31.0-80.0 [facility] Comment on above: Order Comment: Speci men Type: BLOOD SPECIMEN Ordering Facility: [facility] Address: [address] [place] [address] Result Comment: Clas sification of 25 [place] Vitamin D status: Deficiency/Insufficiency: < or = 30 ng/ml. Sufficiency/Optimal Levels: 31-80 ng/mL Toxicity: > 100 ng/mL. Test performed by chemiluminescent immunoassay. Performed By: #### 1 [id number] #### [facility] CLIA [id number] [address] [place] [address] [place] 25-hydroxyvitamin D3 [Mass/V ol]on 10-18-2023 Interpretation and review of laboratory results Normal [facility] The reference range interval was based on an analysis of samples from healthy adults and may not pertain to children from 0-18 years old. [facility] CNOVSPon 10-18-2023 CNOVSP Visit (SP) Office ([place]) ANGELA MAY ([id number]) 1950 F Date Time Provider Department 10/18/23 8:50 AM PERNELL NAJERA During your visit today, we recorded the following information about you: Temperature Pulse Blood pressure Weight 98.1 degrees 76/minute 143/83 91.9 kg Pernell Najera DO 10/18/2023 9:25 AM Signed Oncologic problem(s): 1) Breast cancer. 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 Patient had a bilateral screening mammogram 11/13/2022. She was noted to have areas of scattered fibroglandular density in both breast. There were no dominant masses or suspicious calcifications. 1 year follow-up was recommended. Patient appreciated a palpable lump in the left breast. Diagnostic mammogram 08/14/2023 identified a 6 mm nodular density in the medial retroareolar region of the left breast corresponding to the palpable abnormality. On ultrasound was found to have a 1.2 x 1.1 x 0.9 cm hypoechoic lobular irregular nodule with increased vascularity. Core needle biopsy. Pathology: Left breast nodule at 9 o?clock, core biopsy; Invasive ductal carcinoma. See synoptic report below. AM/mr 08/22/2023 COMMENT INVASIVE BREAST CANCER SUMMARY: Procedure: Needle core biopsy Specimen Laterality: Left breast Tumor site: 9 o?clock, retro-areolar Histologic type: Invasive ductal carcinoma Provisional Histologic grade: 2 Tubule Differentiation Score: 3 Nuclear Pleomorphism Score: 2 Mitotic Rate Score: 1 Tumor Size ( greatest dimension): 7.5 mm Ductal Carcinoma Insitu: Not identified Angiolymphatic Invasion: Not identified Microcalcifications: Not identified Additional Pathologic Findings: None Breast Marker Study: RF 332 ER:> 95%, strong intensity (positive) KS:90%, moderate to strong intensity (positive) Her2:0 (negative) Ki67:5% TNM stage: Not Applicable The above summary is in compliance with [employer] (CAP) Cancer Protocols Checklist and [place] Joint Committee on Cancer (AJCC), Staging Manual, 8th Ed. Underwent left partial mastectomy including nipple areolar complex along with sentinel lymph node biopsy on 09/20/2023. Pathology: FROZEN SECTION DIAGNOSIS Left sentinel lymph node, biopsy: One lymph node, negative for metastatic carcinoma. MICROSCOPIC DIAGNOSIS A. Left breast, sentinel node, biopsy: One out of one lymph node negative for metastatic carcinoma. See comment. B. Left breast, mastectomy: Invasive ductal carcinoma. See cancer template below: RITA/ 09/27/23 COMMENT INVASIVE BREAST CANCER SUMMARY: Procedure - Mastectomy Specimen: Breast with nipple and areola Type - partial breast Size - 7.5 x 6.0 x 3.0 Laterality - left breast Tumor: Site - Subareolar Size - 1.5 x 1.0 x 0.7cm Histologic type - invasive ductal carcinoma. Focality - single focus of carcinoma. Histologic Grade (Leon grade): Glandular/tubular differentiation - score 3 Nuclear pleomorphism - score 2 Mitotic count - score 1 [facility] DEPARTMENT OF LABORATORY SURGICAL PATHOLOGY REPORT [id number] , [place], [place] [address] - Page 2 of 3 The contents of this transmission are privileged, confidential and exempt from disclosure under applicable law. If you have received this information in error, call . [id number] MR# [id number] Overall grade - 2 (score of 6) Ductal carcinoma in situ: Present Estimated quantification (% of tumor volume) - 1% Number of blocks - 1 of 12 blocks Architectural patterns - Solid Nuclear grade - grade 1/2 Necrosis - not identified Lobular carcinoma in situ (LCIS) - Not present Tumor extension: Skin - free of carcinoma Nipple - free of carcinoma Skeletal muscle - not present Margins: Distance of invasive carcinoma from closest margin - 10 mm from superior margin. Distance of ductal carcinoma in situ from closest margin - 12 mm from superior margin. Lymph nodes: Number of sentinel lymph nodes examined - 1 Total number of lymph nodes examined (sentinel and nonsentinel) - 1 No evidence of macrometastases, micrometastases or isolated tumor cells See specimen ?A? Treatment effect: Unknown Lymphvascular invasion - Not identified Additional pathologic findings - Fibrocystic change, changes of previous biopsy and tumor necrosis. Ancillary studies - previously performed on section of tumor ([id number] / [id number]). ER - >95%, strong intensity KS - 90%, modera (more content not included)... Normal [facility] VITAMIN D 25 HYDROXYon 10-17 25-hydroxyvitamin D3 [Mass/Vol] 34.3 ng/mL 31.0 - 80.0 ng/mL [facility] Comment on above: Classification of 25 OH Vitamin D status: Deficiency/Insufficiency: < or = 30 ng/ml. Sufficiency/Optimal Levels: 31-80 ng/mL Toxicity: > 100 ng/mL. Test performed by chemiluminescent immunoassay. Basophil percentageOrdered B y: Dr. Vazquez on 11-07-2022 Bilirubin [Mass/Vol] 0.50 mg/dL 0.20-1.00 [facility] Comment on above: For patients on eltr ombopag therapy, use of Dimension [place] TBIL is not recommended. Chloride [Moles/Vol] 109 mmol/L 98-107 [facility] Glucose [Mass/Vol] 96 mg/dL 74-106 [facility] Potassium [Moles/Vol] 4.1 mmol/L 3.5-5.1 [facility] Protein [Mass/Vol] 7.1 g/dL 6.4-8.2 [facility] Sodium [Moles/Vol] 140 mmol/L 136-145 [facility] Laboratory - Chemistry and C hemistry - challengeOrdered By: Dr. Vazquez on 11-07-2022 ALP [Catalytic activity/Vol] 104 U/L 45-[address] [facility] ALT [Catalytic activity/Vol] 23 U/L 13-[address] [facility] CO2 [Moles/Vol] 26.0 mmol/L 21.0-32.[address] [facility] Globulin (S) [Mass/Vol] 3.3 g/dL 2.2-4.2 [facility] Urea nitrogen/Creatinine [Mass ratio] 22.0 mg/mg 10-[address] [facility] No Panel InformationOrdered By: Dr. Vazquez on 11-07-2022 Estimated GFR (MDRD) Amer 78 mL/min >[address] [facility] Comment on above: GFR Calc Estimated GFR (MDRD) Non-Af Amer 65 mL/min >[address] [facility] Comment on above: Non- GFR Calc Serum or plasma albumin darlyn urement (mass/volume)Ordered By: Dr. Vazquez on 11-07-2022 Albumin [Mass/Vol] 3.8 g/dL 3.2-5.0 [facility] Serum or plasma albumin/glob ulin mass ratioOrdered By: Dr. Vazquez on 11-07-2022 Albumin/Globulin [Mass ratio] 1.2 {ratio} 0.9-2.[address] [facility] Serum or plasma calcium darlyn urement (mass/volume)Ordered By: Dr. Vazquez on 11-07-2022 Calcium [Mass/Vol] 10.0 mg/dL 8.5-10.1 [facility] Serum or plasma creatinine m easurement (mass/volume)Ordered By: Dr. Vazquez on 11-07-2022 Creatinine [Mass/Vol] 0.91 mg/dL 0.55-1.02 [facility] Comment on above: The validity of the calculated GFR & GFRAA in patients over 70 years has not been determined. Clinical correlation is essential. Serum or plasma urea nitroge n measurement (mass/volume)Ordered By: Dr. Vazquez on 11-07-2022 Urea nitrogen [Mass/Vol] 20 mg/dL 7-[address] [facility] Thin prep Papanicolaou smear with manual screeningOrdered By: Dr. Vazquez on 11-07-2022 Thin prep Papanicolaou smear with manual screening 20 U/L 15-[address] [facility] Thin prep Papanicolaou smear with manual screening 5 5-[address] [facility] Basophil percentageon 2021 Bilirubin [Mass/Vol] 0.70 mg/dL 0.20-1.00 [facility] Work Phone: Comment on above: For patients on eltr ombopag therapy, use of Dimension [place] TBIL is not recommended. Chloride [Moles/Vol] 107 mmol/L 98-107 [facility] Work Phone: Glucose [Mass/Vol] 97 mg/dL 74-106 [facility] Work Phone: [phone] Potassium [Moles/Vol] 4.0 mmol/L 3.5-5.1 [facility] Work Phone: [phone] Protein [Mass/Vol] 7.1 g/dL 6.4-8.2 [facility] Work Phone: Sodium [Moles/Vol] 140 mmol/L 136-145 [facility] Work Phone: Laboratory - Chemistry and C hemistry - challengeon 09-29-2021 ALP [Catalytic activity/Vol] 99 U/L 45-[address] [facility] Work Phone: ALT [Catalytic activity/Vol] 32 U/L 13-[address] [facility] Work Phone: CO2 [Moles/Vol] 28.0 mmol/L 21.0-32.[address] [facility] Work Phone: Globulin (S) [Mass/Vol] 3.4 g/dL 2.2-4.2 [facility] Work Phone: Urea nitrogen/Creatinine [Mass ratio] 18.7 mg/mg 10-[address] [facility] Work Phone: No Panel Informationon 09-29 Estimated GFR (MDRD) Amer 78 mL/min >[address] [facility] Work Phone: Comment on above: GFR Calc Estimated GFR (MDRD) Non-Af Amer 65 mL/min >[address] [facility] Work Phone: Comment on above: Non- GFR Calc Serum or plasma albumin darlyn urement (mass/volume)on 09-29-2021 Albumin [Mass/Vol] 3.7 g/dL 3.2-5.0 [facility] Work Phone: Serum or plasma albumin/glob ulin mass ratioon 09-29-2021 Albumin/Globulin [Mass ratio] 1.1 {ratio} 0.9-2.[address] [facility] Work Phone: Serum or plasma calcium darlyn urement (mass/volume)on 09-29-2021 Calcium [Mass/Vol] 9.9 mg/dL 8.5-10.1 [facility] Work Phone: Serum or plasma creatinine m easurement (mass/volume)on 09-29-2021 Creatinine [Mass/Vol] 0.91 mg/dL 0.55-1.02 [facility] Work Phone: Comment on above: The validity of the calculated GFR & GFRAA in patients over 70 years has not been determined. Clinical correlation is essential. Serum or plasma urea nitroge n measurement (mass/volume)on 09-29-2021 Urea nitrogen [Mass/Vol] 17 mg/dL 7-[address] [facility] Work Phone: Thin prep Papanicolaou smear with manual screeningon 09-29-2021 Thin prep Papanicolaou smear with manual screening 18 U/L 15-[address] [facility] Work Phone: Thin prep Papanicolaou smear with manual screening 5 5-[address] [facility] Work Phone: Vital Signs Date Time Vital Sign Value Performing Clinician Facility 10-21-2024 15:09-0400 Body height 165.[address] Cathernie Vazquez DO Work Phone: [facility] 10-21-2024 15:09-0400 Body mass index (BMI) [Ratio] 33.4 kg/m2 Dr. Catherine Vazquez DO Work Phone: [facility] 10-21-2024 15:09-0400 Body temperature 99.5 [degF] Dr. Catherine Vazquez DO Work Phone: [facility] 10-21-2024 15:09-0400 Body weight 91.[address] Catherine Vazquez DO Work Phone: [facility] 10-21-2024 15:09-0400 Diastolic blood pressure 76 mm[Hg] Dr. Catherine Vazquez DO Work Phone: [facility] 10-21-2024 15:09-0400 Heart rate 84 /min Dr. Catherine Vazquez DO Work Phone: [facility] 10-21-2024 15:09-0400 Respiratory rate 16 /min Dr. Catherine Vazquez DO Work Phone: [facility] 10-21-2024 15:09-0400 SaO2% (BldA) [Mass fraction] 95 % Dr. Catherine Vazquez DO Work Phone: [facility] 10-21-2024 15:09-0400 Systolic blood pressure 126 mm[Hg] Dr. Catherine Vazquez DO Work Phone: [facility] 10-07-2024 11:00-0400 Body temperature 98.3 [degF] Dr. Catherine Vazquez DO Work Phone: [facility] 10-07-2024 11:00-0400 Diastolic blood pressure 59 mm[Hg] Dr. Catherine Vazquez DO Work Phone: [facility] 10-07-2024 11:00-0400 Heart rate 87 /min Dr. Catherine Vazquez DO Work Phone: [facility] 10-07-2024 11:00-0400 Respiratory rate 16 /min Dr. Catherine Vazquez DO Work Phone: [facility] 10-07-2024 11:00-0400 SaO2% (BldA) [Mass fraction] 95 % Dr. Catherine Vazquez DO Work Phone: [facility] 10-07-2024 11:00-0400 Systolic blood pressure 121 mm[Hg] Dr. Catherine Vazquez DO Work Phone: [facility] 10-06-2024 15:30-0400 Inhaled oxygen flow rate 2 L/min Dr. Catherine Vazquez DO Work Phone: [facility] 10-06-2024 14:03-0400 Body height 165.[address] Catherine Vazquez DO [facility] [facility] 10-06-2024 14:03-0400 Body mass index (BMI) [Ratio] 34.2 kg/m2 Dr. Catherine Vazquez DO Work Phone: [facility] 10-06-2024 14:03-0400 Body weight 93.[address] Catherine Vazquez DO Work Phone: [facility] 10-06-2024 13:30-0400 Inhaled oxygen concentration 42 % Dr. Catherine Vazquez DO Work Phone: [facility] 09-17-2024 15:04-0400 Body mass index (BMI) [Ratio] 34.7 kg/m2 Dr. Catherine Vazquez DO Work Phone: [facility] 09-17-2024 15:04-0400 Body temperature 98.1 [degF] Dr. Catherine Vazquez DO Work Phone: [facility] 09-17-2024 15:04-0400 Body weight 94.[address] Catherine Vazquez DO Work Phone: [facility] 09-17-2024 15:04-0400 Diastolic blood pressure 80 mm[Hg] Dr. Catherine Vazquez DO Work Phone: [facility] 09-17-2024 15:04-0400 Heart rate 93 /min Dr. Catherine Vazquez DO Work Phone: [facility] 09-17-2024 15:04-0400 Respiratory rate 18 /min Dr. Catherine Vazquez DO Work Phone: [facility] 09-17-2024 15:04-0400 SaO2% (BldA) [Mass fraction] 98 % Dr. Catherine Vazquez DO Work Phone: [facility] 09-17-2024 15:04-0400 Systolic blood pressure 130 mm[Hg] Dr. Catherine Vazquez DO Work Phone: [facility] 09-02-2024 12:52-0400 Body mass index (BMI) [Ratio] 35.44 kg/m2 Treatment Wstr Work Phone: [facility] 09-02-2024 12:52-0400 Body temperature 97.59 [degF] Treatment Wstr Work Phone: [facility] 09-02-2024 12:52-0400 Body weight 96.6 kg Treatment Wstr Work Phone: [facility] 09-02-2024 12:52-0400 Diastolic blood pressure 82 mm[Hg] Treatment Wstr Work Phone: [facility] 09-02-2024 12:52-0400 Heart rate 73 /min Treatment Wstr Work Phone: [facility] 09-02-2024 12:52-0400 SaO2% (BldA) [Mass fraction] 94 % Treatment Wstr Work Phone: [facility] 09-02-2024 12:52-0400 Systolic blood pressure 155 mm[Hg] Treatment Wstr Work Phone: [facility] 07-14-2024 11:27-0500 Body mass index (BMI) [Ratio] 35.07 kg/m2 Cordelia Chawla [employer] Work Phone: [facility] 07-14-2024 11:27-0500 Body temperature 97.3 [degF] Cordelia Chawla [employer] Work Phone: [facility] 07-14-2024 11:27-0500 Body weight 95.6 kg Greenback Chawla [employer] Work Phone: [facility] 07-14-2024 11:27-0500 Diastolic blood pressure 84 mm[Hg] Cordelia Hensleyenter [employer] Work Phone: [facility] 07-14-2024 11:27-0500 Heart rate 79 /min Cordelia Hensleyenter [employer] Work Phone: [facility] 07-14-2024 11:27-0500 SaO2% (BldA) [Mass fraction] 95 % Cordelia Hensleyenter [employer] Work Phone: [facility] 07-14-2024 11:27-0500 Systolic blood pressure 151 mm[Hg] Cordelia Hensleyenter [employer] Work Phone: [facility] 04-23-2024 08:07-0500 Body mass index (BMI) [Ratio] 34.93 kg/m2 Crystal Athy PA-C Work Phone: [facility] 04-23-2024 08:07-0500 Body temperature 98.6 [degF] Crystal Athy PA-C Work Phone: [facility] 04-23-2024 08:07-0500 Body weight 95.2 kg Crystal Athy PA-C Work Phone: [facility] 04-23-2024 08:07-0500 Diastolic blood pressure 98 mm[Hg] Crystal Athy PA-C Work Phone: [facility] 04-23-2024 08:07-0500 Heart rate 85 /min Crystal Athy PA-C Work Phone: [facility] 04-23-2024 08:07-0500 Respiratory rate 20 /min Crystal Athy PA-C Work Phone: [facility] 04-23-2024 08:07-0500 SaO2% (BldA) [Mass fraction] 93 % Crystal Athy PA-C Work Phone: [facility] 04-23-2024 08:07-0500 Systolic blood pressure 148 mm[Hg] Crystal Athy PA-C Work Phone: [facility] 03-18-2024 12:34-0400 Body temperature 98.71 [degF] Treatment Wstr Work Phone: [facility] 03-18-2024 12:34-0400 Diastolic blood pressure 84 mm[Hg] Treatment Wstr Work Phone: [facility] 03-18-2024 12:34-0400 Heart rate 82 /min Treatment Wstr Work Phone: [facility] 03-18-2024 12:34-0400 Respiratory rate 20 /min Treatment Wstr Work Phone: [facility] 03-18-2024 12:34-0400 Systolic blood pressure 146 mm[Hg] Treatment Wstr Work Phone: [facility] 03-13-2024 10:32-0400 Body mass index (BMI) [Ratio] 35.04 kg/m2 Cordelia Chawla APRN.[employer] Work Phone: [facility] 03-13-2024 10:32-0400 Body temperature 97.5 [degF] Cordelia Chawla [employer] Work Phone: [facility] 03-13-2024 10:32-0400 Body weight 95.5 kg Cordelia Chawla APRN.[employer] Work Phone: [facility] 03-13-2024 10:32-0400 Diastolic blood pressure 76 mm[Hg] Cordelia Chawla [employer] Work Phone: [facility] 03-13-2024 10:32-0400 Heart rate 80 /min Cordelia Chawla [employer] Work Phone: [facility] 03-13-2024 10:32-0400 SaO2% (BldA) [Mass fraction] 99 % Cordelia Chawla APRN.[employer] Work Phone: [facility] 03-13-2024 10:32-0400 Systolic blood pressure 136 mm[Hg] Cordelia Chawla [employer] Work Phone: [facility] 12-12-2023 08:59-0400 Body mass index (BMI) [Ratio] 34.33 kg/m2 Cordelia Chawla [employer] Work Phone: [facility] 12-12-2023 08:59-0400 Body temperature 97.59 [degF] Cordelia Hensleyenter [employer] Work Phone: [facility] 12-12-2023 08:59-0400 Body weight 93.58 kg Cordelia Chawla [employer] Work Phone: [facility] 12-12-2023 08:59-0400 Diastolic blood pressure 80 mm[Hg] Cordelia Chawla [employer] Work Phone: [facility] 12-12-2023 08:59-0400 Heart rate 77 /min Cordelia Hensleyenter [employer] Work Phone: [facility] 12-12-2023 08:59-0400 SaO2% (BldA) [Mass fraction] 95 % Cordelia Chawla [employer] Work Phone: [facility] 12-12-2023 08:59-0400 Systolic blood pressure 130 mm[Hg] Cordelia Chawla [employer] Work Phone: [facility] 10-31-2023 14:39-0400 Body temperature 97.3 [degF] Javier Cat MD Work Phone: [facility] 10-31-2023 14:39-0400 Diastolic blood pressure 82 mm[Hg] Javier Cat MD Work Phone: [facility] 10-31-2023 14:39-0400 Heart rate 71 /min Javier Cat MD Work Phone: [facility] 10-31-2023 14:39-0400 SaO2% (BldA) [Mass fraction] 96 % Javier Cat MD Work Phone: [facility] 10-31-2023 14:39-0400 Systolic blood pressure 126 mm[Hg] Javier Cat MD Work Phone: [facility] 10-19-2023 10:31-0400 Body mass index (BMI) [Ratio] 33.7 kg/m2 Ollie Moses MD Work Phone: [facility] 10-19-2023 10:31-0400 Body temperature 97.59 [degF] Ollie Moses MD Work Phone: [facility] 10-19-2023 10:31-0400 Body weight 91.85 kg Ollie Moses MD Work Phone: [facility] 10-19-2023 10:31-0400 Diastolic blood pressure 79 mm[Hg] Ollie Moses MD Work Phone: [facility] 10-19-2023 10:31-0400 Heart rate 65 /min Ollie Moses MD Work Phone: [facility] 10-19-2023 10:31-0400 Respiratory rate 15 /min Ollie Moses MD Work Phone: [facility] 10-19-2023 10:31-0400 SaO2% (BldA) [Mass fraction] 96 % Ollie Moses MD Work Phone: [facility] 10-19-2023 10:31-0400 Systolic blood pressure 133 mm[Hg] Ollie Moses MD Work Phone: [facility] 10-18-2023 08:48-0400 Body mass index (BMI) [Ratio] 33.7 kg/m2 Pernell Bahi DO Work Phone: [facility] 10-18-2023 08:48-0400 Body temperature 98.1 [degF] Pernell Masci DO Work Phone: [facility] 10-18-2023 08:48-0400 Body weight 91.85 kg Pernell Niurkai DO Work Phone: [facility] 10-18-2023 08:48-0400 Diastolic blood pressure 83 mm[Hg] Pernell Bahi DO Work Phone: [facility] 10-18-2023 08:48-0400 Heart rate 76 /min Pernell Bahi DO Work Phone: [facility] 10-18-2023 08:48-0400 SaO2% (BldA) [Mass fraction] 94 % Pernell Bahi DO Work Phone: [facility] 10-18-2023 08:48-0400 Systolic blood pressure 143 mm[Hg] Pernell Niurkai DO Work Phone: [facility] 10-03-2023 15:08-0400 Body height 165.1 cm Pernell Bahi DO Work Phone: [facility] Comment on above: verifeied with Jo Alejandra MA 10-03-2023 15:08-0400 Body mass index (BMI) [Ratio] 27.46 kg/m2 Pernell Bahi DO Work Phone: [facility] 10-03-2023 15:08-0400 Body temperature 98.91 [degF] Pernell Bahi DO Work Phone: [facility] 10-03-2023 15:08-0400 Body weight 74.84 kg Pernell Bahi DO Work Phone: [facility] 10-03-2023 15:08-0400 Diastolic blood pressure 61 mm[Hg] Pernell Bahi DO Work Phone: [facility] 10-03-2023 15:08-0400 Heart rate 95 /min Pernell Bahi DO Work Phone: [facility] 10-03-2023 15:08-0400 SaO2% (BldA) [Mass fraction] 93 % Pernell Bahi DO Work Phone: [facility] 10-03-2023 15:08-0400 Systolic blood pressure 109 mm[Hg] Pernell Bahi DO Work Phone: [facility] 09-20-2023 14:50-0400 Body temperature 97.1 [degF] Dr. Catherine Vazquez Work Phone: [facility] 09-20-2023 14:50-0400 Diastolic blood pressure 62 mm[Hg] Dr. Catherine Vazquez Work Phone: [facility] 09-20-2023 14:50-0400 Heart rate 89 /min Dr. Catherine Vazquez Work Phone: [facility] 09-20-2023 14:50-0400 Respiratory rate 16 /min Dr. Catherine Vazquez Work Phone: [facility] 09-20-2023 14:50-0400 SaO2% (BldA) [Mass fraction] 94 % Dr. Catherine Vazquez Work Phone: [facility] 09-20-2023 14:50-0400 Systolic blood pressure 123 mm[Hg] Dr. Catherine Vazquez Work Phone: [facility] 09-20-2023 09:17-0400 Body height 165.[address] Catherine Vazquez Work Phone: [facility] 09-20-2023 09:17-0400 Body mass index (BMI) [Ratio] 34 kg/m2 Dr. Catherine Vazquez Work Phone: [facility] 09-20-2023 09:17-0400 Body weight 92.[address] Catherine Vazquez Work Phone: [facility] 08-21-2023 12:36-0400 Body height 165.[address] Catherine Vazquez Work Phone: [facility] 08-21-2023 12:36-0400 Body mass index (BMI) [Ratio] 33.5 kg/m2 Dr. Catherine Vazquez Work Phone: [facility] 08-21-2023 12:36-0400 Body temperature 97.3 [degF] Dr. Catherine Vazquez Work Phone: [facility] 08-21-2023 12:36-0400 Body weight 91.[address] Catherine Vazquez Work Phone: [facility] 08-21-2023 12:36-0400 Diastolic blood pressure 80 mm[Hg] Dr. Catherine Vazquez Work Phone: [facility] 08-21-2023 12:36-0400 Heart rate 75 /min Dr. Catherine Vazquez Work Phone: [facility] 08-21-2023 12:36-0400 Respiratory rate 18 /min Dr. Catherine Vazquez Work Phone: [facility] 08-21-2023 12:36-0400 SaO2% (BldA) [Mass fraction] 93 % Dr. Catherine Vazquez Work Phone: [facility] 08-21-2023 12:36-0400 Systolic blood pressure 135 mm[Hg] Dr. Catherine Vazquez Work Phone: [facility] 08-10-2023 12:46-0400 Body height 165.[address] Catherine Vazquez Work Phone: [facility] 08-10-2023 12:46-0400 Body mass index (BMI) [Ratio] 33.8 kg/m2 Dr. Catherine Vazquez Work Phone: [facility] 08-10-2023 12:46-0400 Body temperature 97.8 [degF] Dr. Catherine Vazquez Work Phone: [facility] 08-10-2023 12:46-0400 Body weight 92.[address] Catherine Vazquez Work Phone: [facility] 08-10-2023 12:46-0400 Diastolic blood pressure 70 mm[Hg] Dr. Catherine Vazquez Work Phone: [facility] 08-10-2023 12:46-0400 Heart rate 77 /min Dr. Catherine Vazquez Work Phone: [facility] 08-10-2023 12:46-0400 Respiratory rate 16 /min Dr. Catherine Vazquez Work Phone: [facility] 08-10-2023 12:46-0400 SaO2% (BldA) [Mass fraction] 97 % Dr. Catherine Vazquez Work Phone: [facility] 08-10-2023 12:46-0400 Systolic blood pressure 118 mm[Hg] Dr. Catherine Vazquez Work Phone: [facility] 11-07-2022 10:53-0400 Body height 165.[address] Catherine Vazquez Work Phone: [facility] 11-07-2022 10:53-0400 Body mass index (BMI) [Ratio] 33.5 kg/m2 Dr. Catherine Vazquez Work Phone: [facility] 11-07-2022 10:53-0400 Body temperature 98.6 [degF] Dr. Catherine Vazquez Work Phone: [facility] 11-07-2022 10:53-0400 Body weight 91.[address] Catherine Vazquez Work Phone: [facility] 11-07-2022 10:53-0400 Diastolic blood pressure 84 mm[Hg] Dr. Catherine Vazquez Work Phone: [facility] 11-07-2022 10:53-0400 Heart rate 76 /min Dr. Catherine Vazquez Work Phone: [facility] 11-07-2022 10:53-0400 Respiratory rate 16 /min Dr. Catherine Vazquez Work Phone: [facility] 11-07-2022 10:53-0400 SaO2% (BldA) [Mass fraction] 99 % Dr. Catherine Vazquez Work Phone: [facility] 11-07-2022 10:53-0400 Systolic blood pressure 134 mm[Hg] Dr. Catherine Vazquez Work Phone: [facility] 09-01-2022 10:00-0400 Body height 165.[address] Catherine Vazquez Work Phone: [facility] 09-29-2021 10:25-0400 Body temperature 97.2 [degF] Dr. Catherine Vazquez Work Phone: [facility] Work Phone: 09-29-2021 10:25-0400 Body weight 90.[address] Catherine Vazquez Work Phone: [facility] Work Phone: 09-29-2021 10:25-0400 Diastolic blood pressure 92 mm[Hg] Dr. Catherine Vazquez Work Phone: [facility] Work Phone: 09-29-2021 10:25-0400 Heart rate 63 /min Dr. Catherine Vazquez Work Phone: [facility] Work Phone: 09-29-2021 10:25-0400 Respiratory rate 16 /min Dr. Catherine Vazquez Work Phone: [facility] Work Phone: 09-29-2021 10:25-0400 SaO2% (BldA) [Mass fraction] 94 % Dr. Catherine Vazquez Work Phone: [facility] Work Phone: 09-29-2021 10:25-0400 Systolic blood pressure 136 mm[Hg] Dr. Catherine Vazquez Work Phone: [facility] Work Phone: Encounters Encounter Date Encounter Type Care Provider Facility Start: 11-10-2024 ambulatory Catherine Vazquez Facilit y:[facility] Start: 10-21-2024 End: 10-21-[address] Catherine Gomez DO -[facility] Work Phone: Start: 10-21-2024 End: 10-21-[address] Catherine Vazquez DO Work Phone: [facility] Work Phone: Start: 10-21-2024 End: 10-21-2024 ambulatory Catherine Vazquez Facility:[facility] Start: 10-10-2024 Encounter for other preprocedural examination Jocelin Verdugo [facility] Start: 10-08-2024 Non-patient / Non-visit Dr. Yusef hawthorne MD -[facility] Start: 10-08-2024 End: 10-08-[address] Catherine Vazquez DO Work Phone: [facility] Work Phone: Start: 10-08-2024 End: 10-08-[address] Yuri Jasso MD -Cardiovascular Services Work Phone: Start: 10-08-2024 End: 10-08-2024 ambulatory Catherine Vazquez Facility:[facility] Start: 10-06-2024 Non-patient / Non-visit Dr. Martha Verdugo MD -[facility] Work Phone: Start: 10-06-2024 ambulatory Jocelin Jo Denton Facility :[facility] Start: 10-06-2024 End: 10-07-2024 ambulatory [facility] Facility:[facility] Start: 10-06-2024 End: 10-07-2024 Evaluation and management of inpatient Dr. Yuri Jasso MD -Medical Surgical 3 Work Phone: Start: 10-06-2024 End: 10-07-[address] Catherine Vazquez DO Work Phone: [facility] Work Phone: Start: 10-03-2024 End: 10-06-2024 Telephone encounter Pernell Najera DO Work Phone: Hematology/Oncology Comment on above: Results Start: 10-02-2024 End: 10-02-2024 ambulatory CATHERINE VAZQUEZ Facility:[facility] Start: 10-02-2024 End: 10-02-2024 Telephone encounter Pernell Najera DO Work Phone: Hematology/Oncology Comment on above: Results Start: 09-18-2024 End: 09-18-2024 ambulatory CATHERINE VAZQUEZ Facility:[facility] Start: 09-17-2024 End: 09-17-[address] Catherine Gomez DO -[facility] Work Phone: Start: 09-17-2024 End: 09-17-2024 ambulatory Catherine Vazquez Facility:[facility] Start: 09-10-2024 End: 09-10-2024 Non-patient / Non-visit Dr. Josh Reyes MD -[facility] Work Phone: Start: 09-10-2024 End: 09-10-[address] Catherine Vazquez DO Work Phone: [facility] Work Phone: Start: 09-10-2024 End: 09-10-[address] Yuri Jasso MD -Cat Scan, [facility] Work Phone: Start: 09-10-2024 End: 09-10-2024 ambulatory Catherine Vazquez Facility:[facility] Start: 09-04-2024 End: 09-05-2024 Follow-up encounter Cordelia Chawla APRN.[employer] Work Phone: Hematology/Oncology Start: 09-02-2024 End: 09-02-2024 ambulatory Treatment Rm 14 Juan [address] 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); Malignant neoplasm of central portion of left breast in female, estrogen receptor positive (HCC) Start: 09-02-2024 End: 09-02-2024 ambulatory CATHERINE VAZQUEZ Facility:[facility] Start: 07-14-2024 End: 07-14-2024 ambulatory Cordelia Chawla [employer] Work Phone: Hematology/Oncology Comment on above: Malignant neoplasm o f central portion of left breast in female, estrogen receptor positive (HCC) (Primary Dx) Start: 07-14-2024 End: 07-14-2024 Patient encounter procedure Cordelia Chawla [employer] Work Phone: Hematology/Oncology Start: 04-23-2024 End: 04-23-2024 Subsequent hospital visit by physician Xr [facility] Work Phone: Radiology Comment on above: Acute cough [R05.1] Start: 04-23-2024 End: 04-23-2024 ambulatory CATHERINE VAZQUEZ Facility:[facility] Start: 04-23-2024 End: 04-23-2024 Patient encounter procedure Crystal Rushing PA-C Work Phone: [facility] Comment on above: Viral URI with cough (Primary Dx) Start: 04-16-2024 End: 04-17-2024 ambulatory Cordelia Chawla [employer] Work Phone: Hematology/Oncology Start: 04-16-2024 End: 04-17-2024 Follow-up encounter Cordelia Chawla APRN.[employer] Work Phone: Hematology/Oncology Comment on above: follow up info from appointment Start: 03-18-2024 End: 03-18-2024 Patient encounter procedure Treatment Rm 18 Juan Daniel [facility] Work Phone: Hematology/Oncology Start: 03-18-2024 End: 03-18-2024 ambulatory CATHERINE VAZQUEZ Hematology/Oncology Comment on above: 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 (Primary Dx); Malignant neoplasm of central portion of left breast in female, estrogen receptor positive (HCC) Start: 03-13-2024 End: 03-14-2024 Telephone encounter Cordelia Chawla APRN.[employer] Work Phone: Hematology/Oncology Comment on above: avs Start: 03-13-2024 End: 03-13-2024 ambulatory Cordelia Chawla [employer] Work Phone: Hematology/Oncology Comment on above: Malignant neoplasm o f central portion of left breast in female, estrogen receptor positive (HCC) (Primary Dx); 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 Start: 01-16-2024 End: 01-16-2024 ambulatory Catherine Vazquez Facility:[facility] Start: 01-09-2024 Telephone encounter Cordelia lake APRN.[employer] Work Phone: Hematology/Oncology Comment on above: Dental Clearance - C hemotherapy Start: 12-12-2023 End: 12-12-2023 ambulatory Cordelia Chawla [employer] Work Phone: Hematology/Oncology Comment on above: Malignant neoplasm o f central portion of left breast in female, estrogen receptor positive (HCC) (Primary Dx) Start: 12-12-2023 End: 12-12-2023 Patient encounter procedure Cordelia Chawla APRN.CNP Work Phone: Hematology/Oncology Start: 12-05-2023 End: 12-06-2023 ambulatory Ollie Moses MD Work Phone: Radiation Oncology Comment on above: Malignant neoplasm o f central portion of left breast in female, estrogen receptor positive (HCC) (Primary Dx) Start: 12-05-2023 End: 12-05-2023 Telemedicine consultation with patient Ollie Moses MD Work Phone: Radiation Oncology Start: 11-13-2023 End: 11-13-2023 ambulatory Catherine Gomez [facility] Facility:[facility] Start: 11-07-2023 End: 11-07-2023 ambulatory Ollie Moses MD Work Phone: Radiation Oncology Comment on above: Patient Education Start: 11-07-2023 Patient encounter procedure Ollie Moses MD Work Phone: Radiation Oncology Start: 11-07-2023 Radiation Oncology Note Jackelin Moses MD Work Phone: Radiation Oncology Comment on above: Completion Note Start: 11-06-2023 End: 11-07-2023 ambulatory [facility] Facility:[facility] Start: 11-05-2023 End: 11-05-2023 ambulatory [facility] Facility:[facility] Start: 11-02-2023 End: 11-02-2023 ambulatory [facility] Facility:[facility] Start: 10-31-2023 End: 10-31-2023 Patient encounter procedure Javier Cat MD Work Phone: Radiation Oncology Comment on above: Malignant neoplasm o f central portion of left breast in female, estrogen receptor positive (HCC) (Primary Dx) Start: 10-31-2023 End: 10-31-2023 ambulatory JAVIER CAT Facility:[facility] Start: 10-29-2023 End: 10-29-2023 ambulatory OLLIE MOSES Facility:[facility] Start: 10-23-2023 End: 10-23-2023 Nursing evaluation of patient and report Nurse [facility]t [facility] Work Phone: Radiation Oncology Comment on above: Malignant neoplasm o f central portion of left breast in female, estrogen receptor positive (HCC) (Primary Dx) Start: 10-23-2023 Patient encounter procedure Ollie Moses MD Work Phone: Radiation Oncology Start: 10-23-2023 Radiation Oncology Note Jackelin Moses MD Work Phone: Radiation Oncology Comment on above: Simulation Note Treatment Planning Start: 10-23-2023 End: 10-23-2023 ambulatory [facility] Facility:[facility] Start: 10-19-2023 End: 10-19-2023 ambulatory [facility] Facility:[facility] Start: 10-19-2023 End: 10-19-2023 Patient encounter procedure Ollie Moses MD Work Phone: Radiation Oncology Comment on above: Malignant neoplasm o f central portion of left breast in female, estrogen receptor positive (HCC) (Primary Dx) Start: 10-18-2023 End: 10-18-2023 ambulatory Pernell Najera DO Work Phone: Hematology/Oncology Comment on above: Malignant neoplasm o f central portion of left breast in female, estrogen receptor positive (HCC) (Primary Dx); Vitamin D deficiency Start: 10-18-2023 End: 10-18-2023 Patient encounter procedure Pernell Najera DO Work Phone: Hematology/Oncology Start: 10-03-2023 End: 10-03-2023 ambulatory Pernell Najera DO Work Phone: Hematology/Oncology Comment on above: Malignant neoplasm o f central portion of left breast in female, estrogen receptor positive (HCC) (Primary Dx) Start: 10-03-2023 End: 10-03-2023 Patient encounter procedure Pernell Najera DO Work Phone: Hematology/Oncology Start: 09-20-2023 Non-patient / Non-visit Dr. Tuttle Work Phone: [facility] Start: 09-20-2023 End: 09-20-2023 Admission to same day surgery center Dr. Catherine Vazquez Work Phone: [facility] Start: 09-20-2023 End: 09-20-[address] Catherine Vaqzuez Work Phone: [facility] Work Phone: Start: 08-30-2023 Telephone encounter Pernell mauricio DO Work Phone: Hematology/Oncology Comment on above: New Patient Start: 08-29-2023 End: 08-29-[address] Catherine Vazquez Work Phone: [facility] Work Phone: Start: 08-21-2023 End: 08-21-[address] Catherine Vazquez Work Phone: [facility] Work Phone: Start: 08-21-2023 End: 08-21-[address] Catherine Vazquez Work Phone: [facility]Laboratory, Specimen Work Phone: Start: 08-21-2023 End: 08-21-[address] Catherine Vazquez Work Phone: [facility] Work Phone: Start: 08-14-2023 End: 08-14-[address] Catherine Vazquez Work Phone: [facility] Work Phone: Start: 08-14-2023 End: 08-14-[address] Catherine Vazquez Work Phone: [facility] Ultrasound Work Phone: Start: 08-10-2023 End: 08-10-[address] Catherine Vazquez Work Phone: [facility] Work Phone: Start: 11-13-2022 End: 11-13-[address] Catherine Vazquez Work Phone: [facility] Work Phone: Start: 11-13-2022 End: 11-13-[address] Catherine Vazquez Work Phone: [facility]Out[facility] Breast Imaging Start: 11-07-2022 End: 11-07-[address] Catherine Vazquez Work Phone: [facility] Work Phone: Start: 11-07-2022 End: 11-07-[address] Catherine Vazquez Work Phone: [facility] Start: 09-29-2022 End: 09-29-[address] Catherine Vazquez Work Phone: [facility] Work Phone: Start: 09-29-2022 End: 09-29-[address] Catherine Vazquez Work Phone: [facility]Physical Therapy Start: 09-01-2022 End: 09-01-[address] Catherine Vazquez Work Phone: [facility] Start: 10-10-2021 End: 10-10-[address] Catherine Vazquez Work Phone: [facility] Breast Imaging Start: 09-29-2021 End: 09-29-[address] Catherine Vazquez Work Phone: [facility] Procedures Date Procedure Procedure Detail Performing Clinician Start: 10-21-2024 Urnls dip stick/tablet reagent auto microscopy Dr. Catherine Vazquez DO Work Phone: Start: 10-07-[address] Catherine Vazquez DO Work Phone: Start: 10-06-2024 Total replacement of right knee joint Dr. Catherine Vazquez DO Work Phone: Start: 10-06-2024 X-ray of knee, one or two views Dr. Catherine Vazquez DO Work Phone: Start: 09-10-2024 Methicillin resistant Staphylococcus aureus screening test Dr. Catherine Vazquez DO Work Phone: Start: 09-10-2024 MRI of lower extremity Dr. Catherine Vazquez DO Work Phone: Start: 04-23-2024 Radiologic exam chest 2 views Crystal Rushing PA-C Work Phone: Start: 09-20-[address] Catherine Vazquez Work Phone: Start: 09-20-2023 Radionuclide sentinel lymph node study Dr. Catherine Vazquez Work Phone: Start: 08-14-[address] Catherine Vazquez Work Phone: Start: 08-14-[address] Catherine dawson Work Phone: Start: 11-13-[address] Catherine Vazquez Work Phone: Start: 10-10-[address] Catherine Vazquez Work Phone: Laboratory test resu lt abnormal Abnormal laboratory test Cordelia Chawla APRN.CNP Work Phone: Plan of Treatment Date Care Activity Detail Author Start: 11-21-2032 Urine microalbumin profile DTaP,Tdap,Td Vaccine (2 - Td or Tdap) [facility] Start: 09-19-2027 Diabetes Screening Diabetes Screening [facility] Start: 09-03-2027 Diabetes Screening Diabetes Screening [facility] Start: 03-18-2027 Diabetes Screening Diabetes Screening [facility] Start: 2025 RSV Vaccine (1 - 1-dose 75+ series) RSV Vaccine (1 - 1-dose 75+ series) [facility] Start: 02-17-2025 End: 02-17-2025 [facility] Comment on above: BMP 2ND Start: 01-26-2025 Influenza vaccination Influenza Vaccine (Season Ended) [facility] Start: 01-12-2025 End: 01-12-2025 ambulatory 01/12/2025 11:30 AM EDT Visit (SP) Office Hematology/Oncology [address] [place] [address] Cordelia Chawla APRN.FISH SALTER [address] [place] [address] 6 MO OV Hematology/Oncolog y Comment on above: 6 MO OV Start: 10-21-2024 Urinalysis complete panel - Urine [facility] Start: 10-07-2024 Patient discharge [facility] Start: 10-06-2024 Application of intermittent pneumatic compression device [facility] Start: 10-06-2024 Following clinical pathway protocol [facility] Start: 10-06-2024 Anesth open/surg arthrs total knee arthroplasty ANESTH KNEE ARTHROPLASTY [facility] Start: 10-06-2024 Arthrp kne condyle&platu medial&lat compartments TOTAL KNEE ARTHROPLASTY [facility] Start: 10-06-2024 Provision of overbed trapeze [facility] Start: 10-06-2024 Admission procedure [facility] Start: 10-06-2024 Ambulation therapy management [facility] Start: 10-06-2024 Application of device [facility] Start: 10-06-2024 Application of elastic bandage [facility] Start: 10-06-2024 Assessment of risk of venous thromboembolism [facility] Start: 10-06-2024 Catheterization of vein [facility] Start: 10-06-[address] [facility] Start: 10-06-[address] [facility] Start: 10-06-2024 In[address]rom[address] [facility] Start: 10-06-2024 Introduction of urinary catheter [facility] Start: 10-06-2024 Measuring intake and output [facility] Start: 10-06-2024 Neurovascular assessment [facility] Start: 10-06-2024 Patient education [facility] Start: 10-06-[address] [facility] Start: 10-06-2024 Provision of activity privileges [facility] Start: 10-06-2024 Recommendation to continue with treatment [facility] Start: 10-06-2024 Referral to occupational therapist [facility] Start: 10-06-2024 Referral to service [facility] Start: 10-06-2024 Vital signs measurements [facility] Start: 10-06-[address] [facility] Start: 10-06-[address] [facility] Start: 10-02-2024 End: 10-02-2024 ambulatory 10/02/2024 3:00 PM EDT Results Only Janey [place] [facility] [address] [place] [address] PTH* [facility] Comment on above: PTH* Start: 10-02-2024 End: 01-01-2025 Parathyrin.intact [Mass/volume] in Serum or Plasma PTH INTACT Lab Routine Hypercalcemia Expected: 10/02/2024, Expires: 01/01/2025 [facility] Work Phone: Comment on above: Expected: 10/02/2024, Expires: Start: 09-18-2024 End: 12-18-2024 Basic metabolic 2000 panel - Serum or Plasma BASIC METABOLIC PANEL Lab Routine Malignant neoplasm of central portion of left breast in female, estrogen receptor positive (HCC) Abnormal laboratory test Expected: 09/18/2024 (Approximate), Expires: 12/18/2024 [facility] Work Phone: Comment on above: Expected: 09/18/2024 (Approximate), Expi res: 12/18/2024 Start: 09-18-2024 End: 12-18-2024 Calcium.ionized [Moles/volume] in Blood CALCIUM, IONIZED Lab Routine Malignant neoplasm of central portion of left breast in female, estrogen receptor positive (HCC) Abnormal laboratory test Expected: 09/18/2024 (Approximate), Expires: 12/18/2024 [facility] Comment on above: Expected: 09/18/2024 (Approximate), Expi res: 12/18/2024 Start: 09-18-2024 End: 09-18-2024 ambulatory 09/18/2024 11:30 AM EDT Results Only Janey [place] [facility] [address] [place] [address] BMP/IONIZED CALCIUM* [facility] Comment on above: BMP/IONIZED CALCIUM* Start: 09-08-20[address] [facility] Start: 09-02-2024 End: 09-02-2024 ambulatory [facility] Comment on above: BMP 2ND Start: 07-14-2024 End: 07-14-2024 ambulatory 07/14/2024 11:30 AM EST Visit (SP) Office Hematology/Oncology [address] [place] [address] Cordelia Chawla APRN.FISH SALTER [address] [place] [address] f/up 4 month Hematology/Oncolog y Comment on above: f/up 4 month Start: 05-28-2024 Advance Directive Discussion Advance Directive Discussion [facility] Start: 03-18-2024 End: 03-18-2024 ambulatory [facility] Comment on above: BMP 2ND Start: 03-13-2024 End: 03-13-2024 ambulatory 03/13/2024 10:30 AM EDT Visit (SP) Office Hematology/Oncology [address] [place] [address] Cordelia Chawla APRN.FISH SALTER [address] [place] [address] 3mo ov * Hematology/Oncolog y Comment on above: 3mo ov * Start: 01-27-2024 Covid-19 Vaccine ( season) Covid-19 Vaccine ( season) [facility] Start: 01-27-2024 Influenza vaccination [facility] Start: 12-12-2023 End: 12-12-2023 ambulatory 12/12/2023 9:00 AM EDT Visit (SP) Office Hematology/Oncology [address] [place] [address] Cordelia Chawla APRN.FISH SALTER [address] [place], [place] [id number] SCP* Hematology/Oncolog y Comment on above: SCP* Start: 12-05-2023 End: 12-05-2023 Follow-up encounter 12/05/2023 3:00 PM EDT [facility] [address] [place], [place] [id number] Ollie Moses MD [address] [place], [place] [id number] 4 WK FOLLOW UP* Radiation Oncology Comment on above: 4 WK FOLLOW UP* Start: 11-07-2023 End: 11-07-2023 Patient encounter procedure 11/07/2023 2:15 PM EDT Appointment Radiation Oncology [address] [place], [place] [id number] Location: [email or web address] Comment on above: Location: [facility] Start: 11-05-2023 End: 11-05-2023 Patient encounter procedure 11/05/2023 2:15 PM EDT Appointment Radiation Oncology [address] [place], [place] [id number] Location: [facility] Comment on above: Location: [facility] Start: 11-02-2023 End: 11-02-2023 Patient encounter procedure 11/02/2023 2:15 PM EDT Appointment Radiation Oncology [address] [place], [place] [id number] Location: [facility] Comment on above: Location: [facility] Start: 10-31-2023 End: 10-31-2023 Patient encounter procedure Radiation On cology Comment on above: Location: [facility] Location: [facility] TREAT MENT VISIT Start: 10-29-2023 End: 10-29-2023 Patient encounter procedure Radiation On [facility] Comment on above: VERIFY START DATE BM late morning or afte rnoon load ref data Start: 10-23-2023 End: 10-23-2023 Nursing evaluation of patient and report 10/23/2023 2:00 PM EDT Nurse Visit Radiation Oncology [address] [place] [address] Wstr, Nurse Radt [facility] [address] [place] [address] Location: [facility]-NURSING Radiation Oncology Comment on above: Location: [facility]URSING Start: 10-23-2023 End: 10-23-2023 Patient encounter procedure 10/23/2023 1:00 PM EDT Office Visit Radiation Oncology [address] [place] [address] Ollie Moses MD [address] [place] [address] BREAST SIM AT THIS TIME 4DCT Radiation Oncology Comment on above: BREAST SIM AT THIS TIME 4DCT Start: 10-19-2023 End: 10-19-2023 Patient encounter procedure 10/19/2023 10:30 AM EDT Office Visit Radiation Oncology [address] [place] [address] Ollie Moses MD [address] [place] [address] 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 PERNELL NAJERA* Radiation Oncology Comment on above: 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 PERNELL NAJERA* Start: 10-18-2023 End: 10-18-2023 ambulatory 10/18/2023 8:50 AM EDT Visit (SP) Office Hematology/Oncology [address] [place] [address] Pernell Najera DO [address] [place] [address] 2 WK OV/REVIEW ONCOTYPE* Hematology/Oncolog y Comment on above: 2 WK OV/REVIEW ONCOTYPE* Start: 10-15-2023 End: 10-15-2023 ambulatory 10/15/2023 5:00 PM EDT [facility] Hematology/Oncology [address] [place] [address] Wstr, Lab/[place] [facility] [address] [place] [address] CHECK ONCOTYPE* Hematology/Oncolog y Comment on above: CHECK ONCOTYPE* Start: 09-20-2023 Patient discharge [facility] Start: 08-29-2023 Patient referral [facility] Work Phone: Start: 05-28-2023 Advance Directive Discussion Advance Directive Discussion [facility] Start: 05-28-2023 Behavioral Health Screening Behavioral Health Screening [facility] Start: 01-26-2023 Covid-19 Vaccine ( season) Covid-19 Vaccine ( season) [facility] Start: 01-26-2023 Covid-19 Vaccine () Covid-19 Vaccine () [facility] Start: 01-16-2023 Shingrix Vaccine (3 of 3) Shingrix Vaccine (3 of 3) [facility] Start: 09-01-2022 Patient referral [facility] Work Phone: Start: 11-16-2015 Pneumococcal Vaccine: 65+ (1 of 1 - PCV) Pneumococcal Vaccine: 65+ (1 of 1 - PCV) [facility] Start: 11-16-2015 Screening for osteoporosis Bone Density Screening [facility] Start: 2010 RSV Vaccine (1 - 1-dose 60+ series) RSV Vaccine (1 - 1-dose 60+ series) [facility] Start: 2000 Shingrix Vaccine (1 of 2) Shingrix Vaccine (1 of 2) [facility] Start: 11-16-1995 Diabetes Screening Diabetes Screening [facility] Start: 11-16-1995 Lipid panel Lipid Screening [facility] Start: 11-16-1995 Screening for malignant neoplasm of colon [facility] Start: 1990 Screening for malignant neoplasm of breast Mammogram Screening [facility] Start: 1969 Urine microalbumin profile DTaP,Tdap,Td Vaccine (1 - Tdap) [facility] Start: 1968 Anxiety Screening Anxiety Screening [facility] Start: 1968 Depression Screening Depression Screening [facility] Start: 1968 Hepatitis C screening Hepatitis C Screening [facility] Bilirubin measurement, urine [facility] COVID & INFLUENZA A/ B & RSV PCR, ROUTINE COVID & INFLUENZA A/B & RSV PCR, ROUTINE Microbiology Routine Viral URI with cough Ordered: 04/23/2024 [facility] Work Phone: Comment on above: Ordered: 04/23/2024 CT Guidance for radi ation treatment of Unspecified body region CT SIM [facility] RADIATION ONCOLOGY Radiology Routine Malignant neoplasm of central portion of left breast in female, estrogen receptor positive (HCC) Ordered: 10/19/2023 [facility] Work Phone: Comment on above: Ordered: 10/19/2023 Hemoglobin [Presence ] in Urine [facility] Measurement of keton es in urine using dipstick [facility] MG Breast - bilatera l Screening [facility] Microscopic urinalysis [facility] [place] Parathyroid gland Views [facility] Organism count, micr oscopic method [facility] Patient referral [facility] Work Phone: pH of Urine [facility] Specific gravity of Urine [facility] Urine dipstick for glucose [facility] Urine dipstick for l eukocyte esterase [facility] Urine dipstick for nitrite [facility] Urine dipstick for protein [facility] Urine examination [facility] Urine microscopy: ep ithelial cells [facility] Urine microscopy: red cells [facility] Urobilinogen [Presen ce] in Urine [facility] White blood cell count [facility] Immunizations Immunization Date Immunization Notes Care Provider Kirit elkins 05-23-2021 Covid (Pfizer) Dr. Catherine richter Work Phone: [facility] 08-24-2020 Covid (Pfizer) Dr. Catherine richter Work Phone: [facility] 08-03-2020 Covid (Pfizer) Dr. Catherine richter Work Phone: [facility] 06-19-2015 zoster vaccine, live Dr. Mitul Vazquez Work Phone: [facility] 05-14-2015 influenza virus vaccine, unspecified formulation Pernell Masci DO Work Phone: [facility] Payers Date Payer Category Payer Self-pay [id number] 2023 Private Health Insurance [id number] 2023 Unknown [id number] 2015 Medicare [id number] 2015 Medicare [id number] Unknown [id number] Unknown [id number] 2.16.8 [id number] Unknown [id number] 2.16.8 [id number] Unknown [id number] 2.16.8 [id number] Unknown [id number] 2.16.8 [id number] Unknown [id number] 2.16.8 [id number] Unknown [id number] 2.16.8 [id number] Unknown [id number] 2.16.8 [id number] Unknown [id number] 2.16.8 [id number] Unknown [id number] 2.16.8 [id number] Unknown [id number] 2.16.8 [id number] Unknown [id number] 2.16.8 [id number] Unknown [id number] 2.16.8 [id number] Unknown [id number] 2.16.8 [id number] Unknown [id number] 2.16.8 [id number] Unknown [id number] 2.16.8 [id number] Social History Date Type Detail Facility Start: 09-29-2021 End: 09-07-2023 Tobacco smoking status [facility] Unknown if ever smoked [facility] Start: 01-20-2019 Non-smoker [facility] Start: 1950 Sex Assigned At Female [facility] Start: 09-05-2023 Gender identity Identifies as female gender (finding) [facility] Start: 10-03-2023 End: 07-14-2024 Sexual orientation Not on file [facility] Start: 10-03-2023 End: 09-08-2024 Tobacco smoking status NHIS Ex-smoker [facility] Start: 05-28-1973 End: 05-28-1983 History of tobacco use Current smoker [facility] Start: 05-28-1973 End: 05-28-1983 History of tobacco use Cigarette Smoker [facility] Start: 10-03-2023 End: 04-23-2024 Tobacco use and exposure Smokeless tobacco non-user [facility] Start: 10-03-2023 End: 07-14-2024 Alcohol intake Ex-drinker (finding) [facility] Start: 10-03-2023 End: 07-14-2024 History of Social function [facility] National Score (1-100), lower number is lower risk 64 [facility] Start: 09-07-2023 Sexual orientation Heterosexual (woody robert) [facility] Start: 09-15-2024 Sex Female (finding) [facility] NEGATED: Highlighted row 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 approach BIOLOX DELTA CERAMIC FDA Start: 02-05-2019 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 approach TRIDENT X3 0 DEGREE POLY INSER FDA Start: 02-05-2019 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 approach TRIDENT ll TRITANIUM CLUSTERHO FDA Start: 02-05-2019 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 approach ACCOLADE ll 132 DEGREE FDA Start: 02-05-2019 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 approach BIOLOX DELTA CERAMIC FDA Start: 02-05-2019 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 approach TRIDENT X3 0 DEGREE POLY INSER FDA Start: 02-05-2019 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 approach TRIDENT ll TRITANIUM CLUSTERHO FDA Start: 02-05-2019 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 approach ACCOLADE ll 132 DEGREE FDA Start: 02-05-2019 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 approach BIOLOX DELTA CERAMIC FDA Start: 02-05-2019 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 approach TRIDENT X3 0 DEGREE POLY INSER FDA Start: 02-05-2019 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 approach TRIDENT ll TRITANIUM CLUSTERHO FDA Start: 02-05-2019 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 approach ACCOLADE ll 132 DEGREE FDA Start: 02-05-2019 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 approach BIOLOX DELTA CERAMIC FDA Start: 02-05-2019 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 approach TRIDENT X3 0 DEGREE POLY INSER FDA Start: 02-05-2019 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 approach TRIDENT ll TRITANIUM CLUSTERHO FDA Start: 02-05-2019 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 approach ACCOLADE ll 132 DEGREE FDA Start: 02-05-2019 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 approach BIOLOX DELTA CERAMIC FDA Start: 02-05-2019 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 approach TRIDENT X3 0 DEGREE POLY INSER FDA Start: 02-05-2019 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 approach TRIDENT ll TRITANIUM CLUSTERHO FDA Start: 02-05-2019 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 approach ACCOLADE ll 132 DEGREE FDA Start: 02-05-2019 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 approach BIOLOX DELTA CERAMIC FDA Start: 02-05-2019 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 approach TRIDENT X3 0 DEGREE POLY INSER FDA Start: 02-05-2019 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 approach TRIDENT ll TRITANIUM CLUSTERHO FDA Start: 02-05-2019 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 approach ACCOLADE ll 132 DEGREE FDA Start: 02-05-2019 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 approach BIOLOX DELTA CERAMIC FDA Start: 02-05-2019 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 approach TRIDENT X3 0 DEGREE POLY INSER FDA Start: 02-05-2019 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 approach TRIDENT ll TRITANIUM CLUSTERHO FDA Start: 02-05-2019 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 approach ACCOLADE ll 132 DEGREE FDA Start: 02-05-2019 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 approach BIOLOX DELTA CERAMIC FDA Start: 02-05-2019 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 approach TRIDENT X3 0 DEGREE POLY INSER FDA Start: 02-05-2019 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 approach TRIDENT ll TRITANIUM CLUSTERHO FDA Start: 02-05-2019 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 approach ACCOLADE ll 132 DEGREE FDA Start: 02-05-2019 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 approach BIOLOX DELTA CERAMIC FDA Start: 02-05-2019 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 approach TRIDENT X3 0 DEGREE POLY INSER FDA Start: 02-05-2019 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 approach TRIDENT ll TRITANIUM CLUSTERHO FDA Start: 02-05-2019 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 approach ACCOLADE ll 132 DEGREE FDA Start: 02-05-2019 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 approach BIOLOX DELTA CERAMIC FDA Start: 02-05-2019 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 approach TRIDENT X3 0 DEGREE POLY INSER FDA Start: 02-05-2019 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 approach TRIDENT ll TRITANIUM CLUSTERHO FDA Start: 02-05-2019 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 approach ACCOLADE ll 132 DEGREE FDA Start: 02-05-2019 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 approach BIOLOX DELTA CERAMIC FDA Start: 02-05-2019 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 approach TRIDENT X3 0 DEGREE POLY INSER FDA Start: 02-05-2019 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 approach TRIDENT ll TRITANIUM CLUSTERHO FDA Start: 02-05-2019 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 approach ACCOLADE ll 132 DEGREE FDA Start: 02-05-2019 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 approach BIOLOX DELTA CERAMIC FDA Start: 02-05-2019 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 approach TRIDENT X3 0 DEGREE POLY INSER FDA Start: 02-05-2019 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 approach TRIDENT ll TRITANIUM CLUSTERHO FDA Start: 02-05-2019 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 approach ACCOLADE ll 132 DEGREE FDA Start: 02-05-2019 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 approach BIOLOX DELTA CERAMIC FDA Start: 02-05-2019 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 approach TRIDENT X3 0 DEGREE POLY INSER FDA Start: 02-05-2019 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 approach TRIDENT ll TRITANIUM CLUSTERHO FDA Start: 02-05-2019 Lumpectomy, breast, bilateral, after needle localization, with bilateral sentinel and SUTURE,LIGA CLIP MED LT200 FDA Start: 09-20-2023 Lumpectomy, breast, bilateral, after needle localization, with bilateral sentinel and SUTURE,LIGA CLIP SM LT-100 FDA Start: 09-20-2023 Lumpectomy, breast, bilateral, after needle localization, with bilateral sentinel and SUTURE,LIGA CLIP SM LT-100 FDA Start: 09-20-2023 Lumpectomy, breast, bilateral, after needle localization, with bilateral sentinel and SUTURE,LIGA CLIP MED LT200 FDA Start: 09-20-2023 Lumpectomy, breast, bilateral, after needle localization, with bilateral sentinel and SUTURE,LIGA CLIP SM LT-100 FDA Start: 09-20-2023 Lumpectomy, breast, bilateral, after needle localization, with bilateral sentinel and SUTURE,LIGA CLIP SM LT-100 FDA Start: 09-20-2023 Lumpectomy, breast, bilateral, after needle localization, with bilateral sentinel and SUTURE,LIGA CLIP MED LT200 FDA Start: 09-20-2023 Lumpectomy, breast, bilateral, after needle localization, with bilateral sentinel and SUTURE,LIGA CLIP SM LT-100 FDA Start: 09-20-2023 Lumpectomy, breast, bilateral, after needle localization, with bilateral sentinel and SUTURE,LIGA CLIP SM LT-100 FDA Start: 09-20-2023 Lumpectomy, breast, bilateral, after needle localization, with bilateral sentinel and SUTURE,LIGA CLIP MED LT200 FDA Start: 09-20-2023 Lumpectomy, breast, bilateral, after needle localization, with bilateral sentinel and SUTURE,LIGA CLIP SM LT-100 FDA Start: 09-20-2023 Lumpectomy, breast, bilateral, after needle localization, with bilateral sentinel and SUTURE,LIGA CLIP SM LT-100 FDA Start: 09-20-2023 Lumpectomy, breast, bilateral, after needle localization, with bilateral sentinel and SUTURE,LIGA CLIP MED LT200 FDA Start: 09-20-2023 Lumpectomy, breast, bilateral, after needle localization, with bilateral sentinel and SUTURE,LIGA CLIP SM LT-100 FDA Start: 09-20-2023 Lumpectomy, breast, bilateral, after needle localization, with bilateral sentinel and SUTURE,LIGA CLIP SM LT-100 FDA Start: 09-20-2023 ([id number]) Metal-backed patella prosthesis ()[id number] FDA Start: 10-06-2024 ([id number]) Coated knee femu r prosthesis ()[id number] ([id number] FDA Start: 10-06-2024 ([id number]) Coated knee tibi a prosthesis ()[id number] FDA Start: 10-06-2024 ([id number]) Tibial insert ()[id number] FDA Start: 10-06-2024 Goals Date Patient Goal Desired Activity /State Functional Status Date Assessment Result Facility 10-07-2024 Functional status Activity Abili ty Standby Assist;With Assist of [address] [facility] Work Phone: 10-07-2024 Functional status Patient Activi ty Up ad julia;Bathroom Privilege [facility] Work Phone: 10-06-2024 Functional status Standard Walker [facility] Work Phone: Mental Status Date Assessment Result Facility 10-07-2024 [facility]: 09-20-2023 Cognitive function Voice/Name;Touch/Shaki ng [facility] Work Phone: Clinical Notes 09-29-2022 to 10-21-2024 Note Date & Type Note Facility 10-21-2024 Progress note [facility] 10-21-2024 Progress note Note Date/Time October 21, 2024 3:29pm [facility] [address] [place] [address] [place] [address] OFFICE VISIT Date of Service: 10/21/24 MR#: [id number] Acct: [id number] Name: ANGELA MAY Rep #: [id number] : 1950 Provider: Dr. Mike Vazquez DO Age/Sex: 73/F Location: [facility] [place].[facility] Status: Signed Intake Vital Signs 10/06/24 14:03 10/21/24 15:09 Height 5 ft 5 in 5 ft 5 in Weight: 201 lb BMI 33.4 BP 126/76 H Blood Pressure Location Rt brachial Position Sitting Respiration 16 Pulse 84 Pulse Source Monitor Temp 99.5 F H Temp Source Temporal Pulse Oximetry (%) 95 Oxygen Delivery Method room air Intake Visit Reasons: FOLLOW UP FROM THYROID TEST, PER DR NAJERA Chief Complaint: FOLLOW UP FROM THYROID TEST PER DR NAJERA Is patient in pain?: No Allergies No Known Allergies Allergy (Verified 10/21/24 15:04) Medications ?Medication ?Instructions ?Recorded ?Confirmed ?Type Lactobacillus acidophilus 250 500 mmu cells PO DAILY 0 09/07/23 10/21/24 History million cell capsule (Probiotic Acidophilus) valsartan 160 1 tab PO DAILY #90 tabs 10/2610/21/24 Rx mg-hydrochlorothiazide 12.5 mg tablet cholecalciferol (vitamin D3) 50 50 mcg PO DAILY 10/21/24 History mcg (2,000 unit) capsule (Vitamin D3) letrozole 2.5 mg tablet 2.5 mg PO DAILY 09/08/24 History omega 7-hrh-nrq-fish oil 1,200 mg 2 cap PO DAILY 09/0810/21/24 History (144 mg-216 mg) capsule (Fish Oil) acetaminophen 500 mg tablet 500 mg PO Q6H PRN pain 10/21/24 History (Tylenol Extra Strength) famotidine 20 mg tablet 20 mg PO DAILY 30 days #30 t abs 10/07/24 10/21/24 Rx oxycodone 5 mg tablet 5 - 10 mg (1 - 2 x 5 mg) PO Q4H 10/07/24 10/21/24 Rx PRN PRN As needed for pain. 7 days #42 tabs aspirin 81 mg chewable tablet 162 mg PO QDAY 10/21/24 10/21/24 History (Yessica Chewable Low Dose Aspirin) glucosamine-chondroitin 500 mg-400 1 cap PO DAILY 09/2610/21/24 History mg capsule Have you fallen in the past year?: No Nurse's Note: PATIENT WAS TOLD THAT CALCIUM WAS HIGH TWICE AND TOLD TO DISCUSS WITH PCP. [facility] Medical History (Updated 10/21/24 @ 15:[address] Catherine Vazquez, DO) Wears glasses Wears partial dentures Post-menopausal Cancer Heartburn Former smoker History of echocardiogram History of irregular heartbeat Psoriatic arthritis Osteopenia Osteoarthritis Hypertension Arthritis Surgical History (Updated 10/21/24 @ 15:08 by Ml Carney) History of total knee replacement History of tubal ligation History of lumpectomy of left breast S/P lumpectomy, left breast Hx of colonoscopy Hx of right cataract extraction Hx of left cataract extraction History of left hip replacement History of right hip replacement History of section History of carpal tunnel release of both wrists Family History Father Arthritis Heart disease Hypertension Mother Hypertension Grandmother CVA (cerebral vascular accident) Social History Smoking Status: Former smoker how long ago did patient quit smokin alcohol intake: never substance use type: does not use what type of physical activity do you participate in: walking frequency: daily HPI HPI Chief Complaint: FOLLOW UP FROM THYROID TEST PER DR NAJERA Details: ANGELA MAY, is a 73 F who presents to the office today for follow-up on an elevated calcium and an elevated PTH that was done by her oncologist. This patient has no history of kidney stones she has no history of generalized bone pain although she is only 2 weeks postop from a hip replacement. And she has nomental issues. PTH was consistently elevated. ROS Const Constitutional: No body ache, chills, excessive sweating, fatigue, fever(s), frequent falls, headache(s), snoring, weakness, sleep problems or change in appetite Eyes Eyes: No blurry vision, change in vision or Light sensitivity ENT ENT: No abnormal hearing, ear or mastoid pain, tinnitus, nasal congestion, nasaldischarge, headache(s), neck pain or sore throat Resp Respiratory: No cough, shortness of breath, snoring or wheezing Cardio Cardiology: No chest pain at rest, chest pain with exertion, excessive sweating,shortness of breath, dyspnea on exertion, lightheadedness, orthopnea or palpitations Gastro GI: No abdominal pain, change in bowel habits, constipation, cramping, diarrhea or nausea/dyspepsia Genitourinary-Female: No burning urination, painful urination, urinary incontinence or urinary frequency Musc Musculoskeletal: No abnormal gait, joint pain, back pain, limited range of motion, muscle weakness, neck pain or numbness Skin Skin: No dry skin, redness, lesions, itchy eyes, rash or wounds Neuro Neurology: No abnormal gait, abnormal hearing, weakness, frequent falls, headache(s), memory loss or numbness Psych Psychiatric: No anxiety, No change in appetite, No depression, No memory loss, No panic attacks and No Thoughts of harming yourself/Others Endo Endocrine: No cold intolerance, excessive sweating, fatigue, flushing, heat intolerance, increased thirst/drinking or increased hunger Aller/Imm Allergy/Immunologic: No itchy eyes, seasonal allergy symptoms, hives or wheezing Exam Const General: cooperative and healthy appearing Nutritional Appearance: overweight HENMT Head: normal to inspection Ears: hearing grossly normal bilaterally and EAC's normal Nose: external nose normal Face and sinus: normal facial exam Mouth: oral mucosae normal Teeth and gingiva: dentition normal Throat: posterior oropharynx normal Eyes General: appearance normal, both eyes and all related structures Neck Neck: normal visual inspection Neck mass: No Thyroid: thyroid normal Resp Effort & Inspection: normal respiratory effort Auscultation: Bilateral: Clear to Auscultation Cardio Rate: regular rate Rhythm: regular rhythm GI Inspection: normal to inspection Auscultation: normal bowel sounds Palpation: no hepatosplenomegaly Musc Musculoskeletal: Yes joint tenderness (Right knee.) and decreased range of motion (Right knee.) Skin General: no rashes or lesions noted Neuro General: patient alert, patient oriented x3 and moves all extremities Cognition: normal cognition Speech: speech normal Gait: gait assisted Method: walking stick Extrem General: no clubbing, cyanosis or edema Psych Appearance: well kempt Mood: congruent mood Affect: normal affect Attitude: cooperative Judgment: judgment good Coding Level of Care Code Off vis,est,level 3 Diagnoses Frequency of urination R35.0 Elevated PTHrP level R79.89 Assessment and Plan Assessment and Plan (1) Frequency of urination: Status: Acute Plan: Because of her complaints of nocturia x 4 times a night I will get a urinalysis and see if there is any sign of infection. (2) Elevated PTHrP level: Status: Acute Plan: Her parathyroid hormone was significantly elevated. I will get a parathyroid scan and evaluate that. She does take oral vitamin D so lack of vitamin D is anunlikely cause. Orders: Orders Urinalysis, Complete Today R35.0 - Frequency of micturition Parathyroid Scan Today R79.89 - Other specified abnormal findings of blood chemistry Clinical Quality Measures Falls Risk Screening/Assistive Devices Have you fallen in the past year?: No 10/21/24 1529 <Electronically signed by Catherine randolph DO> Date _ Catherine Vazquez DO Cosigner Signature: Date (if applicable) CC: ~ [facility] Work Phone: 1(872) 284-422205-13-2025 Consult note [facility] Medical Records Department [address] [place] [address] Anesthesia Postop Eval II 10/06/241817 MR#: [id number] Acct: [id number] Name: ANGELA MAY Rep #:[id number] : 1950 73 From: Anibal Montemayor MD PCP: Dr. Catherine Vazquez, DO Status:AD M CHRISTIAN Y Race: C [place] [facility] [id number] -[id number] Anesthesia Postop Eval I Sum Postop Eval Completion status Anesthesia document: Postop Eval 1 completed: Yes Anesthesia Postop Eval I Summary Anesthesia Postop Eval I Summary: Anesthesia Postop Eval I: Assessment Summary Airway patent Yes 10/06/24 12:35 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 Spontaneous unlabored Yes 10/06/24 12:35 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 respirations Mental status Awake,Calm 10/06/24 12:35 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 nausea No 10/06/24 12:35 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 Vomiting No 10/06/24 12:35 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 Anesthesia Postop Eval I: Fluid Summary Crystalloid volume administer 1,200 10/06/24 12:35 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 (ml) Colloids volume administered ( ml) Blood Product volume administered (ml) Total IV fluid infused 1,200 10/06/24 12:35 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 Anesthesia Postop Eval I: Summary Notes Anesthesia Complication No 10/06/24 12:35 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 Anesthesia Complication Comment: Post-operative progress note Anesthesia: Postop Eval II Evaluation Mental status: Awake and Calm Pain Level: 1 nausea: No Vomiting: No Complications Anesthesia Complication: No 10/06/241817 matt MAIN> Date _ Anibal Montemayor MD Cosigner Signature: Date CC: ~ Signed [facility]05-13-2025 Consult note [facility] Medical Records Department [address] [place] [address] Counseling Note - Pharmacy 10/07/24 1154 MR#: [id number] Acct: [id number] Name: ANGELA MAY Rep #:[id number] : 1950 73 From: Tamara Sparrow PCP: Dr. Catherine Vazquez, DO Status:[place] [facility] [place]214-5 Pharmacy [facility] has performed discharge medication reconciliation and counseling for this patient. 1. ACETAMINOPHEN 1000MG PO Q8 2. FAMOTIDINE 20MG PO DAILY 3. RIVAROXABAN 10MG PO DAILY X 13 DAYS, THEN ASPIRIN 81MG BID X 14 DAYS (THEN RESUME DAILY) 4. OXYCODONE 5-10MG PO Q4H PRN PAIN 5. SENNA/DOCUSATE 2T PO BID UNTIL FIRST BM, THEN BID PRN CONSTIPATION The patient's discharge medication list was reviewed for discrepancies and discrepancies were resolved. The patient was counseled on the following discharge medications and changes in medications for homegoing were reviewed. The Reason for Use, instructions for use, and potential side effects were reviewed for all new medications. The patient's questions regarding all of their medications were answered. The patient was able to verbally demonstrate an understanding of their dischargemedications. Medications at Discharge Home Medications Lactobacillus acidophilus 250 million cell capsule (Probiotic Acidophilus) 500 mmu cells PO DAILY 09/07/23 valsartan 160 mg-hydrochlorothiazide 12.5 mg tablet 1 tab PO DAILY #90 tabs 11/13/23 cholecalciferol (vitamin D3) 50 mcg (2,000 unit) capsule (Vitamin D3) 50 mcg PO DAILY 09/08/24 glucosamine-chondroitin 500 mg-400 mg capsule 3 cap PO DAILY 09/08/24 letrozole 2.5 mg tablet 2.5 mg PO DAILY 09/08/24 omega 2-eck-fou-fish oil 1,200 mg (144 mg-216 mg) capsule (Fish Oil) 2 cap PO DAILY 09/08/24 acetaminophen 500 mg tablet (Tylenol Extra Strength) 500 mg PO Q6H PRN pain 09/17/24 acetaminophen 500 mg tablet 1,000 mg (2 x 500 mg) PO TID #0 tabs 10/07/24 famotidine 20 mg tablet 20 mg PO DAILY 30 days #30 tabs 10/07/24 oxycodone 5 mg tablet 5 - 10 mg (1 - 2 x 5 mg) PO Q4H PRN PRN As needed for pain. 7 days #42 tabs 10/07/24 rivaroxaban 10 mg tablet (Xarelto) 10 mg PO DAILY 13 days #13 tabs 10/07/24 sennosides 8.6 mg-docusate sodium 50 mg tablet (Stimulant Laxative Plus) 2 tab PO BID #0 tabs 10/07/24 10/07/24 1155 Date _ Tamara Valdez Signature (if applicable): Date CC: ~ Signed [facility]05-13-2025 Discharge summary Author Maribel Rubio [facility] Note Date/Time October 07, 2024 9:27a m [facility] Medical Records Department [address] [place] [address] Instructions for Home/Discharge Instructions 10/07/24 0853 MR#: [id number] Acct: [id number] Name: JEFFERSONSIERRAANGELAZABETH Rep #:[id number] : 1950 73 From: Maribel KELLOGG PCP: Dr. Catherine Vazquez, DO Status:AD M CHRISTIAN Discharge Instructions Diet Discharge Diet: No restrictions DC O2, CPAP, BIPAP needs Home O2 Discharge instructions: No Dressing / Incision Discharge Activity: May Not Drive (Until 6 weeks postoperatively.) Weight Bearing Status: Weight bearing as tolerated (With walker.) Keep extremity elevated above heart level: Right Leg Dressing / Incision Call your doctor if your incision/area has: Continuous Slow Oozing, Sudden Increased Bleeding, Increased Pain/ Swelling, Increased Redness, Foul Smelling Discharge and Swelling at the incision site Call your doctor if you observe: Fever of 101 or Higher, Coldness, Increased Pain, Numbness or Tingling, Change in Color, Inability to urinate, Inability to have a bowel movement, Using more than 1 pad per hour, Shortness of breath, Dizziness, Fainting spells, Swelling in the ankles, Chest pain, Prolonged hiccupping, Increased palpitations (irregular heartbeat), Calf discomfort and Uncontrolled pain Remove Dressing in: 5 days (Can remove dressing on 10/11.) Cleanse incision/area with: Soap & Water Additional Dressing/Incision Instructions:: Once postoperative dressing has beenremoved, only use gentle soap and water over the incision. Do not use any ointments, Neosporin, salves, alcohol pads over the incision for 6 weeks postoperatively. Do not submerge underwater for 6 weeks postoperatively. Continue with KENZIE hose/elastic stockings for 2 weeks postoperatively. May remove at nighttime but needs to be placed back on the leg during the day. DVT prophylaxis plan: You will use Xarelto for 2 weeks postoperatively and then aspirin 81 mg twice daily for an additional 2 weeks to cover for 4-week operatively. Do not use any NSAIDs while taking Xarelto for first 2 weeks. Do NOT use alcohol with narcotic pain medication. Do NOT make important decisions while taking narcotic medication. If you have problems with taking your medication (rash, itching, nausea, etc.) call the office at once. Follow Up Care Test Results: Test results from this visit will be discussed in further detail at your follow- up appointment, if applicable. Discharge Plan Admission Admit Date/Time: 10/06/24 07:23 Attending Provider: Yuri Jasso Primary Care Provider: Catherine Vazquez Consulting Providers: Jocelin Verdugo; Rudy Liu Discharge Orders/Prescriptions Prescriptions: New sennosides-docusate sodium [Stimulant Laxative Plus] 8.6-50 mg Tablet 2 tab PO BID Qty: 0 0RF Rx Instructions: Take until first bowel movement and then as needed. acetaminophen 500 mg Tablet 1,000 mg PO TID Qty: 0 0RF famotidine 20 mg Tablet 20 mg PO DAILY 30 Days Qty: 30 0RF oxycodone 5 mg Tablet 5 - 10 mg PO Q4H PRN PRN (Reason: As needed for pain.) 7 Days Qty: 42 0RF Xarelto 10 mg Tablet 10 mg PO DAILY 13 Days Qty: 13 0RF Continued valsartan-hydrochlorothiazide 160-12.5 mg tablet 1 tab PO DAILY Qty: 90 4RF Probiotic Acidophilus 250 million cell capsule 500 mmu cells PO DAILY letrozole 2.5 mg tablet 2.5 mg PO DAILY omega 0-xfj-mlp-fish oil [Fish Oil] 1,200 (144-216) mg capsule 2 cap PO DAILY cholecalciferol (vitamin D3) [Vitamin D3] 50 mcg (2,000 unit) capsule 50 mcg PO DAILY glucosamine-chondroitin 500-400 mg capsule 3 cap PO DAILY Rx Instructions: give with meal/snack No Action acetaminophen [Tylenol Extra Strength] 500 mg tablet 500 mg PO Q6H PRN (Reason: pain) Other Ambulatory Orders: 12 Lead EKG (Routine) Location: None Selected Ordered By: Dr. Yuri Jasso Referrals / Follow Up: Catherine Vazquez DO [Primary Care Provider] - Disposition Disposition (needs filled in before D/C Order can be placed): Home, Self Care 10/07/24 2653<Electronically signed by Maribel KELLOGG>Maribel KELLOGG CC: Dr. Jocelin Verdugo MD; Dr. Catherine Vazquez DO; Dr. Rudy Liu DO ~ Signed [facility] Work Phone: 1(633) 340-433705-13-2025 Progress note Author [facility] Note Date/Time October 07, 2024 9:05a m [facility] Medical Records Department [address] [place] [address] Progress Note - Orthopedic 10/07/24 0854 MR#: [id number] Acct: [id number] Name: ANGELA MAY Rep #:[id number] : 1950 73 From: Maribel KELLOGG PCP: Dr. Catherine Vazquez DO Status:AD M CHRISTIAN Location: MS3 RG191-4 Subjective Subjective Patient was laying comfortably in bed. Patient states that she feels she is ready to go home at this point. Patient states that she has not yet had bowel movement. Patient states that her pain has been adequately controlled. Patientstates that she has been up and been going to the bathroom. Patient states thatshe did work with physical therapy yesterday and it went well. Patient states that she did have an episode of emesis yesterday directly following surgery but has denied any nausea, vomiting, dizziness today. Patient denies any new numbness or tingling. Patient denies any shortness of breath, chest pain, calf pain. Patient denies any adverse events overnight. Objective Data Objective Data Vital Signs: Vital Signs Temp Pulse Resp BP Pulse Ox O2 Del Method O2 Flow Rate 97.9 F 69 16 124/68 H 96 Room Air 2 10/07/24 05:02 10/07/24 05:02 10/07/24 05:02 10/07/24 05:02 10/07/24 05:02 10/07/24 05:02 10/06/24 15:30 FiO2 42 10/06/24 13:30 Oxygen Flow Rate (L/min) 2 Oxygen Delivery Method Room Air Weight: 93.2 kg Body Mass Index (BMI) 34.2 Intake & Output: Intake and Output for Last 24 Hours 10/05/24 10/06/24 10/07/24 23:59 23:59 23:59 Intake Total 1050 / 1050 2450 / 2450 Balance 1050 / 1050 2450 / 2450 Lab / Micro Data 10/07/24 06:01 10/07/24 06:01 Labs: Laboratory Results - last 24 hr 10/07/24 06:01: WBC 15.1 H, RBC 3.62 L, Hgb 11.4 L, Hct 33.8 L, MCV 93.4, MCH 31.5, MCHC 33.7, RDW Std Deviation 42.3, RDW Coeff of Bret 12.3, Plt Count 161, MPV 12.5 H, Sodium 134, Potassium 4.0, Chloride 100, Carbon Dioxide 21.8, Anion Gap 12, BUN 27 H, Creatinine 0.92, Estim Creat Clear Calc 61.46, Est GFR (MDRD) Non-Af 65, BUN/Creatinine Ratio 28.7 H, Glucose 156 H, Calcium 9.1 Micro: Microbiology 09/10/24 13:05 Swab (Method) Nasal Screen MRSA/MSSA - Final Radiography Diagnostic Testing: Radiology Impression Knee X-Ray 10/06/24 07:22 IMPRESSION: Status post total knee replacement. There is good alignment. Postoperative soft tissue changes. Reading Location: [id number] Physical Exam Narrative KENZIE hose in place bilaterally SCDs in place bilaterally Dressing is clean dry and intact Dorsiflexion and plantarflexion are performed but pain or restriction Sensation intact to light touch Neurovascularly intact overall Negative Homans bilaterally Const alert, oriented x3 and no apparent distress Assessment & Plan Assessment/Plan (1) Status post right knee replacement: PLAN: Status post right robotic assisted total knee arthroplasty day 1 1. DVT prophylaxis: Patient will be on Xarelto for 2 weeks postoperatively followed by aspirin 81 mg twice daily for an additional 2 weeks. Patient will be on Xarelto due to taking anastrozole due to history of breast cancer. Patient was educated not to take any anti-inflammatory medications while taking Xarelto. Patient will be wearing KENZIE hose bilaterally for 2 weeks postoperatively removing at night and with showering. Patient was educated to do 5 minutes of movement per every hour. 2. Pain medications: Patient will be taking Tylenol 1000 mg every 8 hours taking no more than 3000 mg in 24 hours, patient will also have oxycodone to take as needed for pain medication. OARRS report was reviewed today. Risk of abuse potential was discussed with patient. Patient was educated not to use while driving motor vehicle or operating equipment. Patient voiced understanding. 3. Constipation: Patient will be taking senna postoperatively. Patient was instructed to take until first bowel movement and then take as needed to decrease risk of impaction following surgery. Patient was educated if she has not had a bowel movement in 3 days to contact our office. 4. Reactive leukocytosis: White blood cell count is currently 15.1. Vital signs are stable and patient is afebrile. Patient did receive Decadron intraoperatively. 5. H&H: 11.4/33.8. Vital signs are stable and patient is afebrile. Currently hemoglobin is above the threshold of 10 and we do not need to begin anemia protocol. 6. Physical therapy: Patient will be weightbearing as tolerated with walker with physical therapy. Patient does have outpatient physical therapy scheduled. 7. Incentive spirometry: Patient was encouraged to use incentive spirometer every hour that she is awake for the first week to exercise lungs and decrease risk of postoperative infection. Patient voiced understanding. 8. Dressings: Patient was educated she can get waterproof dressing wet on postoperative day 1. Patient was educated she can remove dressing on postoperative day 5. Patient was educated if incision is clean dry and intact she is able to leave open to air. 9. Patient is to follow-up per postoperative instructions. 10. Patient will have a follow-up appointment with Eligio Melendez in 2 weeks. Patientdoes have appointment scheduled. 11. Medicine is involved at this point and appreciate recommendations from medicine. 12. Patient was following nutrition protocol prior to surgery. Patient was educated to finish up her shakes when she got home. 13. Patient is okay for discharge if pain maintains adequately controlled, has worked with and is cleared by physical therapy, and is okay per medicine doctorsinstructions. 14. Patient states that she does feel comfortable with going home. Patient states that she does have help at home from her and her daughter who is a nurse is coming to stay with her for 1 week postoperatively. Patient states that she does have senna, Tylenol, aspirin at home already. Patient would like medications sent in to be sent to pharmacy of choice which is [facility]. Patient will continue being weightbearing as tolerated with walker. Patient does have outpatient physical therapy scheduled. Patient does have 2-week follow-up appointment scheduled. Patient is to follow- up per postoperative instructions. Patient was encouraged to call us with any questions, concerns, new problems. 10/07/24904 <Electronically signed by Maribel KELLOGG> Cosigner Signature (if applicable): CC: ~ Signed [facility] Work Phone: 1(205) 840-557305-13-2025 Discharge summary [facility] Medical Records Department [address] [place] [address] Instructions for Home/Discharge Instructions 10/07/24 0853 MR#: [id number] Acct: [id number] Name: ANGELA MAY Rep #:[id number] : 1950 73 From: Maribel KELLOGG PCP: Dr. Catherine Vazquez, DO Status:AD M CHRISTIAN Discharge Instructions Diet Discharge Diet: No restrictions DC O2, CPAP, BIPAP needs Home O2 Discharge instructions: No Dressing / Incision Discharge Activity: May Not Drive (Until 6 weeks postoperatively.) Weight Bearing Status: Weight bearing as tolerated (With walker.) Keep extremity elevated above heart level: Right Leg Dressing / Incision Call your doctor if your incision/area has: Continuous Slow Oozing, Sudden Increased Bleeding, Increased Pain/ Swelling, Increased Redness, Foul Smelling Discharge and Swelling at the incision site Call your doctor if you observe: Fever of 101 or Higher, Coldness, Increased Pain, Numbness or Tingling, Change in Color, Inability to urinate, Inability to have a bowel movement, Using more than 1 pad per hour, Shortness of breath, Dizziness, Fainting spells, Swelling in the ankles, Chest pain, Prolonged hiccupping, Increased palpitations (irregular heartbeat), Calf discomfort and Uncontrolled pain Remove Dressing in: 5 days (Can remove dressing on 10/11.) Cleanse incision/area with: Soap & Water Additional Dressing/Incision Instructions:: Once postoperative dressing has beenremoved, only use gentle soap and water over the incision. Do not use any ointments, Neosporin, salves, alcohol pads over the incision for 6 weeks postoperatively. Do not submerge underwater for 6 weeks postoperatively. Continue with KENZIE hose/elastic stockings for 2 weeks postoperatively. May remove at nighttime but needs to be placed back on the leg during the day. DVT prophylaxis plan: You will use Xarelto for 2 weeks postoperatively and then aspirin 81 mg twicedaily for an additional 2 weeks to cover for 4-week operatively. Do not use any NSAIDs while takingXarelto for first 2 weeks. Do NOT use alcohol with narcotic pain medication. Do NOT make important decisions while taking narcotic medication. If you have problems with taking your medication (rash, itching, nausea, etc.) call the office at once. Follow Up Care Test Results: Test results from this visit will be discussed in further detail at your follow- up appointment, if applicable. Discharge Plan Admission Admit Date/Time: 10/06/24 07:23 Attending Provider: Yuri Jasso Primary Care Provider: Catherine Vazquez Consulting Providers: Jocelin Verdugo; Rudy Liu Discharge Orders/Prescriptions Prescriptions: New sennosides-docusate sodium [Stimulant Laxative Plus] 8.6-50 mg Tablet 2 tab PO BID Qty: 0 0RF Rx Instructions: Take until first bowel movement and then as needed. acetaminophen 500 mg Tablet 1,000 mg PO TID Qty: 0 0RF famotidine 20 mg Tablet 20 mg PO DAILY 30 Days Qty: 30 0RF oxycodone 5 mg Tablet 5 - 10 mg PO Q4H PRN PRN (Reason: As needed for pain.) 7 Days Qty: 42 0RF Xarelto 10 mg Tablet 10 mg PO DAILY 13 Days Qty: 13 0RF Continued valsartan-hydrochlorothiazide 160-12.5 mg tablet 1 tab PO DAILY Qty: 90 4RF Probiotic Acidophilus 250 million cell capsule 500 mmu cells PO DAILY letrozole 2.5 mg tablet 2.5 mg PO DAILY omega 8-xlo-flm-fish oil [Fish Oil] 1,200 (144-216) mg capsule 2 cap PO DAILY cholecalciferol (vitamin D3) [Vitamin D3] 50 mcg (2,000 unit) capsule 50 mcg PO DAILY glucosamine-chondroitin 500-400 mg capsule 3 cap PO DAILY Rx Instructions: give with meal/snack No Action acetaminophen [Tylenol Extra Strength] 500 mg tablet 500 mg PO Q6H PRN (Reason: pain) Other Ambulatory Orders: 12 Lead EKG (Routine) Location: None Selected Ordered By: Dr. Yuri Jasso Referrals / Follow Up: Catherine Vazquez DO [Primary Care Provider] - Disposition Disposition (needs filled in before D/C Order can be placed): Home, Self Care 10/07/24 0927Maribel KELLOGG CC: Dr. Jocelin Verdugo MD; Dr. Catherine Vazquez DO; Dr. Rudy Liu DO ~ Signed [facility]05-13-2025 Progress note [facility] Medical Records Department [address] [place] [address] Progress Note - Orthopedic 10/07/24 0854 MR#: [id number] Acct: [id number] Name: ANGELA MAY Rep #:[id number] : 1950 73 From: Maribel KELLOGG PCP: Dr. Catherine Vazquez DO Status:AD M CHRISTIAN Location: [facility] AW370-9 Subjective Subjective Patient was laying comfortably in bed. Patient states that she feels she is ready to go home at this point. Patient states that she has not yet had bowel movement. Patient states that her pain has been adequately controlled. Patientstates that she has been up and been going to the bathroom. Patientstates thatshe did work with physical therapy yesterday and it went well. Patient states that she did have an episode of emesis yesterday directly following surgery but has denied any nausea, vomiting, dizziness today. Patient denies any new numbness or tingling. Patient denies any shortness of breath, chest pain, calf pain. Patient denies any adverse events overnight. Objective Data Objective Data Vital Signs: Vital Signs Temp Pulse Resp BP Pulse Ox O2 Del Method O2 Flow Rate 97.9 F 69 16 124/68 H 96 Room Air 2 10/07/24 05:02 10/07/24 05:02 10/07/24 05:02 10/07/24 05:02 10/07/24 05:02 10/07/24 05:02 10/06/24 15:30 FiO2 42 10/06/24 13:30 Oxygen Flow Rate (L/min) 2 Oxygen Delivery Method Room Air Weight: 93.2 kg Body Mass Index (BMI) 34.2 Intake & Output: Intake and Output for Last 24 Hours 10/05/24 10/06/24 10/07/24 23:59 23:59 23:59 Intake Total 1050 / 1050 2450 / 2450 Balance 1050 / 1050 2450 / 2450 Lab / Micro Data 10/07/24 06:01 10/07/24 06:01 Labs: Laboratory Results - last 24 hr 10/07/24 06:01: WBC 15.1 H, RBC 3.62 L, Hgb 11.4 L, Hct 33.8 L, MCV 93.4, MCH 31.5, MCHC 33.7, RDW Std Deviation 42.3, RDW Coeff of Bret 12.3, Plt Count 161, MPV 12.5 H, Sodium 134, Potassium 4.0, Chloride 100, Carbon Dioxide 21.8, Anion Gap 12, BUN 27 H, Creatinine 0.92, Estim Creat Clear Calc 61.46, Est GFR (MDRD) Non-Af 65, BUN/Creatinine Ratio 28.7 H, Glucose 156 H, Calcium 9.1 Micro: Microbiology 09/10/24 13:05 Swab (Method) Nasal Screen MRSA/MSSA - Final Radiography Diagnostic Testing: Radiology Impression Knee X-Ray 10/06/24 07:22 IMPRESSION: Status post total knee replacement. There is good alignment. Postoperative soft tissue changes. Reading Location: [id number] Physical Exam Narrative KENZIE hose in place bilaterally SCDs in place bilaterally Dressing is clean dry and intact Dorsiflexion and plantarflexion are performed but pain or restriction Sensation intact to light touch Neurovascularly intact overall Negative Homans bilaterally Const alert, oriented x3 and no apparent distress Assessment & Plan Assessment/Plan (1) Status post right knee replacement: PLAN: Status post right robotic assisted total knee arthroplasty day 1 1. DVT prophylaxis: Patient will be on Xarelto for 2 weeks postoperatively followed by aspirin 81 mg twice daily for an additional 2 weeks. Patient will be on Xarelto due to taking anastrozole due tohistory of breast cancer. Patient was educated not to take any anti-inflammatory medications while taking Xarelto. Patient will be wearing KENZIE hose bilaterally for 2 weeks postoperatively removing atnight and with showering. Patient was educated to do 5 minutes of movement per every hour. 2. Pain medications: Patient will be taking Tylenol 1000 mg every 8 hours taking no more than 3000 mg in 24 hours, patient will also have oxycodone to take as needed for pain medication. OARRS reportwas reviewed today. Risk of abuse potential was discussed with patient. Patient was educated not touse while driving motor vehicle or operating equipment. Patient voiced understanding. 3. Constipation: Patient will be taking senna postoperatively. Patient was instructed to take untilfirst bowel movement and then take as needed to decrease risk of impaction following surgery. Patient was educated if she has not had a bowel movement in 3 days to contact our office. 4. Reactive leukocytosis: White blood cell count is currently 15.1. Vital signs are stable and patient is afebrile. Patient did receive Decadron intraoperatively. 5. H&H: 11.4/33.8. Vital signs are stable and patient is afebrile. Currently hemoglobin is above the threshold of 10 and we do not need to begin anemia protocol. 6. Physical therapy: Patient will be weightbearing as tolerated with walker with physical therapy. Patient does have outpatient physical therapy scheduled. 7. Incentive spirometry: Patient was encouraged to use incentive spirometer every hour that she is awake for the first week to exercise lungs and decrease risk of postoperative infection. Patient voiced understanding. 8. Dressings: Patient was educated she can get waterproof dressing wet on postoperative day 1. Patient was educated she can remove dressing on postoperative day 5. Patient was educated if incision isclean dry and intact she is able to leave open to air. 9. Patient is to follow-up per postoperative instructions. 10. Patient will have a follow-up appointment with Eligio Melendez in 2 weeks. Patientdoes have appointmentscheduled. 11. Medicine is involved at this point and appreciate recommendations from medicine. 12. Patient was following nutrition protocol prior to surgery. Patient was educated to finish up her shakes when she got home. 13. Patient is okay for discharge if pain maintains adequately controlled, has worked with and is cleared by physical therapy, and is okay per medicine doctorsinstructions. 14. Patient states that she does feel comfortable with going home. Patient states that she does have help at home from her and her daughter who is a nurse is coming to stay with her for 1 week postoperatively. Patient states that she does have senna, Tylenol, aspirin at home already. Patient would like medications sent in to be sent to pharmacy of choice which is [facility]. Patient will continue being weightbearing as tolerated with walker. Patient does have outpatient physical therapy scheduled. Patient does have 2-week follow-up appointment scheduled. Patient is to follow-up per postoperative instructions. Patient was encouraged to call us with any questions, concerns, new problems. 10/07/24904 Cosigner Signature (if applicable): CC: ~ Signed [facility]05-12-2025 Consult note Author Anibal Montemayor [facility] Note Date/Time October 07, 2024 12:39 pm [facility] Medical Records Department [address] [place] [address] Anesthesia Postop Eval II 10/06/248 MR#: [id number] Acct: [id number] Name: ANGELA MAY Rep #:[id number] : 1950 73 From: Anibal Montemayor MD PCP: Dr. Catherine Vazquez, DO Status:AD M CHRISTIAN Y Race: C Location: [facility] [place] MS312 -1 Anesthesia Postop Eval I Sum Postop Eval Completion status Anesthesia document: Postop Eval 1 completed: Yes Anesthesia Postop Eval I Summary Anesthesia Postop Eval I Summary: Anesthesia Postop Eval I: Assessment Summary Airway patent Yes 10/06/24 12:35 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 Spontaneous unlabored Yes 10/06/24 12:35 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 respirations Mental status Awake,Calm 10/06/24 12:35 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 nausea No 10/06/24 12:35 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 Vomiting No 10/06/24 12:35 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 Anesthesia Postop Eval I: Fluid Summary Crystalloid volume administer 1,200 10/06/24 12:35 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 (ml) Colloids volume administered ( ml) Blood Product volume administered (ml) Total IV fluid infused 1,200 10/06/24 12:35 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 Anesthesia Postop Eval I: Summary Notes Anesthesia Complication No 10/06/24 12:35 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 Anesthesia Complication Comment: Post-operative progress note Anesthesia: Postop Eval II Evaluation Mental status: Awake and Calm Pain Level: 1 nausea: No Vomiting: No Complications Anesthesia Complication: No 10/06/248 <Electronically signed by Anibal gutierrez MD> Date _ Anibal Montemayor MD Cosigner Signature: Date CC: ~ Signed [facility] Work Phone: 1(998) 324-268805-12-2025 Progress note Author Jocelin Verdugo [facility] Note Date/Time October 06, 2024 2:33p [facility] Medical Records Department [address] [place] [address] Progress Note - Hospitalist 10/06/24 5395 MR#: [id number] Acct: [id number] Name: ANGELA MAY Rep #:[id number] : 1950 73 From: Jocelin Verdugo MD PCP: Dr. Catherine Vazquez, DO Status:AD M CHRISTIAN Location: AZ3 [id number] Reason for Visit Reason for Visit: Diagnoses Encounter for other preprocedural examination (10/06/24) Subjective Subjective The patient is a 73 y/o F w/ PMHx: Obesity, Hx invasive ductal carcinoma of the left breast status post lumpectomy, Psoriatic arthritis, HTN, Former tobacco use, GERD, Severe OA who presents to the [facility] on 10/06/2024secondary to continued severe right knee osteoarthritic pain with failed outpatient conservative interventions and therapies for planned right total kneereplacement. Patient evaluated in PACU, notes currently pain 0 out of 10 and controlled, status post block. Despite block she is able to move her lower extremity. She is stating that she has a dry mouth but otherwise no complaints. Patient denies fevers, chills, nausea, emesis, abdominal pain, chest pain or dyspnea. Objective Data Objective Data Vital Signs: Vital Signs Temp Pulse Resp BP Pulse Ox O2 Del Method O2 Flow Rate 98.8 F 66 16 146/72 H 97 Nasal Cannula 3 10/06/24 12:35 10/06/24 13:30 10/06/24 13:30 10/06/24 13:30 10/06/24 13:30 10/06/24 13:30 10/06/24 13:30 FiO2 42 10/06/24 13:30 Oxygen Flow Rate (L/min) 3 Oxygen Delivery Method Nasal Cannula Weight: 205 lb 7.533 oz Body Mass Index (BMI) 34.2 Lab / Micro Data 09/10/24 13:05 09/10/24 13:05 Micro: Microbiology 09/10/24 13:05 Swab (Method) Nasal Screen MRSA/MSSA - Final Radiography Diagnostic Testing: Radiology Impression Knee X-Ray 10/06/24 07:22 IMPRESSION: Status post total knee replacement. There is good alignment. Postoperative soft tissue changes. Reading Location: [facility] Physical Exam Narrative Physical Examination: General: Awake, alert, oriented x 3 and cooperative, seated upright in PACU, denies any pain. Skin: Normal color, normal turgor, no icterus, no cyanosis except for recent OR with right total knee replacement with dressing in place with no drainage noted. HEENT: AT/NC, EOMI, PERRLA, mildly dry MM, no carotid bruits or JVD noted. Lungs: Mildly diminished, greater bases, distant likely secondary to habitus, noevidence of any distress, no rales, ronchi or wheezing. Heart: Regular rate and rhythm; no gallop, rub audible. Abdomen: Soft, obese, NTTP, ND, mildly hyperactive BS, no HSM. Extremities: No cyanosis, no clubbing, mild bilateral ankle not markedly pittingedema, status post right total knee replacement with dressings in place with no drainage is noted. Neurological: Patient awake, alert, oriented as noted, cognitive function intact; pupils equally reactive to light and accommodation, cranial nerves grossnormal, moving all 4 extremities although expected limited right lower extremitygiven recent OR, strength moderately to severely globally decreased especially with recent block. Psychiatric: Affect appears fatigued otherwise normal, no acute evidence of depressive or anxiety feelings. Assessment & Plan Assessment/Plan (1) Right knee DJD: PLAN: Plan The patient is a 73 y/o F w/ PMHx: Obesity, Hx invasive ductal carcinoma of the left breast status post lumpectomy, Psoriatic arthritis, HTN, Former tobacco use, GERD, Severe OA who presents to the [facility] on 10/06/2024secondary to continued severe right knee osteoarthritic pain with failed outpatient conservative interventions and therapies for planned right total kneereplacement. #1. Severe Osteoarthritis, right knee: Failed conservative therapies and treatments, admitted per Dr. Jasso, s/p R TKR, post-operative pain management, bowel regimen, DVT Prophylaxis, PT/OT/CM per Orthopedic surgery discretion. #2. Hx invasive ductal carcinoma of the left breast: Status postlumpectomy, continued on letrozole, encourage continued outpatient follow-up and evaluation as previously arranged with oncology, currently considered in remission. #3. Psoriatic arthritis: Per current regimen does not appear to be on any chronic rheumatological medication, encourage continued outpatient follow-up with rheumatology as previously arranged. #4. Hypertension: Continue home regimen including valsartan, hydrochlorothiazide with hold parameters as needed, PRN hydralazine. #5. GERD: Per current list on a regimen, if needed may certainly add as needed Mylanta. #6. Obesity: Weight loss and lifestyle changes encouraged. #7. Former tobacco use: Encourage continued tobacco cessation. #8. DVT prophylaxis: SCDs, chemoprophylaxis per surgery discretion given recentOR. Charges/Coding Visit Charges Inpatient E&M: 63093 Subs Hosp L3 10/06/24 1433 <Electronically signed by Jocelin Verdugo MD> Cosigner Signature (if applicable): CC: ~ Signed [facility] Work Phone: 1(502) 694-522505-12-2025 Consult note Author Rich Amado [facility] Note Date/Time October 06, 2024 12:35 pm [facility] Medical Records Department [address] [place] [address] Anesthesia Postop Eval I 10/06/24 1234 MR#: [id number] Acct: [id number] Name: ANGELA MAY Rep #:[id number] : 1950 73 From: Rich SEQUEIRA PCP: Dr. Catherine Vazquez, DO Status:RE G SDC Y Race: C Location: [place] [address] Anesthesia: Postop Eval I Current Vital Signs Temperature: 98.8 F Pulse Rate: 74 Blood Pressure: 124/69 Respiratory Rate: 18 Pulse Ox: 94 Oxygen Delivery Method: Room Air Assessment Airway patent: Yes Spontaneous unlabored respirations: Yes Mental status: Awake and Calm nausea: No Vomiting: No Anesthesia Complication: No Fluid Hydration Crystalloid volume administer (ml): 1,200 Total IV fluid infused: 1,200 Progress Note Anesthesia document: Postop Eval 1 completed: Yes 10/06/24 1235 <Electronically signed by Rich Amado CRNA> Date _ Rich Amado CRNA Cosigner Signature: Date CC: ~ Signed [facility] Work Phone: 1(599) 134-230305-12-[address] [facility] Medical Records Department [address] [place] [address] Progress Note - Hospitalist 10/06/24 8765 MR#: [id number] Acct: [id number] Name: ANGELA MAY Rep #:[id number] : 1950 73 From: Jocelin Verdugo MD PCP: Dr. Catherine Vazquez, DO Status:AD M CHRISTIAN Location: AZ3 OG121-4 Reason for Visit Reason for Visit: Diagnoses Encounter for other preprocedural examination (10/06/24) Subjective Subjective The patient is a 73 y/o F w/ PMHx: Obesity, Hx invasive ductal carcinoma of the left breast status post lumpectomy, Psoriatic arthritis, HTN, Former tobacco use, GERD, Severe OA who presents to the [facility] on 10/06/2024secondary to continued severe right knee osteoarthritic pain with failed outpatient conservative interventions and therapies for planned right total kneereplacement. Patient evaluated in PACU, notes currently pain 0 out of 10 and controlled, status post block. Despite block she is able to move her lower extremity. She is stating that she has a dry mouth but otherwise no complaints. Patient denies fevers, chills, nausea, emesis, abdominal pain, chest pain or dyspnea. Objective Data Objective Data Vital Signs: Vital Signs Temp Pulse Resp BP Pulse Ox O2 Del Method O2 Flow Rate 98.8 F 66 16 146/72 H 97 Nasal Cannula 3 10/06/24 12:35 10/06/24 13:30 10/06/24 13:30 10/06/24 13:30 10/06/24 13:30 10/06/24 13:30 10/06/24 13:30 FiO2 42 10/06/24 13:30 Oxygen Flow Rate (L/min) 3 Oxygen Delivery Method Nasal Cannula Weight: 205 lb 7.533 oz Body Mass Index (BMI) 34.2 Lab / Micro Data 09/10/24 13:05 09/10/24 13:05 Micro: Microbiology 09/10/24 13:05 Swab (Method) Nasal Screen MRSA/MSSA - Final Radiography Diagnostic Testing: Radiology Impression Knee X-Ray 10/06/24 07:22 IMPRESSION: Status post total knee replacement. There is good alignment. Postoperative soft tissue changes. Reading Location: [id number] Physical Exam Narrative Physical Examination: General: Awake, alert, oriented x 3 and cooperative, seated upright in PACU, denies any pain. Skin: Normal color, normal turgor, no icterus, no cyanosis except for recent OR with right total knee replacement with dressing in place with no drainage noted. HEENT: AT/NC, EOMI, PERRLA, mildly dry MM, no carotid bruits or JVD noted. Lungs: Mildly diminished, greater bases, distant likely secondary to habitus, noevidence of any distress, no rales, ronchi or wheezing. Heart: Regular rate and rhythm; no gallop, rub audible. Abdomen: Soft, obese, NTTP, ND, mildly hyperactive BS, no HSM. Extremities: No cyanosis, no clubbing, mild bilateral ankle not markedly pittingedema, status post right total knee replacement with dressings in place with no drainage is noted. Neurological: Patient awake, alert, oriented as noted, cognitive function intact; pupils equally reactive to light and accommodation, cranial nerves grossnormal, moving all 4 extremities although expected limited right lower extremitygiven recent OR, strength moderately to severely globally decreased especially with recent block. Psychiatric: Affect appears fatigued otherwise normal, no acute evidence of depressive or anxiety feelings. Assessment & Plan Assessment/Plan (1) Right knee DJD: PLAN: Plan The patient is a 73 y/o F w/ PMHx: Obesity, Hx invasive ductal carcinoma of the left breast status post lumpectomy, Psoriatic arthritis, HTN, Former tobacco use, GERD, Severe OA who presents to the [facility] on 10/06/2024secondary to continued severe right knee osteoarthritic pain with failed outpatient conservative interventions and therapies for planned right total kneereplacement. #1. Severe Osteoarthritis, right knee: Failed conservative therapies and treatments, admitted per Dr. Jasso, s/p R TKR, post-operative pain management, bowel regimen, DVT Prophylaxis, PT/OT/CM per Orthopedic surgery discretion. #2. Hx invasive ductal carcinoma of the left breast: Status postlumpectomy, continued on letrozole,encourage continued outpatient follow-up and evaluation as previously arranged with oncology, currently considered in remission. #3. Psoriatic arthritis: Per current regimen does not appear to be on any chronic rheumatological medication, encourage continued outpatient follow-up with rheumatology as previously arranged. #4. Hypertension: Continue home regimen including valsartan, hydrochlorothiazide with hold parameters as needed, PRN hydralazine. #5. GERD: Per current list on a regimen, if needed may certainly add as needed Mylanta. #6. Obesity: Weight loss and lifestyle changes encouraged. #7. Former tobacco use: Encourage continued tobacco cessation. #8. DVT prophylaxis: SCDs, chemoprophylaxis per surgery discretion given recentOR. Charges/Coding Visit Charges Inpatient E&M: 53644 Subs Hosp L3 10/06/24 1433 Cosigner Signature (if applicable): CC: ~ Signed [facility]05-12-2025 Radiology Diagnostic study note [facility] Imaging Services [address] [place] [address] [id number] Knee 1 or 2 Views MR#: [id number] Acct: [id number] Name: ANGELA MAY Rep #: [id number] : 1950 F 73 From: Nicola Pino MD PCP: Dr. Catherine Vazquez DO Status: [facility] Study:Knee 1 or 2 Views Date of Exam: Exam# [id number] Ordering Dr: Max Jasso MD PROCEDURE: KNEE 1 OR 2 VIEWS 10/06/2024 REASON FOR EXAM: TKA TECHNIQUE: 2 view(s) of the right knee COMPARISON: None FINDINGS: The patient is status post total knee replacement. There is good alignment. Postoperative soft tissue changes. RAD/Knee 1 or 2 Views IMPRESSION: Status post total knee replacement. There is good alignment. Postoperative soft tissue changes. Reading Location: [id number] CC: Dr. Catherine Vazquez DO; Dr. Yuri Jasso MD ~ Buildings And Grounds Supervisor: Signed [facility]05-12-2025 Consult note [facility] Medical Records Department [address] [place] [address] Anesthesia Postop Eval I 10/06/24 1234 MR#: [id number] Acct: [id number] Name: ANGELA MAYBETH Rep #:[id number] : 1950 73 From: Rich SEQUEIRA PCP: Dr. Catherine Vazquez, DO Status:NEGAR Dawn MNNora Y Race: C Location: [place] [address] Anesthesia: Postop Eval I Current Vital Signs Temperature: 98.8 F Pulse Rate: 74 Blood Pressure: 124/69 Respiratory Rate: 18 Pulse Ox: 94 Oxygen Delivery Method: Room Air Assessment Airway patent: Yes Spontaneous unlabored respirations: Yes Mental status: Awake and Calm nausea: No Vomiting: No Anesthesia Complication: No Fluid Hydration Crystalloid volume administer (ml): 1,200 Total IV fluid infused: 1,200 Progress Note Anesthesia document: Postop Eval 1 completed: Yes 10/06/24 1235 [employer]> Date _ Rich Amado [employer] Cosigner Signature: Date CC: ~ Signed [facility]05-12-2025 Procedure note [facility] Medical Records Department [address] [place] [address] Operative Report 10/06/24 1222 MR#: [id number] Acct: [id number] Name: ANGELA MAYBETH Rep #:[id number] : 1950 73 From: Yuri Cuevas PCP: Dr. Catherine Vazquez, DO Status:NEGAR JENKINS Location: [place] [address] Operative Report (Standard) Operative Information Date of Procedure: 10/06/24 Pre-Operative Diagnosis: Right knee primary osteoarthritis Post-Operative Diagnosis: Right knee primary osteoarthritis Surgery/Procedure Performed: Right knee minimally invasive robotic assisted total arthroplasty program support assistant: Yes Rip Saw Operator: Mauri Junior Tasks completed by first aid instructor: Other (See body of operative report) Additionalassistant?: No Type of Anesthesia: Spinal RN Documented Start/Stop Times: Operation Date: 10/06/24 10:30 Case Time Into Pre-Op 10/06/24 08:36 Anesthesia Start 10/06/24 10:36 Into Room 10/06/24 10:36 Procedure Start 10/06/24 11:04 Procedure End 10/06/24 12:20 Procedure Start Time: 11:04 Procedure Stop Time: 12:20 Select all DRAINS/GRAFTS/IMPLANTS that apply: Prosthetic device Prosthetic device details: See bodyof operative report Special Medications: 2 g Ancef, TXA, 10 mg Decadron, joint cocktail (5 mg Duramorph, 30 mL of 0.5% Ropivicaine, 1000 units of epinephrine, 30 mg of Toradol) Estimated Blood Loss: 50 mL Fluids Replaced: 1500 mL crystalloid Specimen collected: Yes Description of specimen(s) removed: Bony cuts Description of surgery: Implants used: 1. [place] size 3 triathlon cruciate retaining distal femoral press-fit component 2. [place] size 4 press-fit tritanium tibial baseplate 3. [place] X3 11 mm CS polyethylene 4. [place] X3 32 mm asymmetric patella Brief history operative indications: 73-year-old f with history of right knee osteoarthritis with radiographic findings with loss of joint space, osteophyte formation and subchondral sclerosis. Failed conservative measures as mentioned in the H&P. Discussion oftotal knee arthroplasty as well as risk and benefits were discussed thepatient including but not limited to blood loss, DVTs, PEs, neurovascular damage, general risk of anesthesia including loss of life, and stiffness or instability were discussed with patient. Patient demonstrated understanding and was able tosign informed consent. Procedure: On the date of procedure patient's right lower extremity was marked in the preoperative area. The patient was then taken back to the operating room where the patient was placed on the table in the supine position. All bony prominenceswere identified a well-padded. Anesthesia assumed control of the C- spine and airway and remained controlled throughout the remainder of the procedure. A tourniquet was placed on the right upper thigh and the leg was prepped in a sterile fashion. The surgeon then scrubbed at this time .Upon reentering the room right lower extremity was draped in a standard orthopedic fashion. A timeout was then called and everyone agreed upon the side, the site, the procedure angelito performed, patient's identity and antibiotics given. Esmarch bandage was used to exsanguinate the extremity and the tourniquet was placed up to 250 mmHgwith the knee in flexion. A midline skin incision was made and sharp dissection was taken down through skin subcutaneous tissue and fat. The standard medial parapatellar incision was made and the patella was subluxed laterally. An Appropriate deep MCL release was done and the fat pad wasresected. Our attention was then directed to the patella. The patella was everted and a flat resection was made. The knee was then flexed up in 2 femoral pins were placed inside the incision and 2 tibial pins were placed outside the incision in the medial tibia bicortically. Once this was completed the 2 checkpoints in the femur and tibia were placed. Knee was then flexed up and the bony landmarks were registered. Once this was completed knee was taken through range of motion and manually stressed allowing us to a plan for an appropriate tibial cut. The robotic arm was brought into the field sterilely andcheckpoint and saw were registered. Based on the patient's deformity the tibial cut was made neutral to the tibial axis. At this time the tensioner was then placed in the joint and ligament tension waschecked at 90 degrees and full extension. Based on the patient's ligamentous tension appropriate adjustments were made to the operative plan and ligament releases were done. Once we were happy with our operative plan with balanced flexion and extension gaps our attention was directed to the femur. The robot was brought into the field sterilely and registered. Posterior condylar cuts, anterior chamfer cuts and anterior cuts were appropriately made for a size 3 femur. When these were completed the saws were switched out in the distal femoral and posterior chamfer cuts were made. Protecting the soft tissue throughout this time. A size 4 tibial base plate was selected. the knee was flexed to 90 degrees and the soft tissues andposterior osteophytes were removed from the joint. 40 cc of the periarticular injection was injected into the posterior medial corner of the joint. The appropriate trials were then placed on the femur and tibia. A trial polyethylene was trialed toensure proper balancing and stability of the knee. The appropriate tibial internal rotation was then marked with a bovie. Our attention was then directed to the patella. The lug holes were drilled and the patella trial was placed. Patellar tracking was checked and deemed appropriate. Once we were happy lug holes were drilled for the femur and trial components were removed. The tibia was subluxed and pinned into place and the keel was punched and drilled appropriately. Final components were verified and opened. The wound was copiously irrigated with normal saline. When the cement was ready the components were impacted into place starting with the tibia then the femur, finally the patella was compressed into place. The trial poly component was placed and the knee was placed in full extension. Oncethe the implants were secured, the tracking, alignment and balance were verifiedand a size 11 mm CS polyethylene component was placed. Once the final components were placed a 3-minute dilute Betadine lavage was performed followed by an Irrisept lavage was performed and the wound was copiously irrigated with normal saline solution and the periarticular injection was given. The wound was closed in a layer osorio fashion using #1 vicryl interruptedsutures for the arthrotomy, 2-0 interrupted Vicryl suture for the subcuticular layer and ahmet for final skin closure. A sterile compressive dressing was then placed. The patient was then awakened from anesthesia, transferred to the rbluffs and transferred to the PACU for recovery. Post op plan DVT ppx: Xarelto, patient is on hormone replacement therapies, thigh high compression stockings Follow up: in office in 2 weeks for wound check PT: to start POD #0 at hospital, outpatient PT should be arranged. My physician post production assistant was a vital part of this case, they was important becausethere was not another skilled set of hands available to their training and aptitude needed for safe and appropriate completion of this case. They were important in appropriate retraction during the case, and protection of soft tissues during bony cuts. In particular the experience and skill of this post production assistant made for safe retraction and exposure during implantation of medical implants without damage to vital soft tissues or structures. His intimate knowledge of the case and my steps aided in safe and expedient completion of theprocedure as well as appropriate position of the leg during the case. He was also vital in assisting with closure under my direct supervision. Due to the complexity of this case robotic arm was used to assist in the surgeryto improve accuracyand clinical outcomes. Surgical Findings: Stage IV osteoarthritis. Stable knee with good patella tracking Complications Complications: No Admit VTE Documentation VTE Present on Admission: No VTE Mechan Device Prophylaxis: SCD's and Thigh High KENZIE Hose VTE Pharm Prophylaxis ordered?: Yes 10/06/24 1227 Cosigner Signature (if applicable): CC: Dr. Catherine Vazquez, DO; Dr. Yuri Jasso MD~ Signed [facility]05-12-2025 Consult note Author Anibal Montemayor [facility] Note Date/Time October 06, 2024 10:07 am [facility] Medical Records Department [address] [place] [address] Pre-Anesthesia Evaluation 10/06/24 0949 MR#: [id number] Acct: [id number] Name: ANGELA MAY Rep #:[id number] : 1950 73 From: Anibal Montemayor MD PCP: Dr. Catherine Vazquez, Status:RE G SDC Y Race: C Location: [place] [address] ASA Classification* ASA Classification ASA Classification: 2 Assessment & Plan Anesthesia* Anesthesia Assessment Anesthesia Assessment: Discussed sedation and/or anesthesia options, risks, benefits, and alternatives with patient/parents/legal guardian/POA. Questions invited. The patient/parents/legal guardian/POA seems to understand and agrees to proceedwith anesthesia plan. Reviewed the physical assessment, medical history, allergy history and patient home medications list prior to surgery/procedure/anesthetic and documented any changes. Performed airway and anesthesia risk assessments. Anesthesia Type Anesthesia Type: Spinal and Block (Patient is consented for adductor canal block.) History Source History Obtained from:: Patient and Chart Anesthesia Focused Assessment* Temperature: 98.1 F Pulse Rate: 80 Blood Pressure: 137/66 Respiratory Rate: 18 Pulse Ox: 98 Oxygen Delivery Method: Room Air Airway Assessment Mouth opens: >3 cm Mallampati Score: III Teeth Condition: Partial (Patient has top partial. It will come out.) Neck Range of motion (ROM): Full ROM Focused Labs Anesthesia Preop lab: CBC WBC 5.4 K/mm3 (4.4-11.0) 09/10/24 13:05 09/10/24 RBC 4.40 M/mm3 (4.2-5.4) 09/10/24 13:05 09/10/24 Hgb 13.8 g/dL (12.0-15.0) 09/10/24 13:05 09/10/24 Hct 40.8 % (37-47) 09/10/24 13:05 09/10/24 Plt Count 224 K/mm3 (150-450) 09/10/24 13:05 09/10/24 CHEMISTRY Potassium 4.4 mmol/L (3.3-5.1) 09/10/24 13:05 09/10/24 Sodium 138 mmol/L (133-145) 09/10/24 13:05 09/10/24 Magnesium 2.3 mg/dL (1.5-2.2) H 09/10/24 13:05 09/10/24 BUN 20 mg/dL (4-19) H 09/10/24 13:05 09/10/24 Creatinine 0.92 mg/dL (0.70-1.20) 09/10/24 13:05 09/10/24 Glucose 90 mg/dL (70-99) 09/10/24 13:05 09/10/24 POC Glucose 93 mg/dL (70-110) 02/05/19 07:52 02/05/19 TSH 1.39 uIU/mL (0.358-3.74) 12/05/18 12:02 COAG Pre-Assessment Diagnosis/Proposed Procedure Planned Operative Procedure(s): (R) ERAS, ROBOTIC ASSISTED RIGHT TOTAL KNEE ARTHROPLASTY Anesthesia History 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 When Was Last Pacemaker Check QUESTION #4 FULL TEXT: You/Your Family Experience fever (hyperthermia) with Anesthesia Last Oral Intake Last Oral intake: Last Oral Intake NPO since 20:00 10/06/24 08:50 Meds taken in AM with sips of No 10/06/24 08:50 water? Meds patient instructed to take am of surgery Any additional information?: Yes NPO since: 06:00 (Patient had her preop Ensure at 6 AM.) PONV PONV - construction teacher: PONV - construction teacher Female Yes 09/08/24 13:09 HX of Motion Sickness No 09/08/24 13:09 HX of N/V After Surgery No 09/08/24 13:09 Non-Smoker Yes 09/08/24 13:09 Duration of Surgery greater Yes 09/08/24 13:09 than 60 minutes Number of Risk Factors 3 09/08/24 13:09 PONV Score Moderate Risk 09/08/24 13:09 Height & Weight Height & Weight: Anesthesia: Height & Weight Height 5 ft 5 in 10/06/24 08:50 Weight: 93.2 kg 10/06/24 08:50 Body Mass Index (BMI) 34.2 10/06/24 08:50 Respiratory Assessment Respiratory Assessment - construction teacher: Respiratory Tract Infection Hx - construction teacher Hx Respiratory Tract Infection No 09/08/24 13:09 STOP Sleep Apnea STOP Sleep Apnea - construction teacher: STOP Sleep Apnea - construction teacher Hx Hypertension Yes: CONTROLLED WITH MED 09/08/24 13:09 Hx Sleep Apnea No 09/08/24 13:09 CPAP No 09/08/24 13:09 BIPAP Do you snore loudly (louder No 09/08/24 13:09 than talking or can be heard Do you often feel tired/ No 09/08/24 13:09 fatigued/ sleepy during daytime? Has anyone observed you stop No 09/08/24 13:09 breathing during sleep? STOP Results Negative 09/08/24 13:09 QUESTION #5 FULL TEXT : Do you snore loudly (louder than talking or can be heard through closed doors)? 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 teacher: Tobacco Use History - construction teacher Tobacco Use Smoking Status Former smoker 09/08/24 13:09 Hx Tobacco Use No 09/08/24 13:09 Years Smoking Packs Smoked per Day Smoking Cessation Date was No - quit smoking greater 09/08/24 13:09 within the last 15 years than 15 years ago Hx Smoking Cessation Date 05/28/82 09/08/24 13:09 Hx Smoking Cessation No 09/08/24 13:09 Counseling Hematologic Medial History Hematologic Hx - construction teacher: Hematologic Medical Hx - corrugator helper Hx of Blood Transfusion No 09/08/24 13:09 Hx of Transfusion in last 3 No 09/08/24 13:09 Months Date of Last Transfusion (if within last 3 months) Ever experience any problems No 09/08/24 13:09 with transfusion(s)? Specify any problems Hx of Preganancy in last 3 N/A 09/08/24 13:09 Months Nurse Filling Out Transfusion NBUCHER 09/08/24 13:09 & Questions: Date: 09/08/24 09/08/24 13:09 Time: 13:10 09/08/24 13:09 Patient unable to answer at this time (ie. confused, unrespo /Reproduction History /Reproductive History - construction teacher: /Reproductive Hx- construction teacher Hx Now Gestational Age (in weeks): EDC: Hx Hx Para Hx Section SAB No 09/08/24 13:09 Active Medications Active Medications: Current Medications Generic Name Dose Route Start Last Admin Trade Name Freq PRN Reason Stop Dose Admin Acetaminophen 1,000 mg 10/06/24 10:30 10/06/24 09:37 Acetaminophen 500 Mg Tablet PO 10/06/24 10:31 1,000 mg PREOP ONE Administration Acetaminophen 1,000 mg 10/06/24 07:30 Acetaminophen 500 Mg Tablet PO Q8H [facility] Celecoxib 400 mg 10/06/24 10:30 10/06/24 09:37 Celecoxib 200 Mg Capsule PO 10/06/24 10:31 400 mg PREOP ONE Administration Sodium Chloride 77.4 ml/ 0 ml 10/06/24 10:30 Ropivacaine 200 mg/ OPERA.SITE 10/06/24 10:31 Epinephrine HCl 0.6 mg/ INTRAOP ONE Ketorolac Tromethamine 30 mg/ Morphine Sulfate 5 mg Dexamethasone Sodium Phosphate 10 mg 10/06/24 10:30 Dexamethasone 10 Mg/Ml Vial IV 10/06/24 10:31 INTRAOP ONE Enteral Nutritional Formula 237 ml 10/06/24 08:00 Ensure Surgery 237 Ml Liquid PO TIDCM [facility] Famotidine 20 mg 10/06/24 10:00 Famotidine 20 Mg Tablet PO DAILY CHARLY Gabapentin 600 mg 10/06/24 10:30 10/06/24 09:37 Gabapentin 600 Mg Tablet PO 10/06/24 10:31 600 mg PREOP ONE Administration Lactated Ringer's 1,000 mls @ 999 mls/hr 10/06/24 10:30 10/06/24 08:50 IV 10/06/24 11:30 999 mls/hr .Q1H1M CHARLY Administration Cefazolin Sodium 2 gm/ Sodium 110 mls @ 150 mls/hr 10/06/24 10:30 Chloride IV 10/06/24 11:13 INTRAOP ONE Tranexamic Acid 1,000 mg/ 110 mls @ 660 mls/hr 10/06/24 10:30 Sodium Chloride IV 10/06/24 10:39 INTRAOP ONE Tranexamic Acid 1,000 mg/ 110 mls @ 660 mls/hr 10/06/24 10:30 Sodium Chloride IV 10/06/24 10:39 INTRAOP ONE Lactated Ringer's 1,000 mls @ 999 mls/hr 10/06/24 10:30 IV 10/06/24 11:30 .Q1H1M CHARLY Lactated Ringer's 1,000 mls @ 125 mls/hr 10/06/24 10:30 IV 10/06/24 18:29 .Q8H [facility] Magnesium Sulfate 1 gm/ 102 mls @ 408 mls/hr 10/06/24 10:30 10/06/24 08:55 Dextrose IV 10/06/24 10:44 408 mls/hr INTRAOP ONE Administration Cefazolin Sodium 1 gm in 50 mls @ 150 mls/hr 10/06/24 07:25 IV 10/06/24 15:44 Q8H [facility] Insulin Human Lispro 1 - 6 unit 10/06/24 10:30 Insulin Lispro 100 Unit/Ml Insuln.Pen SC Q4H PRN PRN BG>/= 180, SEE PROTOCOL Protocol Ketorolac Tromethamine 15 mg 10/06/24 07:22 Ketorolac 15 Mg/Ml Vial IV 10/07/24 07:24 Q6H PRN PRN Pain Score 1-10 Morphine Sulfate 2 - 4 mg 10/06/24 07:22 Morphine 2 Mg/Ml Syringe IV Q2H PRN PRN Pain Score 4-10 Morphine Sulfate 2 - 4 mg 10/06/24 09:17 Morphine 4 Mg/Ml Syringe IV Q2H PRN PRN Pain Score 4-10 Ondansetron HCl 4 mg 10/06/24 07:22 Ondansetron 4 Mg/2 Ml Vial IV Q6H PRN PRN NAUSEA/VOMITING Oxycodone HCl 5 - 10 mg 10/06/24 07:22 Oxycodone 5 Mg Tablet PO Q4H PRN PRN Pain Score 4-10 Promethazine HCl 12.5 mg 10/06/24 07:22 Promethazine 25 Mg Tablet PO Q6H PRN PRN NAUSEA/VOMITING Promethazine HCl 12.5 mg 10/06/24 07:22 Promethazine 25 Mg/Ml Syringe IM Q6H PRN PRN NAUSEA/VOMITING Rivaroxaban 10 mg 10/07/24 06:00 Rivaroxaban 10 Mg Tablet PO DAILY@0600 [facility] Senna/Docusate Sodium 2 tablet 10/06/24 10:00 Senna/Docusate Sodium 1 Tablet PO BID [facility] Medical History Wears glasses Wears partial dentures Post-menopausal Cancer Heartburn Former smoker History of echocardiogram History of irregular heartbeat Psoriatic arthritis Osteopenia Osteoarthritis Hypertension Arthritis Home Medications ?Medication ?Instructions ?Recorded ?Last Taken ?Type Lactobacillus acidophilus 250 500 mmu cells PO DAILY 0 09/07/23 10/05/24 History million cell capsule (Probiotic Acidophilus) valsartan 160 1 tab PO DAILY #90 tabs 10/2610/05/24 Rx mg-hydrochlorothiazide 12.5 mg tablet cholecalciferol (vitamin D3) 50 50 mcg PO DAILY 10/05/24 History mcg (2,000 unit) capsule (Vitamin D3) glucosamine-chondroitin 500 mg-400 3 cap PO DAILY 08/2610/05/24 History mg capsule letrozole 2.5 mg tablet 2.5 mg PO DAILY 09/08/2404/21 History omega 7-zen-occ-fish oil 1,200 mg 2 cap PO DAILY 09/0809/30/24 History (144 mg-216 mg) capsule (Fish Oil) acetaminophen 500 mg tablet 500 mg PO Q6H PRN pain 10/05/24 History (Tylenol Extra Strength) Allergy/AdvReac Type Severity Reaction Status Date / Time No Known Allergies Allergy Verified 10/06/24 09:32 Family History Father Arthritis Heart disease Hypertension Mother Hypertension Grandmother CVA (cerebral vascular accident) Surgical History History of tubal ligation History of lumpectomy of left breast S/P lumpectomy, left breast Hx of colonoscopy Hx of right cataract extraction Hx of left cataract extraction History of left hip replacement History of right hip replacement History of section History of carpal tunnel release of both wrists Social History Smoking Status: Former smoker how long ago did patient quit smokin alcohol intake: never substance use type: does not use what type of physical activity do you participate in: walking frequency: daily Review of Systems (Anesthesia) ROS Narrative System reviewed and no additional complaints, except as documented. 10/06/24 1007 <Electronically signed by Anibal gutierrez MD> Date _ Anibal Montemayor MD Cosigner Signature: Date CC: ~ Signed [facility] Work Phone: 1(257) 995-535405-12-2025 History and physical note Author Chas Mcgovern [facility] Note Date/Time October 06, 2024 8:43a m [facility] Medical Records Department [address] [place] [address] History & Physical Exam 09/29/24 0709 MR#: [id number] Acct: [id number] Name: ANGELA MAY Rep #:[id number] : 1950 73 From: Chsa KELLOGG PA-C PCP: Dr. Catherine Vazquez, DO [place] [facility] [place] [address] History and Physical History and Physical Patient Name: Angela May : 1950From:? CHAS MCGOVERN PA-C DATE OF PRE-OPERATIVE EXAM: 09/26/2024 DATE OF SURGERY:? 10/06/2024 SCHEDULED PROCEDURE:? Robotic-assisted right total knee arthroplasty HISTORY OF PRESENT ILLNESS: Preoperative history and physical exam was performed on September 26, 2024.? This is a 73-year-old female who has had ongoing pain intermittently in the knees over theyears.? She did have worsening pain since the fall 2023.? Patient's pain is intermittent, sharp, and stabbing.? She has pain that is most severe when she iswalking and going up and down steps.? She does have pain at nighttime.? She can only take a few steps before she starts experiencing significant pain in the knees.? Pain is located over the medial and lateral aspect of the knee.? Pain isincreased with leisure activity such as walking for exercise and gardening.? Patient has used Voltaren gel which did offer some relief.? She had previous corticosteroid injection which only provided approximately 2 weeks of relief.? She has tried oral medications including Tylenol, fish oil, and glucosamine chondroitin supplements.? Patient has had previous knee arthroscopy in 1996 for meniscus tears.? Patient has attempted the use of brace in the past.? She uses acane over the past 1 month.? After failing conservative measures and discussing all treatment options with Dr. Yuri Jasso, the patient does wish to proceed with a robotic assisted right total knee arthroplasty.? Clearance has been obtained from the primary care provider Dr. Catherine Vazquez and her oncologist .? Patient is currently no longer receiving any chemotherapy or radiation.?She does take anastrozole.? Patient currently denies any recent chest pain, shortness of breath, fevers chills or recent infections.? No past history of DVTor pulmonary embolism.? Patient has medical history pertinent for hypertension, breast cancer 2023, gastroesophageal reflux disease, osteopenia, and psoriatic arthritis. ? REVIEW OF SYSTEMS: Review Of Systems: Constitutional: Denies anorexia, anxiety, change in appetite, fever and weight change,hard of hearing, and vision problems. Cardiovasular: Denies chest pain, heart murmur, irregular heartbeat and peripheral vascular disease. Respiratory: Denies asthma, cough, pneumonia, sleep apnea, shortness of breath, tuberculosis and wheezing. Gastrointestinal: Reports heartburn, but denies constipation, diarrhea, nausea, bloody stools and vomiting. Genitourinary: Denies incontinence. Musculoskeletal: Reports gait disturbance, pain and trouble walking, but denies leg swelling. Skin: Denies Raynaud's, history of shingles and tattoo. Neurological: Denies ambulatory dysfunction, dizziness, numbness/tingling and tremor. Psychiatric: Denies anxiety, depression, insomnia, mental illness and stress. Hematologic/Lymphatic: Denies anemia, bleeding/bruising tendency and past transfusion. Reviewed and updated. PAST MEDICAL HISTORY: Advance Care Plan: Other Directive, POA Effective Date: 12/20/2018 Past Medical History: Medical Problems: Arthritis - osteo High Blood Pressure Cancer - (08/2023) Left breast Hormone Therapy, Acid Reflux, osteopenia, psoriatic arthritis Accidents: None Surgical Hx: Carpal Tunnel Release Lt - (11/1988) Hip Replacement Rt - (10/2006) Appendectomy - did not have have Tubal Ligation - (02/1985) Section - (05/1977) 1978,November 1982,Dec 1984,1Oct Carpal Tunnel Release Rt - (10/1988) Knee Arthroscopy Rt - (01/1997) Section - X 4 Carpal Tunnel - BLT? 1988 Appendectomy - RIGHT KNEE 1997 Hip Replacement - (11/07/2006) RIGHT [facility] LT THR - (02/05/2019) [facility] Cataracts - (04/2021) left breast ca, radiation RT Wrist, Revision Carpal Tunnel Release - (04/02/2024) [facility]OOKE @ [facility] Anesthesia Complications: None Assistive Devices: Glasses, Cane, Dentures - partial - upper Reviewed and updated. SOCIAL HISTORY: Social History: Marital: .Occupation: Retired.Work Status: Retired.Hand Dominance: Right-handed. Personal Habits:? Cigarette Use: Former.Smokeless Tobacco: Never Used Smokeless Tobacco.E-Cigarette Use: Never used.Alcohol: Denies use.Drug Use: Denies Use.Enjoy Exercising: Daily. Reviewed and updated. VITALS: Ht: 65.5 Wt: 205lb Wt k.988 BMI: 33.6 BP: 132/80 Pulse: 85 Resp: 16 T: 97.8 T: 36.6C Pain Level: 8 O2SatR: 98 ALLERGIES: No Known Drug Allergy MEDICATIONS: Fish Oil 1000 mg 1po qday, Tylenol Extra Strength 500 mg 2 po pr n, [place] 3 1000mg 2 by mouth every day, Valsartan-Hydrochlorothiazide 160-12.5 mg 1 by mouth every day, Anastrozole 1 mg 1 by mouth every day PRE-OP EXAM: General appearance:NORMAL? Other: Eyes: Conjunctivae and lids: NORMAL? Pupils: ERR Ears, Nose, Mouth, and Throat: NORMAL? Other: Inspection of lips, teeth and gums: NORMAL?? Other: Neck: Examination of neck: no masses noted. Respiratory: Assessment of respiratory effort: NORMAL?? Other: ? Auscultation of lungs: clear to auscultation no wheezes, rhonchi or rales. Cardiovascular:? Auscultation of heart: regular rate and rhythm, positive systolic murmur PHYSICAL EXAMINATION: On exam patient does walk with an antalgic gait with valgus stress.? Right knee is without erythema or signs of infection.? She has moderate effusion.? Tenderness to palpation along the medial and lateral joint line. Range of motion: 0 extension to 118 flexion with pain on flexion Stable to varus/valgus stress test, stable to anterior/posterior drawer exam with firm endpoint.? Correctable valgus alignment. IMAGING STUDIES: Previous x-rays of the right knee reveal valgus alignment with lateral joint space narrowing, subchondral sclerosis, osteophyte formation consistent with severe stage IV [id number] erosion of the lateral compartment. IMPRESSION: 1.? 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 Hypertension 3.? Breast cancer: Currently on anastrozole 4.? Gastroesophageal reflux disease 5.? Osteopenia 6.? Psoriatic arthritis 7.? Obesity with BMI 33.6 PLAN: Dr. Yuri Jasso did discuss and review with the patient all treatment options including surgical versus nonsurgical options.? I will continue plan establishedby Dr. Yuri Jasso.? Patient does wish to proceed with the above-stated procedure.? Potential risks, benefits, and complications of the procedure were discussed in detail including but not limited to , infection, nerve and blood vessel damage, persistent pain, numbness, tingling, paresthesias, blood clot, pulmonary embolism, and requirement for possible further surgery.? The patient expressed full understanding and has no further questions for the doctor.? Patient does agree to proceed with the above-stated procedure and has signed the surgery consent form. POST-OP MEDICATION PLAN: Pain Medications: Postoperative pain regimen will be initiated by Dr. Yuri Jasso in the hospital.? Patient does have a walker that she will bring to the hospital.? She will continue with our nutrition protocol. DVT Prophylaxis Plan: Due to patient currently using anastrozole we will move forward with Xarelto 10 mg once daily for 2 weeks postoperatively followed by additional 2 weeks of aspirin 81 mg twice daily for DVT prophylaxis.? Patient will also use KENZIE hose daily.? Patient denies past history of DVT or pulmonary embolism. This dictation was created using voice recognition software. Phonetic and/or grammatical errors may exist. ___? I have re-examined the patient.? There are no clinical changes since date of exam. ___? See progress notes for changes. ___? Dictated on admission Date: ? Time: Signature: 09/29/24 0709 <Electronically signed by Chas KELLOGG PA-C> Cosigner Signature (if applicable): CC: SUDHIR Mcgovern; Dr. Catherine Vazquez, DO; Dr. Yuri Jasso MD~ Signed ADDENDUM by Dr. Yuri Jasso MD on 10/06/24 at 0843 Addendum I have examined the patient and the H&P has been reviewed. There are no clinicalchanges since date of exam. 10/06/24 0843<Electronically signed by Yuri Jasso MD> Cosigner Signature (if applicable): cc: SUDHIR cMgovern; Dr. Catherine Vazquez, DO; Dr. Yuri Jasso MD ~* Signed [facility] Work Phone: [phone]) 605-702305-12-2025 Consult note [facility] Medical Records Department [address] [place] [address] Pre-Anesthesia Evaluation 10/06/24 0949 MR#: [id number] Acct: [id number] Name: ANGELA MAY Rep #:[id number] : 1950 73 From: Anibal Montemayor MD PCP: Dr. Catherine Vazquez, [place] [facility] [place] Race[place] C Location: [place] [address] ASA Classification* ASA Classification ASA Classification: 2 Assessment & Plan Anesthesia* Anesthesia Assessment Anesthesia Assessment: Discussed sedation and/or anesthesia options, risks, benefits, and alternatives with patient/parents/legal guardian/POA. Questions invited. The patient/parents/legal guardian/POA seems to understand and agrees to proceedwith anesthesia plan. Reviewed the physical assessment, medical history, allergy history and patient home medications list prior to surgery/procedure/anesthetic and documented any changes. Performed airway and anesthesia risk assessments. Anesthesia Type Anesthesia Type: Spinal and Block (Patient is consented for adductor canal block.) History Source History Obtained from:: Patient and Chart Anesthesia Focused Assessment* Temperature: 98.1 F Pulse Rate: 80 Blood Pressure: 137/66 Respiratory Rate: 18 Pulse Ox: 98 Oxygen Delivery Method: Room Air Airway Assessment Mouth opens: >3 cm Mallampati Score: III Teeth Condition: Partial (Patient has top partial. It will come out.) Neck Range of motion (ROM): Full ROM Focused Labs Anesthesia Preop lab: CBC WBC 5.4 K/mm3 (4.4-11.0) 09/10/24 13:05 09/10/24 RBC 4.40 M/mm3 (4.2-5.4) 09/10/24 13:05 09/10/24 Hgb 13.8 g/dL (12.0-15.0) 09/10/24 13:05 09/10/24 Hct 40.8 % (37-47) 09/10/24 13:05 09/10/24 Plt Count 224 K/mm3 (150-450) 09/10/24 13:05 09/10/24 CHEMISTRY Potassium 4.4 mmol/L (3.3-5.1) 09/10/24 13:05 09/10/24 Sodium 138 mmol/L (133-145) 09/10/24 13:05 09/10/24 Magnesium 2.3 mg/dL (1.5-2.2) H 09/10/24 13:05 09/10/24 BUN 20 mg/dL (4-19) H 09/10/24 13:05 09/10/24 Creatinine 0.92 mg/dL (0.70-1.20) 09/10/24 13:05 09/10/24 Glucose 90 mg/dL (70-99) 09/10/24 13:05 09/10/24 POC Glucose 93 mg/dL (70-110) 02/05/19 07:52 02/05/19 TSH 1.39 uIU/mL (0.358-3.74) 12/05/18 12:02 COAG Pre-Assessment Diagnosis/Proposed Procedure Planned Operative Procedure(s): (R) ERAS, ROBOTIC ASSISTED RIGHT TOTAL KNEE ARTHROPLASTY Anesthesia History 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 When Was Last Pacemaker Check QUESTION #4 FULL TEXT: You/Your Family Experience fever (hyperthermia) with Anesthesia Last Oral Intake Last Oral intake: Last Oral Intake NPO since 20:00 10/06/24 08:50 Meds taken in AM with sips of No 10/06/24 08:50 water? Meds patient instructed to take am of surgery Any additional information?: Yes NPO since: 06:00 (Patient had her preop Ensure at 6 AM.) PONV PONV - construction teacher: PONV - construction teacher Female Yes 09/08/24 13:09 HX of Motion Sickness No 09/08/24 13:09 HX of N/V After Surgery No 09/08/24 13:09 Non-Smoker Yes 09/08/24 13:09 Duration of Surgery greater Yes 09/08/24 13:09 than 60 minutes Number of Risk Factors 3 09/08/24 13:09 PONV Score Moderate Risk 09/08/24 13:09 Height & Weight Height & Weight: Anesthesia: Height & Weight Height 5 ft 5 in 10/06/24 08:50 Weight: 93.2 kg 10/06/24 08:50 Body Mass Index (BMI) 34.2 10/06/24 08:50 Respiratory Assessment Respiratory Assessment - construction teacher: Respiratory Tract Infection Hx - construction teacher Hx Respiratory Tract Infection No 09/08/24 13:09 STOP Sleep Apnea STOP Sleep Apnea - construction teacher: STOP Sleep Apnea - construction teacher Hx Hypertension Yes: CONTROLLED WITH MED 09/08/24 13:09 Hx Sleep Apnea No 09/08/24 13:09 CPAP No 09/08/24 13:09 BIPAP Do you snore loudly (louder No 09/08/24 13:09 than talking or can be heard Do you often feel tired/ No 09/08/24 13:09 fatigued/ sleepy during daytime? Has anyone observed you stop No 09/08/24 13:09 breathing during sleep? STOP Results Negative 09/08/24 13:09 QUESTION #5 FULL TEXT : Do you snore loudly (louder than talking or can be heard through closeddoors)? 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 teacher: Tobacco Use History - construction teacher Tobacco Use Smoking Status Former smoker 09/08/24 13:09 Hx Tobacco Use No 09/08/24 13:09 Years Smoking Packs Smoked per Day Smoking Cessation Date was No - quit smoking greater 09/08/24 13:09 within the last 15 years than 15 years ago Hx Smoking Cessation Date 05/28/82 09/08/24 13:09 Hx Smoking Cessation No 09/08/24 13:09 Counseling Hematologic Medial History Hematologic Hx - construction teacher: Hematologic Medical Hx - corrugator helper Hx of Blood Transfusion No 09/08/24 13:09 Hx of Transfusion in last 3 No 09/08/24 13:09 Months Date of Last Transfusion (if within last 3 months) Ever experience any problems No 09/08/24 13:09 with transfusion(s)? Specify any problems Hx of Preganancy in last 3 N/A 09/08/24 13:09 Months Nurse Filling Out Transfusion NBUCHER 09/08/24 13:09 & Questions: Date: 09/08/24 09/08/24 13:09 Time: 13:10 09/08/24 13:09 Patient unable to answer at this time (ie. confused, unrespo /Reproduction History /Reproductive History - construction teacher: /Reproductive Hx- construction teacher Hx Now Gestational Age (in weeks): EDC: Hx Hx Para Hx Section SAB No 09/08/24 13:09 Active Medications Active Medications: Current Medications Generic Name Dose Route Start Last Admin Trade Name Freq PRN Reason Stop Dose Admin Acetaminophen 1,000 mg 10/06/24 10:30 10/06/24 09:37 Acetaminophen 500 Mg Tablet PO 10/06/24 10:31 1,000 mg PREOP ONE Administration Acetaminophen 1,000 mg 10/06/24 07:30 Acetaminophen 500 Mg Tablet PO Q8H CHARLY Celecoxib 400 mg 10/06/24 10:30 10/06/24 09:37 Celecoxib 200 Mg Capsule PO 10/06/24 10:31 400 mg PREOP ONE Administration Sodium Chloride 77.4 ml/ 0 ml 10/06/24 10:30 Ropivacaine 200 mg/ OPERA.SITE 10/06/24 10:31 Epinephrine HCl 0.6 mg/ INTRAOP ONE Ketorolac Tromethamine 30 mg/ Morphine Sulfate 5 mg Dexamethasone Sodium Phosphate 10 mg 10/06/24 10:30 Dexamethasone 10 Mg/Ml Vial IV 10/06/24 10:31 INTRAOP ONE Enteral Nutritional Formula 237 ml 10/06/24 08:00 Ensure Surgery 237 Ml Liquid PO TIDCM CHARLY Famotidine 20 mg 10/06/24 10:00 Famotidine 20 Mg Tablet PO DAILY CHARLY Gabapentin 600 mg 10/06/24 10:30 10/06/24 09:37 Gabapentin 600 Mg Tablet PO 10/06/24 10:31 600 mg PREOP ONE Administration Lactated Ringer's 1,000 mls @ 999 mls/hr 10/06/24 10:30 10/06/24 08:50 IV 10/06/24 11:30 999 mls/hr .Q1H1M CHARLY Administration Cefazolin Sodium 2 gm/ Sodium 110 mls @ 150 mls/hr 10/06/24 10:30 Chloride IV 10/06/24 11:13 INTRAOP ONE Tranexamic Acid 1,000 mg/ 110 mls @ 660 mls/hr 10/06/24 10:30 Sodium Chloride IV 10/06/24 10:39 INTRAOP ONE Tranexamic Acid 1,000 mg/ 110 mls @ 660 mls/hr 10/06/24 10:30 Sodium Chloride IV 10/06/24 10:39 INTRAOP ONE Lactated Ringer's 1,000 mls @ 999 mls/hr 10/06/24 10:30 IV 10/06/24 11:30 .Q1H1M CHARLY Lactated Ringer's 1,000 mls @ 125 mls/hr 10/06/24 10:30 IV 10/06/24 18:29 .Q8H [facility] Magnesium Sulfate 1 gm/ 102 mls @ 408 mls/hr 10/06/24 10:30 10/06/24 08:55 Dextrose IV 10/06/24 10:44 408 mls/hr INTRAOP ONE Administration Cefazolin Sodium 1 gm in 50 mls @ 150 mls/hr 10/06/24 07:25 IV 10/06/24 15:44 Q8H [facility] Insulin Human Lispro 1 - 6 unit 10/06/24 10:30 Insulin Lispro 100 Unit/Ml Insuln.Pen SC Q4H PRN PRN BG>/= 180, SEE PROTOCOL Protocol Ketorolac Tromethamine 15 mg 10/06/24 07:22 Ketorolac 15 Mg/Ml Vial IV 10/07/24 07:24 Q6H PRN PRN Pain Score 1-10 Morphine Sulfate 2 - 4 mg 10/06/24 07:22 Morphine 2 Mg/Ml Syringe IV Q2H PRN PRN Pain Score 4-10 Morphine Sulfate 2 - 4 mg 10/06/24 09:17 Morphine 4 Mg/Ml Syringe IV Q2H PRN PRN Pain Score 4-10 Ondansetron HCl 4 mg 10/06/24 07:22 Ondansetron 4 Mg/2 Ml Vial IV Q6H PRN PRN NAUSEA/VOMITING Oxycodone HCl 5 - 10 mg 10/06/24 07:22 Oxycodone 5 Mg Tablet PO Q4H PRN PRN Pain Score 4-10 Promethazine HCl 12.5 mg 10/06/24 07:22 Promethazine 25 Mg Tablet PO Q6H PRN PRN NAUSEA/VOMITING Promethazine HCl 12.5 mg 10/06/24 07:22 Promethazine 25 Mg/Ml Syringe IM Q6H PRN PRN NAUSEA/VOMITING Rivaroxaban 10 mg 10/07/24 06:00 Rivaroxaban 10 Mg Tablet PO DAILY@0600 [facility] Senna/Docusate Sodium 2 tablet 10/06/24 10:00 Senna/Docusate Sodium 1 Tablet PO BID [facility] PFS Medical History Wears glasses Wears partial dentures Post-menopausal Cancer Heartburn Former smoker History of echocardiogram History of irregular heartbeat Psoriatic arthritis Osteopenia Osteoarthritis Hypertension Arthritis Home Medications ?Medication ?Instructions ?Recorded ?Last Taken ?Type Lactobacillus acidophilus 250 500 mmu cells PO DAILY 0 09/07/23 10/05/24 History million cell capsule (Probiotic Acidophilus) valsartan 160 1 tab PO DAILY #90 tabs 10/2610/05/24 Rx mg-hydrochlorothiazide 12.5 mg tablet cholecalciferol (vitamin D3) 50 50 mcg PO DAILY 10/05/24 History mcg (2,000 unit) capsule (Vitamin D3) glucosamine-chondroitin 500 mg-400 3 cap PO DAILY 08/2610/05/24 History mg capsule letrozole 2.5 mg tablet 2.5 mg PO DAILY 09/08/2404/21 History omega 8-obf-xbe-fish oil 1,200 mg 2 cap PO DAILY 09/0809/30/24 History (144 mg-216 mg) capsule (Fish Oil) acetaminophen 500 mg tablet 500 mg PO Q6H PRN pain 10/05/24 History (Tylenol Extra Strength) Allergy/AdvReac Type Severity Reaction Status Date / Time No Known Allergies Allergy Verified 10/06/24 09:32 Family History Father Arthritis Heart disease Hypertension Mother Hypertension Grandmother CVA (cerebral vascular accident) Surgical History History of tubal ligation History of lumpectomy of left breast S/P lumpectomy, left breast Hx of colonoscopy Hx of right cataract extraction Hx of left cataract extraction History of left hip replacement History of right hip replacement History of section History of carpal tunnel release of both wrists Social History Smoking Status: Former smoker how long ago did patient quit smokin alcohol intake: never substance use type: does not use what type of physical activity do you participate in: walking frequency: daily Review of Systems (Anesthesia) ROS Narrative System reviewed and no additional complaints, except as documented. 10/06/24 Marcellus gutierrez MD> Date _ Anibal Montemayor MD Cosigner Signature: Date CC: ~ Signed [facility]05-12-2025 History and physical note [facility] Medical Records Department [address] [place] [id number] History & Physical Exam 09/29/24 0709 MR#: [id number] Acct: [id number] Name: ANGELA MAY Rep #:[id number] : 1950 73 From: Chas KELLOGG PA-C PCP: Dr. Catherine Vazquez, DO Status:[facility] Location: [place] [address] History and Physical History and Physical Patient Name: Angela aMy : 1950From:? CHAS MCGOVERN PA-C DATE OF PRE-OPERATIVE EXAM: 09/26/2024 DATE OF SURGERY:? 10/06/2024 SCHEDULED PROCEDURE:? Robotic-assisted right total knee arthroplasty HISTORY OF PRESENT ILLNESS: Preoperative history and physical exam was performed on September 26, 2024.? This is a 73-year-old female who has had ongoing pain intermittently in the knees over theyears.? She did have worsening pain since the fall 2023.? Patient's pain is intermittent, sharp, and stabbing.? She has pain that is most severe when she iswalking and going up and down steps.? She does have pain at nighttime.? She can only take a few steps before she starts experiencing significant pain in the knees.? Pain is located over the medial and lateral aspect of the knee.? Pain isincreased with leisure activity such as walking for exercise and gardening.? Patient has used Voltaren gel which did offer some relief.? She had previous corticosteroid injection which only provided approximately 2 weeks of relief.? She has triedoral medications including Tylenol, fish oil, and glucosamine chondroitin supplements.? Patient hashad previous knee arthroscopy in 1996 for meniscus tears.? Patient has attempted the use of brace in the past.? She uses acane over the past 1 month.? After failing conservative measures and discussing all treatment options with Dr. Yuri Jasso, the patient does wish to proceed with a robotic assisted right total knee arthroplasty.? Clearance has been obtained from the primary care provider Dr.Douglas Vazquez and her oncologist .? Patient is currently no longer receiving any chemotherapy or radiation.?She does take anastrozole.? Patient currently denies any recent chest pain, shortness of breath, fevers chills or recent infections.? No past history of DVTor pulmonary embolism.? Patient has medical history pertinent for hypertension, breast cancer 2023, gastroesophageal reflux disease, osteopenia, and psoriatic arthritis. ? REVIEW OF SYSTEMS: Review Of Systems: Constitutional: Denies anorexia, anxiety, change in appetite, fever and weight change,hard of hearing, and vision problems. Cardiovasular: Denies chest pain, heart murmur, irregular heartbeat and peripheral vascular disease. Respiratory: Denies asthma, cough, pneumonia, sleep apnea, shortness of breath, tuberculosis and wheezing. Gastrointestinal: Reports heartburn, but denies constipation, diarrhea, nausea, bloody stools and vomiting. Genitourinary: Denies incontinence. Musculoskeletal: Reports gait disturbance, pain and trouble walking, but denies leg swelling. Skin: Denies Raynaud's, history of shingles and tattoo. Neurological: Denies ambulatory dysfunction, dizziness, numbness/tingling and tremor. Psychiatric: Denies anxiety, depression, insomnia, mental illness and stress. Hematologic/Lymphatic: Denies anemia, bleeding/bruising tendency and past transfusion. Reviewed and updated. PAST MEDICAL HISTORY: Advance Care Plan: Other Directive, POA Effective Date: 12/20/2018 Past Medical History: Medical Problems: Arthritis - osteo High Blood Pressure Cancer - (08/2023) Left breast Hormone Therapy, Acid Reflux, osteopenia, psoriatic arthritis Accidents: None Surgical Hx: Carpal Tunnel Release Lt - (11/1988) Hip Replacement Rt - (10/2006) Appendectomy - did not have have Tubal Ligation - (02/1985) Section - (05/1977) 1978,November 1982,Dec 1984,1Oct Carpal Tunnel Release Rt - (10/1988) Knee Arthroscopy Rt - (01/1997) Section - X 4 Carpal Tunnel - BLT? 1988 Appendectomy - RIGHT KNEE 1997 Hip Replacement - (11/07/2006) RIGHT [facility] LT THR - (02/05/2019) [facility] Cataracts - (04/2021) left breast ca, radiation RT Wrist, Revision Carpal Tunnel Release - (04/02/2024) BROOKE @ [facility] Anesthesia Complications: None Assistive Devices: Glasses, Cane, Dentures - partial - upper Reviewed and updated. SOCIAL HISTORY: Social History: Marital: .Occupation: Retired.Work Status: Retired.Hand Dominance: Right-handed. Personal Habits:? Cigarette Use: Former.Smokeless Tobacco: Never Used Smokeless Tobacco.E-CigaretteUse: Never used.Alcohol: Denies use.Drug Use: Denies Use.Enjoy Exercising: Daily. Reviewed and updated. VITALS: Ht: 65.5 Wt: 205lb Wt k.988 BMI: 33.6 BP: 132/80 Pulse: 85 Resp: 16 T: 97.8 T: 36.6C Pain Level: 8 O2SatR: 98 ALLERGIES: No Known Drug Allergy MEDICATIONS: Fish Oil 1000 mg 1po qday, Tylenol Extra Strength 500 mg 2 po pr n, [place] 3 1000mg 2 by mouth everyday, Valsartan-Hydrochlorothiazide 160-12.5 mg 1 by mouth every day, Anastrozole 1 mg 1 by mouth every day PRE-OP EXAM: General appearance:NORMAL? Other: Eyes: Conjunctivae and lids: NORMAL? Pupils: ERR Ears, Nose, Mouth, and Throat: NORMAL? Other: Inspection of lips, teeth and gums: NORMAL?? Other: Neck: Examination of neck: no masses noted. Respiratory: Assessment of respiratory effort: NORMAL?? Other: ? Auscultation of lungs: clear to auscultation no wheezes, rhonchi or rales. Cardiovascular:? Auscultation of heart: regular rate and rhythm, positive systolic murmur PHYSICAL EXAMINATION: On exam patient does walk with an antalgic gait with valgus stress.? Right knee is without erythemaor signs of infection.? She has moderate effusion.? Tenderness to palpation along the medial and lateral joint line. Range of motion: 0 extension to 118 flexion with pain on flexion Stable to varus/valgus stress test, stable to anterior/posterior drawer exam with firm endpoint.? Correctable valgus alignment. IMAGING STUDIES: Previous x-rays of the right knee reveal valgus alignment with lateral joint space narrowing, subchondral sclerosis, osteophyte formation consistent with severe stage IV [id number] erosion of the lateral compartment. IMPRESSION: 1.? 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 Hypertension 3.? Breast cancer: Currently on anastrozole 4.? Gastroesophageal reflux disease 5.? Osteopenia 6.? Psoriatic arthritis 7.? Obesity with BMI 33.6 PLAN: Dr. Yuri Jasso did discuss and review with the patient all treatment options including surgical versus nonsurgical options.? I will continue plan establishedby Dr. Yuri Jasso.? Patient does wish to proceed with the above- stated procedure.? Potential risks, benefits, and complications of the procedure were discussed in detail including but not limited to , infection, nerve and blood vessel damage, persistent pain, numbness, tingling, paresthesias, blood clot, pulmonary embolism, and requirement for possible further surgery.? The patient expressed full understanding and has no further questions for the doctor.? Patient does agree to proceed with the above-stated procedure and has signed the surgery consent form. POST-OP MEDICATION PLAN: Pain Medications: Postoperative pain regimen will be initiated by Dr. Yuri Jasso in the hospital.? Patient does have a walker that she will bring to the hospital.? She will continue with our nutrition protocol. DVT Prophylaxis Plan: Due to patient currently using anastrozole we will move forward with Xarelto 10 mg once daily for 2 weeks postoperatively followed by additional 2 weeks of aspirin 81 mg twice daily for DVT prophylaxis.? Patient will also use KENZIE hose daily.? Patient denies past history of DVTor pulmonary embolism. This dictation was created using voice recognition software. Phonetic and/or grammatical errors mayexist. ___? I have re-examined the patient.? There are no clinical changes since date of exam. ___? See progress notes for changes. ___? Dictated on admission Date: ? Time: Signature: 09/29/24 0709 Cosigner Signature (if applicable): CC: SUDHIR Mcgovern; Dr. Catherine Vazquez DO; Dr. Yuri Jasso MD~ Signed ADDENDUM by Dr. Yuri Jasso MD on 10/06/24 at 0843 Addendum I have examined the patient and the H&P has been reviewed. There are no clinicalchanges since date of exam. 10/06/24 0843 Cosigner Signature (if applicable): cc: SUDHIR Mcgovern; Dr. Catherine Vazquez DO; Dr. Yuri Jasso MD ~* Signed [facility]05-12-2025 Telephone encounter Note* Telephone Encounter - Rhiannon Cleveland LPN - 10/06/2024 8:11 AM EDT All results faxed to PCP. [employer] message sent. Rhiannon Cleveland LPN [facility]05-12-2025 Miscellaneous Notes* Telephone Encounter - Rhiannon Cleveland LPN - 10/06/2024 8:11 AM EDT All results faxed to PCP. [employer] message sent. Rhiannon Cleveland LPN * Telephone Encounter - Pernell Najera DO - 10/03/2024 5:25 PM EDT Can let her know that the parathyroid hormone level was elevated indicating hyperparathyroidism. This may not be a condition that needs treated but should be monitored. Please fax recent chemistry panel, ionized calcium and PTH level to her PCP and ask her to contact his office to arrange appointment. Pernell Najera DO documented [facility] Telephone encounter Note * Telephone Encounter - Pernell Najera DO - 10/03/2024 5:25 PM EDT Can let her know that the parathyroid hormone level was elevated indicating hyperparathyroidism. This may not be a condition that needs treated but should be monitored. Please fax recent chemistry panel, ionized calcium and PTH level to her PCP and ask her to contact his office to arrange appointment. Pernell Najera DO [facility]05-08-2025 Telephone encounter Note* Telephone Encounter - Chinyere Stewart - 10/02/2024 8:53 AM EDT This has been scheduled. Chinyere Stewart [facility]05-08-2025 Miscellaneous Notes* Telephone Encounter - Chinyere Stewart - 10/02/2024 8:53 AM EDT This has been scheduled. Chinyere Stewart * Telephone Encounter - Rhiannon Cleveland LPN - 10/02/2024 8:38 AM EDT PSS- please schedule patient for a lab appointment for a PTH TODAY @ 3:00. Patient is aware of appointment date and time. Rhiannon Cleveland LPN * Telephone Encounter - Pernell Najera DO - 10/02/2024 8:27 AM EDT Ionized calcium confirms her calcium is a bit high. Please check PTH. Pernell Najera DO documented in [facility] encounterProm[facility] Telephone encounter Note * Telephone Encounter - Rhiannon Cleveland LPN - 10/02/2024 8:38 AM EDT PSS- please schedule patient for a lab appointment for a PTH TODAY @ 3:00. Patient is aware of appointment date and time. Rhiannon Cleveland LPN [facility]05-08-2025 Telephone encounter Note* Telephone Encounter - Pernell Najera DO - 10/02/2024 8:27 AM EDT Ionized calcium confirms her calcium is a bit high. Please check PTH. Pernell Najera DO [facility]05-05-2025 [facility] Medical Records Department [address] [place] [address] History Physical Exam 09/29/24 0709 MR#: [id number] Acct: [id number] Name: ANGELA MAY Rep #: [id number] : 1950 73 From: Chas KELLOGG PA-C PCP: Dr. Catherine Vazquez, DO [place] [facility] [place] [address] History and Physical History and Physical Patient Name: Angela May : 1950From:??? CHAS MCGOVERN PA-C DATE OF PRE-OPERATIVE EXAM: 09/26/2024 DATE OF SURGERY:??? 10/06/2024 SCHEDULED PROCEDURE:??? Robotic-assisted right total knee arthroplasty HISTORY OF PRESENT ILLNESS: Preoperative history and physical exam was performed on September 26, 2024.??? This is a 73-year-old female who has had ongoing pain intermittently in the knees over the years.??? She did have worsening pain since the fall 2023.??? Patient's pain is intermittent, sharp, and stabbing.??? She has pain that is most severe when she is walking and going up and down steps.??? She does have pain at nighttime.???She can only take a few steps before she starts experiencing significant pain in the knees.??? Pain is located over the medial and lateral aspect of the knee.??? Pain is increased with leisure activity such as walking for exercise and gardening.??? Patient has used Voltaren gel which did offer some relief.??? She had previous corticosteroid injection which only provided approximately 2 weeks of relief.??? She has tried oral medications including Tylenol, fish oil, and glucosamine chondroitin supplements.??? Patient has had previous knee arthroscopy in 1996 for meniscus tears.??? Patient has attempted the use of brace in the past.??? She uses a cane over the past 1 month.??? After failing conservative measures and discussing all treatment options with Dr. Yuri Jasso, the patient does wish to proceed with a robotic assisted right total knee arthroplasty.??? Clearance has been obtained from the primary care provider Dr. Catherine Vazquez and her oncologist Dr. Najera.??? Patient is currently no longer receiving any chemotherapy or radiation.??? She does take anastrozole.??? Patient currently denies any recent chest pain, shortness of breath, fevers chills or recent infections.??? No past history of DVT or pulmonary embolism.??? Patient has medical history pertinent for hypertension, breast cancer 2023, gastroesophageal reflux disease, osteopenia, and psoriatic arthritis. ??? REVIEW OF SYSTEMS: Review Of Systems: Constitutional: Denies anorexia, anxiety, change in appetite, fever and weight change,hard of hearing, and vision problems. Cardiovasular: Denies chest pain, heart murmur, irregular heartbeat and peripheral vascular disease. Respiratory: Denies asthma, cough, pneumonia, sleep apnea, shortness of breath, tuberculosis and wheezing. Gastrointestinal: Reports heartburn, but denies constipation, diarrhea, nausea, bloody stools and vomiting. Genitourinary: Denies incontinence. Musculoskeletal: Reports gait disturbance, pain and trouble walking, but denies leg swelling. Skin: Denies Raynaud's, history of shingles and tattoo. Neurological: Denies ambulatory dysfunction, dizziness, numbness/tingling and tremor. Psychiatric: Denies anxiety, depression, insomnia, mental illness and stress. Hematologic/Lymphatic: Denies anemia, bleeding/bruising tendency and past transfusion. Reviewed and updated. PAST MEDICAL HISTORY: Advance Care Plan: Other Directive, POA Effective Date: 12/20/2018 Past Medical History: Medical Problems: Arthritis - osteo High Blood Pressure Cancer - (08/2023) Left breast Hormone Therapy, Acid Reflux, osteopenia, psoriatic arthritis Accidents: None Surgical Hx: Carpal Tunnel Release Lt - (11/1988) Hip Replacement Rt - (10/2006) Appendectomy - did not have have Tubal Ligation - (02/1985) Section - (05/1977) 1978,November 1982,Dec 1984,1Oct Carpal Tunnel Release Rt - (10/1988) Knee Arthroscopy Rt - (01/1997) Section - X 4 Carpal Tunnel - BLT??? 1988 Appendectomy - RIGHT KNEE 1997 Hip Replacement - (11/07/2006) RIGHT [facility] LT THR - (02/05/2019) SAW@[facility] Cataracts - (04/2021) left breast ca, radiation RT Wrist, Revision Carpal Tunnel Release - (04/02/2024) BROOKE @ [facility] Anesthesia Complications: None Assistive Devices: Glasses, Cane, Dentures - partial - upper Reviewed and updated. SOCIAL HISTORY: Social History: Marital: .Occupation: Retired.Work Status: Retired.Hand Dominance: Right-handed. Personal Habits:??? Cigarette Use: Former.Smokeless Tobacco: Never Used Smokeless Tobacco.E-Cigarette Use: Never used.Alcohol: Denies use.Drug Use: Denies Use.Enjoy Exercising: Daily. Reviewed and updated. VITALS: Ht: 65.5 Wt: 205lb Wt k.988 BMI: 33.6 BP: 132/80 Pulse: 85 Resp: 16 T: 97.8 T: 36.6C Pain Level: 8 O2SatR: 98 ALLERGIES: No Known Drug Allergy MEDICATIONS: Fish Oil 1000 m (more content not included)...[facility] 09-17-2024 Evaluation note* Diagnosis Onset Date Resolution Status Admit Date Invasive ductal carcinoma of left breast acute September 17, 2024 2:56pm Right knee DJD acute August 2:56pm Hypertension chronic September 17, 2024 2:56pm Right knee DJD acute October 06, 2024 7:23am Status post right knee replacement acute October 06, 2024 7 :23am [facility] Work Phone: 1(626) 358-850704-23-2025 Evaluation note* Diagnosis Onset Date Resolution Status Admit Date Invasive ductal carcinoma of left breast acute September 17, 2024 2:56pm Right knee DJD acute August 2:56pm Hypertension chronic September 17, 2024 2:56pm Right knee DJD acute October 06, 2024 7:23am Status post right knee replacement acute October 06, 2024 7 :23am Elevated PTHrP level acute October 21, 2024 2:54pm Frequency of urination acute 2024 2:54pm [facility] Work Phone: 1(274) 170-325004-16-2025 Radiology Diagnostic study note [facility] Imaging Services [address], [place] [id number] Extremity Lower without Contra MR#: [id number] Acct: [id number] Name: ANGELA MAY Rep #: [id number] : 1950 F 73 From: Nicola Pino MD PCP: Dr. Catherine Vazquez, DO Status: RE G CLI Study:Extremity Lower without Contra Date of Exam: 09/10/24 Exam# [id number] Ordering Dr: aMx Jasso MD PROCEDURE: EXTREMITY LOWER WITHOUT CONTRA 09/10/2024 REASON FOR EXAM: KNEE PAIN/PRE OP Donnie protocol. TECHNIQUE: Axial CT images of the right lower extremity obtained without intravenous contrast. Coronal and Sagittal reconstruction series were provided. CONTRAST: None One or more dose reduction techniques were used (e.g., Automated exposure control, adjustment of the mA and/or kV according to patient size, use of iterative reconstruction technique). RADIATION DOSE SUMMARY: CTDlvol: 18.5 mGy DLP: 1478.2 mGycm COMPARISON: None FINDINGS: Bones: No evidence of fracture. Joints: Imaging of the hip joint was obtained. The patient is status post righttotal hip replacement. There is good alignment. No acute abnormality is seen. Imaging of the right knee joint was obtained. Marked degree of joint space narrowing involving the medial and lateral compartments of the knee joint with degenerative spur formation. Moderate degree of joint space narrowing of the patellofemoral joint with anterior femoral spur. Imaging of the right ankle was obtained. No abnormality is seen. Soft Tissues: Minimal joint effusion. CT/Extremity Lower without Contra IMPRESSION: Marked degree of joint space narrowing of the medial and lateral compartments ofthe knee joint. Reading Location: [place] [address] CC: Dr. Catherine Vazquez, DO; Dr. Yuri Jasso MD ~ [employer] Supervisor: Signed [facility]04-11-2025 Telephone encounter Note* Telephone Encounter - Rhiannon Cleveland LPN - 09/05/2024 9:00 AM EDT Patient is aware and is scheduled for lab 09/18/2024. Rhiannon Cleveland LPN [facility]04-11-2025 Miscellaneous Notes* Telephone Encounter - Rhiannon Cleveland LPN - 09/05/2024 9:00 AM EDT Patient is aware and is scheduled for lab 09/18/2024. Rhiannon Cleveland LPN * Telephone Encounter - Rhiannon Cleveland LPN - 09/04/2024 2:22 PM EDT Left message for patient to contact office. Rhiannon Cleveland LPN * Telephone Encounter - Cordelia Chawla APRN.CNP - 09/04/2024 1:54 PM EDT Please advise pt. to hold calcium and all calcium containing supplements. Repeat calcium and ionized calcium in 2 weeks. Thank you. Cordelia Chawla APRN.CNP documented in [facility]04-[facility] Telephone encounter Note * Telephone Encounter - Rhiannon Cleveland LPN - 09/04/2024 2:22 PM EDT Left message for patient to contact office. Rhiannon Cleveland LPN [facility]04-10-2025 Telephone encounter Note* Telephone Encounter - Cordelia Chawla APRN.CNP - 09/04/2024 1:54 PM EDT Please advise pt. to hold calcium and all calcium containing supplements. Repeat calcium and ionized calcium in 2 weeks. Thank you. Cordelia Chawla APRN.FISH SALTER [facility]02-17-2025 NoteHNO ID: [id number] Author: CORDELIA CHAWLA APRN.VIVIAN Service: ? Author Type: Nurse Practitioner Type: Progress Notes Filed: 07/14/2024 14:44 Note Text: Chief Complaint Patient presents with: Established Patient HPI: Angela May is a 73 year old female who presents here today for follow up breast cancer. Per Dr. 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 Patient had a bilateral screening mammogram 11/13/2022. She was noted to have areas of scattered fibroglandular density in both breast. There were no dominant masses or suspicious calcifications. 1 year follow-up was recommended. Patient appreciated a palpable lump in the left breast. Diagnostic mammogram 08/14/2023 identified a 6 mm nodular density in the medial retroareolar region of the left breast corresponding to the palpable abnormality. On ultrasound was found to have a 1.2 x 1.1 x 0.9 cm hypoechoic lobular irregular nodule with increased vascularity. Core needle biopsy. Pathology: Left breast nodule at 9 o?clock, core biopsy; Invasive ductal carcinoma. See synoptic report below. AM/mr 08/22/2023 COMMENT INVASIVE BREAST CANCER SUMMARY: Procedure: Needle core biopsy Specimen Laterality: Left breast Tumor site: 9 o?clock, retro-areolar Histologic type: Invasive ductal carcinoma Provisional Histologic grade: 2 Tubule Differentiation Score: 3 Nuclear Pleomorphism Score: 2 Mitotic Rate Score: 1 Tumor Size ( greatest dimension): 7.5 mm Ductal Carcinoma Insitu: Not identified Angiolymphatic Invasion: Not identified Microcalcifications: Not identified Additional Pathologic Findings: None Breast Marker Study: RF 332 ER:> 95%, strong intensity (positive) KS:90%, moderate to strong intensity (positive) Her2:0 (negative) Ki67:5% TNM stage: Not Applicable The above summary is in compliance with [employer] (CAP) Cancer Protocols Checklist and [place] Joint Committee on Cancer (AJCC), Staging Manual, 8th Ed. Underwent left partial mastectomy including nipple areolar complex along with sentinel lymph node biopsy on 09/20/2023. Pathology: FROZEN SECTION DIAGNOSIS Left sentinel lymph node, biopsy: One lymph node, negative for metastatic carcinoma. MICROSCOPIC DIAGNOSIS A. Left breast, sentinel node, biopsy: One out of one lymph node negative for metastatic carcinoma. See comment. B. Left breast, mastectomy: Invasive ductal carcinoma. See cancer template below: AM/mr 09/27/23 COMMENT INVASIVE BREAST CANCER SUMMARY: Procedure - Mastectomy Specimen: Breast with nipple and areola Type - partial breast Size - 7.5 x 6.0 x 3.0 Laterality - left breast Tumor: Site - Subareolar Size - 1.5 x 1.0 x 0.7cm Histologic type - invasive ductal carcinoma. Focality - single focus of carcinoma. Histologic Grade (Nicholas grade): Glandular/tubular differentiation - score 3 Nuclear pleomorphism - score 2 Mitotic count - score 1 [facility] DEPARTMENT OF LABORATORY SURGICAL PATHOLOGY REPORT [address] [place], [place] [address] ____ Page 2 of 3 The contents of this transmission are privileged, confidential and exempt from disclosure under applicable law. If you have received this information in error, call . ANGELA MAY MR# [id number] Overall grade - 2 (score of 6) Ductal carcinoma in situ: Present Estimated quantification (% of tumor volume) - 1% Number of blocks - 1 of 12 blocks Architectural patterns - Solid Nuclear grade - grade 1/2 Necrosis - not identified Lobular carcinoma in situ (LCIS) - Not present Tumor extension: Skin - free of carcinoma Nipple - free of carcinoma Skeletal muscle - not present Margins: Distance of invasive carcinoma from closest margin - 10 mm from superior margin. Distance of ductal carcinoma in situ from closest margin - 12 mm from superior margin. Lymph nodes: Number of sentinel lymph nodes examined - 1 Total number of lymph nodes examined (sentinel and nonsentinel) - 1 No evidence of macrometastases, micrometastases or isolated tumor cells See specimen ?A? Treatment effect: Unknown Lymphvascular invasion - Not identified Additional pathologic findings - Fibrocystic change, changes of previous biopsy and tumor necrosis. Ancillary studies - previously performed on section of tumor ([id number] / [id number]). ER - >95%, strong intensity KS - 90%, moderate to strong intensity Her2 adán - 0, negative Her2 by dual SHARAD - not performed Ki67 - 5% Microcalcifications - Not identified Clinical history - Mass of left breast PATHOLO (more content not included)...[facility]02-17-2025 History of Present illness Narrative* Cordelia Chawla APRN.FISH SALTER - 07/14/2024 11:34 AM EST Chief Complaint Patient presents with: Established Patient HPI: Angela May is a 73 year old female who presents here today for follow up breast cancer. Per Dr. 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 Patient had a bilateral screening mammogram 11/13/2022. She was noted to have areas of scattered fibroglandular density in both breast. There were no dominant masses or suspicious calcifications. 1 year follow-up was recommended. Patient appreciated a palpable lump in the left breast. Diagnostic mammogram 08/14/2023 identified a 6 mm nodular density in the medial retroareolar region of the left breast corresponding to the palpable abnormality. On ultrasound was found to have a 1.2 x 1.1 x 0.9 cm hypoechoic lobular irregular nodule with increased vascularity. Core needle biopsy. Pathology: Left breast nodule at 9 o clock, core biopsy; Invasive ductal carcinoma. See synoptic report below. AM/mr 08/22/2023 COMMENT INVASIVE BREAST CANCER SUMMARY: Procedure: Needle core biopsy Specimen Laterality: Left breast Tumor site: 9 o clock, retro-areolar Histologic type: Invasive ductal carcinoma Provisional Histologic grade: 2 Tubule Differentiation Score: 3 Nuclear Pleomorphism Score: 2 Mitotic Rate Score: 1 Tumor Size ( greatest dimension): 7.5 mm Ductal Carcinoma Insitu: Not identified Angiolymphatic Invasion: Not identified Microcalcifications: Not identified Additional Pathologic Findings: None Breast Marker Study: RF 332 ER:> 95%, strong intensity (positive) KS:90%, moderate to strong intensity (positive) Her2:0 (negative) Ki67:5% TNM stage: Not Applicable The above summary is in compliance with [employer] (CAP) Cancer Protocols Checklist and [place] Joint Committee on Cancer (AJCC), Staging Manual, 8th Ed. Underwent left partial mastectomy including nipple areolar complex along with sentinel lymph node biopsy on 09/20/2023. Pathology: FROZEN SECTION DIAGNOSIS Left sentinel lymph node, biopsy: One lymph node, negative for metastatic carcinoma. MICROSCOPIC DIAGNOSIS A. Left breast, sentinel node, biopsy: One out of one lymph node negative for metastatic carcinoma. See comment. B. Left breast, mastectomy: Invasive ductal carcinoma. See cancer template below: AM/mr 09/27/23 COMMENT INVASIVE BREAST CANCER SUMMARY: Procedure - Mastectomy Specimen: Breast with nipple and areola Type - partial breast Size - 7.5 x 6.0 x 3.0 Laterality - left breast Tumor: Site - Subareolar Size - 1.5 x 1.0 x 0.7cm Histologic type - invasive ductal carcinoma. Focality - single focus of carcinoma. Histologic Grade (Nicholas grade): Glandular/tubular differentiation - score 3 Nuclear pleomorphism - score 2 Mitotic count - score 1 [facility] DEPARTMENT OF LABORATORY SURGICAL PATHOLOGY REPORT [address], [place] [address] ____ Page 2 of 3 The contents of this transmission are privileged, confidential and exempt from disclosure under applicable law. If you have received this information in error, call . ANGELA MAY MR# [id number] Overall grade - 2 (score of 6) Ductal carcinoma in situ: Present Estimated quantification (% of tumor volume) - 1% Number of blocks - 1 of 12 blocks Architectural patterns - Solid Nuclear grade - grade 1/2 Necrosis - not identified Lobular carcinoma in situ (LCIS) - Not present Tumor extension: Skin - free of carcinoma Nipple - free of carcinoma Skeletal muscle - not present Margins: Distance of invasive carcinoma from closest margin - 10 mm from superior margin. Distance of ductal carcinoma in situ from closest margin - 12 mm from superior margin. Lymph nodes: Number of sentinel lymph nodes examined - 1 Total number of lymph nodes examined (sentinel and nonsentinel) - 1 No evidence of macrometastases, micrometastases or isolated tumor cells See specimen A Treatment effect: Unknown Lymphvascular invasion - Not identified Additional pathologic findings - Fibrocystic change, changes of previous biopsy and tumor necrosis. Ancillary studies - previously performed on section of tumor ([id number] / [id number]). ER - >95%, strong intensity KS - 90%, moderate to strong intensity Her2 adán - 0, negative Her2 by dual SHARAD - not performed Ki67 - 5% Microcalcifications - Not identified Clinical history - Mass of left breast PATHOLOGIC STAGE: T1c N0 MX RADIATION:10/29/23 - 11/07/23 Left partial breast Current therapy:Femara Began in 2023. Began arimidex after radiation. No new concerns today. Appetite:Good. Wt. stable. Energy level:Good. Denies fevers or recent illness. Resp:denies cough or sob Cardiac:denies chest pain/occ. palpitations-evaluated by PCP at last visit GI:denies abd pain, n/v, moving bowels regularly :denies dysuria/hematuria Extrem:denies new pain, h/o arthritis, plans to have R total knee this year Endo:denies hot flashes Neuro:R hand carpal tunnel, denies symptoms of neuropathy Skin:denies rashes Heme:denies bleeding The ROS is otherwise negative. Past medical history, appointments, medications, allergies reviewed. No changes. EXAM: BP 151/84 Pulse 79 Temp 36.3 C (97.3 F) (Temporal) Wt 95.6 kg (210 lb 12.2 oz) LMP 05/28/2001 (Approximate) SpO2 95% BMI 35.07 kg/m APPEARANCE Well appearing, alert, in no acute distress, well-hydrated, well nourished. HEART RRR with normal S1 and S2, no murmurs LUNG clear to auscultation BREAST FEMALE L AC surgically absent, no mass/nodule LYMPH NODES No cervical lymphadenopathy, No supraclavicular lymphadenopathy, and No axillary lymphadenopathy. ABDOMEN bowel sounds normoactive, soft, non-tender EXTREMITIES No edema NEURO Awake, alert and oriented x 3, Normal gait, and No involuntary motions. SKIN Skin color, texture, turgor normal, no suspicious rashes or lesions ASSESSMENT/PLAN: 1. Malignant neoplasm of central portion of left breast in female, estrogen receptor positive (HCC)- ICD9: 174.1, V86.0, ICD10: C50.112, Z17.0 pT1c pN0(sln) M0 ER/KS positive, HER2 negative grade 2 pathologic stage IA invasive ductal carcinoma of the left breast. Oncotype Dx results; RS 9; estimated distant recurrence risk at 9 years 3% with use of AI or tamoxifen alone; no benefit from chemotherapy. - No concerning findings on exam. - Tolerated arimidex poorly d/t leg pains. - Tolerating femara well. - Bone density/Mammogram per PCP at [facility]. Mammogram due in November. - Continue femara. - Continue zometa every 6 months with BMP x6 doses pending tolerance. As scheduled in August. - Follow up in 6 months. - Pt. aware to call office with any questions/concerns. The sensitive examination was discussed with the Patient or Patient's Authorized Concrete Plant Laborer. Asapplicable, any other physician, advance practice provider, medical student, or other health professional student that will be observing or involved in the sensitive examination for educational or training purposes was discussed with the Patient or Authorized Concrete Plant Laborer. The Patient or Authorized Concrete Plant Laborer has agreed to proceed with the sensitive examination. (Sensitive examination includes inspection and/or palpation of the breasts, pelvis, prostate and anorectal regions) The patient indicates understanding of these issues and agrees with the plan. All documentation from previous visit of 03/13/24-Dr. Najera/myself was copied and pasted, documentation has been reviewed and edited as necessary for today's visit. oCrdelia Chawla APRN.VIVIAN documented in this encounterCleveland [id number] NoteHNO ID: [id number] Author: CRYSTAL RUSHING PA-C Service: ? Author Type: Physician Learning Technologist Type: Progress Notes Filed: 04/23/2024 09:29 Note Text: This note was created using [employer]. Subjective Angela May is a 73 year old female. HPI Patient presents with the chief complaint of cough, sore throat over the past 3 days. Her has been sick for over a week with similar symptoms. No diarrhea or vomiting. Her ears have been bothering her. Some mild nasal congestion. No fever. No chest pain or shortness of breath. No wheezing. No history of asthma. She is not a smoker. She did smoke for 10 years in her 20s however. She does use Mucinex and Tylenol [id number]. Review of Systems Constitutional: Negative. HENT: Positive for congestion and sore throat. Negative for ear pain, postnasal drip, sinus pressure and sinus pain. Respiratory: Positive for cough. Negative for chest tightness, shortness of breath and wheezing. Cardiovascular: Negative. Gastrointestinal: Negative. Genitourinary: Negative. Musculoskeletal: Negative. All other systems reviewed and are negative. PAST MEDICAL HISTORY Diagnosis Date Arthritis Arthritis with psoriasis (HCC) Hypertension Current Outpatient Medications Medication Sig Dispense Refill letrozole (FEMARA) 2.5 mg tablet Take 1 tablet by mouth once daily. 90 tablet 3 amoxicillin (AMOXIL) 500 mg capsule Take 500 mg by mouth two times a day. MAGNESIUM ORAL Take 500 mg by mouth once daily. Valsartan-hydroCHLOROthiazide 160-12.5 mg per tablet Take 1 tablet by mouth once daily. Aedio-2-EXZ-EPA-Fish Oil (FISH OIL) 1,000 mg (120 mg-180 mg) cap Take two capsules by mouth once daily. Ngrvtqnaokiot-Ipkfoaki-Spuqwj (MULTIVITAMIN 50 PLUS) tab Take 1 tablet by mouth once daily. calcium carbonate/vitamin D3 (CALCIUM 600 + D ORAL) Take 2 tablets by mouth once daily. Lactobacillus acidophilus (PROBIOTIC) 10 billion cell cap Take 1 capsule by mouth once daily. No current facility-administered medications for this visit. PAST SURGICAL HISTORY Procedure Laterality Date BREAST LUMPECTOMY HX Left 09/20/2023 DELIVERY ONLY 12/1982 DELIVERY ONLY 11/1978 DELIVERY ONLY 05/1977 SECTION HX 02/1985 REMV CATARACT EXTRACAP,INSERT LENS Left 2020 REMV CATARACT EXTRACAP,INSERT LENS Right 2020 REVISE MEDIAN N/CARPAL TUNNEL SURG Left 11/1988 REVISE MEDIAN N/CARPAL TUNNEL SURG Right 10/1997 TOTAL HIP REPLACEMENT Right 10/2011 TOTAL HIP REPLACEMENT Left 01/2019 FAMILY HISTORY Problem Relation Age of Onset Hypertension Mother Blood Disease Mother Heart Father Hypertension Father Kidney Disease Sister No Known Problems Sister Heart Brother Stroke Paternal Grandmother Social History Tobacco Use Smoking status: Former Current packs/day: 0.00 Average packs/day: 0.5 packs/day for 10.0 years (5.0 ttl pk-yrs) Types: Cigarettes Start date: 1973 Quit date: 1983 Years since quittin.9 Smokeless tobacco: Never Vaping Use Vaping status: Never Used Substance Use Topics Alcohol use: Not Currently Drug use: Never Objective BP 148/98 Pulse 85 Temp 37 ?C (98.6 ?F) Resp 20 Wt 95.2 kg (209 lb 14.1 oz) LMP 05/28/2001 (Approximate) SpO2 93% BMI 34.93 kg/m? Physical Exam Vitals reviewed. Constitutional: Appearance: Normal appearance. HENT: Head: Normocephalic and atraumatic. Right Ear: Tympanic membrane, ear canal and external ear normal. Left Ear: Tympanic membrane, ear canal and external ear normal. Nose: Congestion present. Mouth/Throat: Mouth: Mucous membranes are moist. Pharynx: Oropharynx is clear. Cardiovascular: Rate and Rhythm: Normal rate and regular rhythm. Heart sounds: Normal heart sounds. Pulmonary: Effort: Pulmonary effort is normal. No respiratory distress. Breath sounds: Normal breath sounds. No wheezing or rhonchi. Musculoskeletal: Cervical back: Neck supple. Skin: General: Skin is warm and dry. Neurological: Mental Status: She is alert. Assessment and Plan ASSESSMENT/PLAN: 1. Viral URI with cough - ICD9: 465.9, ICD10: J06.9 -Patient's chest x-ray is clear. COVID flu RSV test pending. If she is positive for COVID she was interested in Paxlovid. She does have some mild kidney impairment on recent labs from February. Otherwise no medicine interactions with Paxlovid. - Discussed viral etiology and rationale for treatment. - Symptomatic treatment with prn analgesia - Supportive care with fluids and rest - The patient may also use OTC cough and cold meds as needed. - Follow up in 3-5 days if symptoms persist or sooner if worsening of symptoms - XR CHEST 2V FRONTAL/LAT - COVID AND INFLUENZA A/B AND RSV PCR, ROUTINE VALDEZ [facility]11-27-2024 History of Present illness Narrative* Crystal Rushing PA-C - 04/23/2024 9:25 AM EST This note was created using Last.fm. Subjective Angela May is a 73 year old female. HPI Patient presents with the chief complaint of cough, sore throat over the past 3 days. Her has been sick for over a week with similar symptoms. No diarrhea or vomiting. Her ears have been bothering her. Some mild nasal congestion. No fever. No chest pain or shortness of breath. No wheezing. No history of asthma. She is not a smoker. She did smoke for 10 years in her 20s however. She does use Mucinex and Tylenol [id number]-zxdmhax. Review of Systems Constitutional: Negative. HENT: Positive for congestion and sore throat. Negative for ear pain, postnasal drip, sinus pressure and sinus pain. Respiratory: Positive for cough. Negative for chest tightness, shortness of breath and wheezing. Cardiovascular: Negative. Gastrointestinal: Negative. Genitourinary: Negative. Musculoskeletal: Negative. All other systems reviewed and are negative. PAST MEDICAL HISTORY Diagnosis Date Arthritis Arthritis with psoriasis (HCC) Hypertension Current Outpatient Medications Medication Sig Dispense Refill letrozole (FEMARA) 2.5 mg tablet Take 1 tablet by mouth once daily. 90 tablet 3 amoxicillin (AMOXIL) 500 mg capsule Take 500 mg by mouth two times a day. MAGNESIUM ORAL Take 500 mg by mouth once daily. Valsartan-hydroCHLOROthiazide 160-12.5 mg per tablet Take 1 tablet by mouth once daily. Vsaso-2-MIG-EPA-Fish Oil (FISH OIL) 1,000 mg (120 mg-180 mg) cap Take two capsules by mouth once daily. Fpiaeztzzubbx-Fgesahvz-Ccnfbk (MULTIVITAMIN 50 PLUS) tab Take 1 tablet by mouth once daily. calcium carbonate/vitamin D3 (CALCIUM 600 + D ORAL) Take 2 tablets by mouth once daily. Lactobacillus acidophilus (PROBIOTIC) 10 billion cell cap Take 1 capsule by mouth once daily. No current facility-administered medications for this visit. PAST SURGICAL HISTORY Procedure Laterality Date BREAST LUMPECTOMY HX Left 09/20/2023 DELIVERY ONLY 12/1982 DELIVERY ONLY 11/1978 DELIVERY ONLY 05/1977 SECTION HX 02/1985 REMV CATARACT EXTRACAP,INSERT LENS Left 2020 REMV CATARACT EXTRACAP,INSERT LENS Right 2020 REVISE MEDIAN N/CARPAL TUNNEL SURG Left 11/1988 REVISE MEDIAN N/CARPAL TUNNEL SURG Right 10/1997 TOTAL HIP REPLACEMENT Right 10/2011 TOTAL HIP REPLACEMENT Left 01/2019 FAMILY HISTORY Problem Relation Age of Onset Hypertension Mother Blood Disease Mother Heart Father Hypertension Father Kidney Disease Sister No Known Problems Sister Heart Brother Stroke Paternal Grandmother Social History Tobacco Use Smoking status: Former Current packs/day: 0.00 Average packs/day: 0.5 packs/day for 10.0 years (5.0 ttl pk-yrs) Types: Cigarettes Start date: 1973 Quit date: 1983 Years since quittin.9 Smokeless tobacco: Never Vaping Use Vaping status: Never Used Substance Use Topics Alcohol use: Not Currently Drug use: Never Objective BP 148/98 Pulse 85 Temp 37 C (98.6 F) Resp 20 Wt 95.2 kg (209 lb 14.1 oz) LMP 05/28/2001 (Approximate) SpO2 93% BMI 34.93 kg/m Physical Exam Vitals reviewed. Constitutional: Appearance: Normal appearance. HENT: Head: Normocephalic and atraumatic. Right Ear: Tympanic membrane, ear canal and external ear normal. Left Ear: Tympanic membrane, ear canal and external ear normal. Nose: Congestion present. Mouth/Throat: Mouth: Mucous membranes are moist. Pharynx: Oropharynx is clear. Cardiovascular: Rate and Rhythm: Normal rate and regular rhythm. Heart sounds: Normal heart sounds. Pulmonary: Effort: Pulmonary effort is normal. No respiratory distress. Breath sounds: Normal breath sounds. No wheezing or rhonchi. Musculoskeletal: Cervical back: Neck supple. Skin: General: Skin is warm and dry. Neurological: Mental Status: She is alert. Assessment and Plan ASSESSMENT/PLAN: 1. Viral URI with cough - ICD9: 465.9, ICD10: J06.9 -Patient's chest x-ray is clear. COVID flu RSV test pending. If she is positive for COVID she was interested in Paxlovid. She does have some mild kidney impairment on recent labs from February. Otherwise no medicine interactions with Paxlovid. - Discussed viral etiology and rationale for treatment. - Symptomatic treatment with prn analgesia - Supportive care with fluids and rest - The patient may also use OTC cough and cold meds as needed. - Follow up in 3-5 days if symptoms persist or sooner if worsening of symptoms - XR CHEST 2V FRONTAL/LAT - COVID & INFLUENZA A/B & RSV PCR, ROUTINE Crystal Rushing PA-C [facility] History of Present illness Narrative* Chrissy Oconnor RT(R) - 04/23/2024 8:30 AM EST Radiology Service Progress Note PATIENT NAME: Angela May DATE OF SERVICE: April 23, 2024 TIME: 8:29 AM PATIENT IDENTITY VERIFICATION COMPLETED USING TWO (2) IDENTIFIERS: Name and Date of confirmedby patient verbally. FALL SCREENING: Has the patient had 2 falls in the last year or 1 fall with injury or currently using an Ambulatory Assistive Device (Walker, Cane, Wheelchair, Crutches, etc.)? No PATIENT GENDER DATA: Female. status: : No status: NO. PATIENT RELEVANT IMPLANT DATA REVIEWED: Yes PATIENT PRESENTS WITH AN IMPLANTABLE OR ATTACHED PEDIATRIC ORTHODONTIST: No RADIOLOGY DEPARTMENT: General X-ray: Exam(s) Completed: Chest X-Ray PERIPHERAL IV DATA: Not applicable SIGNED BY: RT Jessi(R) April 23, 2024 8:29 AM documented in this encounterProm[facility]11-27-2024 NoteHNO ID: [id number] Author: CHRISSY OCONNOR RT(Patricia) Service: ? Author Type: Director Advanced Type: Progress Notes Filed: 04/23/2024 08:36 Note Text: Radiology Service Progress Note PATIENT NAME: Angela May DATE OF SERVICE: April 23, 2024 TIME: 8:29 AM PATIENT IDENTITY VERIFICATION COMPLETED USING TWO (2) IDENTIFIERS: Name and Date of confirmed by patient verbally. FALL SCREENING: Has the patient had 2 falls in the last year or 1 fall with injury or currently using an Ambulatory Assistive Device (Walker, Cane, Wheelchair, Crutches, etc.)? No PATIENT GENDER DATA: Female. status: : No status: NO. PATIENT RELEVANT IMPLANT DATA REVIEWED: Yes PATIENT PRESENTS WITH AN IMPLANTABLE OR ATTACHED PEDIATRIC ORTHODONTIST: No RADIOLOGY DEPARTMENT: General X-ray: Exam(s) Completed: Chest X-Ray PERIPHERAL IV DATA: Not applicable SIGNED BY: RT Jessi(R) April 23, 2024 8:29 [facility]10-18-2024 Telephone encounter Note* Telephone Encounter - Fannie Momin - 03/14/2024 9:30 AM EDT Scheduled with patient Start email sent [facility] Work Phone: [phone]) 904-503610-18-2024 Miscellaneous Notes* Telephone Encounter - Fannie Momin - 03/14/2024 9:30 AM EDT Scheduled with patient Start email sent * Telephone Encounter - Fannie Momin - 03/13/2024 2:05 PM EDT Start zometa plan for every 6 months with BMP x6 doses pending tolerance. documented in [facility] encounterProm[facility]10-[facility]24 Telephone encounter Note * Telephone Encounter - Fannie Momin - 03/13/2024 2:05 PM EDT Start zometa plan for every 6 months with BMP x6 doses pending tolerance. [facility]10-17-2024 NoteHNO ID: [id number] Author: CORDELIA CHAWLA APRN.FISH SALTER Service: ? Author Type: Nurse Practitioner Type: Progress Notes Filed: 03/13/2024 12:46 Note Text: Chief Complaint Patient presents with: Established Patient HPI: Angela May is a 73 year old female who presents here today for follow up breast cancer. Per Dr. 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 Patient had a bilateral screening mammogram 11/13/2022. She was noted to have areas of scattered fibroglandular density in both breast. There were no dominant masses or suspicious calcifications. 1 year follow-up was recommended. Patient appreciated a palpable lump in the left breast. Diagnostic mammogram 08/14/2023 identified a 6 mm nodular density in the medial retroareolar region of the left breast corresponding to the palpable abnormality. On ultrasound was found to have a 1.2 x 1.1 x 0.9 cm hypoechoic lobular irregular nodule with increased vascularity. Core needle biopsy. Pathology: Left breast nodule at 9 o?clock, core biopsy; Invasive ductal carcinoma. See synoptic report below. AM/mr 08/22/2023 COMMENT INVASIVE BREAST CANCER SUMMARY: Procedure: Needle core biopsy Specimen Laterality: Left breast Tumor site: 9 o?clock, retro-areolar Histologic type: Invasive ductal carcinoma Provisional Histologic grade: 2 Tubule Differentiation Score: 3 Nuclear Pleomorphism Score: 2 Mitotic Rate Score: 1 Tumor Size ( greatest dimension): 7.5 mm Ductal Carcinoma Insitu: Not identified Angiolymphatic Invasion: Not identified Microcalcifications: Not identified Additional Pathologic Findings: None Breast Marker Study: RF 332 ER:> 95%, strong intensity (positive) KS:90%, moderate to strong intensity (positive) Her2:0 (negative) Ki67:5% TNM stage: Not Applicable The above summary is in compliance with [employer] (CAP) Cancer Protocols Checklist and [place] Joint Committee on Cancer (AJCC), Staging Manual, 8th Ed. Underwent left partial mastectomy including nipple areolar complex along with sentinel lymph node biopsy on 09/20/2023. Pathology: FROZEN SECTION DIAGNOSIS Left sentinel lymph node, biopsy: One lymph node, negative for metastatic carcinoma. MICROSCOPIC DIAGNOSIS A. Left breast, sentinel node, biopsy: One out of one lymph node negative for metastatic carcinoma. See comment. B. Left breast, mastectomy: Invasive ductal carcinoma. See cancer template below: Shaheen 09/27/23 COMMENT INVASIVE BREAST CANCER SUMMARY: Procedure - Mastectomy Specimen: Breast with nipple and areola Type - partial breast Size - 7.5 x 6.0 x 3.0 Laterality - left breast Tumor: Site - Subareolar Size - 1.5 x 1.0 x 0.7cm Histologic type - invasive ductal carcinoma. Focality - single focus of carcinoma. Histologic Grade (Nicholas grade): Glandular/tubular differentiation - score 3 Nuclear pleomorphism - score 2 Mitotic count - score 1 [facility] DEPARTMENT OF LABORATORY SURGICAL PATHOLOGY REPORT [id number], [place] [address] ____ Page 2 of 3 The contents of this transmission are privileged, confidential and exempt from disclosure under applicable law. If you have received this information in error, call . ANGELA MAY MR# [id number] Overall grade - 2 (score of 6) Ductal carcinoma in situ: Present Estimated quantification (% of tumor volume) - 1% Number of blocks - 1 of 12 blocks Architectural patterns - Solid Nuclear grade - grade 1/2 Necrosis - not identified Lobular carcinoma in situ (LCIS) - Not present Tumor extension: Skin - free of carcinoma Nipple - free of carcinoma Skeletal muscle - not present Margins: Distance of invasive carcinoma from closest margin - 10 mm from superior margin. Distance of ductal carcinoma in situ from closest margin - 12 mm from superior margin. Lymph nodes: Number of sentinel lymph nodes examined - 1 Total number of lymph nodes examined (sentinel and nonsentinel) - 1 No evidence of macrometastases, micrometastases or isolated tumor cells See specimen ?A? Treatment effect: Unknown Lymphvascular invasion - Not identified Additional pathologic findings - Fibrocystic change, changes of previous biopsy and tumor necrosis. Ancillary studies - previously performed on section of tumor ([id number] / [id number]). ER - >95%, strong intensity KS - 90%, moderate to strong intensity Her2 adán - 0, negative Her2 by dual SHARAD - not performed Ki67 - 5% Microcalcifications - Not identified Clinical history - Mass of left breast PATHOLO (more content not included)...[facility]10-17-[facility] History of Present illness Narrative* Cordelia Chawla APRN.FISH SALTER - 03/13/2024 10:59 AM EDT Chief Complaint Patient presents with: Established Patient HPI: Angela May is a 73 year old female who presents here today for follow up breast cancer. Per Dr. 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 Patient had a bilateral screening mammogram 11/13/2022. She was noted to have areas of scattered fibroglandular density in both breast. There were no dominant masses or suspicious calcifications. 1 year follow-up was recommended. Patient appreciated a palpable lump in the left breast. Diagnostic mammogram 08/14/2023 identified a 6 mm nodular density in the medial retroareolar region of the left breast corresponding to the palpable abnormality. On ultrasound was found to have a 1.2 x 1.1 x 0.9 cm hypoechoic lobular irregular nodule with increased vascularity. Core needle biopsy. Pathology: Left breast nodule at 9 o clock, core biopsy; Invasive ductal carcinoma. See synoptic report below. AM/mr 08/22/2023 COMMENT INVASIVE BREAST CANCER SUMMARY: Procedure: Needle core biopsy Specimen Laterality: Left breast Tumor site: 9 o clock, retro-areolar Histologic type: Invasive ductal carcinoma Provisional Histologic grade: 2 Tubule Differentiation Score: 3 Nuclear Pleomorphism Score: 2 Mitotic Rate Score: 1 Tumor Size ( greatest dimension): 7.5 mm Ductal Carcinoma Insitu: Not identified Angiolymphatic Invasion: Not identified Microcalcifications: Not identified Additional Pathologic Findings: None Breast Marker Study: RF 332 ER:> 95%, strong intensity (positive) KS:90%, moderate to strong intensity (positive) Her2:0 (negative) Ki67:5% TNM stage: Not Applicable The above summary is in compliance with [employer] (CAP) Cancer Protocols Checklist and [place] Joint Committee on Cancer (AJCC), Staging Manual, 8th Ed. Underwent left partial mastectomy including nipple areolar complex along with sentinel lymph node biopsy on 09/20/2023. Pathology: FROZEN SECTION DIAGNOSIS Left sentinel lymph node, biopsy: One lymph node, negative for metastatic carcinoma. MICROSCOPIC DIAGNOSIS A. Left breast, sentinel node, biopsy: One out of one lymph node negative for metastatic carcinoma. See comment. B. Left breast, mastectomy: Invasive ductal carcinoma. See cancer template below: AM/ 09/27/23 COMMENT INVASIVE BREAST CANCER SUMMARY: Procedure - Mastectomy Specimen: Breast with nipple and areola Type - partial breast Size - 7.5 x 6.0 x 3.0 Laterality - left breast Tumor: Site - Subareolar Size - 1.5 x 1.0 x 0.7cm Histologic type - invasive ductal carcinoma. Focality - single focus of carcinoma. Histologic Grade (Nicholas grade): Glandular/tubular differentiation - score 3 Nuclear pleomorphism - score 2 Mitotic count - score 1 [facility] DEPARTMENT OF LABORATORY SURGICAL PATHOLOGY REPORT [id number], [place], [place] [address] ____ Page 2 of 3 The contents of this transmission are privileged, confidential and exempt from disclosure under applicable law. If you have received this information in error, call . ANGELA MAY MR# [id number] Overall grade - 2 (score of 6) Ductal carcinoma in situ: Present Estimated quantification (% of tumor volume) - 1% Number of blocks - 1 of 12 blocks Architectural patterns - Solid Nuclear grade - grade 1/2 Necrosis - not identified Lobular carcinoma in situ (LCIS) - Not present Tumor extension: Skin - free of carcinoma Nipple - free of carcinoma Skeletal muscle - not present Margins: Distance of invasive carcinoma from closest margin - 10 mm from superior margin. Distance of ductal carcinoma in situ from closest margin - 12 mm from superior margin. Lymph nodes: Number of sentinel lymph nodes examined - 1 Total number of lymph nodes examined (sentinel and nonsentinel) - 1 No evidence of macrometastases, micrometastases or isolated tumor cells See specimen A Treatment effect: Unknown Lymphvascular invasion - Not identified Additional pathologic findings - Fibrocystic change, changes of previous biopsy and tumor necrosis. Ancillary studies - previously performed on section of tumor ([id number] / [id number]). ER - >95%, strong intensity KS - 90%, moderate to strong intensity Her2 adán - 0, negative Her2 by dual SHARAD - not performed Ki67 - 5% Microcalcifications - Not identified Clinical history - Mass of left breast PATHOLOGIC STAGE: T1c N0 MX RADIATION:10/29/23 - 11/07/23 Left partial breast Current therapy:Arimidex Began after radiation. No new concerns today. Appetite:Good. Energy level:Ok. Denies fevers or recent illness. Resp:denies cough or sob Cardiac:denies chest pain/palpitations-occ. heart racing told PCP at last visit GI:denies abd pain, n/v, moving bowels regularly :denies dysuria/hematuria Extrem:denies new pain, h/o arthritis, +legs ache more lately Endo:denies hot flashes Neuro:R hand carpal tunnel, denies symptoms of neuropathy Skin:denies rashes Heme:denies bleeding The ROS is otherwise negative. Past medical history, appointments, medications, allergies reviewed. No changes. EXAM: BP 136/76 Pulse 80 Temp 36.4 C (97.5 F) (Temporal) Wt 95.5 kg (210 lb 8.6 oz) LMP 05/28/2001 (Approximate) SpO2 99% BMI 35.04 kg/m APPEARANCE Well appearing, alert, in no acute distress, well-hydrated, well nourished. HEART RRR with normal S1 and S2, no murmurs LUNG clear to auscultation BREAST FEMALE R no mass/nodule, L AC surgically absent, no mass/nodule LYMPH NODES No cervical lymphadenopathy, No supraclavicular lymphadenopathy, and No axillary lymphadenopathy. ABDOMEN bowel sounds normoactive, soft, non-tender EXTREMITIES No edema NEURO Awake, alert and oriented x 3, Normal gait, and No involuntary motions. SKIN Skin color, texture, turgor normal, no suspicious rashes or lesions ASSESSMENT/PLAN: 1. Malignant neoplasm of central portion of left breast in female, estrogen receptor positive (HCC)- ICD9: 174.1, V86.0, ICD10: C50.112, Z17.0 pT1c pN0(sln) M0 ER/KS positive, HER2 negative grade 2 pathologic stage IA invasive ductal carcinoma of the left breast. Oncotype Dx results; RS 9; estimated distant recurrence risk at 9 years 3% with use of AI or tamoxifen alone; no benefit from chemotherapy. - No concerning findings on exam. - Tolerating arimidex fair-poor d/t leg pains. - Bone density/Mammogram per PCP at [facility]. - Hold Arimidex for the next few weeks d/t leg pain. Pt. will update me via my chart. - Start zometa plan for every 6 months with BMP x6 doses pending tolerance. - Follow up in 4 months. - Pt. aware to call office with any questions/concerns. The sensitive examination was discussed with the Patient or Patient's Authorized Concrete Plant Laborer. Asapplicable, any other physician, advance practice provider, medical student, or other health professional student that will be observing or involved in the sensitive examination for educational or training purposes was discussed with the Patient or Authorized Concrete Plant Laborer. The Patient or Authorized Concrete Plant Laborer has agreed to proceed with the sensitive examination. (Sensitive examination includes inspection and/or palpation of the breasts, pelvis, prostate and anorectal regions) The patient indicates understanding of these issues and agrees with the plan. All documentation from previous visit of 12/12/23-Dr. Najera/myself was copied and pasted, documentation has been reviewed and edited as necessary for today's visit. Cordelia Chawla APRN.CNP documented in this encounterPromed[facility]08-14-[facility]24 Telephone encounter Note * Telephone Encounter - Cordelia Chawla APRN.CNP - 01/09/2024 1:12 PM EDT Noted. Will discuss further with pt. at next OV and make sure she is tolerating AI. Cordelia Chawla APRN.CNP [facility] Work Phone: 1(760) 626-788208-14-2024 Miscellaneous Notes* Telephone Encounter - Cordelia Chawla APRN.CNP - 01/09/2024 1:12 PM EDT Noted. Will discuss further with pt. at next OV and make sure she is tolerating AI. Cordelia Chawla APRN.CNP * Telephone Encounter - Rhiannon Cleveland LPN - 01/09/2024 12:09 PM EDT Dental clearance received. Patient is cleared for Zometa. Dental clearance form sent to scanning. Rhiannon Cleveland LPN documented in this encounterPromedica [facility]08-14-2024 Telephone encounter Note * Telephone Encounter - Rhiannon Cleveland LPN - 01/09/2024 12:09 PM EDT Dental clearance received. Patient is cleared for Zometa. Dental clearance form sent to scanning. Rhiannon Cleveland LPN [facility]07-17-2024 NoteHNO ID: [id number] Author: CORDELIA CHAWLA APRN.FISH SALTER Service: ? Author Type: Nurse Practitioner Type: Progress Notes Filed: 12/12/2023 12:17 Note Text: Chief Complaint Patient presents with: Established Patient HPI: Angela May is a 73 year old female who presents here today for SCP/breast cancer. Per Dr. 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 Patient had a bilateral screening mammogram 11/13/2022. She was noted to have areas of scattered fibroglandular density in both breast. There were no dominant masses or suspicious calcifications. 1 year follow-up was recommended. Patient appreciated a palpable lump in the left breast. Diagnostic mammogram 08/14/2023 identified a 6 mm nodular density in the medial retroareolar region of the left breast corresponding to the palpable abnormality. On ultrasound was found to have a 1.2 x 1.1 x 0.9 cm hypoechoic lobular irregular nodule with increased vascularity. Core needle biopsy. Pathology: Left breast nodule at 9 o?clock, core biopsy; Invasive ductal carcinoma. See synoptic report below. AM/mr 08/22/2023 COMMENT INVASIVE BREAST CANCER SUMMARY: Procedure: Needle core biopsy Specimen Laterality: Left breast Tumor site: 9 o?clock, retro-areolar Histologic type: Invasive ductal carcinoma Provisional Histologic grade: 2 Tubule Differentiation Score: 3 Nuclear Pleomorphism Score: 2 Mitotic Rate Score: 1 Tumor Size ( greatest dimension): 7.5 mm Ductal Carcinoma Insitu: Not identified Angiolymphatic Invasion: Not identified Microcalcifications: Not identified Additional Pathologic Findings: None Breast Marker Study: RF 332 ER:> 95%, strong intensity (positive) KS:90%, moderate to strong intensity (positive) Her2:0 (negative) Ki67:5% TNM stage: Not Applicable The above summary is in compliance with [employer] (CAP) Cancer Protocols Checklist and [place] Joint Committee on Cancer (AJCC), Staging Manual, 8th Ed. Underwent left partial mastectomy including nipple areolar complex along with sentinel lymph node biopsy on 09/20/2023. Pathology: FROZEN SECTION DIAGNOSIS Left sentinel lymph node, biopsy: One lymph node, negative for metastatic carcinoma. MICROSCOPIC DIAGNOSIS A. Left breast, sentinel node, biopsy: One out of one lymph node negative for metastatic carcinoma. See comment. B. Left breast, mastectomy: Invasive ductal carcinoma. See cancer template below: AM/mr 09/27/23 COMMENT INVASIVE BREAST CANCER SUMMARY: Procedure - Mastectomy Specimen: Breast with nipple and areola Type - partial breast Size - 7.5 x 6.0 x 3.0 Laterality - left breast Tumor: Site - Subareolar Size - 1.5 x 1.0 x 0.7cm Histologic type - invasive ductal carcinoma. Focality - single focus of carcinoma. Histologic Grade (Leon grade): Glandular/tubular differentiation - score 3 Nuclear pleomorphism - score 2 Mitotic count - score 1 [facility] DEPARTMENT OF LABORATORY SURGICAL PATHOLOGY REPORT [id number], [place] [address] ____ Page 2 of 3 The contents of this transmission are privileged, confidential and exempt from disclosure under applicable law. If you have received this information in error, call . ANGELA MAY MR# [id number] Overall grade - 2 (score of 6) Ductal carcinoma in situ: Present Estimated quantification (% of tumor volume) - 1% Number of blocks - 1 of 12 blocks Architectural patterns - Solid Nuclear grade - grade 1/2 Necrosis - not identified Lobular carcinoma in situ (LCIS) - Not present Tumor extension: Skin - free of carcinoma Nipple - free of carcinoma Skeletal muscle - not present Margins: Distance of invasive carcinoma from closest margin - 10 mm from superior margin. Distance of ductal carcinoma in situ from closest margin - 12 mm from superior margin. Lymph nodes: Number of sentinel lymph nodes examined - 1 Total number of lymph nodes examined (sentinel and nonsentinel) - 1 No evidence of macrometastases, micrometastases or isolated tumor cells See specimen ?A? Treatment effect: Unknown Lymphvascular invasion - Not identified Additional pathologic findings - Fibrocystic change, changes of previous biopsy and tumor necrosis. Ancillary studies - previously performed on section of tumor ([id number] / [id number]). ER - >95%, strong intensity KS - 90%, moderate to strong intensity Her2 adán - 0, negative Her2 by dual SHARAD - not performed Ki67 - 5% Microcalcifications - Not identified Clinical history - Mass of left breast PATHOLOGIC ST (more content not included)...[facility]07-17-2024 History of Present illness Narrative* Cordelia Chawla, DARRION.FISH SALTER - 12/12/2023 9:00 AM EDT Chief Complaint Patient presents with: Established Patient HPI: Angela May is a 73 year old female who presents here today for SCP/breast cancer. Per Dr. 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 Patient had a bilateral screening mammogram 11/13/2022. She was noted to have areas of scattered fibroglandular density in both breast. There were no dominant masses or suspicious calcifications. 1 year follow-up was recommended. Patient appreciated a palpable lump in the left breast. Diagnostic mammogram 08/14/2023 identified a 6 mm nodular density in the medial retroareolar region of the left breast corresponding to the palpable abnormality. On ultrasound was found to have a 1.2 x 1.1 x 0.9 cm hypoechoic lobular irregular nodule with increased vascularity. Core needle biopsy. Pathology: Left breast nodule at 9 o clock, core biopsy; Invasive ductal carcinoma. See synoptic report below. AM/mr 08/22/2023 COMMENT INVASIVE BREAST CANCER SUMMARY: Procedure: Needle core biopsy Specimen Laterality: Left breast Tumor site: 9 o clock, retro-areolar Histologic type: Invasive ductal carcinoma Provisional Histologic grade: 2 Tubule Differentiation Score: 3 Nuclear Pleomorphism Score: 2 Mitotic Rate Score: 1 Tumor Size ( greatest dimension): 7.5 mm Ductal Carcinoma Insitu: Not identified Angiolymphatic Invasion: Not identified Microcalcifications: Not identified Additional Pathologic Findings: None Breast Marker Study: RF 332 ER:> 95%, strong intensity (positive) KS:90%, moderate to strong intensity (positive) Her2:0 (negative) Ki67:5% TNM stage: Not Applicable The above summary is in compliance with [employer] (CAP) Cancer Protocols Checklist and [place] Joint Committee on Cancer (AJCC), Staging Manual, 8th Ed. Underwent left partial mastectomy including nipple areolar complex along with sentinel lymph node biopsy on 09/20/2023. Pathology: FROZEN SECTION DIAGNOSIS Left sentinel lymph node, biopsy: One lymph node, negative for metastatic carcinoma. MICROSCOPIC DIAGNOSIS A. Left breast, sentinel node, biopsy: One out of one lymph node negative for metastatic carcinoma. See comment. B. Left breast, mastectomy: Invasive ductal carcinoma. See cancer template below: AM/mr 09/27/23 COMMENT INVASIVE BREAST CANCER SUMMARY: Procedure - Mastectomy Specimen: Breast with nipple and areola Type - partial breast Size - 7.5 x 6.0 x 3.0 Laterality - left breast Tumor: Site - Subareolar Size - 1.5 x 1.0 x 0.7cm Histologic type - invasive ductal carcinoma. Focality - single focus of carcinoma. Histologic Grade (Leon grade): Glandular/tubular differentiation - score 3 Nuclear pleomorphism - score 2 Mitotic count - score 1 [facility] DEPARTMENT OF LABORATORY SURGICAL PATHOLOGY REPORT [id number] , [place], [place] [id number] ____ Page 2 of 3 The contents of this transmission are privileged, confidential and exempt from disclosure under applicable law. If you have received this information in error, call . ANGELA MAY MR# [id number] Overall grade - 2 (score of 6) Ductal carcinoma in situ: Present Estimated quantification (% of tumor volume) - 1% Number of blocks - 1 of 12 blocks Architectural patterns - Solid Nuclear grade - grade 1/2 Necrosis - not identified Lobular carcinoma in situ (LCIS) - Not present Tumor extension: Skin - free of carcinoma Nipple - free of carcinoma Skeletal muscle - not present Margins: Distance of invasive carcinoma from closest margin - 10 mm from superior margin. Distance of ductal carcinoma in situ from closest margin - 12 mm from superior margin. Lymph nodes: Number of sentinel lymph nodes examined - 1 Total number of lymph nodes examined (sentinel and nonsentinel) - 1 No evidence of macrometastases, micrometastases or isolated tumor cells See specimen A Treatment effect: Unknown Lymphvascular invasion - Not identified Additional pathologic findings - Fibrocystic change, changes of previous biopsy and tumor necrosis. Ancillary studies - previously performed on section of tumor ([id number] / [id number]). ER - >95%, strong intensity KS - 90%, moderate to strong intensity Her2 adán - 0, negative Her2 by dual SHARAD - not performed Ki67 - 5% Microcalcifications - Not identified Clinical history - Mass of left breast PATHOLOGIC STAGE: T1c N0 MX RADIATION:10/29/23 - 11/07/23 Left partial breast Current therapy:Arimidex Began after radiation. No new concerns today. Pt. here today with spouse. Appetite:Normal. Energy level:Ok. Denies fevers or recent illness. Resp:denies cough or sob Cardiac:denies chest pain/palpitations GI:denies abd pain, n/v, moving bowels regularly :denies dysuria/hematuria Extrem:denies new pain, h/o arthritis Endo:denies hot flashes Neuro:R hand carpal tunnel, denies symptoms of neuropathy Skin:denies rashes Heme:denies bleeding The ROS is otherwise negative. Past medical history, appointments, medications, allergies reviewed. No changes. EXAM: BP 130/80 Pulse 77 Temp 36.4 C (97.6 F) (Temporal) Wt 93.6 kg (206 lb 4.8 oz) LMP 05/28/2001 (Approximate) SpO2 95% BMI 34.33 kg/m APPEARANCE Well appearing, alert, in no acute distress, well-hydrated, well nourished. HEART RRR with normal S1 and S2, no murmurs LUNG clear to auscultation BREAST FEMALE L AC surgical absent/radiation changes LYMPH NODES No cervical lymphadenopathy, No supraclavicular lymphadenopathy, and No axillary lymphadenopathy. ABDOMEN bowel sounds normoactive, soft, non-tender EXTREMITIES No edema NEURO Awake, alert and oriented x 3, Normal gait, and No involuntary motions. SKIN Skin color, texture, turgor normal, no suspicious rashes or lesions ASSESSMENT/PLAN: 1. Malignant neoplasm of central portion of left breast in female, estrogen receptor positive (HCC)- ICD9: 174.1, V86.0, ICD10: C50.112, Z17.0 pT1c pN0(sln) M0 ER/KS positive, HER2 negative grade 2 pathologic stage IA invasive ductal carcinoma of the left breast. Oncotype Dx results; RS 9; estimated distant recurrence risk at 9 years 3% with use of AI or tamoxifen alone; no benefit from chemotherapy. - No concerning findings on exam. - Tolerating arimidex well. - Reviewed SCP with pt. Copies given to pt. - Discussed follow up plan. - Bone density per PCP at [facility]. - Continue Arimidex. - Pt. having dental clearance next month. Plan to schedule zometa at next OV- will plan for zometa every 6 months with BMP x6 doses pending tolerance. - Follow up in 3-4 months. - Pt. aware to call office with any questions/concerns. The patient indicates understanding of these issues and agrees with the plan. All documentation from previous visit of 10/18/23-Dr. Najera was copied and pasted, documentation hasbeen reviewed and edited as necessary for today's visit. Cordelia Chawla APRN.FISH SALTER documented in this encounterPromedica [facility]07-11-2024 NoteHNO ID: [id number] Author: OLLIE MOSES MD Service: ? Author Type: Physician Type: Progress Notes Filed: 12/06/2023 11:20 Note Text: AMBULATORY TELEPHONE VISIT Angela Kumar Lalo has consented to this telephone encounter. Persons Present: patient Chief Complaint/Reason: Four week follow-up after radiation treatment. HPI: Stage IA, pT1c pN0 (sn), grade 2 invasive ductal carcinoma of the left breast s/p left breast lumpectomy and sentinel node biopsy on 09/20/23. It's ER positive (>95%, strong), KS positive (90%, moderate to strong) and Her2 0 s/p partial left breast radiation treatment finished on 11/07/23. She is doing well without any specific new complaints. She denies any pain in the left breast. She denies any skin changes in the left breast. Data Reviewed: None. Assessment: She tolerated radiation treatment well without any significant acute complications. Plan: She is scheduled to see Cordelia Chawla next week to be started with hormone therapy and for follow-ups. Total Time Spent: 5 minutes Ollie Moses [facility]07-11-2024 History of Present illness Narrative* Ollie Moses MD - 12/06/2023 11:18 AM EDT AMBULATORY TELEPHONE VISIT Angela E Lalo has consented to this telephone encounter. Persons Present: patient Chief Complaint/Reason: Four week follow-up after radiation treatment. HPI: Stage IA, pT1c pN0 (sn), grade 2 invasive ductal carcinoma of the left breast s/p left breast lumpectomy and sentinel node biopsy on 09/20/23. It's ER positive (>95%, strong), KS positive (90%, moderate to strong) and Her2 0 s/p partial left breast radiation treatment finished on 11/07/23. She is doing well without any specific new complaints. She denies any pain in the left breast. She denies any skin changes in the left breast. Data Reviewed: None. Assessment: She tolerated radiation treatment well without any significant acute complications. Plan: She is scheduled to see Cordelia Chawla next week to be started with hormone therapy and for follow-ups. Total Time Spent: 5 minutes Ollie Moses MD documented in this encounterPromedica [facility]edo Hospital06-12-2024 NoteHNO ID: [id number] Author: JANEY ZAVALA RN Service: ? Author Type: Registered Nurse Type: Progress Notes Filed: 11/07/2023 14:39 Note Text: Written discharge instructions given and reviewed with patient. Patient verbalizes understanding. Encouraged to call with any questions or concerns. Instruction for 4 week phone call follow up appointment given per Dr. Moses. [facility]06-12-2024 History of Present illness Narrative* Janey Zavala RN - 11/07/2023 2:38 PM EDT Written discharge instructions given and reviewed with patient. Patient verbalizes understanding. Encouraged to call with any questions or concerns. Instruction for 4 week phone call follow up appointment given per Dr. Moses. documented in this encounterPromedica [facility]edo [facility]06-12-2024 History of Present illness Narrative* Ollie Moses MD - 11/07/2023 12:00 AM EDT ANGELA MAY [id number] : 1950 11/07/2023 [facility] Department of Radiation Oncology RADIATION ONCOLOGY - COMPLETION NOTE DATE OF SIMULATION: 10/23/23 DATES OF TREATMENT: 10/29/23 - 11/07/23 UNIT: W_TRUEBEAM AREA TREATED: Left partial breast DISEASE: Stage IA, pT1c pN0 (sn), grade 2 invasive ductal carcinoma of the left breast s/p left breast lumpectomy and sentinel node biopsy on 09/20/23. It's ER positive (>95%, strong), KS positive (90%, moderate to strong) and Her2 0. DELIVERED DOSE: 3000 cGy in 5 fractions treating to the 97.6% isodose line with 6fff MV and 3 vmat suarez. ELAPSED TIME: 9 days TOLERANCE/ RESPONSE: She is tolerating radiation well. Mild fatigue. No skin irritation. Using aquaphor. REMARKS: She tolerated radiation treatment well. Four week follow-up with me. Staff Physician OLLIE MOSES M.D. / 42:13 PM Electronically Signed cc: Catherine Vazquez [place] [address] Pernell Najera [address] [facility] [id number] documented in this encounterPromedica Toledo Hospital06-12-2024 NoteEducation (RADTWS) ANGELA MAY ([id number]) 1950 F Date Time Provider Department 11/07/23 OLLIE MOSESWS Reason for Visit: Patient Education [91] During your visit today, we recorded the following information about you: Allergies As of Date: 11/07/2023 (No Known Allergies) Date Reviewed: 10/31/2023 Reviewed by: Janey Zavala, RN - Fully Assessed Prescriptions as of 11/07/2023 - anastrozole (ARIMIDEX) 1 mg tablet Take 1 tablet by mouth once daily. - Valsartan-hydroCHLOROthiazide 160-12.5 mg per tablet Take 1 tablet by mouth once daily. - Ethzg-6-BBX-EPA-Fish Oil (FISH OIL) 1,000 mg (120 mg-180 mg) cap Take two capsules by mouth once daily. - Uytnrwfdfuuek-Bpepztce-Pvsnil (MULTIVITAMIN 50 PLUS) tab Take 1 tablet by mouth once daily. - calcium carbonate/vitamin D3 (CALCIUM 600 + D ORAL) Take 2 tablets by mouth once daily. - Lactobacillus acidophilus (PROBIOTIC) 10 billion cell cap Take 1 capsule by mouth once daily. Encounter Status:Closed by JANEY ZAVALA on 11/07/23[facility] 11-07-2023 NoteHNO ID: [id number] Author: OLLIE MOSES MD Service: Radiation Oncology Author Type: Physician Type: Progress Notes Filed: 11/12/2023 14:13 Note Text: ANGELA MAY [id number] : 1950 11/07/2023 [facility] Department of Radiation Oncology RADIATION ONCOLOGY - COMPLETION NOTE DATE OF SIMULATION: 10/23/23 DATES OF TREATMENT: 10/29/23 - 11/07/23 UNIT: W_TRUEBEAM AREA TREATED: Left partial breast DISEASE: Stage IA, pT1c pN0 (sn), grade 2 invasive ductal carcinoma of the left breast s/p left breast lumpectomy and sentinel node biopsy on 09/20/23. It's ER positive (>95%, strong), KS positive (90%, moderate to strong) and Her2 0. DELIVERED DOSE: 3000 cGy in 5 fractions treating to the 97.6% isodose line with 6fff MV and 3 vmat suarez. ELAPSED TIME: 9 days TOLERANCE/ RESPONSE: She is tolerating radiation well. Mild fatigue. No skin irritation. Using aquaphor. REMARKS: She tolerated radiation treatment well. Four week follow-up with me. Staff Physician OLLIE MOSES M.D. / 42:13 PM Electronically Signed cc: Catherine Vazquez DO [address] [place] [address] Pernell Mills [facility] [address] Nurse Note* Janey Zavala, RN - 10/31/2023 2:37 PM EDT Radiation Therapy - Nursing Note (OTV) PATIENT NAME: Angela May PATIENT October 31, 2023 [facility] [place]/LOCATION: [place] NURSING NOTE TYPE: BREAST Subjective Data no complaints Additional Data Do you want to see a Bottom Filler? No Status: Post-menopausal. Stress Scale: On a scale of 0 to 10, what number best describes how much distress you have experienced in the past week?(0 being no distress and 10 being extreme distress) 0 Social work notified: Pt denied need to see licensed master social worker at this time. Nursing Assessment Fatigue: none Appetite: good Nutritional Intake: Regular oral intake. Weight Gain/Loss: Not applicable Ambulatory weight history: Last 6 Encounter Wt Readings: Date: Wt: 10/19/2023 91.9 kg (202 lb 8 oz) 10/18/2023 91.9 kg (202 lb 8 oz) 10/03/2023 92.5 kg (204 lb) Nausea:None Vomiting: None Bowel Function: normal bowel movements Erythema/Hyperpigmentation:none Desquamation:none Rash:none Skin Care: Aquaphor Skin Sensation: Within Normal Limits Focused Assessment BREAST: Lymphedema Assessment: Is the patient noting any swelling? No. SIGNED by: Janey Zavala RN [facility]06-05-2024 Nurse Note* Janey Zavala RN - 10/31/2023 2:37 PM EDT Radiation Therapy - Nursing Note (OTV) PATIENT NAME: Angela May PATIENT October 31, 2023 [facility] [place]/LOCATION: [facility] NOTE TYPE: BREAST Subjective Data no complaints Additional Data Do you want to see a Bottom Filler? No Status: Post-menopausal. Stress Scale: On a scale of 0 to 10, what number best describes how much distress you have experienced in the past week?(0 being no distress and 10 being extreme distress) 0 Social work notified: Pt denied need to see licensed master social worker at this time. Nursing Assessment Fatigue: none Appetite: good Nutritional Intake: Regular oral intake. Weight Gain/Loss: Not applicable Ambulatory weight history: Last 6 Encounter Wt Readings: Date: Wt: 10/19/2023 91.9 kg (202 lb 8 oz) 10/18/2023 91.9 kg (202 lb 8 oz) 10/03/2023 92.5 kg (204 lb) Nausea:None Vomiting: None Bowel Function: normal bowel movements Erythema/Hyperpigmentation:none Desquamation:none Rash:none Skin Care: Aquaphor Skin Sensation: Within Normal Limits Focused Assessment BREAST: Lymphedema Assessment: Is the patient noting any swelling? No. 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 COURSE: adjuvant Area Treated: partial left breast Current dose: 1200 cGy in 2 fx Planned dose: 3000 cGy in 5 fx Status: Post-menopausal SUBJECTIVE: She is tolerating radiation well. Mild fatigue. No skin irritation. Using aquaphor. PHYSICAL EXAM: KPS: 90 General Appearance: Alert and oriented. No acute distress. Skin erythema/hyperpigmentation: No Desquamation: No TOXICITY ASSESSMENT (CTC v4.0): Fatigue: grade 0 - No symptoms Radiation dermatitis: grade 0 - No symptoms Treatment chart checked: Yes Patient treatment site reviewed and verified:Yes Port films reviewed and current:Yes Medications started: None ASSESSMENT/PLAN: Clinically stable. No signs of toxicity. Continue radiation treatment as planned. Signed by: Javier Cat MD covering for Ollie Moses MD documented in this encounterPromedica [facility]-05-[facility]24 NoteHNO ID: [id number] Author: JAVIER CAT MD Service: ? 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 COURSE: adjuvant Area Treated: partial left breast Current dose: 1200 cGy in 2 fx Planned dose: 3000 cGy in 5 fx Status: Post-menopausal SUBJECTIVE: She is tolerating radiation well. Mild fatigue. No skin irritation. Using aquaphor. PHYSICAL EXAM: KPS: 90 General Appearance: Alert and oriented. No acute distress. Skin erythema/hyperpigmentation: No Desquamation: No TOXICITY ASSESSMENT (CTC v4.0): Fatigue: grade 0 - No symptoms Radiation dermatitis: grade 0 - No symptoms Treatment chart checked: Yes Patient treatment site reviewed and verified:Yes Port films reviewed and current:Yes Medications started: None ASSESSMENT/PLAN: Clinically stable. No signs of toxicity. Continue radiation treatment as planned. Signed by: Javier Cat MD covering for Ollie Moses [facility]05-28-2024 Nurse Note* Janey Zavala RN - 10/23/2023 1:58 PM EDT Radiation Therapy - Patient Education Note PATIENT NAME: Angela May PATIENT October 23, 2023 [facility] [place]/LOCATION: [place] READINESS TO LEARN Cognitive Ability: Alert and oriented Motivation to learn: Eager Family Support: High - Very involved in pt care Instruction provide to: Patient and Spouse Patient learns best by: Individual Instruction Written Instruction - Hand-outs Verbal Instruction Factors effecting learning: None Physical limitations effecting learning: None LEARNING RESPONSE Diagnosis: Pt simulated today for radiation therapy to left breast. Education Topic/Teaching Points: Radiation therapy, Side effects, and OTV: Method of instruction: Teach Back skin care Individual instruction Written instruction/Handouts Verbal instruction Patient /Family response: Patient and family verbalized understanding of radiation treatments, sideeffects, OTV, and transportation. Follow-up plan: Complete - No need for follow-up Contact information given. Supplemental material: Informational handouts on Fatigue and Skin changes. Referral (recommendation): None, Pt denied need for social work, van service, and control systems technician. Patient has an Onbody or Implanted device: No Signed by: Janey Zavala RN [facility]05-28-2024 Nurse Note* Janey Zavala RN - 10/23/2023 1:58 PM EDT Radiation Therapy - Patient Education Note PATIENT NAME: Angela May PATIENT October 23, 2023 [facility] [place]/LOCATION: [place] READINESS TO LEARN Cognitive Ability: Alert and oriented Motivation to learn: Eager Family Support: High - Very involved in pt care Instruction provide to: Patient and Spouse Patient learns best by: Individual Instruction Written Instruction - Hand-outs Verbal Instruction Factors effecting learning: None Physical limitations effecting learning: None LEARNING RESPONSE Diagnosis: Pt simulated today for radiation therapy to left breast. Education Topic/Teaching Points: Radiation therapy, Side effects, and OTV: Method of instruction: Teach Back skin care Individual instruction Written instruction/Handouts Verbal instruction Patient /Family response: Patient and family verbalized understanding of radiation treatments, sideeffects, OTV, and transportation. Follow-up plan: Complete - No need for follow-up Contact information given. Supplemental material: Informational handouts on Fatigue and Skin changes. Referral (recommendation): None, Pt denied need for social work, van service, and control systems technician. 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 It's ER positive (>95%, strong), KS positive (90%, moderate to strong) and Her2 0. AREA:Left Breast PATIENT POSITION: Supine. CONTRAST: None PROTOCOL: None BLOCKING: Custom blocking to be determined at treatment planning. FIXATION DEVICE: In order to achieve accurate and reproducible treatments, the patient is to be immobilized with AIO orfit system PROCEDURE: A time-out was conducted and recorded by the therapist. Patient was simulated on the CT scanner for external beam radiation therapy. Treatment site was marked by the simulation therapist. ASSESSMENT/PLAN: Patient tolerated simulation procedure well. Treatments will be initiated after treatment planning. The patient is scheduled for a verification simulation on the treatment machine toensure proper set-up and field arrangement is correct prior to the first treatment of primary and boost suarez if applicable. Electronically Signed Ollie Moses M.D./may 43:38 PM documented in this encounterPromedica [facility] Hospital05-28-2024 History of Present illness Narrative* Ollie Moses MD - 10/23/2023 12:00 AM EDT ANGELA MAY [id number] 10/23/2023 [facility] Department of Radiation Oncology Treatment Planning Note For reasons stated in the consult note, Angela May is a candidate for radiation therapy. Based on review and interpretation of the relevant diagnostic studies together with the exam findings, [place] was simulated on 10/23/2023 at which time the target volume and/or requisite suarez were delineated, as indicated in the simulation note, to be treated according to the prescription. An ITV was created from all the phases of respiratory motion captured by the 4DCT image sets. Motion management allowed for design of patient specific planning target volume and reduced the radiationexposure to normal tissues. The treatment target and organs at risk were contoured on the simulation scan. After reviewing multiple treatment plans with dosimetry, the best plan was approved to deliver the prescribed course of radiation to the target area using inverse planning to allow for the best isodose distribution, treating to the 97.6% isodose line with 6fff MV and 3 vmat suarez. Custom MLC for IMRT were the treatment device(s) used to shape/modify the beams. Limiting dose to normal tissue was confirmed upon reviewof the calculated dose volume histogram. IMRT planning was used because it best met the dose/volume constraints for the organs at risk for this patient, better than what could be achieved using conventional or 3D planning. The specific doserequirements for the PTV, organs at risk and dose-volume histograms are contained in this treatmentplan and/or elsewhere in the medical record. A completed summary of this plan dated 10/25/2023 incorporated herein by reference includes dose, beam arrangements, energy, blocking, isodose distribution, and/or ports and DVH. Electronically Signed Ollie Moses M.D. 1:16 AM documented in this encounterPromedica Toledo Hospital05-28-2024 NoteHNO ID: [id number] Author: OLLIE MOSES MD Service: Radiation Oncology Author Type: Physician Type: Progress Notes Filed: 10/25/2023 11:16 Note Text: ANGELA MAY [id number] 10/23/2023 [facility] Department of Radiation Oncology Treatment Planning Note For reasons stated in the consult note, Angela May is a candidate for radiation therapy. Based on review and interpretation of the relevant diagnostic studies together with the exam findings, Angela May was simulated on 10/23/2023 at which time the target volume and/or requisite suarez were delineated, as indicated in the simulation note, to be treated according to the prescription. An ITV was created from all the phases of respiratory motion captured by the 4DCT image sets. Motion management allowed for design of patient specific planning target volume and reduced the radiation exposure to normal tissues. The treatment target and organs at risk were contoured on the simulation scan. After reviewing multiple treatment plans with dosimetry, the best plan was approved to deliver the prescribed course of radiation to the target area using inverse planning to allow for the best isodose distribution, treating to the 97.6% isodose line with 6fff MV and 3 vmat suarez. Custom MLC for IMRT were the treatment device(s) used to shape/modify the beams. Limiting dose to normal tissue was confirmed upon review of the calculated dose volume histogram. IMRT planning was used because it best met the dose/volume constraints for the organs at risk for this patient, better than what could be achieved using conventional or 3D planning. The specific dose requirements for the PTV, organs at risk and dose-volume histograms are contained in this treatment plan and/or elsewhere in the medical record. A completed summary of this plan dated 10/25/2023 incorporated herein by reference includes dose, beam arrangements, energy, blocking, isodose distribution, and/or ports and DVH. Electronically Signed Ollie Moses M.D. 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 It's ER positive (>95%, strong), KS positive (90%, moderate to strong) and Her2 0. AREA:Left Breast PATIENT POSITION: Supine. CONTRAST: None PROTOCOL: None BLOCKING: Custom blocking to be determined at treatment planning. FIXATION DEVICE: In order to achieve accurate and reproducible treatments, the patient is to be immobilized with AIO orfit system PROCEDURE: A time-out was conducted and recorded by the therapist. Patient was simulated on the CT scanner for external beam radiation therapy. Treatment site was marked by the simulation therapist. ASSESSMENT/PLAN: Patient tolerated simulation procedure well. Treatments will be initiated after treatment planning. The patient is scheduled for a verification simulation on the treatment machine to ensure proper set-up and field arrangement is correct prior to the first treatment of primary and boost suarez if applicable. Electronically Signed Ollie Moses M.D./may 43:38 [facility]05-24-2024 NoteHNO ID: [id number] Author: OLLIE MOSES MD Service: ? Author Type: Physician Type: Progress Notes Filed: 10/19/2023 12:41 Note Text: Radiation Oncology - New Patient/Consult Note PATIENT NAME: Angela May PATIENT REQUESTING PROVIDER: Dr. 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 It's ER positive (>95%, strong), KS positive (90%, moderate to strong) and Her2 0. HPI: 72 year old female who presents with above diagnosis, for an opinion regarding the role of radiation therapy in the management of the patient's disease. Final recommendations will be communicated back to the requesting physician by way of the shared medical record, or letter to requesting physician via [place] mail. 72 year old woman who felt a lump in the left breast. Diagnostic left mammogram on 08/14/23 showed a 6 mm nodular density in the medial retroareolar region of the left breast. US showed a 1.2 x 1.1 x 0.9 cm hypoechoic irregular nodule in the left breast corresponding to the palpable lesion. Core biopsy on 08/21/23 of the left breast 9:00 lesion showed grade 2 invasive ductal carcinoma. It's ER positive (>95%, strong), KS positive (90%, moderate to strong) and Her2 0. She underwent left breast lumpectomy and sentinel node biopsy on 09/20/23. Pathology showed grade 2 invasive ductal carcinoma measuring 1.5 x 1.0 x 0.7 cm with negative margins. The closest margin was 10 mm from superior margin. One sentinel node was negative for metastasis. ALLERGIES No Known Allergies Current Outpatient Medications on File Prior to Visit Medication Sig Valsartan-hydroCHLOROthiazide 160-12.5 mg per tablet Take 1 tablet by mouth once daily. Giynq-6-IYX-EPA-Fish Oil (FISH OIL) 1,000 mg (120 mg-180 mg) cap Take two capsules by mouth once daily. Cphwvwnutwtwl-Ykfvhvxx-Iuihsu (MULTIVITAMIN 50 PLUS) tab Take 1 tablet by mouth once daily. anastrozole (ARIMIDEX) 1 mg tablet Take 1 tablet by mouth once daily. calcium carbonate/vitamin D3 (CALCIUM 600 + D ORAL) Take 2 tablets by mouth once daily. Lactobacillus acidophilus (PROBIOTIC) 10 billion cell cap Take 1 capsule by mouth once daily. No current facility-administered medications on file prior to visit. PAST MEDICAL HISTORY Diagnosis Date Arthritis Arthritis with psoriasis (HCC) Hypertension Prior radiation therapy, collagen vascular disease, or inflammatory bowel disease: No Any implanted or external electric devices? No status: Post-menopausal. PAST SURGICAL HISTORY Procedure Laterality Date BREAST LUMPECTOMY HX Left 09/20/2023 DELIVERY ONLY 12/1982 DELIVERY ONLY 11/1978 DELIVERY ONLY 05/1977 SECTION HX 02/1985 REMV CATARACT EXTRACAP,INSERT LENS Left 2020 REMV CATARACT EXTRACAP,INSERT LENS Right 2020 REVISE MEDIAN N/CARPAL TUNNEL SURG Left 11/1988 REVISE MEDIAN N/CARPAL TUNNEL SURG Right 10/1997 TOTAL HIP REPLACEMENT Right 10/2011 TOTAL HIP REPLACEMENT Left 01/2019 FAMILY HISTORY Problem Relation Age of Onset Hypertension Mother Blood Disease Mother Heart Father Hypertension Father Kidney Disease Sister No Known Problems Sister Heart Brother Stroke Paternal Grandmother Social History Tobacco Use Smoking status: Former Packs/day: 0.50 Years: 10.00 Additional pack years: 0.00 Total pack years: 5.00 Types: Cigarettes Quit date: 1983 Years since quittin.4 Smokeless tobacco: Never Vaping Use Vaping Use: Never used Substance Use Topics Alcohol use: Not Currently Drug use: Never COMPLETE REVIEW OF SYSTEMS: GENERAL: feeling well without fatigue, no recent change in weight HEENT: denies HIGUERA, change in hearing or vision, no other ENT complaints NECK: denies swelling or pain in neck RESPIRATORY: no cough, no wheezing or shortness of breath CARDIOVASCULAR: no chest pain, no palpitations GI: normal appetite, tolerating PO well, BMs normal, and no abdominal pain : urination is normal MUSCULOSKELETAL: chronic arthritis. SKIN: no rash HEMATOLOGY/LYMPHOLOGY: negative for prolonged bleeding, no swollen lymph nodes NEURO: numbness/tingling in the right hand attributed to Carpel tunnel syndrome. PHYSICAL EXAM: VS: BP 133/79 Pulse 65 Temp 36.4 ?C (97.6 ?F) (Temporal) Resp 15 Wt 91.9 kg (202 lb 8 oz) LMP 05/28/2001 (Approximate) SpO2 96% BMI 33.70 kg/m? KPS: 100 General Appearance: Alert and oriented. No acute distress. HEENT: NCAT. Sclera anicteric. EOMI. Neck: Normal ROM. Chest: No respiratory distress. Breasts: Left nipple/areola surgically absent. Recent surgical incision scar in the left breast healed well. There is no dominant mass, suspicious skin change or nipple discharge bilaterally. Abdomen: Soft. Nontender. Nondistended. Musculoskeletal: No edema. Normal ROM in extremities. Neuro: Speech (more content not included)...[facility]05-24-2024 History of Present illness Narrative* Ollie Moses MD - 10/19/2023 10:48 AM EDT Radiation Oncology - New Patient/Consult Note PATIENT NAME: Angela May PATIENT REQUESTING PROVIDER: Dr. 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 It's ER positive (>95%, strong), KS positive (90%, moderate to strong) and Her2 0. HPI: 72 year old female who presents with above diagnosis, for an opinion regarding the role of radiation therapy in the management of the patient's disease. Final recommendations will be communicated back to the requesting physician by way of the shared medical record, or letter to requesting physician via [place] mail. 72 year old woman who felt a lump in the left breast. Diagnostic left mammogram on 08/14/23 showed a6 mm nodular density in the medial retroareolar region of the left breast. US showed a 1.2 x 1.1 x 0.9 cm hypoechoic irregular nodule in the left breast corresponding to the palpable lesion. Core biopsy on 08/21/23 of the left breast 9:00 lesion showed grade 2 invasive ductal carcinoma. It's ER positive (>95%, strong), KS positive (90%, moderate to strong) and Her2 0. She underwent left breast lumpectomy and sentinel node biopsy on 09/20/23. Pathology showed grade 2 invasive ductal carcinoma measuring 1.5 x 1.0 x 0.7 cm with negative margins. The closest margin was10 mm from superior margin. One sentinel node was negative for metastasis. ALLERGIES No Known Allergies Current Outpatient Medications on File Prior to Visit Medication Sig Valsartan-hydroCHLOROthiazide 160-12.5 mg per tablet Take 1 tablet by mouth once daily. Rusiz-9-VXS-EPA-Fish Oil (FISH OIL) 1,000 mg (120 mg-180 mg) cap Take two capsules by mouth once daily. Owgzbmgovklrm-Ttwwpbfy-Xscfke (MULTIVITAMIN 50 PLUS) tab Take 1 tablet by mouth once daily. anastrozole (ARIMIDEX) 1 mg tablet Take 1 tablet by mouth once daily. calcium carbonate/vitamin D3 (CALCIUM 600 + D ORAL) Take 2 tablets by mouth once daily. Lactobacillus acidophilus (PROBIOTIC) 10 billion cell cap Take 1 capsule by mouth once daily. No current facility-administered medications on file prior to visit. PAST MEDICAL HISTORY Diagnosis Date Arthritis Arthritis with psoriasis (HCC) Hypertension Prior radiation therapy, collagen vascular disease, or inflammatory bowel disease: No Any implanted or external electric devices? No status: Post-menopausal. PAST SURGICAL HISTORY Procedure Laterality Date BREAST LUMPECTOMY HX Left 09/20/2023 DELIVERY ONLY 12/1982 DELIVERY ONLY 11/1978 DELIVERY ONLY 05/1977 SECTION HX 02/1985 REMV CATARACT EXTRACAP,INSERT LENS Left 2020 REMV CATARACT EXTRACAP,INSERT LENS Right 2020 REVISE MEDIAN N/CARPAL TUNNEL SURG Left 11/1988 REVISE MEDIAN N/CARPAL TUNNEL SURG Right 10/1997 TOTAL HIP REPLACEMENT Right 10/2011 TOTAL HIP REPLACEMENT Left 01/2019 FAMILY HISTORY Problem Relation Age of Onset Hypertension Mother Blood Disease Mother Heart Father Hypertension Father Kidney Disease Sister No Known Problems Sister Heart Brother Stroke Paternal Grandmother Social History Tobacco Use Smoking status: Former Packs/day: 0.50 Years: 10.00 Additional pack years: 0.00 Total pack years: 5.00 Types: Cigarettes Quit date: 1983 Years since quittin.4 Smokeless tobacco: Never Vaping Use Vaping Use: Never used Substance Use Topics Alcohol use: Not Currently Drug use: Never COMPLETE REVIEW OF SYSTEMS: GENERAL: feeling well without fatigue, no recent change in weight HEENT: denies HIGUERA, change in hearing or vision, no other ENT complaints NECK: denies swelling or pain in neck RESPIRATORY: no cough, no wheezing or shortness of breath CARDIOVASCULAR: no chest pain, no palpitations GI: normal appetite, tolerating PO well, BMs normal, and no abdominal pain : urination is normal MUSCULOSKELETAL: chronic arthritis. SKIN: no rash HEMATOLOGY/LYMPHOLOGY: negative for prolonged bleeding, no swollen lymph nodes NEURO: numbness/tingling in the right hand attributed to Carpel tunnel syndrome. PHYSICAL EXAM: VS: BP 133/79 Pulse 65 Temp 36.4 C (97.6 F) (Temporal) Resp 15 Wt 91.9 kg (202 lb 8 oz) LMP 05/28/2001 (Approximate) SpO2 96% BMI 33.70 kg/m KPS: 100 General Appearance: Alert and oriented. No acute distress. HEENT: NCAT. Sclera anicteric. EOMI. Neck: Normal ROM. Chest: No respiratory distress. Breasts: Left nipple/areola surgically absent. Recent surgical incision scar in the left breast healed well. There is no dominant mass, suspicious skin change or nipple discharge bilaterally. Abdomen: Soft. Nontender. Nondistended. Musculoskeletal: No edema. Normal ROM in extremities. Neuro: Speech fluent. Gait normal. No focal deficits. Skin: No rashes noted Lymphatics: No palpable cervical or supraclavicular or axillary adenopathy. Hematologic: No signs of active bleeding. 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 It's ER positive (>95%, strong), KS positive (90%, moderate to strong) and Her2 0. I discussed the role of radiation treatment in breast conserving therapy. As she is over 70 year old with ER positive T1N0 tumor, hormonal therapy alone is an option as baseline risks of local recurrence are low. There are risks of local recurrence about 1% per year in patients treated with hormonal therapy alone and radiation treatment can decrease that risks significantly. She is a healthy 72 year old woman and partial breast radiation treatment can be an option if she wishes to decrease local recurrence risks further. She understands the above and decided to pursue partial breast radiation treatment. I explained the rationale, benefits, alternative management options and potential complications of radiation treatment to the patient and she understands and agrees to proceed. It was explained and understood that other personnel such as radiation therapists, acidizer helper, and physicists will partici vidales in planning and delivery of radiation treatment. Permanent tattoo smith will be placed to aid with positioning for daily treatment and the patient consented. Patient will have a simulation procedure next week. Thank you very much for allowing us to participate in her care. Signed by: Ollie Moses MD cc: Catherine Vazquez DO [address] [place] [address] [address] [facility] [id number] documented in this encounterProm[facility] Nurse Note* Hawa Yuen RN - 10/19/2023 10:36 AM EDT Radiation Therapy - Nursing Note (Consult) PATIENT NAME: Angela May PATIENT October 19, 2023 [facility] [place]/LOCATION: [place] Chief Complaint: consult Reason for visit: Consult. Referring physician: Internal provider Dr Najera Subjective Data: no complaints Additional Data Do you want to see a Bottom Filler? No Are you interested in information about fertility? No Status: Post-menopausal Stress Scale: On a scale of 0 to 10, what number best describes how much distress you have experienced in the past week?(0 being no distress and 10 being extreme distress) 1 Social work notified: no SIGNED by: Hawa Yuen RN [facility]05-24-[facility] Nurse Note* Hawa Yuen RN - 10/19/2023 10:36 AM EDT Radiation Therapy - Nursing Note (Consult) PATIENT NAME: Angela May PATIENT October 19, 2023 [facility] [place]/LOCATION: [place] Chief Complaint: consult Reason for visit: Consult. Referring physician: Internal provider Dr Najera Subjective Data: no complaints Additional Data Do you want to see a Bottom Filler? No Are you interested in information about fertility? No Status: Post-menopausal Stress Scale: On a scale of 0 to 10, what number best describes how much distress you have experienced in the past week?(0 being no distress and 10 being extreme distress) 1 Social work notified: no SIGNED by: Hawa Yuen RN documented in this encounterPromed[facility]05-23-2024 NoteHNO ID: [id number] Author: PERNELL NAJERA, DO Service: ? Author Type: Physician Type: Progress Notes Filed: 10/18/2023 09:25 Note Text: Oncologic problem(s): 1) Breast cancer. 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 Patient had a bilateral screening mammogram 11/13/2022. She was noted to have areas of scattered fibroglandular density in both breast. There were no dominant masses or suspicious calcifications. 1 year follow-up was recommended. Patient appreciated a palpable lump in the left breast. Diagnostic mammogram 08/14/2023 identified a 6 mm nodular density in the medial retroareolar region of the left breast corresponding to the palpable abnormality. On ultrasound was found to have a 1.2 x 1.1 x 0.9 cm hypoechoic lobular irregular nodule with increased vascularity. Core needle biopsy. Pathology: Left breast nodule at 9 o?clock, core biopsy; Invasive ductal carcinoma. See synoptic report below. AM/mr 08/22/2023 COMMENT INVASIVE BREAST CANCER SUMMARY: Procedure: Needle core biopsy Specimen Laterality: Left breast Tumor site: 9 o?clock, retro-areolar Histologic type: Invasive ductal carcinoma Provisional Histologic grade: 2 Tubule Differentiation Score: 3 Nuclear Pleomorphism Score: 2 Mitotic Rate Score: 1 Tumor Size ( greatest dimension): 7.5 mm Ductal Carcinoma Insitu: Not identified Angiolymphatic Invasion: Not identified Microcalcifications: Not identified Additional Pathologic Findings: None Breast Marker Study: RF 332 ER:> 95%, strong intensity (positive) KS:90%, moderate to strong intensity (positive) Her2:0 (negative) Ki67:5% TNM stage: Not Applicable The above summary is in compliance with [employer] (CAP) Cancer Protocols Checklist and [place] Joint Committee on Cancer (AJCC), Staging Manual, 8th Ed. Underwent left partial mastectomy including nipple areolar complex along with sentinel lymph node biopsy on 09/20/2023. Pathology: FROZEN SECTION DIAGNOSIS Left sentinel lymph node, biopsy: One lymph node, negative for metastatic carcinoma. MICROSCOPIC DIAGNOSIS A. Left breast, sentinel node, biopsy: One out of one lymph node negative for metastatic carcinoma. See comment. B. Left breast, mastectomy: Invasive ductal carcinoma. See cancer template below: RITA/ 09/27/23 COMMENT INVASIVE BREAST CANCER SUMMARY: Procedure - Mastectomy Specimen: Breast with nipple and areola Type - partial breast Size - 7.5 x 6.0 x 3.0 Laterality - left breast Tumor: Site - Subareolar Size - 1.5 x 1.0 x 0.7cm Histologic type - invasive ductal carcinoma. Focality - single focus of carcinoma. Histologic Grade (Nicholas grade): Glandular/tubular differentiation - score 3 Nuclear pleomorphism - score 2 Mitotic count - score 1 [facility] DEPARTMENT OF LABORATORY SURGICAL PATHOLOGY REPORT [id number] [place], [place] [address] ____ Page 2 of 3 The contents of this transmission are privileged, confidential and exempt from disclosure under applicable law. If you have received this information in error, call . ANGELA MAY MR# [id number] Overall grade - 2 (score of 6) Ductal carcinoma in situ: Present Estimated quantification (% of tumor volume) - 1% Number of blocks - 1 of 12 blocks Architectural patterns - Solid Nuclear grade - grade 1/2 Necrosis - not identified Lobular carcinoma in situ (LCIS) - Not present Tumor extension: Skin - free of carcinoma Nipple - free of carcinoma Skeletal muscle - not present Margins: Distance of invasive carcinoma from closest margin - 10 mm from superior margin. Distance of ductal carcinoma in situ from closest margin - 12 mm from superior margin. Lymph nodes: Number of sentinel lymph nodes examined - 1 Total number of lymph nodes examined (sentinel and nonsentinel) - 1 No evidence of macrometastases, micrometastases or isolated tumor cells See specimen ?A? Treatment effect: Unknown Lymphvascular invasion - Not identified Additional pathologic findings - Fibrocystic change, changes of previous biopsy and tumor necrosis. Ancillary studies - previously performed on section of tumor ([id number] / [id number]). ER - >95%, strong intensity KS - 90%, moderate to strong intensity Her2 adán - 0, negative Her2 by dual SHARAD - not performed Ki67 - 5% Microcalcifications - Not identified Clinical history - Mass of left breast PATHOLOGIC STAGE: T1c N0 MX Presents for ongoing oncologic management. Interim history: No compl (more content not included)...[facility]05[facility] History of Present illness Narrative* Pernell Najera DO - 10/18/2023 9:02 AM EDT Oncologic problem(s): 1) Breast cancer. 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 Patient had a bilateral screening mammogram 11/13/2022. She was noted to have areas of scattered fibroglandular density in both breast. There were no dominant masses or suspicious calcifications. 1 year follow-up was recommended. Patient appreciated a palpable lump in the left breast. Diagnostic mammogram 08/14/2023 identified a 6 mm nodular density in the medial retroareolar region of the left breast corresponding to the palpable abnormality. On ultrasound was found to have a 1.2 x 1.1 x 0.9 cm hypoechoic lobular irregular nodule with increased vascularity. Core needle biopsy. Pathology: Left breast nodule at 9 o clock, core biopsy; Invasive ductal carcinoma. See synoptic report below. AM/mr 08/22/2023 COMMENT INVASIVE BREAST CANCER SUMMARY: Procedure: Needle core biopsy Specimen Laterality: Left breast Tumor site: 9 o clock, retro-areolar Histologic type: Invasive ductal carcinoma Provisional Histologic grade: 2 Tubule Differentiation Score: 3 Nuclear Pleomorphism Score: 2 Mitotic Rate Score: 1 Tumor Size ( greatest dimension): 7.5 mm Ductal Carcinoma Insitu: Not identified Angiolymphatic Invasion: Not identified Microcalcifications: Not identified Additional Pathologic Findings: None Breast Marker Study: RF 332 ER:> 95%, strong intensity (positive) KS:90%, moderate to strong intensity (positive) Her2:0 (negative) Ki67:5% TNM stage: Not Applicable The above summary is in compliance with [employer] (CAP) Cancer Protocols Checklist and [place] Joint Committee on Cancer (AJCC), Staging Manual, 8th Ed. Underwent left partial mastectomy including nipple areolar complex along with sentinel lymph node biopsy on 09/20/2023. Pathology: FROZEN SECTION DIAGNOSIS Left sentinel lymph node, biopsy: One lymph node, negative for metastatic carcinoma. MICROSCOPIC DIAGNOSIS A. Left breast, sentinel node, biopsy: One out of one lymph node negative for metastatic carcinoma. See comment. B. Left breast, mastectomy: Invasive ductal carcinoma. See cancer template below: RITA/ 09/27/23 COMMENT INVASIVE BREAST CANCER SUMMARY: Procedure - Mastectomy Specimen: Breast with nipple and areola Type - partial breast Size - 7.5 x 6.0 x 3.0 Laterality - left breast Tumor: Site - Subareolar Size - 1.5 x 1.0 x 0.7cm Histologic type - invasive ductal carcinoma. Focality - single focus of carcinoma. Histologic Grade (Nicholas grade): Glandular/tubular differentiation - score 3 Nuclear pleomorphism - score 2 Mitotic count - score 1 [facility] DEPARTMENT OF LABORATORY SURGICAL PATHOLOGY REPORT [id number], [place], [place] [address] ____ Page 2 of 3 The contents of this transmission are privileged, confidential and exempt from disclosure under applicable law. If you have received this information in error, call . ANGELA MAY MR# [id number] Overall grade - 2 (score of 6) Ductal carcinoma in situ: Present Estimated quantification (% of tumor volume) - 1% Number of blocks - 1 of 12 blocks Architectural patterns - Solid Nuclear grade - grade 1/2 Necrosis - not identified Lobular carcinoma in situ (LCIS) - Not present Tumor extension: Skin - free of carcinoma Nipple - free of carcinoma Skeletal muscle - not present Margins: Distance of invasive carcinoma from closest margin - 10 mm from superior margin. Distance of ductal carcinoma in situ from closest margin - 12 mm from superior margin. Lymph nodes: Number of sentinel lymph nodes examined - 1 Total number of lymph nodes examined (sentinel and nonsentinel) - 1 No evidence of macrometastases, micrometastases or isolated tumor cells See specimen A Treatment effect: Unknown Lymphvascular invasion - Not identified Additional pathologic findings - Fibrocystic change, changes of previous biopsy and tumor necrosis. Ancillary studies - previously performed on section of tumor ([id number] / [id number]). ER - >95%, strong intensity KS - 90%, moderate to strong intensity Her2 adán - 0, negative Her2 by dual SHARAD - not performed Ki67 - 5% Microcalcifications - Not identified Clinical history - Mass of left breast PATHOLOGIC STAGE: T1c N0 MX Presents for ongoing oncologic management. Interim history: No complaints today. PAST MEDICAL HISTORY Diagnosis Date Arthritis Arthritis with psoriasis (HCC) Hypertension PAST SURGICAL HISTORY Procedure Laterality Date BREAST LUMPECTOMY HX Left 09/20/2023 DELIVERY ONLY 12/1982 DELIVERY ONLY 11/1978 DELIVERY ONLY 05/1977 SECTION HX 02/1985 REMV CATARACT EXTRACAP,INSERT LENS Left 2020 REMV CATARACT EXTRACAP,INSERT LENS Right 2020 REVISE MEDIAN N/CARPAL TUNNEL SURG Left 11/1988 REVISE MEDIAN N/CARPAL TUNNEL SURG Right 10/1997 TOTAL HIP REPLACEMENT Right 10/2011 TOTAL HIP REPLACEMENT Left 01/2019 ALLERGIES No Known Allergies Current Outpatient Medications Medication Sig Valsartan-hydroCHLOROthiazide 160-12.5 mg per tablet Take 1 tablet by mouth once daily. Yoczn-6-QPE-EPA-Fish Oil (FISH OIL) 1,000 mg (120 mg-180 mg) cap Take two capsules by mouth once daily. Ecwqqoaywgfcx-Jcthwtxe-Uikasn (MULTIVITAMIN 50 PLUS) tab Take 1 tablet by mouth once daily. calcium carbonate/vitamin D3 (CALCIUM 600 + D ORAL) Take 2 tablets by mouth once daily. Lactobacillus acidophilus (PROBIOTIC) 10 billion cell cap Take 1 capsule by mouth once daily. No current facility-administered medications for this visit. Social History Tobacco Use Smoking status: Former Packs/day: 0.50 Years: 10.00 Additional pack years: 0.00 Total pack years: 5.00 Types: Cigarettes Quit date: 1983 Years since quittin.4 Smokeless tobacco: Never Vaping Use Vaping Use: Never used Substance Use Topics Alcohol use: Not Currently Drug use: Never Family History Problem Relation Age of Onset Hypertension Mother Blood Disease Mother Heart Father Hypertension Father Kidney Disease Sister No Known Problems Sister Heart Brother Stroke Paternal Grandmother ROS: Constitutional: No fever. No drenching night sweats. Normal appetite. No unexplained weight loss. No significant fatigue. Neuro: No recent HIGUERA, vertigo, dizziness or imbalance. No symptoms of sensory neuropathy. HEENT: No recent change in voice, vision or hearing. Resp: No cough, wheeze of hemoptysis. No shortness of breath at rest. No CHOUDHARY. CVS: No exertional chest pain, PND or orthopnea. No extremity swelling/edema. No symptoms of claudication. No painful or tender varicose veins. GI: No dysgeusia. No symptoms of stomatitis. No dysphagia or odynophagia. No reflux, n/v, change inbowel habits. No abdominal pain, bloating or distension. No black or bloody stools. : No dysuria or gross hematuria. No symptoms of bladder outlet obstruction. Endo: No hot flashes. No polyuria or polydipsia. No heat or cold intolerance. Musculoskeletal: No bone, back, joint and muscular pain. Derm: No current rash. No history of jaundice. No diffuse pruritis. Heme: No unusual bleeding and unexplained bruising. Psych: Normal mood. PHYSICAL EXAM: Vitals: Blood pressure 143/83, pulse 76, temperature 36.7 C (98.1 F), temperature source Temporal, weight 91.9 kg (202 lb 8 oz), SpO2 94%. Well-appearing and in no acute distress. EYES: Sclerae are anicteric bilaterally. LYMPHATIC: There is no palpable cervical, supraclavicular, axillary adenopathy. RESPIRATORY: Inspiratory breath sounds are of normal intensity in all suarez. No rales, wheezes or rhonchi. CARDIOVASCULAR: Rhythm is regular.. BREAST: chaperoned. Well healed transverse incision across left breast. Tender medially, but no sign of infection or seroma. ABDOMEN: The abdomen is nondistended. No splenomegaly or hepatomegaly. No tenderness. Extremities: No swelling or edema. SKIN: No jaundice or rash. No petechiae. 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 No focal motor weakness. ASSESSMENT/PLAN: (C50.112, Z17.0) Malignant neoplasm of central portion of left breast in female, estrogen receptor positive (HCC) (primary encounter diagnosis) Assessment: -pT1c pN0(sln) M0 ER/KS positive, HER2 negative grade 2 pathologic stage IA invasive ductal carcinoma of the left breast. -Oncotype Dx results; RS 9; estimated distant recurrence risk at 9 years 3% with use of AI or tamoxifen alone; no benefit from chemotherapy. -Reviewed in detail. -Again discussed rationale for AI therapy. -Aim for 5-7 years. -Discussed bone health issues. Plan: -She will ask Dr. Vazquez to up date DEXA. -Check vit D. -Scheduled with Dr. Moses tomorrow. -Begin anastrozole about a week after completing radiation. -Office visit in about 6 weeks for survivorship care plan. -Dental clearance form provided so she can begin Zometa in about 6 moths. Portions of this documentation were copied and pasted from previous office visit notes in order to provide a cohesive continuity of the history. The note has been reviewed and edited and updated as necessary. I spent a total of 15 minutes on the date of the service which included preparing to see the patient, [id number] patient care, completing clinical documentation, obtaining and/or reviewing separately obtained history, performing a medically appropriate examination, counseling and educating the pat ient/family/caregiver, ordering medications, tests, or procedures, communicating with other HCPs (not separately reported), and communicating results to the patient/family/caregiver. Pernell A Masci, DO documented in this encounterProm[facility] History of Present illness Narrative* Pernell Najera DO - 10/03/2023 3:15 PM EDT Patient referred by Dr. June for breast cancer. The impression and plan will be communicated byway of the shared electronic record or faxed under separate cover letter. 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 Patient had a bilateral screening mammogram 11/13/2022. She was noted to have areas of scattered fibroglandular density in both breast. There were no dominant masses or suspicious calcifications. 1 year follow-up was recommended. Patient appreciated a palpable lump in the left breast. Diagnostic mammogram 08/14/2023 identified a 6 mm nodular density in the medial retroareolar region of the left breast corresponding to the palpable abnormality. On ultrasound was found to have a 1.2 x 1.1 x 0.9 cm hypoechoic lobular irregular nodule with increased vascularity. Core needle biopsy. Pathology: Left breast nodule at 9 o clock, core biopsy; Invasive ductal carcinoma. See synoptic report below. AM/mr 08/22/2023 COMMENT INVASIVE BREAST CANCER SUMMARY: Procedure: Needle core biopsy Specimen Laterality: Left breast Tumor site: 9 o clock, retro-areolar Histologic type: Invasive ductal carcinoma Provisional Histologic grade: 2 Tubule Differentiation Score: 3 Nuclear Pleomorphism Score: 2 Mitotic Rate Score: 1 Tumor Size ( greatest dimension): 7.5 mm Ductal Carcinoma Insitu: Not identified Angiolymphatic Invasion: Not identified Microcalcifications: Not identified Additional Pathologic Findings: None Breast Marker Study: RF 332 ER:> 95%, strong intensity (positive) KS:90%, moderate to strong intensity (positive) Her2:0 (negative) Ki67:5% TNM stage: Not Applicable The above summary is in compliance with [employer] (CAP) Cancer Protocols Checklist and [place] [employer] Committee on Cancer (AJCC), Staging Manual, 8th Ed. Underwent left partial mastectomy including nipple areolar complex along with sentinel lymph node biopsy on 09/20/2023. Pathology: FROZEN SECTION DIAGNOSIS Left sentinel lymph node, biopsy: One lymph node, negative for metastatic carcinoma. MICROSCOPIC DIAGNOSIS A. Left breast, sentinel node, biopsy: One out of one lymph node negative for metastatic carcinoma. See comment. B. Left breast, mastectomy: Invasive ductal carcinoma. See cancer template below: AM/mr 09/27/23 COMMENT INVASIVE BREAST CANCER SUMMARY: Procedure - Mastectomy Specimen: Breast with nipple and areola Type - partial breast Size - 7.5 x 6.0 x 3.0 Laterality - left breast Tumor: Site - Subareolar Size - 1.5 x 1.0 x 0.7cm Histologic type - invasive ductal carcinoma. Focality - single focus of carcinoma. Histologic Grade (Leon grade): Glandular/tubular differentiation - score 3 Nuclear pleomorphism - score 2 Mitotic count - score 1 [facility] DEPARTMENT OF LABORATORY SURGICAL PATHOLOGY REPORT [address], [place] [address] ____ Page 2 of 3 The contents of this transmission are privileged, confidential and exempt from disclosure under applicable law. If you have received this information in error, call . ANGELA MAY MR# [id number] Overall grade - 2 (score of 6) Ductal carcinoma in situ: Present Estimated quantification (% of tumor volume) - 1% Number of blocks - 1 of 12 blocks Architectural patterns - Solid Nuclear grade - grade 1/2 Necrosis - not identified Lobular carcinoma in situ (LCIS) - Not present Tumor extension: Skin - free of carcinoma Nipple - free of carcinoma Skeletal muscle - not present Margins: Distance of invasive carcinoma from closest margin - 10 mm from superior margin. Distance of ductal carcinoma in situ from closest margin - 12 mm from superior margin. Lymph nodes: Number of sentinel lymph nodes examined - 1 Total number of lymph nodes examined (sentinel and nonsentinel) - 1 No evidence of macrometastases, micrometastases or isolated tumor cells See specimen A Treatment effect: Unknown Lymphvascular invasion - Not identified Additional pathologic findings - Fibrocystic change, changes of previous biopsy and tumor necrosis. Ancillary studies - previously performed on section of tumor ([id number] / [id number]). ER - >95%, strong intensity KS - 90%, moderate to strong intensity Her2 adán - 0, negative Her2 by dual SHARAD - not performed Ki67 - 5% Microcalcifications - Not identified Clinical history - Mass of left breast PATHOLOGIC STAGE: T1c N0 MX Healing well. Mild soreness/tenderness medial incision/scar. Generalized arthritic pain. PAST MEDICAL HISTORY Diagnosis Date Arthritis Arthritis with psoriasis (HCC) Hypertension PAST SURGICAL HISTORY Procedure Laterality Date BREAST LUMPECTOMY HX Left 09/20/2023 DELIVERY ONLY 12/1982 DELIVERY ONLY 11/1978 DELIVERY ONLY 05/1977 SECTION HX 02/1985 REMV CATARACT EXTRACAP,INSERT LENS Left 2020 REMV CATARACT EXTRACAP,INSERT LENS Right 2020 REVISE MEDIAN N/CARPAL TUNNEL SURG Left 11/1988 REVISE MEDIAN N/CARPAL TUNNEL SURG Right 10/1997 TOTAL HIP REPLACEMENT Right 10/2011 TOTAL HIP REPLACEMENT Left 01/2019 ALLERGIES No Known Allergies Current Outpatient Medications Medication Sig Valsartan-hydroCHLOROthiazide 160-12.5 mg per tablet Take 1 tablet by mouth once daily. Jzeev-6-JGY-EPA-Fish Oil (FISH OIL) 1,000 mg (120 mg-180 mg) cap Take 2 g by mouth once daily. Orpfyhigbplfj-Kavsvbvc-Pxavko (MULTIVITAMIN 50 PLUS) tab Take 1 tablet by mouth once daily. calcium carbonate/vitamin D3 (CALCIUM 600 + D ORAL) Take 2 tablets by mouth once daily. Lactobacillus acidophilus (PROBIOTIC) 10 billion cell cap Take 1 capsule by mouth once daily. No current facility-administered medications for this visit. Social History Tobacco Use Smoking status: Former Types: Cigarettes Smokeless tobacco: Never Vaping Use Vaping Use: Never used Substance Use Topics Alcohol use: Not Currently Drug use: Never Family History Problem Relation Age of Onset Hypertension Mother Blood Disease Mother Heart Father Hypertension Father Kidney Disease Sister No Known Problems Sister Heart Brother Stroke Paternal Grandmother ROS: Constitutional: No fever. No drenching night sweats. Normal appetite. No unexplained weight loss. No significant fatigue. Neuro: No recent HIGUERA, vertigo, dizziness or imbalance. No symptoms of sensory neuropathy. HEENT: No recent change in voice, vision or hearing. Resp: No cough, wheeze of hemoptysis. No shortness of breath at rest. No CHOUDHARY. CVS: No exertional chest pain, PND or orthopnea. No extremity swelling/edema. No symptoms of claudication. No painful or tender varicose veins. GI: No dysgeusia. No symptoms of stomatitis. No dysphagia or odynophagia. No reflux, n/v, change inbowel habits. No abdominal pain, bloating or distension. No black or bloody stools. : No dysuria or gross hematuria. No symptoms of bladder outlet obstruction. Endo: No hot flashes. No polyuria or polydipsia. No heat or cold intolerance. Musculoskeletal: No bone, back, joint and muscular pain. Derm: No current rash. No history of jaundice. No diffuse pruritis. Heme: No unusual bleeding and unexplained bruising. Psych: Normal mood. PHYSICAL EXAM: Vitals: Blood pressure 109/61, pulse 95, temperature 37.2 C (98.9 F), temperature source Temporal, height 165.1 cm (5' 5), weight 74.8 kg (165 lb), SpO2 93%. Well-appearing and in no acute distress. EYES: Sclerae are anicteric bilaterally. LYMPHATIC: There is no palpable cervical, supraclavicular, axillary adenopathy. RESPIRATORY: Inspiratory breath sounds are of normal intensity in all suarez. No rales, wheezes or rhonchi. CARDIOVASCULAR: Rhythm is regular.. BREAST: chaperoned. Well healed transverse incision across left breast. Tender medially, but no sign of infection or seroma. ABDOMEN: The abdomen is nondistended. No splenomegaly or hepatomegaly. No tenderness. Extremities: No swelling or edema. SKIN: No jaundice or rash. No petechiae. 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 No focal motor weakness. ASSESSMENT/PLAN: (C50.112, Z17.0) Malignant neoplasm of central portion of left breast in female, estrogen receptor positive (HCC) (primary encounter diagnosis) Assessment: -pT1c pN0(sln) M0 ER/KS positive, HER2 negative grade 2 pathologic stage IA invasive ductal carcinoma of the left breast. -I had a detailed discussion with patient regarding the adjuvant treatment modalities of breast cancer. I discussed the need for aromatase inhibitor therapy including the rationale, potential side effects and typical duration of therapy. Explained to her that when the time comes to begin aromatase inhibitor therapy, will up date DEXA and determine vitamin D level. -I spent the bulk of time discussing the decision for adjuvant chemotherapy based on traditional clinical and pathologic variables and further explained molecular testing and its role in aiding the decision regarding adjuvant chemotherapy. I recommended an Oncotype DX test and discussed with her how this test is performed and how the results would be used in determining the potential benefit of adjuvant chemotherapy. -Offered her rad onc referral to either Dr. Moses or Dr. Germain. She wanted to see Dr. Moses. Plan: -Oncotype Dx -Referral to Dr. Moses for opinion on adjuvant radiation. -OV in about 2 weeks. I spent a total of 60 minutes on the date of the service which included preparing to see the patient, [id number] patient care, completing clinical documentation, obtaining and/or reviewing separately obtained history, performing a medically appropriate examination, counseling and educating the pat ient/family/caregiver, ordering medications, tests, or procedures, communicating with other HCPs (not separately reported), and communicating results to the patient/family/caregiver. Pernell Najera DO [facility] Discharge summary Author Tamiko June [facility] September 20, 2023 12:04pm Note Date/Time September 20, 2023 12: 02pm [facility] Medical Records Department [address] [place] [address] Instructions for Home/Discharge Instructions 09/20/23 1201 MR#: [id number] Acct: [id number] Name: ANGELA MAY Rep #:[id number] : 1950 72 From: Tamiko June MD PCP: Dr. Catherine Vazquez DO [place] [facility] [place] Instructions Diet Discharge Diet: No restrictions Activity Discharge Activity: May Not Drive (for 2-3 days or while taking narcotic pain meds.) May shower in (days): 1 Lifting Restrictions: 10 pounds for 1 week. Dressing / Incision Call your doctor if your incision/area has: Continuous Slow Oozing, Sudden Increased Bleeding, Increased Pain/ Swelling and Increased Redness Call your doctor if you observe: Fever of 101 or Higher Suture Line Care: Avoid Pulling/Pushing and Avoid Pinching/Bending Remove Dressing in: 1 day Additional Dressing/Incision Instructions:: Remove bulky dressing tomorrow. Mayleave op-site dressing for 3-4 days. Dermabond (glue) was used at the axillary incision this may start to peel off in about 5 days. Okay to remove Steri-Strips from the breast incision in 7 to 10 days. Follow Up Care Please Follow Up With: Tamiko June MD When: Please call [phone] for an appointment to be seen in 2 week. Test Results: Test results from this visit will be discussed in further detail at your follow- up appointment, if applicable. Discharge Plan Admission Attending Provider: Tamiko June Primary Care Provider: Catherine Vazquez Discharge Orders/Prescriptions Prescriptions: New tramadol 50 mg tablet 50 mg PO Q6H PRN (Reason: pain) Qty: 10 0RF Continued calcium carb-vit D3-minerals 600 mg calcium-400 unit tablet 600 mg calcium- 400 unit tablet 1 tab PO QDAY xippcdeoxldg-Vs-zsss-minerals [Multiple Vitamin, Womens] tablet 1 tab PO DAILY omega-3 fatty acids [Fish Oil Concentrate] 1,000 mg capsule 1,000 mg PO DAILY naproxen sodium [Aleve] 220 mg capsule 220 mg PO BID PRN (Reason: pain) valsartan-hydrochlorothiazide 160-12.5 mg tablet 1 tab PO DAILY Qty: 90 4RF Probiotic Acidophilus 250 million cell capsule 500 mmu cells PO DAILY Referrals / Follow Up: Catherine Vazquez DO [Primary Care Provider] - Disposition Disposition (needs filled in before D/C Order can be placed): Home, Self Care 09/20/23 1886<Electronically signed by Tamiko June MD>Tamiko June MD CC: Dr. Catherine Vazquez, DO ~ Signed [facility] Work Phone: 1(772) 987-868804-25-2024 Procedure [facility] 09-20-2023 History and physical note Author Tamiko June [facility] September 20, 2023 10:19am Note Date/Time September 20, 2023 9:[address] [facility] Medical Records Department [address] [place] [address] History & Physical Exam 09/20/23 0952 MR#: [id number] Acct: [id number] Name: ANGELA MAY Rep #:[id number] : 1950 72 From: Tamiko June MD PCP: Dr. Catherine Vazquez, Status:[facility] [place] Location: [place] [address] History and Physical Date of Admission: 09/20/23 Date of Service: 08/29/23 MR#: [id number] Acct: [id number] Name: ANGELA MAY Rep #: [id number] : 1950 Provider: Dr. Tamiko June MD Age/Sex: 72/F Location: [facility] Status: Signed Intake Vital Signs 08/21/2411:36 Height 5 ft 5 in Weight: 201 lb 6 oz BMI 33.5 BP 135/80 H Blood Pressure Location Lt brachial Position Sitting Respiration 18 Pulse 75 Pulse Source Monitor Temp 97.3 F L Temp Source Temporal Pulse Oximetry (%) 93 Oxygen Delivery Method room air Intake Visit Reasons: DISCUSS TREATMENT OPTIONS Chief Complaint: discuss treatment options Is patient in pain?: No Allergies No Known Allergies Allergy (Verified 08/29/23 15:13) Medications calcium carb-vit D3-minerals 600 mg calcium-400 unit tablet 1 tab PO QDAY SUPPLEMENT 08/30/17 [History Confirmed 08/29/23] mhepfyebmetd-Cb-vwqn-minerals (Multiple Vitamin, Womens tablet) 1 tab PO DAILY SUPPLEMENT 08/30/17 [History Confirmed 08/29/23] omega-3 fatty acids 1,000 mg capsule (Fish Oil Concentrate) 1,000 mg PO DAILY SUPPLEMENT 01/03/19 [History Confirmed 08/29/23] naproxen sodium 220 mg capsule (Aleve) 220 mg PO BID PRN 11/07/22 [History Confirmed 08/29/23] valsartan 160 mg-hydrochlorothiazide 12.5 mg tablet 1 tab PO DAILY #90 tabs 11/07/22 [Rx Confirmed 08/29/23] PFSH Medical History Arthritis Hypertension Osteoarthritis Osteopenia Psoriatic arthritis Surgical History History of carpal tunnel release of both wrists History of section History of left hip replacement History of right hip replacement Family History Father Arthritis Heart disease HypertensionMother HypertensionGrandmother CVA (cerebral vascular accident) Social History Smoking Status: Former smoker how long ago did patient quit smokin alcohol intake: never substance use type: does not use what type of physical activity do you participate in: walking frequency: daily HPI HPI HPI: 72 y/o F presents for discussion of left breast bx pathology and surgical options. Bx showed invasive ductal, ER/KS +, Spe4tjz -, clinically node neg. ROS General General: No weight change, appetite, fatigue, colon cancer, breast cancer or weakness HEENT HEENT: No difficulty swallowing, eye injury, eye surgery, swollen glands or hoarseness Endo Endocrine: No thyroid disease, diabetes mellitus, thyroid cancer, Hair loss, heat intolerance or cold intolerance Skin Skin: No rash or changing moles Breast Breast: Yes left breast lump, abnormal mammogram and abnormal US; No right breast lump, nipple discharge, breast pain or breast enlargement Musc Musculoskeletal: Yes arthritis; No back problems, rheumatoid arthritis, gout or joint pain Cardio Cardiovascular: Yes high blood pressure; No murmur, pacemaker, heart disease, atrial fibrillation, heart attack, heart stent, palpitations, shortness of breat with exertion or chest pain Psych Psychiatric: No depression, anxiety or hearing voices Resp Respiratory: No shortness of breath, No sleep apnea, No cough, No COPD, No asthma, No emphysema and No wheezing Gastro Gastrointestinal: No abdominal pain, No nausea or vomiting, No diarrhea, No constipation, No blood in stool, No acid reflux, No hemorrhoids, No ulcers, No gallbladder problem and No black,tarry stools Juan Daniel Hematologic: No blood thinners, No blood disorders, No bleeding, No anemia and No blood clots Neuro Neurologic: No numbness, No tingling and No weakness Exam Const General: cooperative, healthy appearing and no acute distress [facility] Head: normal to inspection Resp Effort & Inspection: normal respiratory effort Cardio Rate: regular rate GI Inspection: non-distended Palpation: soft Skin General: no rashes or lesions noted Neuro General: patient oriented x3 Extrem General: no clubbing, cyanosis or edema Psych Affect: normal affect Assessment and Plan Assessment and Plan (1) Invasive ductal carcinoma of left breast: Status: Acute Orders: Referrals Oncology C50.919 - Malignant neoplasm of unspecified site of unspecified femalebreast Oncology C50.919 - Malignant neoplasm of unspecified site of unspecified femalebreast Plan I have given the patient options for initial surgical treatment. Options are thefollowing: lumpectomy followed by radiation therapy vs. mastectomy vs. mastectomy followed by immediate reconstruction. I have described the proceduresto the patient. I have described the advantages and disadvantages of the options, but I have told the patient that among the options, the survival rate for breast cancer is the same. Pt is aware due to location of her cancer retroareolar- if she chooses a lumpectomy- her nipple/areolar complex will be included in the resection as I would not be able to save with good margins. I have told the patient that with all the surgeries that a sentinel lymph node biopsy is required. I have described the procedure of sentinel lymph node biopsyto the patient. I have told the patient that if the biopsy is positive for metastatic disease (>2 LN positive), then a full axillary lymph node dissection is required. I have told the patient that adjuvant chemotherapy will be requiredshould the lymph nodes reveal metastatic disease. Also, a full lymph node dissection will increase the risk for lymphedema, especially if there are 4 or more lymph nodes positive for metastatic disease and radiation to the axilla is also required. I have told the patient the risks of surgery, including but not limited to: infection, bleeding, scar tissue, seroma and persistent seroma, lymph leak, injury to any blood vessels, injury to any nerves (particularly the long thoracic, the thoracodorsal, and the second intercostal brachial and the resultant sequelae), lymphedema, cosmetic deformity, dysesthesias, wound infections, further surgery (especially if margins are not clear), complicationsof anesthesia, etc. the patient understands. The patient will think about the options and discuss it further with the family. Pt will meet with Dr. Germain and let us know her plan for surgery--she is currently thinking about Left breast lumpectomy, SLNbx, w nuclear tracer & blue dye, possible ALND I have answered all the patient?s questions at this point to her satisfaction and she has no further questions. Coding Level of Care Code Off vis,est,level 4 Diagnoses Invasive ductal carcinoma of left breast C50.912 08/30/23 1054 <Electronically signed by Tamiko June MD> Date Tamiko June MD 09/20/23 0954 <Electronically signed by Tamiko June MD> Cosigner Signature (if applicable): CC: Dr. Catherine Vazquez DO; Dr. Tamiko June MD~ Signed ADDENDUM by Dr. Tamiko June MD on 09/20/23 at 1019 Addendum I have examined the patient the following changes are noted: Patient is agreeable to left lumpectomy which would include the nipple areolar complex, sentinel lymph node biopsy, and injection of nuclear tracer and blue dye. Patient did not meet with Dr. Germain planning to stay with [facility] radiation oncology as well as she placed to see Dr. Pro for oncology. Patient and family no further questions this time. 09/20/23 1019<Electronically signed by Tamiko June MD> Cosigner Signature (if applicable): cc: Dr. Catherine Vazquez DO; Dr. Tamiko June MD ~* Signed [facility] Work Phone: 1(189) 472-946704-10-2024 Miscellaneous Notes* Telephone Encounter - Rhiannon Cleveland LPN - 09/05/2023 1:50 PM EDT Records received. Patient is already scheduled. Rhiannon Cleveland LPN * Telephone Encounter - Rhiannon Cleveland LPN - 09/05/2023 11:[address] Najera: Patient is being referred by Dr. Sanders. DX: breast cancer Patient is having surgery 09/20/2023. Please schedule patient to see Dr. Najera the week of 10/01/2023. Please make sure records are received from Dr. Sanders. I requested referral/records be sent today. Rhiannon Cleveland LPN * Telephone Encounter - Fannie Momin - 08/30/2023 2:42 PM EDT Patient states Dr. June was sending referral to Dr. Najera. Spouse is a current patient of Dr. Najera. documented in this encounter[facility]23 Discharge summary Author Raz Hsu [facility] September 29, 2022 12:44pm Note Date/Time September 29, 2022 12:44p [facility] Physical Therapy Health[address] [place] [address] / REHABILITATION SERVICES DISCHARGE SUMMARY MR#: [id number] Acct: [id number] Name: ANGELA MAY Rep #: [id number] : 1950 71 From: Raz Hsu PT, ATC Referring DrLatisha: VALDEZ Howard Status: REG RCR Insurance: MEDICARE PART A B AARP It has been my pleasure to treat ANGELA MAY referred by VALDEZ Hernandez, with the diagnosis of L achilles tendonitis for a total of 10 visit(s). Discharge Date: Please see the following information for a summary of their discharge status. Subjective: Pt reports she is ready for discharge at this time L achilles Pain Intensity (Out of 10): 0 % Improvement: 85 Objective/Function: L achilles pain ranges from 0-1/10. L ankle DF ROM 14 degrees. L ankle PF MMT: 34 #F. Pt is I with HEP and has achieved Rx goals. Goal 1:: Decrease L achilles pain x 50% to aid with sleep Goal Progress: Goal Met Goal 2:: Increase L PF strength x 10 #F to aid with increasing tolerance for ambulation. Goal 3:: Increase DF ROM x 10 degrees to aid with decreasing pain Goal 4:: I with HEP Goal Progress: Goal Met Plan: Discharge to [facility] If there are questions or concerns regarding this patient's physical therapy, please feel free to call me at [phone]. Thank you for the referral of thispatient. Sincerely, Raz Hsu, PT, ATC Balance/Gait/Functional tests - Balance/Special Test Scores Lower Extremity Functional Score: 63 <Electronically signed by Raz Hsu PT, ATC> 09/29/22 124 CC: VALDEZ Howard; Dr. Catherine Vazquez, DO ~ [facility] Signed [facility] Work Phone: Consult note Author Tamara Sparrow [facility] Note Date/Time October 07, 2024 11:55 am [facility] Medical Records Department [address] [place] [address] Counseling Note - Pharmacy 10/07/24 1154 MR#: [id number] Acct: [id number] Name: ANGELA MAY Rep #:[id number] : 1950 73 From: Tamara Sparrow PCP: Dr. Catherine Vazquez, DO Status:[facility] Location: [place] [address] Pharmacy [facility] has performed discharge medication reconciliation and counseling for this patient. 1. ACETAMINOPHEN 1000MG PO Q8 2. FAMOTIDINE 20MG PO DAILY 3. RIVAROXABAN 10MG PO DAILY X 13 DAYS, THEN ASPIRIN 81MG BID X 14 DAYS (THEN RESUME DAILY) 4. OXYCODONE 5-10MG PO Q4H PRN PAIN 5. SENNA/DOCUSATE 2T PO BID UNTIL FIRST BM, THEN BID PRN CONSTIPATION The patient's discharge medication list was reviewed for discrepancies and discrepancies were resolved. The patient was counseled on the following discharge medications and changes in medications for homegoing were reviewed. The Reason for Use, instructions for use, and potential side effects were reviewed for all new medications. The patient's questions regarding all of their medications were answered. The patient was able to verbally demonstrate an understanding of their dischargemedications. Medications at Discharge Home Medications Lactobacillus acidophilus 250 million cell capsule (Probiotic Acidophilus) 500 mmu cells PO DAILY 09/07/23 valsartan 160 mg-hydrochlorothiazide 12.5 mg tablet 1 tab PO DAILY #90 tabs 11/13/23 cholecalciferol (vitamin D3) 50 mcg (2,000 unit) capsule (Vitamin D3) 50 mcg PO DAILY 09/08/24 glucosamine-chondroitin 500 mg-400 mg capsule 3 cap PO DAILY 09/08/24 letrozole 2.5 mg tablet 2.5 mg PO DAILY 09/08/24 omega 7-mby-dnu-fish oil 1,200 mg (144 mg-216 mg) capsule (Fish Oil) 2 cap PO DAILY 09/08/24 acetaminophen 500 mg tablet (Tylenol Extra Strength) 500 mg PO Q6H PRN pain 09/17/24 acetaminophen 500 mg tablet 1,000 mg (2 x 500 mg) PO TID #0 tabs 10/07/24 famotidine 20 mg tablet 20 mg PO DAILY 30 days #30 tabs 10/07/24 oxycodone 5 mg tablet 5 - 10 mg (1 - 2 x 5 mg) PO Q4H PRN PRN As needed for pain. 7 days #42 tabs 10/07/24 rivaroxaban 10 mg tablet (Xarelto) 10 mg PO DAILY 13 days #13 tabs 10/07/24 sennosides 8.6 mg-docusate sodium 50 mg tablet (Stimulant Laxative Plus) 2 tab PO BID #0 tabs 10/07/24 10/07/24 1155 <Electronically signed by Tamara Sparrow> Date _ Tamara Sparrow Cosigner Signature (if applicable): Date CC: ~ Signed [facility] Work Phone: Evaluation note* Diagnosis Onset Date Resolution Status Hypertension chronic [facility] Work Phone: Evaluation note* Diagnosis Onset Date Resolution Status Achilles tendinitis, left leg acute Pain of left heel acute [facility] Work Phone: Evaluation note* Diagnosis Onset Date Resolution Status Achilles tendinitis, left leg acute Pain of left heel acute History of left hip replacement acute Hypertension chronic Osteoarthritis chronic [facility] Work Phone: Evaluation note* Diagnosis Onset Date Resolution Status Left breast lump acute [facility] Work Phone: Evaluation note* Diagnosis Onset Date Resolution Status Left breast lump acute Left breast lump acute [facility] Work Phone: Evaluation note* Diagnosis Onset Date Resolution Status Left breast lump acute Left breast lump acute Invasive ductal carcinoma of left breast acute [facility] Work Phone: Evaluation note* Diagnosis Malignant neoplasm of central portion of left breast in female, estrogen receptor positive (HCC)- Primary [facility] Diagnosis Malignant neoplasm of central portion of left breast in female, estrogen receptor positive (HCC)- Primary Vitamin D deficiency Unspecified vitamin D deficiency documented in this encounter [facility] note* Diagnosis Malignant neoplasm of central portion of left breast in female, estrogen receptor positive (HCC)- Primary documented in this encounter [facility] note* Diagnosis Malignant neoplasm of central portion of left breast in female, estrogen receptor positive (HCC)- Primary documented in this encounter [facility] note* Diagnosis Malignant neoplasm of central portion of left breast in female, estrogen receptor positive (HCC)- Primary [facility]* Diagnosis Malignant neoplasm of central portion of left breast in female, estrogen receptor positive (HCC)- 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 documented in this encounter [facility] note* Diagnosis 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- Primary Malignant neoplasm of central portion of left breast in female, estrogen receptor positive (HCC) documented in this encounter [facility] note* Diagnosis Viral URI with cough- Primary Acute upper respiratory infections of unspecified site Acute cough [facility] Acute cough [facility]* Diagnosis Malignant neoplasm of central portion of left breast in female, estrogen receptor positive (HCC)- Primary [facility]* Diagnosis 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- Primary Malignant neoplasm of central portion of left breast in female, estrogen receptor positive (HCC) [facility]* Diagnosis Malignant neoplasm of central portion of left breast in female, estrogen receptor positive (HCC)- Primary Abnormal laboratory test Other abnormal clinical finding documented in this encounter [facility] noteNo assessment information availableWPomerene Hospital Work Phone: Evaluation note* Diagnosis Hypercalcemia- Primary [facility] Additional Instructions Implant Used?: Yes [facility] Work Phone: Hospital Discharge instructionsAmbulatory Orders* 12 Lead EKG [[facility]] Location: None Selected [facility] Work Phone: Reason for referral (narrative)No reason for referral information availableWPomerene Hospital Work Phone: Chief Complaint and Reason for Visit Chief Complaint Med refill, BP check Reason for Visit Hypertension Chief Complaint Med refill, BP check SCREENING Reason for Visit Hypertension Chief Complaint ACHILLES TENDONITIS L ACHILLES TENDINITIS RX HERE Reason for Visit Achilles tendinitis, left leg Pain of left heel Chief Complaint ACHILLES TENDONITIS L ACHILLES TENDINITIS RX HERE YEARLY Reason for Visit Achilles tendinitis, left leg Pain of left heel History of left hip replacement Hypertension Osteoarthritis Chief Complaint ACHILLES TENDONITIS L ACHILLES TENDINITIS RX HERE YEARLY SCREENING Reason for Visit Achilles tendinitis, left leg Pain of left heel History of left hip replacement Hypertension Osteoarthritis Chief Complaint ACUTE LEFT BREAST YANI MP LT LUMP Reason for Visit Left breast lump Chief Complaint ACUTE LEFT BREAST YANI MP LT LUMP BIRADS 5 BIOPSY LEFT BREAST NODULE Reason for Visit Left breast lump Left breast lump Chief Complaint ACUTE LEFT BREAST YANI MP LT LUMP BIRADS 5 BIOPSY LEFT BREAST NODULE DISCUSS TREATMENT OPTIONS Left Breast, Lumpectomy,[place] No Left Breast, Lumpectomy,[place] No Reason for Visit Left breast lump Left breast lump Invasive ductal carcinoma of left breast Chief Complaint Admit Date PER DONNIE PROTOCOL RIGHT KNEE September 10, 2024 12:03pm PREOP September 10, 2024 12: 10pm Chief Complaint Admit Date PER DONNIE PROTOCOL RIGHT KNEE September 10, 2024 12:03pm PREOP September 10, 2024 12: 10pm surgery clearance September 17, 2024 2:5 6pm ERAS, ROBOTIC ASSISTED RIGHT TOTAL KNEE ARTHROPLAS October 06, 2024 7:23am ERAS, ROBOTIC ASSISTED RIGHT TOTAL KNEE ARTHROPLAS October 06, 2024 1:45pm Reason for Visit Admit Date Invasive ductal carcinoma of left breast September 17, 2024 2:56pm Right knee DJD September 17, 2024 2:5 6pm Hypertension September 17, 2024 2:5 6pm Right knee DJD October 06, 2024 7:23a m Status post right knee replacement September 252024 7:23am Chief Complaint Admit Date PER DONNIE PROTOCOL RIGHT KNEE September 10, 2024 12:03pm PREOP September 10, 2024 12: 10pm surgery clearance September 17, 2024 2:5 6pm ERAS, ROBOTIC ASSISTED RIGHT TOTAL KNEE ARTHROPLAS October 06, 2024 7:23am ERAS, ROBOTIC ASSISTED RIGHT TOTAL KNEE ARTHROPLAS October 06, 2024 1:45pm R22.41 (STAT) Localized swelling, mass a nd lump October 08, 2024 10:56am Chief Complaint Admit Date PER DONNIE PROTOCOL RIGHT KNEE September 10, 2024 12:03pm PREOP September 10, 2024 12: 10pm surgery clearance September 17, 2024 2:5 6pm ERAS, ROBOTIC ASSISTED RIGHT TOTAL KNEE ARTHROPLAS October 06, 2024 7:23am ERAS, ROBOTIC ASSISTED RIGHT TOTAL KNEE ARTHROPLAS October 06, 2024 1:45pm R22.41 (STAT) Localized swelling, mass a nd lump October 08, 2024 10:56am FOLLOW UP FROM THYROID TEST, PER DR NIURKA Ellsworth October 21, 2024 2:54pm Reason for Visit Admit Date Invasive ductal carcinoma of left breast September 17, 2024 2:56pm Right knee DJD September 17, 2024 2:5 6pm Hypertension September 17, 2024 2:5 6pm Right knee DJD October 06, 2024 7:23a m Status post right knee replacement September 252024 7:23am Elevated PTHrP level October 21, 2024 2:54 pm Frequency of urination October 21, 2024 2: 54pm Family History No Family History Records Found Relationship Condition Age at Onset Recorded Date/T bren father Arthritis Unknown Cardiac disease Unknown Hypertension Unknown mother Hypertension Unknown grandmother Cerebrovascular accident (CVA) Unknown Advance Directives No Advanced Directives Records Found Advance Directive Response Recorded Date/ Time Living Will Yes February 05, 2019 12:52pm Power of Regional Clinical Director Yes January 12:52pm Advance Directive Response Recorded Date/ Time Living Will Yes September 01, 2022 10:00am Power of Regional Clinical Director Yes September 01 10:00am Advance Directive Response Recorded Date/ Time Name of Medical Power of Regional Clinical Director SPOUSE September 07, 2023 1:55pm Living Will Yes September 07, 2023 1:55pm Power of Regional Clinical Director Yes September 06 1:55pm Advance Directive Response Recorded Date/ Time Living Will Yes September 08, 2024 1:09pm Do you have a Healthcare Power of Regional Clinical Director? No October 06, 2024 2:03pm Name of Medical Power of Regional Clinical Director September 08, 2024 1:09pm Reason for Referral Specialty Diagnoses / Procedures Referred By Amy t Referred To Contact Diagnoses Malignant neoplasm of central portion of left breast in female, estrogen receptor positive (HCC) Procedures CT SIM PLANNING RADIATION ONCOLOGY THER RAD SIMULAJ-AIDED FIELD SETTING COMPLEX Ollie Moses MD [address] [place] [address] Referral ID Status Reason Start Date Expiration Date Visits Requested Visits Authorized [id number] Pending Review PCP Requested Referral 10/19/2023 01/17/2024 1 1 Summary Purpose Additional Source Comments Goals (unrecognized section and content) Goals may be documented in a n alternate sectionGoals may be documented in an alternate sectionGoals may be documented in an alternate sectionGoals may be documented in an alternate sectionGoals may be documented in an alternate sectionGoals may be documented in an alternate sectionGoals may be documented in an alternate sectionGoals may be documented in an alternate section Care Teams (unrecognized sec tion and content) Team Status: Active Member Role Status Dates Dr. Catherine Vazquez , Family Provider Active Dr. Catherine Vazquez , DO Primary Care Provider Active Team Status: Inactive Member Role Status Dates Dr. Catherine Vazquez , DO Primary Care Provider, Referr ing Provider Active VALDEZ Collier Attending Provider Active Team Status: Inactive Member Role Status Dates Dr. Catherine Vazquez , DO Primary Care Provider Active Shiv KELLOGG PA Attending Provider, Referring Prov ider Active Team Status: Inactive Member Role Status Dates Dr. Catherine Vazquez , DO Primary Care Pr ovider, Attending Provider, Referring Provider Active Team Status: Inactive Member Role Status Dates Dr. Catherine Vazquez , DO Primary Care Provider, Referr ing Provider Active CHARLES Sarmiento Attending Provider Active Team Status: Inactive Member Role Status Dates Dr. Catherine Vazquez , DO Primary Care Provider Active CHARLES Sarmiento Attending Provider, Referring Pro vider Active Team Status: Inactive Member Role Status Dates Dr. Catherine Vazquez , Primary Care Provider, Referr ing Provider Active Dr. Tamiko June MD Attending Provider Active Team Status: Inactive Member Role Status Dates Dr. Catherine Vazquez DO Primary Care Provider Active Dr. Tamiko June MD Attending Provider, Referring Provider Active Plaster Block Layer Relationship Specialty Start Date End Date Tamiko June MD [address] [facility] [address] [place] [phone] General Surgery 09/05/23 Team Status: Active Member Role Status Dates Dr. Catherine Vazquez DO Primary Care Provider Active Dr. Tamiko June MD Attending Provider, Other Pro vider Active Team Status: Inactive Member Role Status Dates Dr. Catherine Vazquez DO Primary Care Provider Active Dr. Tamiko June MD Attending Provider Active Plaster Block Layer Relationship Specialty Start Date End Date Tamiko June MD [address] [facility] [address] [place] [phone] General Surgery 09/05/23 Plaster Block Layer Relationship Specialty Start Date End Date Catherine Vazquez DO [address] [place] [address] PCP - General Family Medicine 10/18/23 Tamiko June MD [address] [facility] [address] [place] [address] General Surgery 09/05/23 Ollie Moses MD [address] [place] [address] Physician Radiation Oncology 10/04/23 Plaster Block Layer Relationship Specialty Start Date End Date Catherine Vazquez DO [address] [place] [address] PCP - General Family Medicine 10/18/23 Tamiko June MD [address] [place] [address] [place] [address] General Surgery 09/05/23 Ollie Moses MD [address] [place] [address] Physician Radiation Oncology 10/04/23 Plaster Block Layer Relationship Specialty Start Date End Date Catherine Vazquez DO [address] [place] [address] PCP - General Family Medicine 10/18/23 Tamiko June MD [address] [place] [address] [place] [address] General Surgery 09/05/23 Ollie Moses MD [address] [place] [address] Physician Radiation Oncology 10/04/23 Plaster Block Layer Relationship Specialty Start Date End Date Catherine Vazquez DO [address] [place] [address] PCP - General Family Medicine 10/18/23 Tamiko June MD [address] [place] [place] [address] General Surgery 09/05/23 Ollie Msoes MD [address] [place] [address] Physician Radiation Oncology 10/04/23 Plaster Block Layer Relationship Specialty Start Date End Date Catherine Vazquez DO [address] [place] [address] PCP - General Family Medicine 10/18/23 Tamiko June MD [address] [place] [address] [place] [address] General Surgery 09/05/23 Ollie Moses MD [address] [place] [address] Physician Radiation Oncology 10/04/23 Plaster Block Layer Relationship Specialty Start Date End Date Catherine Vazquez DO [address] [place] [address] PCP - General Family Medicine 10/18/23 Tamiko June MD [address] [place] [place] [address] General Surgery 09/05/23 Ollie Moses MD [address] [place] [address] Physician Radiation Oncology 10/04/23 Plaster Block Layer Relationship Specialty Start Date End Date Catherine Vazquez DO [address] [place] [address] PCP - General Family Medicine 10/18/23 Tamiko June MD [address] [place] [place] [address] General Surgery 09/05/23 Ollie Moses MD [address] [place] [address] Physician Radiation Oncology 10/04/23 Plaster Block Layer Relationship Specialty Start Date End Date Catherine Vazquez DO [address] [place] [address] PCP - General Family Medicine 10/18/23 Tamiko June MD [address] [place] [place] [address] General Surgery 09/05/23 Ollie Msoes MD [address] [place] [address] Physician Radiation Oncology 10/04/23 Plaster Block Layer Relationship Specialty Start Date End Date Catherine Vazquez DO [address] [place] [address] PCP - General Family Medicine 10/18/23 Tamiko June MD [address] [place] [place] [address] General Surgery 09/05/23 Ollie Moses MD [address] [place] [address] Physician Radiation Oncology 10/04/23 Plaster Block Layer Relationship Specialty Start Date End Date Catherine Vazquez DO [address] [place] [address] PCP - General Family Medicine 10/18/23 Tamiko June MD [address] [facility] [address] [place] [address] General Surgery 09/05/23 Ollie Moses MD [address] [place] [address] Physician Radiation Oncology 10/04/23 Plaster Block Layer Relationship Specialty Start Date End Date Catherine Vazquez DO [address] [place] [address] PCP - General Family Medicine 10/18/23 Tamiko June MD [address] [facility] [address] [place] [address] General Surgery 09/05/23 Ollie Moses MD [address] [place] [address] Physician Radiation Oncology 10/04/23 Plaster Block Layer Relationship Specialty Start Date End Date Catherine Vazquez DO [address] [place] [address] PCP - General Family Medicine 10/18/23 Tamiko June MD [address] [facility] [address] [place] [phone] General Surgery 09/05/23 Ollie Moses MD [address] [place], [place] [address] Physician Radiation Oncology 10/04/23 Team Status: Active Member Role Status Dates Dr. Catherine Vazquez DO Primary Care Provider Active Team Status: Inactive Member Role Status Dates Dr. Catherine Vazquez DO Primary Care Provider Active Start: September 10, 2024 End: September 10, 2024 Dr. Yuri Jasso MD Attending Provider Active Start: September 10, 2024 End: September 10, 2024 Dr. Yuri Jasso MD Referring Provider Active Start: September 10, 2024 End: September 10, 2024 Team Status: Active Member Role Status Dates Dr. Catherine Vazquez DO Primary Care Provider Active Start: September 10, 2024 End: September 10, 2024 Dr. Josh Reyes MD Attending Provider Active Start: September 10, 2024 End: September 10, 2024 Dr. Yuri Jasso MD Referring Provider Active Start: September 10, 2024 End: September 10, 2024 Plaster Block Layer Relationship Specialty Start Date End Date Catherine Vazquez DO [address] [place] [address] PCP - General Family Medicine 10/18/23 Tamiko June MD [address] [place] [facility] [address] [place] [address] General Surgery 09/05/23 Ollie Moses MD [address] [place] [address] Physician Radiation Oncology 10/04/23 Team Status: Inactive Member Role Status Dates Dr. Catherine Vazquez , DO Primary Care Provider Active Start: September 17, 2024 End: September 17, 2024 Dr. Catherine Vazquez , DO Attending Provider Active Start: September 17, 2024 End: September 17, 2024 Dr. Catherine Vazquez , DO Referring Provider Active Start: September 17, 2024 End: September 17, 2024 Team Status: Inactive Member Role Status Dates Dr. Catherine Vazquez DO Primary Care Provider Active Start: October 06, 2024 End: October 07, 2024 Dr. Yuri Jasso MD Admit Provider Active Sta rt: October 06, 2024 End: October 07, 2024 Dr. Yuri Jasso MD Attending Provider Active Start: October 06, 2024 End: October 07, 2024 Dr. Yuri Jasso MD Referring Provider Active Start: October 06, 2024 End: October 07, 2024 Dr. Jocelin Verdugo MD Other Provider Active St art: October 06, 2024 End: October 07, 2024 Dr. Rudy Liu , Other Provider Active S tart: October 06, 2024 End: October 07, 2024 Team Status: Active Member Role Status Dates Dr. Catherine Vazquez DO Primary Care Provider Active Start: October 06, 2024 Dr. Yuri Jasso MD Admit Provider Active Sta rt: October 06, 2024 Dr. Yuri Jasso MD Referring Provider Active Start: October 06, 2024 Dr. Yuri Jasso MD Other Provider Active Sta rt: October 06, 2024 Dr. Jocelin Verdugo MD Attending Provider Active Start: October 06, 2024 Dr. Jocelin Verdugo MD Other Provider Active St art: October 06, 2024 Team Status: Inactive Member Role Status Dates Dr. Catherine Vazquez DO Primary Care Provider Active Start: October 08, 2024 End: October 08, 2024 Dr. Yuri Jasso MD Attending Provider Active Start: October 08, 2024 End: October 08, 2024 Dr. Yuri Jasso MD Referring Provider Active Start: October 08, 2024 End: October 08, 2024 Team Status: Active Member Role Status Dates Dr. Catherine Vazquez DO Primary Care Provider Active Start: October 08, 2024 Dr. Yusef Tomlin MD Attending Provider Active S tart: October 08, 2024 Team Status: Active Member Role Status Dates Dr. Catherine Vazquez DO Primary Care Provider Active Start: October 08, 2024 Dr. Yusef Tomlin MD Attending Provider Active S tart: October 08, 2024 Dr. Yuri Jasso MD Referring Provider Active Start: October 08, 2024 Team Status: Inactive Member Role Status Dates Dr. Catherine Vazquez DO Primary Care Provider Active Start: October 21, 2024 End: October 21, 2024 Dr. Catherine Vazquez DO Attending Provider Active Start: October 21, 2024 End: October 21, 2024 Dr. Catherine Vazquez DO Referring Provider Active Start: October 21, 2024 End: October 21, 2024 Team Status: Active Member Role Status Dates Dr. Catherine Vazquez DO Primary Care Provider Active Start: October 21, 2024 Dr. Catherine Vazquez DO Attending Provider Active Start: October 21, 2024 Dr. Catherine Vazquez DO Referring Provider Active Start: October 21, 2024 Source Comments (unrecognize d section and content) In the event this informatio n is protected by the Federal Confidentiality of Alcohol and Drug Abuse Patient Records regulations: The Federal rules restrict any use of the information to criminally investigate or prosecute any alcohol or drug abuse patient.[facility] the event this information is protected by the Federal Confidentiality of Alcohol and Drug Abuse Patient Records regulations: The Federal rules restrict any use of the information to criminally investigate or prosecute any alcohol or drug abuse patient.[facility] the event this information is protected by the Federal Confidentiality of Alcohol and Drug Abuse Patient Records regulations: The Federal rules restrict any use of the information to criminally investigate or prosecute any alcohol or drug abuse patient.[facility] the event this information is protected by the Federal Confidentiality of Alcohol and Drug Abuse Patient Records regulations: The Federal rules restrict any use of the information to criminally investigate or prosecute any alcohol or drug abuse patient.[facility] the event this information is protected by the Federal Confidentiality of Alcohol and Drug Abuse Patient Records regulations: The Federal rules restrict any use of the information to criminally investigate or prosecute any alcohol or drug abuse patient.[facility] the event this information is protected by the Federal Confidentiality of Alcohol and Drug Abuse Patient Records regulations: The Federal rules restrict any use of the information to criminally investigate or prosecute any alcohol or drug abuse patient.[facility] the event this information is protected by the Federal Confidentiality of Alcohol and Drug Abuse Patient Records regulations: The Federal rules restrict any use of the information to criminally investigate or prosecute any alcohol or drug abuse patient.[facility] the event this information is protected by the Federal Confidentiality of Alcohol and Drug Abuse Patient Records regulations: The Federal rules restrict any use of the information to criminally investigate or prosecute any alcohol or drug abuse patient.[facility] the event this information is protected by the Federal Confidentiality of Alcohol and Drug Abuse Patient Records regulations: The Federal rules restrict any use of the information to criminally investigate or prosecute any alcohol or drug abuse patient.[facility] the event this information is protected by the Federal Confidentiality of Alcohol and Drug Abuse Patient Records regulations: The Federal rules restrict any use of the information to criminally investigate or prosecute any alcohol or drug abuse patient.[facility] the event this information is protected by the Federal Confidentiality of Alcohol and Drug Abuse Patient Records regulations: The Federal rules restrict any use of the information to criminally investigate or prosecute any alcohol or drug abuse patient.[facility] the event this information is protected by the Federal Confidentiality of Alcohol and Drug Abuse Patient Records regulations: The Federal rules restrict any use of the information to criminally investigate or prosecute any alcohol or drug abuse patient.[facility] the event this information is protected by the Federal Confidentiality of Alcohol and Drug Abuse Patient Records regulations: The Federal rules restrict any use of the information to criminally investigate or prosecute any alcohol or drug abuse patient.[facility] the event this information is protected by the Federal Confidentiality of Alcohol and Drug Abuse Patient Records regulations: The Federal rules restrict any use of the information to criminally investigate or prosecute any alcohol or drug abuse patient.[facility] the event this information is protected by the Federal Confidentiality of Alcohol and Drug Abuse Patient Records regulations: The Federal rules restrict any use of the information to criminally investigate or prosecute any alcohol or drug abuse patient.[facility] the event this information is protected by the Federal Confidentiality of Alcohol and Drug Abuse Patient Records regulations: The Federal rules restrict any use of the information to criminally investigate or prosecute any alcohol or drug abuse patient.[facility] the event this information is protected by the Federal Confidentiality of Alcohol and Drug Abuse Patient Records regulations: The Federal rules restrict any use of the information to criminally investigate or prosecute any alcohol or drug abuse patient.[facility] HospitalIn the event this information is protected by the Federal Confidentiality of Alcohol and Drug Abuse Patient Records regulations: The Federal rules restrict any use of the information to criminally investigate or prosecute any alcohol or drug abuse patient.[facility] the event this information is protected by the Federal Confidentiality of Alcohol and Drug Abuse Patient Records regulations: The Federal rules restrict any use of the information to criminally investigate or prosecute any alcohol or drug abuse patient.[facility] the event this information is protected by the Federal Confidentiality of Alcohol and Drug Abuse Patient Records regulations: The Federal rules restrict any use of the information to criminally investigate or prosecute any alcohol or drug abuse patient.[facility]In the event this information is protected by the Federal Confidentiality of Alcohol and Drug Abuse Patient Records regulations: The Federal rules restrict any use of the information to criminally investigate or prosecute any alcohol or drug abuse patient.[facility] the event this information is protected by the Federal Confidentiality of Alcohol and Drug Abuse Patient Records regulations: The Federal rules restrict any use of the information to criminally investigate or prosecute any alcohol or drug abuse patient.[facility] HospitalIn the event this information is protected by the Federal Confidentiality of Alcohol and Drug Abuse Patient Records regulations: The Federal rules restrict any use of the information to criminally investigate or prosecute any alcohol or drug abuse patient.[facility]In the event this information is protected by the Federal Confidentiality of Alcohol and Drug Abuse Patient Records regulations: The Federal rules restrict any use of the information to criminally investigate or prosecute any alcohol or drug abuse patient.[facility] Reason for Visit (unrecogniz ed section and content) Reason Comments New Patient Reason Comments Established Patient Reason Onset Date Comments Consult Simulation Request Form 10/19/2023 Reason Comments Patient Education Reason Comments Radiotherapy On-treatment Visit Reason Comments Recheck Reason Comments Dental Clearance - Chemotherapy Reason Comments avs Reason Comments Non-Chemotherapy Treatment Specialty Diagnoses / Procedures Referred By Contac t Referred To Contact Diagnoses 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 Malignant neoplasm of central portion of left breast in female, estrogen receptor positive (HCC) Cordelia Chawla APRN.[facility] [address] [place] [address] Juan Daniel [facility] [address] [place] [address] Referral ID Status Reason Start Date Expiration Date V isits Requested Visits Authorized [id number] Authorized 03/13/2024 06/11/2024 99 99 Reason Comments Cough Drainage, sore throa t, HIGUERA, body aches x 3 days Specialty Diagnoses / Procedures Referred By Contmanish t Referred To Contact 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 Malignant neoplasm of central portion of left breast in female, estrogen receptor positive (HCC) Cordelia Chawla APRN.[facility] [address] [place] [address] Phone: tel: fax: Cordelia Chawla APRN.[facility] [address] [place] [address] Phone: tel: fax: Referral ID Status Reason Start Date Expiration Date V isits Requested Visits Authorized [id number] Authorized 12/21/2026 03/21/2027 99 99 Reason Comments Results INFORMATION SOURCE (unrecogn ized section and content) DATE CREATED AUTHOR 10/06/2024 [facility] DATE CREATED AUTHOR AUTHOR'S SARAH VO 11/10/2024 [facility] FOR RECORDS PERTAINING TO PATIENTS WHO ARE OR HAVE BEEN ENROLLED IN A CHEMICAL DEPENDENCY/SUBSTANCEABUSE PROGRAM, SOME INFORMATION MAY BE OMITTED. This clinical summary was aggregated from multiple sources. Caution should be exercised in using it in the provision of clinical care. This summary normalizes information from multiple sources, and as a consequence, information in this document may materially change the coding, format and clinical context of patient data. In addition, data may be omitted in some cases. CLINICAL DECISIONS SHOULD BE BASED ON THE PRIMARY CLINICAL RECORDS. [employer] [facility]. provides no warranty or guarantee of the accuracy or completeness of information in this document.
== END | disposition home or self-care (01) ==
LOC: NM 10:13
PROVIDERS: PCP Family Medicine; Referring Provider Family Medicine; Visit Provider Family Medicine
DX: R79.89 Other specified abnormal findings of blood chemistry (principal)
CPT/HCPCS: 78070; A9500

== ENCOUNTER → 2025-02-02 | Outpatient (CLI) | payer MEDICARE, OTHER, SELFPAY ==
--- NOTE | 2025-02-02 15:30 | BI_ITS ---
EXAM: SCRN MAMM (CAD)W/BESSIE BILAT DATE: 02/02/2025 CLINICAL HISTORY: F, Age 74 y/o , SCREENING Personal history of breast cancer. Prior left lumpectomy and radiation treatment. TECHNIQUE: Procedure Code: [id number] Modality: MG Procedure: SCRN MAMM (CAD)W/BESSIE BILAT COMPARISON: Prior exam(s) dated December 06, 2023.. FINDINGS: TISSUE DENSITY: There are scattered areas of fibroglandular density. Bilateral Breast Mammographic Findings: No significant masses, calcifications or other abnormalities are identified. Stable scarring in the retroareolar region of the left breast in keeping with history of prior surgical intervention. No suspicious masses, areas of developing architectural distortion, or suspicious calcifications. There has been no significant interval change. BI/SCRN MAMM (CAD)W/BESSIE BILAT IMPRESSION: Stable screening bilateral mammogram. OVERALL FINAL ASSESSMENT BI-RADS 2: BENIGN RECOMMENDATION: Routine annual follow-up in 1 Year A letter with findings and recommendations will be mailed to the patient. Reading Location: [facility]
== END | disposition home or self-care (01) ==
LOC: OPBI 15:17
PROVIDERS: PCP Family Medicine; Referring Provider Family Medicine; Visit Provider Family Medicine
DX: Z12.31 Encounter for screening mammogram for malignant neoplasm of breast (principal)
CPT/HCPCS: 77063; 77067